=== PATIENT | male | born 1990 | race Two or more races ===

== ENCOUNTER 2018-11-15 20:46 | Emergency (ER) | payer MEDICAID ==
[~2018-11-15] VITALS: Ht 172.7 cm; Wt 70.3 kg
[2018-11-16] MEDS ORDERED: HYDROcodone-ACET 5/325MG TAB PO ONE (02:00)
[2018-11-16] MEDS ORDERED: IBUPROFEN 600 MG TAB PO ONE (02:00)
[2018-11-16 02:31] VITALS: BP 120/88
== END 2018-11-16 02:46 | disposition home or self-care (01) ==
LOC: ER 20:46
DX: S62.346A Nondisplaced fracture of base of fifth metacarpal bone, right hand, initial encounter for closed fracture (principal); J45.909 Unspecified asthma, uncomplicated; W01.198A Fall on same level from slipping, tripping and stumbling with subsequent striking against other object, initial encounter; Y93.02 Activity, running; Y99.8 Other external cause status; Y92.89 Other specified places as the place of occurrence of the external cause
CPT/HCPCS: 29125; 73130

== ENCOUNTER 2019-01-11 17:16 | Inpatient (IN) | payer MEDICAID ==
[~2019-01-11] VITALS: Ht 172.7 cm; Wt 75.1 kg
[2019-01-11 19:10] LABS: Basophils # (auto) 0.1 uL; Basophils % (auto) 0.9 % (0.0-2.0); Eosinophils # (auto) 0.3 uL; Eosinophils % (auto) 2.4 % (0.0-7.0); Hematocrit 33.7 % (41.0-53.0); Hemoglobin 11.3 g/dL (13.5-17.5); Lymphocytes # (auto) 1.5 uL; Lymphocytes % (auto) 12.8 % (10.0-50.0); Mean Corpuscular Hemoglobin 29.3 pg (28.0-32.0); Mean Corpuscular Hgb Conc. 33.4 g/dL (32.0-36.0); Mean Corpuscular Volume 87.7 fL (80.0-100.0); Monocytes # (auto) 0.7 uL; Monocytes % (auto) 6.3 % (0.0-12.0); Neutrophils % (auto) 77.6 % (37.0-80.0); Platelet Count (auto) 327 10^3/uL (140-450); Red Blood Cells 3.85 10^6/uL (4.5-5.90); Red Cell Distribution Width 13.9 % (11.8-14.3); White Blood Cell 11.6 10^3/uL (4.4-10.8)
[2019-01-11 19:21] LABS: Albumin 3.4 g/dL (3.4-5.0); Calcium 7.2 mg/dL (8.5-10.1); Magnesium 1.6 mg/dL (1.6-2.6); Potassium 3.7 mmol/L (3.5-5.1)
[2019-01-11 19:28] LABS: Bilirubin, Total 0.3 mg/dL (0.2-1.0); Total Protein 7.3 g/dL (6.4-8.2)
[2019-01-11] MEDS ORDERED: ACETAMINOPHEN 325 MG TAB PO PRN (22:00)
[2019-01-11] MEDS ORDERED: SOD CHL 0.45% 1,000 ML IV ONE (22:00)
[2019-01-11 23:32] VITALS: BP 136/86
--- NOTE | 2019-01-11 23:35 | NUR ---
MS admit from ER SWATHI THORPE admitted to [facility]. Patient oriented to Jud Lee, primary RN, unit, room, bed, and unit policies regarding patient care and visiting hours. Patient weighed by bedscale and encouraged to call if they need something. All questions and concerns addressed, patient verbalized understanding. Note:
[2019-01-12] MEDS ORDERED: LEVE500T22 PO (00:36)
[2019-01-12 01:17] LABS: Alcohol, Urine < 3.0 mg/dL (0-5); Amphetamine Screen, Urine NEGATIVE (NEGATIVE); Benzodiazephine Screen, Urine NEGATIVE (NEGATIVE); Cannabinoid Screen, Urine POSITIVE (NEGATIVE); Cocaine Screen, Urine NEGATIVE (NEGATIVE); Opiate Scree,Urine NEGATIVE (NEGATIVE); Phencyclidine Screen, Urine NEGATIVE (NEGATIVE)
[2019-01-12 01:23] LABS: Barbiturate Scree,Urine NEGATIVE (NEGATIVE)
[2019-01-12 05:08] VITALS: BP 132/86
[2019-01-12 06:44] LABS: Potassium 3.9 mmol/L (3.5-5.1)
[2019-01-12 06:50] LABS: BUN/Creatinine Ratio 7.9
--- NOTE | 2019-01-12 07:40 | NUR ---
Opening Shift Note Assumed care of patient, awake and alert. No S/S of distress/SOB or pain. Instructed on POC and to call for assist PRN, will continue to monitor for changes Q1hr and PRN.
[2019-01-12 08:30] VITALS: BP 141/89
[2019-01-12] MEDS: LEVETIRACETAM 500 MG TAB PO SCH ×2 (09:23→22:24)
--- NOTE | 2019-01-12 10:49 | NUR ---
md Mtz rounded on patient plan for CK level to be under 1000 in order to discharge
[2019-01-12 12:30] VITALS: BP 133/86
--- NOTE | 2019-01-12 13:42 | NUR ---
pt family at bedside, pt mother updated on plan of care, shared concerns over pt being discharged to early due to rehospitalization, made mother aware no discharge order is in
[2019-01-12] MEDS ORDERED: SODIUM CHLORIDE 0.9% 1,000 ML IV SCH (13:45)
[2019-01-12 17:09] VITALS: BP 145/85
--- NOTE | 2019-01-12 18:03 | NUR ---
PT SIGNED AMA FORM TO GO VISIT HIS VISITOR (BROTHER) OUTSIDE
[2019-01-12] MEDS ORDERED: SODIUM CHLORIDE 0.9% 2,100 ML IV ONE (18:15)
--- NOTE | 2019-01-12 18:29 | NUR ---
FIRST 1000ML BAG OF NS BOLUS TOTAL 2100ML STARTED ON PT
--- NOTE | 2019-01-12 18:59 | NUR ---
PT LEFT AMA TO SEE BROTHER IN HOSPITAL LOBBY/OUTSIDE, 2ND BOLUS TO COMPLETE 2100ML STARTED, MAINTANCE FLUID OF 250ML/HR AT BEDSIDE WILL ENDORSE TO [facility]. U/A SENT TO LAB
[2019-01-12 19:02] LABS: Urine WBC None Seen /hpf (0 - 3)
[2019-01-12 19:13] LABS: Urine Bacteria NONE SEEN /hpf (None Seen); Urine Blood Negative /uL (Negative); Urine Specific Gravity 1.003 (1.001-1.035); Urine Sperm PRESENT /hpf (None Seen)
[2019-01-12] MEDS: SODIUM CHLORIDE 0.9% 1,000 ML IV SCH ×2 (21:12→22:24)
[2019-01-12 22:01] VITALS: BP 139/84
[2019-01-13] MEDS: SODIUM CHLORIDE 0.9% 1,000 ML IV SCH ×6 (02:50→23:02)
[2019-01-13 04:49] VITALS: BP 127/79
[2019-01-13 06:27] LABS: Basophils # (auto) 0.1 uL; Basophils % (auto) 1.2 % (0.0-2.0); Eosinophils # (auto) 0.2 uL; Eosinophils % (auto) 2.2 % (0.0-7.0); Hematocrit 33.1 % (41.0-53.0); Hemoglobin 11.2 g/dL (13.5-17.5); Lymphocytes # (auto) 1.5 uL; Lymphocytes % (auto) 15.3 % (10.0-50.0); Mean Corpuscular Hemoglobin 29.8 pg (28.0-32.0); Mean Corpuscular Volume 87.7 fL (80.0-100.0); Monocytes # (auto) 0.5 uL; Monocytes % (auto) 5.2 % (0.0-12.0); Neutrophils # (auto) 7.3 uL; Neutrophils % (auto) 76.1 % (37.0-80.0); Platelet Count (auto) 318 10^3/uL (140-450); Red Blood Cells 3.77 10^6/uL (4.5-5.90); Red Cell Distribution Width 14.3 % (11.8-14.3); White Blood Cell 9.6 10^3/uL (4.4-10.8)
[2019-01-13 07:27] LABS: Albumin 3.2 g/dL (3.4-5.0); Calcium 7.2 mg/dL (8.5-10.1); Magnesium 1.5 mg/dL (1.6-2.6)
[2019-01-13 07:31] LABS: BUN/Creatinine Ratio 8.8; Bilirubin, Total 0.3 mg/dL (0.2-1.0); Phosphorus 2.9 mg/dL (2.5-4.90); Total Protein 6.5 g/dL (6.4-8.2)
[2019-01-13 08:30] VITALS: BP_SYST 133; BP_SYST 134; BP_DIAS 87; BP_DIAS 99
[2019-01-13] MEDS: LEVETIRACETAM 500 MG TAB PO SCH ×2 (09:35→23:02)
--- NOTE | 2019-01-13 12:46 | NUR ---
rounded on patient per pt he has very mild generalized pain in LLQ not radiating per pt "feels like gas just thought i would let you know" asked pt if he needed anything for the pain pt denies need for prn medication, will inform md during rounds
--- NOTE | 2019-01-13 13:17 | NUR ---
pt mother came to station wanting update on pt paged md brar for update on when he will round on this patient, per pt mother she would like cardiac enzymes re ran because they were elevated on admission awaiting call back from md brar
[2019-01-13] MEDS ORDERED: CALCIUM GLUC 4.65meq/50ml D5AE 50 ML IV ONE (13:30)
[2019-01-13] MEDS ORDERED: SODIUM CHLORIDE 0.9% 2,200 ML IV ONE (13:30)
[2019-01-13] MEDS ORDERED: MAGNESIUM SULFATE 1GM/100ML 100 ML IV ONE (14:00)
[2019-01-13 16:34] VITALS: BP 137/90
--- NOTE | 2019-01-13 19:20 | NUR ---
Opening Shift Note Assumed care of patient, awake and alert. No S/S of distress/SOB. The patient reports LLQ pain which is exacerbated with deep breathing. He states that the pain is a 2/10 severity but he reports being comfortable with it. Mother is present at bedside. Instructed on POC and to call for assist PRN, will continue to monitor for changes Q1hr and PRN.
[2019-01-13 22:00] VITALS: BP_SYST 123; BP_SYST 148; BP_DIAS 90; BP_DIAS 98
[2019-01-14 05:00] VITALS: BP 129/75
[2019-01-14 05:49] LABS: Basophils # (auto) 0.1 uL; Basophils % (auto) 1.4 % (0.0-2.0); Eosinophils # (auto) 0.2 uL; Eosinophils % (auto) 2.4 % (0.0-7.0); Hematocrit 32.1 % (41.0-53.0); Hemoglobin 10.7 g/dL (13.5-17.5); Lymphocytes # (auto) 1.4 uL; Lymphocytes % (auto) 17.3 % (10.0-50.0); Mean Corpuscular Hemoglobin 29.3 pg (28.0-32.0); Mean Corpuscular Hgb Conc. 33.1 g/dL (32.0-36.0); Mean Corpuscular Volume 88.5 fL (80.0-100.0); Monocytes # (auto) 0.5 uL; Monocytes % (auto) 5.8 % (0.0-12.0); Neutrophils % (auto) 73.1 % (37.0-80.0); Platelet Count (auto) 289 10^3/uL (140-450); Red Blood Cells 3.63 10^6/uL (4.5-5.90); Red Cell Distribution Width 13.9 % (11.8-14.3); White Blood Cell 8.2 10^3/uL (4.4-10.8)
[2019-01-14] MEDS: SODIUM CHLORIDE 0.9% 1,000 ML IV SCH ×3 (05:52→09:22)
[2019-01-14 06:13] LABS: Albumin 2.9 g/dL (3.4-5.0); Calcium 6.9 mg/dL (8.5-10.1); Potassium 4.1 mmol/L (3.5-5.1)
[2019-01-14 06:21] LABS: BUN/Creatinine Ratio 7.9; Bilirubin, Total 0.3 mg/dL (0.2-1.0); Magnesium 1.5 mg/dL (1.6-2.6); Phosphorus 2.8 mg/dL (2.5-4.90)
[2019-01-14 09:00] VITALS: BP 140/89
[2019-01-14] MEDS: LEVETIRACETAM 500 MG TAB PO SCH (09:22)
[2019-01-14 12:44] VITALS: BP 136/61
[2019-01-14 13:00] VITALS: BP 133/87
--- NOTE | 2019-01-14 13:26 | NUR ---
Follow up with the following: Provider's Name:Paulette Barakat Address:[address] Appointment Date:OFFICE AT [facility] please call for appointment IF YOUR HEALTH CONDITION DOES NOT CONTINUE TO IMPROVE OR WORSENS, CONTACT YOUR PRIMARY CARE PROVIDER/DOCTOR, OR GO IMMEDIATELY TO THE NEAREST EMERGENCY DEPARTMENT FOR EVALUATION pt escorted our pt ambulatory accompaniedby his mother peripheral lac iv removed no bleeding noted
== END 2019-01-14 13:25 | disposition home or self-care (01) | DRG 351 ==
LOC: ER 17:16 → OVERFLOW 17:17 → WEST WING 23:37
PROVIDERS: ADMIT Hospitalist; ATTEND Internal Medicine
DX: M62.82 Rhabdomyolysis (principal); N17.9 Acute kidney failure, unspecified; E83.51 Hypocalcemia; E87.70 Fluid overload, unspecified; G40.909 Epilepsy, unspecified, not intractable, without status epilepticus; D64.9 Anemia, unspecified; F12.10 Cannabis abuse, uncomplicated; Z82.49 Family history of ischemic heart disease and other diseases of the circulatory system
CPT/HCPCS: 36415; 71045; 76775; 80048; 80053; 80307; 81001; 82085; 82550; 83735; 83880; 84100; 84484; 85025; 87081; 94761; 96360; G0378; J0610

== ENCOUNTER 2019-05-04 09:18 | Emergency (ER) | payer MEDICAID ==
[~2019-05-04] VITALS: Ht 172.7 cm; Wt 68.0 kg
[~2019-05-04 09:18] MED LIST: LEVE500T22 PO
[2019-05-04 09:56] LABS: Basophils # (auto) 0 uL; Basophils % (auto) 0.7 % (0.0-2.0); Eosinophils # (auto) 0 uL; Eosinophils % (auto) 0.6 % (0.0-7.0); Hematocrit 45.2 % (41.0-53.0); Hemoglobin 15.1 g/dL (13.5-17.5); Lymphocytes # (auto) 1.1 uL; Lymphocytes % (auto) 17.7 % (10.0-50.0); Mean Corpuscular Hemoglobin 29.3 pg (28.0-32.0); Mean Corpuscular Hgb Conc. 33.3 g/dL (32.0-36.0); Monocytes # (auto) 0.2 uL; Monocytes % (auto) 3.4 % (0.0-12.0); Neutrophils # (auto) 4.8 uL; Neutrophils % (auto) 77.6 % (37.0-80.0); Nucleated Red Blood Cells % 0.1 %; Platelet Count (auto) 206 10^3/uL (140-450); Red Blood Cells 5.14 10^6/uL (4.5-5.90); Red Cell Distribution Width 13.2 % (11.8-14.3); White Blood Cell 6.2 10^3/uL (4.4-10.8)
[2019-05-04 10:12] LABS: Anion Gap 4 (5-15); Blood Urea Nitrogen 20 mg/dL (7-18); Calcium 8.7 mg/dL (8.5-10.1); Carbon Dioxide 29 mmol/L (21-32); Chloride 107 mmol/L (98-107); Glucose 121 mg/dL (74-106); Potassium 5.1 mmol/L (3.5-5.1); Sodium 140 mmol/L (136-145)
[2019-05-04 10:16] LABS: Alanine Aminotransferase 26 U/L (16-61); Alkaline Phosphatase 73 U/L (45-117); Aspartate Aminotransferase 23 U/L (15-37); BUN/Creatinine Ratio 17.9; Bilirubin, Total < 0.1 mg/dL (0.2-1.0); GFR African American 102 mL/min; GFR Non-African American 84 mL/min; Total Protein 7.5 g/dL (6.4-8.2)
[2019-05-04] MEDS ORDERED: LORazepam 2MG/ML-1ML VIAL IV ONE ×2 (10:45→11:00)
[2019-05-04] MEDS ORDERED: SODIUM CHLORIDE 0.9% 1,000 ML IV ONE (10:59)
[2019-05-04] MEDS ORDERED: SODIUM CHLORIDE 0.9% 500 ML IVB ONE (10:59)
[2019-05-04 11:01] LABS: Urine Bacteria NONE SEEN /hpf (None Seen); Urine Blood Negative /uL (Negative); Urine Specific Gravity 1.018 (1.001-1.035); Urine WBC <1 /hpf (0 - 3)
[2019-05-04 11:06] LABS: Amphetamine Screen, Urine NEGATIVE (NEGATIVE); Barbiturate Scree,Urine NEGATIVE (NEGATIVE); Benzodiazephine Screen, Urine NEGATIVE (NEGATIVE); Cannabinoid Screen, Urine POSITIVE (NEGATIVE); Cocaine Screen, Urine NEGATIVE (NEGATIVE); Opiate Scree,Urine NEGATIVE (NEGATIVE); Phencyclidine Screen, Urine NEGATIVE (NEGATIVE)
[2019-05-04 13:25] VITALS: BP 113/70
== END 2019-05-04 13:22 | disposition home or self-care (01) ==
LOC: ER 09:18
DX: G40.909 Epilepsy, unspecified, not intractable, without status epilepticus (principal); F12.10 Cannabis abuse, uncomplicated; Z79.899 Other long term (current) drug therapy
CPT/HCPCS: 36415; 70450; 71046; 80053; 80307; 81001; 83735; 85025; 93005; 96365; 99285; J1953; J2060; J7060

== ENCOUNTER → 2019-06-16 | Emergency (ER) | payer MEDICAID ==
[~2019-06-16] VITALS: Ht 172.7 cm; Wt 68.0 kg
[2019-06-16 20:06] VITALS: BP 118/72
== END | disposition home or self-care (01) ==
LOC: ER 16:29
DX: S62.306A Unspecified fracture of fifth metacarpal bone, right hand, initial encounter for closed fracture (principal); R51 Headache; Z79.899 Other long term (current) drug therapy; V00.131A Fall from skateboard, initial encounter; Y93.51 Activity, roller skating (inline) and skateboarding; Y92.89 Other specified places as the place of occurrence of the external cause; Y99.8 Other external cause status
CPT/HCPCS: 29125; 70450; 73110

== ENCOUNTER 2019-10-01 21:05 | Emergency (ER) | payer MEDICAID ==
[~2019-10-01] VITALS: Ht 172.7 cm; Wt 68.0 kg
[~2019-10-01 21:05] MED LIST changes: -LEVE500T22 PO; +LEVE500T32 PO
[2019-10-01 23:34] LABS: Hematocrit 46.6 % (41.0-53.0); Hemoglobin 15.2 g/dL (13.5-17.5); Mean Corpuscular Hemoglobin 28.6 pg (28.0-32.0); Mean Corpuscular Hgb Conc. 32.6 g/dL (32.0-36.0); Mean Corpuscular Volume 87.9 fL (80.0-100.0); Platelet Count (auto) 263 10^3/uL (140-450); Red Blood Cells 5.31 10^6/uL (4.5-5.90); Red Cell Distribution Width 13.2 % (11.8-14.3); White Blood Cell 21.8 10^3/uL (4.4-10.8)
[2019-10-01 23:37] LABS: Basophils % (manual) 0 (0.0-2.0); Blast Cells 0; Eosinophils % (manual) 0 (0-7); Metamyelocytes % 0; Myelocytes % 0; Promyelocytes % 0; Reactive Lymphocytes 0
[2019-10-01 23:44] LABS: Potassium 3.7 mmol/L (3.5-5.1)
[2019-10-01 23:48] LABS: Albumin 4.8 g/dL (3.4-5.0); BUN/Creatinine Ratio 16.9; Calcium 9.4 mg/dL (8.5-10.1)
[2019-10-01 23:51] LABS: Bilirubin, Total 0.5 mg/dL (0.2-1.0); Total Protein 8.6 g/dL (6.4-8.2)
[2019-10-02 00:09] LABS: Band Neutrophils % (manual) 3; Lymphocytes % (manual) 7 (10.0-50.0); Monocytes % (manual) 3 (0-12)
[2019-10-02 00:19] LABS: Amphetamine Screen, Urine NEGATIVE (NEGATIVE); Barbiturate Scree,Urine NEGATIVE (NEGATIVE); Benzodiazephine Screen, Urine NEGATIVE (NEGATIVE); Cannabinoid Screen, Urine POSITIVE (NEGATIVE); Cocaine Screen, Urine NEGATIVE (NEGATIVE)
[2019-10-02 00:26] LABS: Opiate Scree,Urine NEGATIVE (NEGATIVE); Phencyclidine Screen, Urine NEGATIVE (NEGATIVE)
[2019-10-02] MEDS ORDERED: levETIRAcetam 500 MG TAB PO ONE (01:45)
[2019-10-02 02:47] VITALS: BP 104/63
== END 2019-10-02 03:05 | disposition home or self-care (01) ==
LOC: ER 21:05 → EDBD 21:05 → ER 10-02 03:05
DX: G40.909 Epilepsy, unspecified, not intractable, without status epilepticus (principal); F19.10 Other psychoactive substance abuse, uncomplicated; E86.0 Dehydration; F12.10 Cannabis abuse, uncomplicated; R51 Headache; M25.512 Pain in left shoulder
CPT/HCPCS: 36415; 70450; 71045; 72125; 73030; 80053; 80307; 80320; 85007; 85027; 93005

== ENCOUNTER 2019-11-22 08:01 | Emergency (ER) | payer MEDICAID ==
[~2019-11-22] VITALS: Ht 172.7 cm; Wt 72.6 kg
[2019-11-22] MEDS ORDERED: SODIUM CHLORIDE 0.9% 1,000 ML IV ONE (08:15)
[2019-11-22 08:29] LABS: Basophils # (auto) 0 10 ^3/uL (0-0.2); Basophils % (auto) 0.4 % (0.0-2.0); Eosinophils # (auto) 0.1 10 ^3/uL (0-0.8); Eosinophils % (auto) 1.5 % (0.0-7.0); Hematocrit 40.7 % (41.0-53.0); Hemoglobin 13.5 g/dL (13.5-17.5); Lymphocytes # (auto) 1.6 10 ^3/uL (0.4-5.4); Lymphocytes % (auto) 23.2 % (10.0-50.0); Mean Corpuscular Hemoglobin 29.8 pg (28.0-32.0); Mean Corpuscular Hgb Conc. 33.1 g/dL (32.0-36.0); Mean Corpuscular Volume 89.8 fL (80.0-100.0); Monocytes # (auto) 0.4 10 ^3/uL (0-1.3); Neutrophils % (auto) 69.9 % (37.0-80.0); Nucleated Red Blood Cells % 0.1 %; Platelet Count (auto) 189 10^3/uL (140-450); Red Blood Cells 4.54 10^6/uL (4.5-5.90); Red Cell Distribution Width 13.9 % (11.8-14.3); White Blood Cell 7.1 10^3/uL (4.4-10.8)
[2019-11-22] MEDS ORDERED: LORazepam 2MG/ML-1ML VIAL IV ONE (08:30)
[2019-11-22 08:44] LABS: Albumin 3.9 g/dL (3.4-5.0); Calcium 8.3 mg/dL (8.5-10.1); Potassium 3.6 mmol/L (3.5-5.1)
[2019-11-22 08:49] LABS: BUN/Creatinine Ratio 16.9; Bilirubin, Total 0.2 mg/dL (0.2-1.0); Total Protein 6.9 g/dL (6.4-8.2)
[2019-11-22 09:13] LABS: Urine Bacteria NONE SEEN /hpf (None Seen); Urine Blood Negative /uL (Negative); Urine Specific Gravity 1.012 (1.001-1.035); Urine WBC 1 /hpf (0 - 3)
[2019-11-22 09:22] LABS: Alcohol, Urine < 3.0 mg/dL (0-10); Amphetamine Screen, Urine NEGATIVE (NEGATIVE); Barbiturate Scree,Urine NEGATIVE (NEGATIVE); Benzodiazephine Screen, Urine NEGATIVE (NEGATIVE); Cannabinoid Screen, Urine POSITIVE (NEGATIVE); Cocaine Screen, Urine NEGATIVE (NEGATIVE); Opiate Scree,Urine NEGATIVE (NEGATIVE); Phencyclidine Screen, Urine NEGATIVE (NEGATIVE)
[2019-11-22 10:50] VITALS: BP 125/75
== END 2019-11-22 10:52 | disposition home or self-care (01) ==
LOC: EDBD 08:01 → ER 08:01
DX: G40.909 Epilepsy, unspecified, not intractable, without status epilepticus (principal); E86.0 Dehydration; Z79.899 Other long term (current) drug therapy
CPT/HCPCS: 36415; 70450; 80053; 80307; 81001; 85025; 96361; 96374; 99284; J2060; J7030

== ENCOUNTER 2020-03-10 21:33 | Emergency (ER) | payer MEDICAID, OTHER ==
[~2020-03-10] VITALS: Ht 172.7 cm; Wt 74.8 kg
[2020-03-11 00:17] VITALS: BP 129/87
== END 2020-03-11 00:20 | disposition home or self-care (01) ==
LOC: ER 21:38
DX: S63.91XA Sprain of unspecified part of right wrist and hand, initial encounter (principal); X58.XXXA Exposure to other specified factors, initial encounter; Y93.89 Activity, other specified; Y92.89 Other specified places as the place of occurrence of the external cause; Y99.8 Other external cause status
CPT/HCPCS: 73130

== ENCOUNTER 2020-06-08 11:09 | Emergency (ER) | payer MEDICAID, OTHER ==
[~2020-06-08] VITALS: Ht 172.7 cm; Wt 74.8 kg
[2020-06-08] MEDS ORDERED: SODIUM CHLORIDE 0.9% 500 ML IV ONE (11:45)
[2020-06-08 12:00] VITALS: BP 125/83
[2020-06-08 12:30] LABS: Basophils # (auto) 0 10 ^3/uL (0-0.2); Basophils % (auto) 0.6 % (0.0-2.0); Eosinophils # (auto) 0 10 ^3/uL (0-0.8); Eosinophils % (auto) 0.3 % (0.0-7.0); Hemoglobin 14.3 g/dL (13.5-17.5); Lymphocytes # (auto) 1.3 10 ^3/uL (0.4-5.4); Lymphocytes % (auto) 21.4 % (10.0-50.0); Mean Corpuscular Hemoglobin 29.9 pg (28.0-32.0); Mean Corpuscular Hgb Conc. 34.2 g/dL (32.0-36.0); Mean Corpuscular Volume 87.6 fL (80.0-100.0); Monocytes # (auto) 0.3 10 ^3/uL (0-1.3); Monocytes % (auto) 5.2 % (0.0-12.0); Neutrophils # (auto) 4.5 10 ^3/uL (1.6-8.6); Neutrophils % (auto) 72.5 % (37.0-80.0); Nucleated Red Blood Cells % 0.1 %; Platelet Count (auto) 210 10^3/uL (140-450); Red Blood Cells 4.79 10^6/uL (4.5-5.90); Red Cell Distribution Width 13.1 % (11.8-14.3); White Blood Cell 6.2 10^3/uL (4.4-10.8)
[2020-06-08 13:38] LABS: Albumin 4.3 g/dL (3.4-5.0); Calcium 9.3 mg/dL (8.5-10.1); Potassium 3.6 mmol/L (3.5-5.1)
[2020-06-08 13:42] LABS: BUN/Creatinine Ratio 19.8; Bilirubin, Total 0.7 mg/dL (0.2-1.0); CRP High Sensitivity 0.14 mg/dL (< 0.3); Total Protein 7.7 g/dL (6.4-8.2)
[2020-06-08 14:03] LABS: Urine Bacteria NONE SEEN /hpf (None Seen); Urine Blood Negative /uL (Negative); Urine Specific Gravity 1.013 (1.001-1.035); Urine WBC 3 /hpf (0 - 3)
== END 2020-06-08 14:54 | disposition home or self-care (01) ==
LOC: ER 11:09
DX: E86.0 Dehydration (principal); R19.7 Diarrhea, unspecified; Z20.822 Contact with and (suspected) exposure to COVID-19
CPT/HCPCS: 36415; 71045; 80053; 81001; 82728; 85025; 86141; 87426; 93005; 96360; 99285; J7030

== ENCOUNTER 2021-04-13 11:32 | Emergency (ER) | payer MEDICAID ==
[~2021-04-13] VITALS: Ht 172.7 cm; Wt 79.4 kg
[2021-04-13 14:34] VITALS: BP 129/66
[2021-04-13] MEDS ORDERED: CYCL-837 PO (15:05)
[2021-04-13] MEDS ORDERED: ACET-1158 PO (15:05)
== END 2021-04-13 15:55 | disposition home or self-care (01) ==
LOC: ER 11:32
DX: S20.212A Contusion of left front wall of thorax, initial encounter (principal); Z79.899 Other long term (current) drug therapy; W18.39XA Other fall on same level, initial encounter; Y93.23 Activity, snow (alpine) (downhill) skiing, snowboarding, sledding, tobogganing and snow tubing; Y92.89 Other specified places as the place of occurrence of the external cause; Y99.8 Other external cause status
CPT/HCPCS: 71101

== ENCOUNTER 2021-06-03 14:36 | Emergency (ER) | payer MEDICAID, OTHER ==
[~2021-06-03] VITALS: Ht 172.7 cm; Wt 79.8 kg
[~2021-06-03 14:36] MED LIST changes: +ACET-1158 PO; +CYCL-837 PO
[2021-06-03 14:37] VITALS: BP 141/91
[2021-06-03] MEDS ORDERED: METH750T22 PO (16:07)
[2021-06-03] MEDS ORDERED: ACET-1080 PO (16:07)
[2021-06-03] MEDS ORDERED: ACETAMINOPHEN 500 MG TAB PO ONE (16:15)
== END 2021-06-03 16:16 | disposition home or self-care (01) ==
LOC: ER 14:36
DX: S39.012A Strain of muscle, fascia and tendon of lower back, initial encounter (principal); S00.83XA Contusion of other part of head, initial encounter; N18.9 Chronic kidney disease, unspecified; Z79.899 Other long term (current) drug therapy; V43.52XA Car driver injured in collision with other type car in traffic accident, initial encounter; Y93.89 Activity, other specified; Y92.410 Unspecified street and highway as the place of occurrence of the external cause; Y99.8 Other external cause status
CPT/HCPCS: 72070

== ENCOUNTER 2021-09-21 01:57 | Emergency (ER) | payer MEDICAID ==
[~2021-09-21 01:57] MED LIST changes: +ACET-1080 PO; +METH750T22 PO
[2021-09-21] MEDS ORDERED: cefTRIAXone SOD 1,000 MG VL IM ONE (07:15)
[2021-09-21] MEDS ORDERED: CEPH-509 PO (07:21)
[2021-09-21] MEDS ORDERED: ACET-1158 PO (07:21)
[2021-09-21 07:55] VITALS: BP 130/66
== END 2021-09-21 08:08 | disposition home or self-care (01) ==
LOC: ER 01:57
DX: S01.81XA Laceration without foreign body of other part of head, initial encounter (principal); N18.9 Chronic kidney disease, unspecified; Z79.899 Other long term (current) drug therapy; V29.9XXA Motorcycle rider (driver) (passenger) injured in unspecified traffic accident, initial encounter; Y93.89 Activity, other specified; Y92.89 Other specified places as the place of occurrence of the external cause; Y99.8 Other external cause status
CPT/HCPCS: 70450; 96372; 99284; J0696

== ENCOUNTER 2021-09-25 13:55 | Emergency (ER) | payer MEDICAID ==
[~2021-09-25] VITALS: Ht 172.7 cm; Wt 79.5 kg
[~2021-09-25 13:55] MED LIST changes: +CEPH-509 PO
[2021-09-25 15:09] VITALS: BP 130/77
[2021-09-25] MEDS ORDERED: CEPH-509 PO (16:14)
== END 2021-09-25 16:20 | disposition home or self-care (01) ==
LOC: ER 13:55
DX: S01.81XD Laceration without foreign body of other part of head, subsequent encounter (principal); F17.210 Nicotine dependence, cigarettes, uncomplicated; F12.10 Cannabis abuse, uncomplicated; W18.09XD Striking against other object with subsequent fall, subsequent encounter

== ENCOUNTER 2021-12-12 07:03 | Emergency (ER) | payer MEDICAID ==
[~2021-12-12] VITALS: Ht 172.7 cm; Wt 170.0 kg
[2021-12-12] MEDS ORDERED: SODIUM CHLORIDE 0.9% 1,000 ML IV ONE ×2 (07:45)
[2021-12-12] MEDS ORDERED: LORazepam 2MG/ML-1ML VIAL IV ONE (07:45)
[2021-12-12 07:49] LABS: Basophils # (auto) 0.1 10 ^3/uL (0-0.2); Basophils % (auto) 0.8 % (0.0-2.0); Eosinophils # (auto) 0.1 10 ^3/uL (0-0.8); Eosinophils % (auto) 0.7 % (0.0-7.0); Hematocrit 44.6 % (41.0-53.0); Hemoglobin 14.9 g/dL (13.5-17.5); Lymphocytes # (auto) 1.6 10 ^3/uL (0.4-5.4); Lymphocytes % (auto) 16.4 % (10.0-50.0); Mean Corpuscular Hemoglobin 29.8 pg (28.0-32.0); Mean Corpuscular Hgb Conc. 33.3 g/dL (32.0-36.0); Mean Corpuscular Volume 89.4 fL (80.0-100.0); Monocytes # (auto) 0.3 10 ^3/uL (0-1.3); Monocytes % (auto) 2.7 % (0.0-12.0); Neutrophils # (auto) 7.8 10 ^3/uL (1.6-8.6); Neutrophils % (auto) 79.4 % (37.0-80.0); Red Blood Cells 4.99 10^6/uL (4.5-5.90); Red Cell Distribution Width 14.1 % (11.8-14.3); White Blood Cell 9.8 10^3/uL (4.4-10.8)
[2021-12-12 07:59] LABS: BUN/Creatinine Ratio 12.8; Calcium 8.6 mg/dL (8.5-10.1); Potassium 4.1 mmol/L (3.5-5.1)
[2021-12-12 08:02] LABS: Bilirubin, Total 0.3 mg/dL (0.2-1.0); Total Protein 7.3 g/dL (6.4-8.2)
[2021-12-12 09:26] LABS: Urine Amorphous Crystal FEW /hpf (None Seen); Urine Bacteria NONE SEEN /hpf (None Seen); Urine Blood TRACE /uL (Negative); Urine Mucus FEW (None Seen); Urine Specific Gravity 1.019 (1.001-1.035); Urine WBC <1 /hpf (0 - 3)
[2021-12-12 09:31] LABS: Amphetamine Screen, Urine NEGATIVE (NEGATIVE); Barbiturate Scree,Urine NEGATIVE (NEGATIVE); Benzodiazephine Screen, Urine NEGATIVE (NEGATIVE); Cannabinoid Screen, Urine POSITIVE (NEGATIVE); Cocaine Screen, Urine NEGATIVE (NEGATIVE); Opiate Scree,Urine NEGATIVE (NEGATIVE); Phencyclidine Screen, Urine NEGATIVE (NEGATIVE)
[2021-12-12 09:46] VITALS: BP 116/69
[2021-12-12] MEDS ORDERED: CLON0.5T PO (10:58)
== END 2021-12-12 11:14 | disposition home or self-care (01) ==
LOC: EDBD 07:03 → ER 07:03
DX: G40.909 Epilepsy, unspecified, not intractable, without status epilepticus (principal); F17.210 Nicotine dependence, cigarettes, uncomplicated; F12.10 Cannabis abuse, uncomplicated
CPT/HCPCS: 36415; 70450; 71046; 80053; 80307; 81001; 83735; 85025; 93005; 96361; 96374; 99285; J2060; J7030

== ENCOUNTER 2022-02-03 16:37 | Emergency (ER) | payer MEDICAID ==
[~2022-02-03] VITALS: Ht 177.8 cm; Wt 77.0 kg
[~2022-02-03 16:37] MED LIST changes: +CLON0.5T PO
[2022-02-03] MEDS ORDERED: SODIUM CHLORIDE 0.9% 1,000 ML IVB ONE (17:15)
[2022-02-03 17:33] LABS: Basophils # (auto) 0 10 ^3/uL (0-0.2); Basophils % (auto) 0.2 % (0.0-2.0); Eosinophils # (auto) 0 10 ^3/uL (0-0.8); Hematocrit 47.4 % (41.0-53.0); Hemoglobin 15.8 g/dL (13.5-17.5); Lymphocytes # (auto) 0.4 10 ^3/uL (0.4-5.4); Lymphocytes % (auto) 3.9 % (10.0-50.0); Mean Corpuscular Hemoglobin 29.9 pg (28.0-32.0); Mean Corpuscular Hgb Conc. 33.4 g/dL (32.0-36.0); Mean Corpuscular Volume 89.5 fL (80.0-100.0); Monocytes # (auto) 0.3 10 ^3/uL (0-1.3); Neutrophils # (auto) 8.8 10 ^3/uL (1.6-8.6); Neutrophils % (auto) 92.9 % (37.0-80.0); Red Cell Distribution Width 13.6 % (11.8-14.3); White Blood Cell 9.5 10^3/uL (4.4-10.8)
[2022-02-03 17:49] LABS: Albumin 4.2 g/dL (3.4-5.0); Anion Gap 13 (5-15); Blood Alcohol < 3.0 mg/dL (0-5); Blood Urea Nitrogen 15 mg/dL (7-18); Carbon Dioxide 19 mmol/L (21-32); Chloride 105 mmol/L (98-107); Glucose 193 mg/dL (74-106); Potassium 4.6 mmol/L (3.5-5.1); Sodium 137 mmol/L (136-145)
[2022-02-03 17:51] LABS: Alanine Aminotransferase 26 U/L (16-61); Aspartate Aminotransferase 19 U/L (15-37); BUN/Creatinine Ratio 9.9; GFR African American 70 mL/min; GFR Non-African American 58 mL/min
[2022-02-03 17:53] LABS: Alkaline Phosphatase 86 U/L (45-117); Bilirubin, Total 0.5 mg/dL (0.2-1.0); Total Protein 7.6 g/dL (6.4-8.2)
[2022-02-03 19:57] LABS: Amphetamine Screen, Urine NEGATIVE (NEGATIVE); Barbiturate Scree,Urine NEGATIVE (NEGATIVE); Benzodiazephine Screen, Urine NEGATIVE (NEGATIVE); Cannabinoid Screen, Urine POSITIVE (NEGATIVE); Cocaine Screen, Urine NEGATIVE (NEGATIVE); Opiate Scree,Urine NEGATIVE (NEGATIVE); Phencyclidine Screen, Urine NEGATIVE (NEGATIVE)
[2022-02-03] MEDS ORDERED: LEVE500T32 PO (19:59)
[2022-02-03] MEDS ORDERED: LORazepam 2MG/ML-1ML VIAL IV ONE (20:15)
[2022-02-03 21:00] VITALS: BP 116/65
== END 2022-02-03 21:11 | disposition home or self-care (01) ==
LOC: EDBD 16:37 → ER 16:37
DX: G40.909 Epilepsy, unspecified, not intractable, without status epilepticus (principal); N18.9 Chronic kidney disease, unspecified; F17.210 Nicotine dependence, cigarettes, uncomplicated; Z79.899 Other long term (current) drug therapy
CPT/HCPCS: 36415; 70450; 80053; 80307; 80320; 85025; 93005; 96365; 99285; J1953; J7060

== ENCOUNTER 2022-10-26 20:28 | Inpatient (IN) | payer MEDICAID ==
[~2022-10-26] VITALS: Ht 154.9 cm; Wt 86.0 kg
[~2022-10-26 20:28] MED LIST changes: -ACET-1158 PO; +ACET500T58 PO; +CLON-1003 PO; -CLON0.5T PO; -LEVE500T32 PO; +LEVE500T40 PO; +METH-1182 PO; -METH750T22 PO
[2022-10-26] MEDS ORDERED: ACCU-CHEK COMFORT CURVE STRIP VI ONE (20:45)
[2022-10-26 21:08] LABS: Basophils # (auto) 0.1 10 ^3/uL (0-0.2); Basophils % (auto) 0.5 % (0.0-2.0); Eosinophils # (auto) 0 10 ^3/uL (0-0.8); Eosinophils % (auto) 0.1 % (0.0-7.0); Hematocrit 41.8 % (41.0-53.0); Hemoglobin 13.7 g/dL (13.5-17.5); Lymphocytes # (auto) 1.5 10 ^3/uL (0.4-5.4); Lymphocytes % (auto) 7.2 % (10.0-50.0); Mean Corpuscular Hemoglobin 29.3 pg (28.0-32.0); Mean Corpuscular Hgb Conc. 32.8 g/dL (32.0-36.0); Mean Corpuscular Volume 89.2 fL (80.0-100.0); Monocytes # (auto) 0.8 10 ^3/uL (0-1.3); Neutrophils # (auto) 18.9 10 ^3/uL (1.6-8.6); Neutrophils % (auto) 88.2 % (37.0-80.0); Nucleated Red Blood Cells % 0.1 %; Red Blood Cells 4.69 10^6/uL (4.5-5.90); Red Cell Distribution Width 14.6 % (11.8-14.3); White Blood Cell 21.4 10^3/uL (4.4-10.8)
[2022-10-26 21:30] LABS: Alanine Aminotransferase 59 U/L (7-40); Albumin 4.8 g/dL (3.2-4.8); Alkaline Phosphatase 85 U/L (46-116); Anion Gap 12.6 (5-15); Aspartate Aminotransferase 47 U/L (13-40); BUN/Creatinine Ratio 10.2 (10.0-20.0); Bilirubin, Total 0.2 mg/dL (0.2-1.0); Blood Urea Nitrogen 13 mg/dL (9-23); Carbon Dioxide 20.4 mmol/L (20-30); Chloride 107 mmol/L (98-107); Glucose 156 mg/dL (74-106); Potassium 4.3 mmol/L (3.5-5.1); Sodium 140 mmol/L (136-145); Total Protein 7.6 g/dL (5.7-8.2)
[2022-10-26 21:48] VITALS: PULSE 89; RESP 14; O2SAT 94
[2022-10-26] MEDS ORDERED: levETIRAcetam 500 MG/5ML INJ IV ONE (23:39)
[2022-10-27] MEDS ORDERED: LORazepam 2MG/ML-1ML VIAL IV ONE ×2
[2022-10-27] MEDS ORDERED: LORazepam 2MG/ML-1ML VIAL IV PRN (01:45)
[2022-10-27] MEDS ORDERED: ONDANSETRON HCL 4 MG/2 ML VIAL IV PRN (01:45)
[2022-10-27] MEDS ORDERED: SODIUM CHLORIDE 0.9% 500 ML IV ONE (04:15)
[2022-10-27 05:59] LABS: Basophils # (auto) 0 10 ^3/uL (0-0.2); Basophils % (auto) 0.3 % (0.0-2.0); Eosinophils # (auto) 0 10 ^3/uL (0-0.8); Hematocrit 37.5 % (41.0-53.0); Hemoglobin 12.5 g/dL (13.5-17.5); Lymphocytes # (auto) 0.8 10 ^3/uL (0.4-5.4); Lymphocytes % (auto) 4.8 % (10.0-50.0); Mean Corpuscular Hemoglobin 29.4 pg (28.0-32.0); Mean Corpuscular Hgb Conc. 33.3 g/dL (32.0-36.0); Mean Corpuscular Volume 88.3 fL (80.0-100.0); Monocytes # (auto) 0.8 10 ^3/uL (0-1.3); Monocytes % (auto) 4.6 % (0.0-12.0); Neutrophils # (auto) 14.9 10 ^3/uL (1.6-8.6); Neutrophils % (auto) 90.3 % (37.0-80.0); Red Blood Cells 4.25 10^6/uL (4.5-5.90); Red Cell Distribution Width 14.6 % (11.8-14.3); White Blood Cell 16.5 10^3/uL (4.4-10.8)
[2022-10-27 06:01] LABS: Alanine Aminotransferase 48 U/L (7-40); Albumin 4.4 g/dL (3.2-4.8); Alkaline Phosphatase 75 U/L (46-116); Anion Gap 11.7 (5-15); Aspartate Aminotransferase 36 U/L (13-40); Blood Urea Nitrogen 17 mg/dL (9-23); Calcium 8.6 mg/dL (8.7-10.4); Carbon Dioxide 19.3 mmol/L (20-30); Chloride 107 mmol/L (98-107); Glucose 127 mg/dL (74-106); Potassium 3.9 mmol/L (3.5-5.1); Sodium 138 mmol/L (136-145)
[2022-10-27 06:02] LABS: Bilirubin, Total 0.4 mg/dL (0.2-1.0); Total Protein 6.9 g/dL (5.7-8.2)
[2022-10-27 06:12] LABS: Amphetamine Screen, Urine Neg (NEGATIVE); Barbiturate Scree,Urine Neg (NEGATIVE); Benzodiazephine Screen, Urine Neg (NEGATIVE); Cocaine Screen, Urine Neg (NEGATIVE)
[2022-10-27 06:13] LABS: Cannabinoid Screen, Urine Pos (NEGATIVE); Opiate Scree,Urine Neg (NEGATIVE); Phencyclidine Screen, Urine Neg (NEGATIVE)
[2022-10-27 07:35] VITALS: PULSE 98; RESP 24; O2SAT 96
[2022-10-27] MEDS: levETIRAcetam 500 MG TAB PO SCH ×2 (09:57→21:52)
[2022-10-27] MEDS: cefTRIAXone 1GM/50ML D5W 50 ML IV SCH (09:57)
[2022-10-27] MEDS: PANTOPRAZOLE 40 MG TAB PO SCH (09:57)
[2022-10-27] MEDS: ACETAMINOPHEN 325 MG TAB PO PRN ×2 (12:54→21:51)
[2022-10-27] MEDS: SODIUM CHLORIDE 0.9% 1,000 ML IV SCH ×2 (12:54→22:30)
[2022-10-27] MEDS ORDERED: CALCIUM ACETATE 667 MG CAP PO ONE (14:45)
[2022-10-27 15:25] LABS: Magnesium 2.5 mg/dL (1.6-2.6)
[2022-10-27 16:45] LABS: INR 0.98 (0.9-1.15); Partial Thromboplastin Time 29.2 SEC (24.5-34.5); Prothrombin Time 10.3 sec (9.3-11.8)
[2022-10-27 16:45] LABS: Urine Bacteria NONE SEEN /hpf (None Seen); Urine Blood Negative /uL (Negative); Urine Clarity CLOUDY (Clear); Urine Color Colorless (Yellow); Urine Protein, UAD TRACE (Negative); Urine Specific Gravity 1.012 (1.001-1.035); Urine Urobilinogen Normal (Negative); Urine WBC 3 /hpf (0 - 3); Urine pH 5.5 (5.0-8.0)
[2022-10-27] MEDS ORDERED: LORazepam 2MG/ML-1ML VIAL ONE (19:43)
[2022-10-27 20:00] VITALS: PULSE 52
[2022-10-27 20:15] VITALS: BP 133/81; PULSE 69; PULSE 70; RESP 20; TEMP 97.5; O2SAT 98
[2022-10-28] VITALS (8 sets, daily range): BP systolic 102–133; BP diastolic 53–90; PULSE 59–84; RESP 14–20; TEMP 97.6–98.7; O2SAT 97–100
[2022-10-28 05:08] LABS: Basophils # (auto) 0 10 ^3/uL (0-0.2); Basophils % (auto) 0.3 % (0.0-2.0); Eosinophils # (auto) 0 10 ^3/uL (0-0.8); Eosinophils % (auto) 0.3 % (0.0-7.0); Hematocrit 38.1 % (41.0-53.0); Hemoglobin 12.8 g/dL (13.5-17.5); Lymphocytes # (auto) 1.7 10 ^3/uL (0.4-5.4); Lymphocytes % (auto) 18.4 % (10.0-50.0); Mean Corpuscular Hemoglobin 29.9 pg (28.0-32.0); Mean Corpuscular Hgb Conc. 33.5 g/dL (32.0-36.0); Mean Corpuscular Volume 89.2 fL (80.0-100.0); Monocytes # (auto) 0.6 10 ^3/uL (0-1.3); Monocytes % (auto) 6.7 % (0.0-12.0); Neutrophils # (auto) 6.8 10 ^3/uL (1.6-8.6); Neutrophils % (auto) 74.3 % (37.0-80.0); Red Blood Cells 4.27 10^6/uL (4.5-5.90); Red Cell Distribution Width 14.6 % (11.8-14.3); White Blood Cell 9.2 10^3/uL (4.4-10.8)
[2022-10-28 05:26] LABS: Alanine Aminotransferase 37 U/L (7-40); Albumin 4.2 g/dL (3.2-4.8); Alkaline Phosphatase 70 U/L (46-116); Anion Gap 8.2 (5-15); Aspartate Aminotransferase 26 U/L (13-40); BUN/Creatinine Ratio 6.2 (10.0-20.0); Blood Urea Nitrogen 18 mg/dL (9-23); Carbon Dioxide 20.8 mmol/L (20-30); Chloride 111 mmol/L (98-107); Cholesterol 144 mg/dL (< 200); Glucose 97 mg/dL (74-106); HDL Cholesterol 58 mg/dL (40-59); LDL Cholesterol 64 mg/dL (< 100); Potassium 4.1 mmol/L (3.5-5.1); Sodium 140 mmol/L (136-145); Triglycerides 153 mg/dL (< 150)
[2022-10-28 05:27] LABS: Bilirubin, Total 0.6 mg/dL (0.2-1.0); Total Protein 6.6 g/dL (5.7-8.2)
[2022-10-28] MEDS: SODIUM CHLORIDE 0.9% 1,000 ML IV SCH ×3 (08:30→20:12)
[2022-10-28] MEDS: cefTRIAXone 1GM/50ML D5W 50 ML IV SCH (10:40)
[2022-10-28] MEDS: levETIRAcetam 500 MG TAB PO SCH (10:41)
[2022-10-28] MEDS: ACETAMINOPHEN 325 MG TAB PO PRN ×2 (10:41→20:07)
[2022-10-28] MEDS: PANTOPRAZOLE 40 MG TAB PO SCH (10:41)
[2022-10-28] MEDS ORDERED: MAGIC MOUTHWASH 55 ML SUSP MT ONE (15:30)
[2022-10-28] MEDS: OXcarbazepine 300 MG TAB PO SCH (20:57)
[2022-10-28 22:25] LABS: Urine Bacteria NONE SEEN /hpf (None Seen); Urine Blood Negative /uL (Negative); Urine Clarity Clear (Clear); Urine Color Colorless (Yellow); Urine Protein, UAD Negative (Negative); Urine Specific Gravity 1.002 (1.001-1.035); Urine Urobilinogen Normal (Negative); Urine WBC 1 /hpf (0 - 3); Urine pH 5.5 (5.0-8.0)
[2022-10-28 22:41] LABS: Sodium Urine 27 mmol/L (40-220)
[2022-10-28 22:47] LABS: Protein, Urine < 6.0 mg/dL (0.0-11.9)
[2022-10-28 22:49] LABS: Creatinine, Urine 22.28 mg/dL (30.0-125.0)
[2022-10-28] MEDS ORDERED: LORazepam 2MG/ML-1ML VIAL IV PRN (23:15)
[2022-10-29] VITALS (7 sets, daily range): BP systolic 114–144; BP diastolic 66–101; PULSE 61–75; RESP 16–99; TEMP 97.6–98.5; O2SAT 95–99
[2022-10-29 07:00] LABS: Chloride 112 mmol/L (98-107); Sodium 142 mmol/L (136-145)
[2022-10-29 07:01] LABS: Anion Gap 7.6 (5-15); Calcium 8.9 mg/dL (8.5-10.1); Carbon Dioxide 22.4 mmol/L (20-30)
[2022-10-29 07:05] LABS: Uric Acid 7.2 mg/dL (3.7-9.2)
[2022-10-29 07:06] LABS: BUN/Creatinine Ratio 6.8 (10.0-20.0); Blood Urea Nitrogen 12 mg/dL (9-23); Glucose 88 mg/dL (74-106)
[2022-10-29 07:08] LABS: Creatine Kinase IFCC 164 U/L (46-171); Phosphorus 3.8 mg/dL (2.4-5.1)
[2022-10-29 08:05] LABS: Basophils # (auto) 0 10 ^3/uL (0-0.2); Basophils % (auto) 0.5 % (0.0-2.0); Eosinophils # (auto) 0.1 10 ^3/uL (0-0.8); Eosinophils % (auto) 1.1 % (0.0-7.0); Hemoglobin 12.6 g/dL (13.5-17.5); Lymphocytes # (auto) 1.7 10 ^3/uL (0.4-5.4); Lymphocytes % (auto) 24.1 % (10.0-50.0); Mean Corpuscular Hemoglobin 29.6 pg (28.0-32.0); Mean Corpuscular Hgb Conc. 33.1 g/dL (32.0-36.0); Mean Corpuscular Volume 89.3 fL (80.0-100.0); Monocytes # (auto) 0.6 10 ^3/uL (0-1.3); Monocytes % (auto) 8.2 % (0.0-12.0); Neutrophils # (auto) 4.7 10 ^3/uL (1.6-8.6); Neutrophils % (auto) 66.1 % (37.0-80.0); Red Blood Cells 4.25 10^6/uL (4.5-5.90); Red Cell Distribution Width 14.1 % (11.8-14.3); White Blood Cell 7.2 10^3/uL (4.4-10.8)
[2022-10-29] MEDS: cefTRIAXone 1GM/50ML D5W 50 ML IV SCH (09:10)
[2022-10-29] MEDS: OXcarbazepine 300 MG TAB PO SCH ×2 (09:10→21:28)
[2022-10-29] MEDS: PANTOPRAZOLE 40 MG TAB PO SCH (09:11)
[2022-10-29] MEDS: SODIUM CHLORIDE 0.9% 1,000 ML IV SCH (14:22)
[2022-10-29] MEDS: ACETAMINOPHEN 325 MG TAB PO PRN (21:28)
[2022-10-30] VITALS (9 sets, daily range): BP systolic 123–146; BP diastolic 84–101; PULSE 54–88; RESP 16–18; TEMP 97.6–98.5; O2SAT 97–100
[2022-10-30] MEDS: SODIUM CHLORIDE 0.9% 1,000 ML IV SCH ×3 (02:06→20:30)
[2022-10-30 06:11] LABS: Basophils # (auto) 0 10 ^3/uL (0-0.2); Basophils % (auto) 0.6 % (0.0-2.0); Eosinophils # (auto) 0.1 10 ^3/uL (0-0.8); Eosinophils % (auto) 0.9 % (0.0-7.0); Hematocrit 38.8 % (41.0-53.0); Hemoglobin 13.1 g/dL (13.5-17.5); Lymphocytes % (auto) 30.9 % (10.0-50.0); Mean Corpuscular Hemoglobin 29.8 pg (28.0-32.0); Mean Corpuscular Hgb Conc. 33.8 g/dL (32.0-36.0); Mean Corpuscular Volume 88.1 fL (80.0-100.0); Monocytes # (auto) 0.4 10 ^3/uL (0-1.3); Neutrophils # (auto) 3.9 10 ^3/uL (1.6-8.6); Neutrophils % (auto) 61.6 % (37.0-80.0); Nucleated Red Blood Cells % 0.1 %; Red Blood Cells 4.41 10^6/uL (4.5-5.90); Red Cell Distribution Width 14.1 % (11.8-14.3); White Blood Cell 6.4 10^3/uL (4.4-10.8)
[2022-10-30 06:33] LABS: Alanine Aminotransferase 21 U/L (7-40); Albumin 4.4 g/dL (3.2-4.8); Alkaline Phosphatase 63 U/L (46-116); Anion Gap 6.3 (5-15); Aspartate Aminotransferase < 8 U/L (13-40); BUN/Creatinine Ratio 7.5 (10.0-20.0); Blood Urea Nitrogen 10 mg/dL (9-23); Calcium 9.1 mg/dL (8.7-10.4); Carbon Dioxide 22.7 mmol/L (20-30); Chloride 111 mmol/L (98-107); Glucose 92 mg/dL (74-106); Potassium 3.9 mmol/L (3.5-5.1); Sodium 140 mmol/L (136-145)
[2022-10-30 06:34] LABS: Bilirubin, Total 0.7 mg/dL (0.2-1.0); Total Protein 6.9 g/dL (5.7-8.2)
[2022-10-30] MEDS: OXcarbazepine 300 MG TAB PO SCH ×2 (08:59→21:08)
[2022-10-30] MEDS: PANTOPRAZOLE 40 MG TAB PO SCH (08:59)
[2022-10-30] MEDS: cefTRIAXone 1GM/50ML D5W 50 ML IV SCH (09:03)
[2022-10-31] MEDS: SODIUM CHLORIDE 0.9% 1,000 ML IV SCH (04:18)
[2022-10-31 05:00] VITALS: BP 121/79; PULSE 65; RESP 16; TEMP 98.1; O2SAT 98
[2022-10-31 06:59] LABS: Basophils # (auto) 0.1 10 ^3/uL (0-0.2); Basophils % (auto) 0.9 % (0.0-2.0); Eosinophils # (auto) 0.1 10 ^3/uL (0-0.8); Eosinophils % (auto) 2.1 % (0.0-7.0); Lymphocytes % (auto) 30.4 % (10.0-50.0); Mean Corpuscular Hgb Conc. 34.2 g/dL (32.0-36.0); Mean Corpuscular Volume 87.8 fL (80.0-100.0); Monocytes # (auto) 0.4 10 ^3/uL (0-1.3); Monocytes % (auto) 6.1 % (0.0-12.0); Neutrophils # (auto) 3.9 10 ^3/uL (1.6-8.6); Neutrophils % (auto) 60.5 % (37.0-80.0); Red Blood Cells 4.33 10^6/uL (4.5-5.90); White Blood Cell 6.5 10^3/uL (4.4-10.8)
[2022-10-31 07:29] LABS: Alanine Aminotransferase 17 U/L (7-40); Albumin 4.4 g/dL (3.2-4.8); Alkaline Phosphatase 62 U/L (46-116); Anion Gap 7.7 (5-15); Aspartate Aminotransferase < 8 U/L (13-40); BUN/Creatinine Ratio 8.3 (10.0-20.0); Blood Urea Nitrogen 10 mg/dL (9-23); Calcium 8.9 mg/dL (8.7-10.4); Carbon Dioxide 23.3 mmol/L (20-30); Chloride 111 mmol/L (98-107); Glucose 88 mg/dL (74-106); Magnesium 1.6 mg/dL (1.6-2.6); Potassium 3.7 mmol/L (3.5-5.1); Sodium 142 mmol/L (136-145)
[2022-10-31 07:31] LABS: Bilirubin, Total 0.7 mg/dL (0.2-1.0); Total Protein 6.9 g/dL (5.7-8.2)
[2022-10-31 08:00] VITALS: BP 126/90; PULSE 68; PULSE 76; RESP 16; TEMP 97.7; O2SAT 100
[2022-10-31 08:39] VITALS: BP 126/90; PULSE 68; RESP 16; TEMP 97.7; O2SAT 100
[2022-10-31] MEDS: OXcarbazepine 300 MG TAB PO SCH (09:53)
[2022-10-31] MEDS: PANTOPRAZOLE 40 MG TAB PO SCH (09:53)
[2022-10-31] MEDS ORDERED: OXCA300T4 PO (11:50)
[2022-10-31 13:00] VITALS: BP 139/90; PULSE 67; RESP 20; TEMP 98.2; O2SAT 98
== END 2022-10-31 17:22 | disposition home or self-care (01) | DRG 53 ==
LOC: EDUNIT# 20:28 → EDBD 20:28 → ER 20:35 → OVERFLOW 10-27 01:46 → WEST WING 10-27 18:08 → TELE-WESTW 10-27 18:10
PROVIDERS: ADMIT Internal Medicine Geriatric Medicine; ATTEND Student in an Organized Health Care Education/Training Program
DX: G40.901 Epilepsy, unspecified, not intractable, with status epilepticus (principal); N17.0 Acute kidney failure with tubular necrosis; E83.51 Hypocalcemia; S06.0X0A Concussion without loss of consciousness, initial encounter; D64.9 Anemia, unspecified; D72.829 Elevated white blood cell count, unspecified; E66.9 Obesity, unspecified; F12.10 Cannabis abuse, uncomplicated; F17.210 Nicotine dependence, cigarettes, uncomplicated; F10.10 Alcohol abuse, uncomplicated; S00.81XA Abrasion of other part of head, initial encounter; F41.9 Anxiety disorder, unspecified; R47.9 Unspecified speech disturbances; W18.39XA Other fall on same level, initial encounter; Z80.1 Family history of malignant neoplasm of trachea, bronchus and lung; Z82.49 Family history of ischemic heart disease and other diseases of the circulatory system; Z91.199 Patient's noncompliance with other medical treatment and regimen due to unspecified reason; Y93.89 Activity, other specified; Y92.89 Other specified places as the place of occurrence of the external cause; Y99.8 Other external cause status; Z68.35 Body mass index [BMI] 35.0-35.9, adult; Z71.41 Alcohol abuse counseling and surveillance of alcoholic
CPT/HCPCS: 36415; 70450; 70551; 71045; 76775; 80048; 80053; 80061; 80307; 81001; 82550; 82570; 83036; 83735; 84100; 84156; 84300; 84443; 84550; 85025; 85610; 85730; 87040; 95819; 96365; 96367; 96375; 99291; G0378; J0696; J7060

== ENCOUNTER 2022-12-20 09:37 | Emergency (ER) | payer MEDICAID ==
[~2022-12-20] VITALS: Ht 172.7 cm; Wt 80.4 kg
[~2022-12-20 09:37] MED LIST changes: -ACET-1080 PO; -ACET500T58 PO; -CEPH-509 PO; -CLON-1003 PO; -CYCL-837 PO; -LEVE500T40 PO; -METH-1182 PO; +OXCA300T4 PO
[2022-12-20 10:43] VITALS: BP 134/98; PULSE 78; RESP 15; TEMP 98.3; O2SAT 99
== END 2022-12-20 10:45 | disposition home or self-care (01) ==
LOC: ER 09:37
DX: S00.83XA Contusion of other part of head, initial encounter (principal); F41.9 Anxiety disorder, unspecified; F17.210 Nicotine dependence, cigarettes, uncomplicated; F12.90 Cannabis use, unspecified, uncomplicated; Z98.890 Other specified postprocedural states; W22.8XXA Striking against or struck by other objects, initial encounter; Y93.89 Activity, other specified; Y92.89 Other specified places as the place of occurrence of the external cause; Y99.8 Other external cause status
CPT/HCPCS: 70110

== ENCOUNTER 2023-01-29 00:11 | Emergency (ER) | payer MEDICAID ==
[~2023-01-29] VITALS: Ht 172.7 cm; Wt 81.0 kg
[2023-01-29] MEDS ORDERED: levETIRAcetam 500 MG TAB PO ONE (00:45)
[2023-01-29 01:21] LABS: Basophils # (auto) 0.1 10 ^3/uL (0-0.2); Basophils % (auto) 0.2 % (0.0-2.0); Eosinophils # (auto) 0 10 ^3/uL (0-0.8); Hematocrit 45.6 % (41.0-53.0); Hemoglobin 15.1 g/dL (13.5-17.5); Lymphocytes # (auto) 1.3 10 ^3/uL (0.4-5.4); Lymphocytes % (auto) 5.2 % (10.0-50.0); Mean Corpuscular Hemoglobin 29.4 pg (28.0-32.0); Mean Corpuscular Hgb Conc. 33.2 g/dL (32.0-36.0); Mean Corpuscular Volume 88.5 fL (80.0-100.0); Monocytes # (auto) 0.6 10 ^3/uL (0-1.3); Monocytes % (auto) 2.3 % (0.0-12.0); Neutrophils # (auto) 22.2 10 ^3/uL (1.6-8.6); Neutrophils % (auto) 92.3 % (37.0-80.0); Nucleated Red Blood Cells % 0.1 %; Red Blood Cells 5.15 10^6/uL (4.5-5.90); Red Cell Distribution Width 13.1 % (11.8-14.3); White Blood Cell 24.1 10^3/uL (4.4-10.8)
[2023-01-29 01:31] LABS: Alanine Aminotransferase 27 U/L (7-40); Albumin 5.1 g/dL (3.2-4.8); Alkaline Phosphatase 109 U/L (46-116); Anion Gap 15 (5-15); Aspartate Aminotransferase 33 U/L (13-40); BUN/Creatinine Ratio 9.9 (10.0-20.0); Blood Alcohol < 3.0 mg/dL (<10); Blood Urea Nitrogen 14 mg/dL (9-23); Carbon Dioxide 16 mmol/L (20-30); Chloride 103 mmol/L (98-107); Glucose 197 mg/dL (74-106); Potassium 3.6 mmol/L (3.5-5.1); Sodium 134 mmol/L (136-145)
[2023-01-29 01:32] LABS: Bilirubin, Total 0.4 mg/dL (0.2-1.0)
[2023-01-29 01:50] VITALS: PULSE 82; RESP 20; O2SAT 96
[2023-01-29] MEDS ORDERED: KEP500T PO (02:57)
[2023-01-29] MEDS ORDERED: IBUPROFEN 600 MG TAB PO ONE (03:00)
[2023-01-29] MEDS ORDERED: LORazepam 0.5 MG TAB PO ONE (03:00)
[2023-01-29 03:24] VITALS: BP 119/71; PULSE 85; RESP 14; TEMP 98.5; O2SAT 98
== END 2023-01-29 03:50 | disposition home or self-care (01) ==
LOC: EDUNIT# 00:11 → EDBD 00:11 → ER 00:11
DX: R56.9 Unspecified convulsions (principal); F41.9 Anxiety disorder, unspecified; N18.9 Chronic kidney disease, unspecified; F17.210 Nicotine dependence, cigarettes, uncomplicated; F15.90 Other stimulant use, unspecified, uncomplicated; Z98.890 Other specified postprocedural states
CPT/HCPCS: 36415; 70450; 80053; 80320; 85025; 93005

== ENCOUNTER 2023-03-07 19:09 | Emergency (ER) | payer MEDICAID ==
[~2023-03-07] VITALS: Ht 175.3 cm; Wt 72.7 kg
[~2023-03-07 19:09] MED LIST changes: +KEP500T PO
[2023-03-07] MEDS ORDERED: levETIRAcetam 1000 mg/100ml 100 ML IV ONE (20:30)
[2023-03-07] MEDS ORDERED: LORazepam 2MG/ML-1ML VIAL IV ONE (20:30)
[2023-03-07 21:48] LABS: Basophils # (auto) 0 10 ^3/uL (0-0.2); Basophils % (auto) 0.2 % (0.0-2.0); Eosinophils # (auto) 0 10 ^3/uL (0-0.8); Hematocrit 45.4 % (41.0-53.0); Hemoglobin 14.8 g/dL (13.5-17.5); Lymphocytes # (auto) 1.1 10 ^3/uL (0.4-5.4); Lymphocytes % (auto) 5.6 % (10.0-50.0); Mean Corpuscular Hemoglobin 29.1 pg (28.0-32.0); Mean Corpuscular Hgb Conc. 32.6 g/dL (32.0-36.0); Mean Corpuscular Volume 89.5 fL (80.0-100.0); Monocytes # (auto) 0.6 10 ^3/uL (0-1.3); Neutrophils # (auto) 17.5 10 ^3/uL (1.6-8.6); Neutrophils % (auto) 91.2 % (37.0-80.0); Red Blood Cells 5.08 10^6/uL (4.5-5.90); Red Cell Distribution Width 13.4 % (11.8-14.3); White Blood Cell 19.2 10^3/uL (4.4-10.8)
[2023-03-07 22:05] LABS: Alanine Aminotransferase 25 U/L (7-40); Albumin 4.7 g/dL (3.2-4.8); Alkaline Phosphatase 103 U/L (46-116); Anion Gap 9 (5-15); Aspartate Aminotransferase 25 U/L (13-40); BUN/Creatinine Ratio 8.8 (10.0-20.0); Blood Urea Nitrogen 10 mg/dL (9-23); Calcium 8.9 mg/dL (8.5-10.1); Carbon Dioxide 23 mmol/L (20-30); Chloride 106 mmol/L (98-107); Glucose 93 mg/dL (74-106); Potassium 4.3 mmol/L (3.5-5.1); Sodium 138 mmol/L (136-145)
[2023-03-07 22:06] LABS: Bilirubin, Total 0.5 mg/dL (0.2-1.0); Total Protein 7.4 g/dL (5.7-8.2)
[2023-03-07 23:38] VITALS: BP 119/80; PULSE 85; RESP 17; TEMP 98.2; O2SAT 98
== END 2023-03-07 23:41 | disposition home or self-care (01) ==
LOC: ER 19:09 → EDBD 19:09 → ER 23:39
DX: R56.9 Unspecified convulsions (principal); F17.210 Nicotine dependence, cigarettes, uncomplicated; Z79.899 Other long term (current) drug therapy
CPT/HCPCS: 36415; 80053; 85025; 93005; 96365; 99284; J1953

== ENCOUNTER 2023-08-10 07:58 | Inpatient (IN) | payer MEDICAID ==
[2023-08-10] VITALS (8 sets, daily range): BP systolic 103–126; BP diastolic 61–74; PULSE 71–98; RESP 18–25; TEMP 101.1; O2SAT 98–100
[~2023-08-10] VITALS: Ht 172.7 cm; Wt 96.1 kg
[2023-08-10] MEDS: LORazepam 2MG/ML-1ML VIAL ONE (08:21)
[2023-08-10] MEDS: SODIUM CHLORIDE 0.9% 1,000 ML IV ONE ×2 (08:23→10:24)
[2023-08-10] MEDS: LORazepam 2MG/ML-1ML VIAL IV ONE (08:24)
[2023-08-10] MEDS: ETOMIDATE (2MG/ML) 20ML VIAL IV ONE ×2 (08:35→08:44)
[2023-08-10] MEDS: ROCURONIUM 10MG/ML 10ML VIAL IV ONE ×2 (08:35→08:44)
[2023-08-10 08:44] LABS: Urine Bacteria FEW /hpf (None Seen); Urine Blood 2+ /uL (Negative); Urine Clarity Turbid (Clear); Urine Color Colorless (Yellow); Urine Protein, UAD 2+ (Negative); Urine Urobilinogen Normal (Negative); Urine WBC 2 /hpf (0 - 3); Urine pH 5.5 (5.0-9.0)
[2023-08-10] MEDS: MIDAZOLAM DRIP 50 mg/50mL 50 ML IV ONE (08:44)
[2023-08-10] MEDS: MIDAZOLAM DRIP 50 mg/50mL 50 ML IV SCH (08:45)
[2023-08-10] MEDS: levETIRAcetam 1000 mg/100ml 100 ML IV ONE (09:01)
[2023-08-10 09:20] LABS: Hematocrit 49.6 % (41.0-53.0); Hemoglobin 14.8 g/dL (13.5-17.5); Mean Corpuscular Hemoglobin 29.5 pg (28.0-32.0); Mean Corpuscular Hgb Conc. 29.9 g/dL (32.0-36.0); Mean Corpuscular Volume 98.8 fL (80.0-100.0); Red Blood Cells 5.02 10^6/uL (4.5-5.90); Red Cell Distribution Width 14.7 % (11.8-14.3)
[2023-08-10 09:23] LABS: Chloride 105 mmol/L (98-107); Potassium 4.4 mmol/L (3.5-5.1); Sodium 138 mmol/L (136-145)
[2023-08-10 09:24] LABS: Anion Gap 23.00001 (5-15); Calcium 9.1 mg/dL (8.5-10.1)
[2023-08-10 09:29] LABS: BUN/Creatinine Ratio 7.5 (10.0-20.0); Blood Urea Nitrogen 15 mg/dL (9-23)
[2023-08-10 09:31] LABS: White Blood Cell 45.7 10^3/uL (4.4-10.8)
[2023-08-10 09:32] LABS: Basophils % (manual) 0 (0.0-2.0); Blast Cells 0; Myelocytes % 0; Promyelocytes % 0; Reactive Lymphocytes 0
[2023-08-10 09:38] LABS: Carbon Dioxide < 10 mmol/L (20-30); Glucose 430 mg/dL (74-106)
[2023-08-10] MEDS: InsuLIN REG 1unit/0.01ml Soln (100units/ml) IV ONE ×2 (09:59→11:00)
[2023-08-10 10:09] LABS: Base Excess -18.3 mmol/L (-2.0-2.0)
[2023-08-10] MEDS: SODIUM BICARB 8.4% 50Meq/50ml SYR Vial IV ONE (10:15)
[2023-08-10] MEDS: cefTRIAXone 1GM/50ML D5W 50 ML IV ONE (10:28)
[2023-08-10 10:47] LABS: Lactic Acid w/Reflex 18.7 mmol/L (0.4-2.0)
[2023-08-10 11:17] LABS: Base Excess -10.1 mmol/L (-2.0-2.0)
[2023-08-10] MEDS ORDERED: ONDANSETRON HCL 4 MG/2 ML VIAL IV PRN (12:00)
[2023-08-10] MEDS ORDERED: VANCOMYCIN PER PHARMACY 0 MG IV SCH (12:00)
[2023-08-10] MEDS: PROPOFOL 100 ML IV SCH (12:08)
[2023-08-10] MEDS ORDERED: DEXTROSE (50%) 50ML SYRG IV PRN ×2 (12:15→13:45)
[2023-08-10 12:23] LABS: INR 1.13 (0.9-1.15); Prothrombin Time 11.9 sec (9.3-11.8)
[2023-08-10 12:44] LABS: Band Neutrophils % (manual) 17; Eosinophils % (manual) 1 (0-7); Lymphocytes % (manual) 21 (10.0-50.0); Metamyelocytes % 3; Monocytes % (manual) 4 (0-12); Platelet Estimate Adequate
[2023-08-10] MEDS: AZITHROMYCIN 500MG/ 250ML 250 ML IV ONE (12:44)
[2023-08-10 14:22] LABS: Anion Gap 6 (5-15); Carbon Dioxide 21 mmol/L (20-30); Potassium 3.5 mmol/L (3.5-5.1); Sodium 142 mmol/L (136-145)
[2023-08-10 14:23] LABS: Calcium 7.8 mg/dL (8.5-10.1)
[2023-08-10] MEDS: PIPERACILLIN-TAZOB 3.375GM 100 ML IV ONE (14:26)
[2023-08-10] MEDS: VANCOMYCIN 1GM/200ML 200 ML IV ONE (14:26)
[2023-08-10] MEDS: SODIUM CHLORIDE 0.9% 1,000 ML IV SCH (14:27)
[2023-08-10 14:28] LABS: BUN/Creatinine Ratio 8.5 (10.0-20.0); Blood Urea Nitrogen 15 mg/dL (9-23)
[2023-08-10 14:52] LABS: Chloride 115 mmol/L (98-107); Glucose 127 mg/dL (74-106)
[2023-08-10] MEDS ORDERED: ACCU-CHEK COMFORT CURVE STRIP VI SCH ×2 (15:00→18:00)
[2023-08-10 15:15] LABS: Lactic Acid w/Reflex 2.1 mmol/L (0.4-2.0)
[2023-08-10] MEDS: ACETAMINOPHEN 650 MG RECT SUPP PR ONE (16:18)
[2023-08-10] MEDS ORDERED: InsuLIN REG 1unit/0.01ml Soln (100units/ml) SC SCH (18:00)
[2023-08-10 18:03] LABS: Base Excess -7.2 mmol/L (-2.0-2.0)
[2023-08-10 19:40] LABS: Chloride 115 mmol/L (98-107); Potassium 3.8 mmol/L (3.5-5.1); Sodium 141 mmol/L (136-145)
[2023-08-10 19:41] LABS: Anion Gap 9 (5-15); Calcium 7.9 mg/dL (8.5-10.1); Carbon Dioxide 17 mmol/L (20-30)
[2023-08-10 19:46] LABS: BUN/Creatinine Ratio 7.7 (10.0-20.0); Blood Urea Nitrogen 20 mg/dL (9-23); Glucose 95 mg/dL (74-106)
[2023-08-10] MEDS: levETIRAcetam 1000 mg/100ml 100 ML IV SCH (21:07)
[2023-08-10] MEDS: PIPERACILLIN-TAZOB 3.375GM 100 ML IV SCH (21:07)
[2023-08-11] VITALS (14 sets, daily range): BP systolic 97–128; BP diastolic 52–86; PULSE 54–73; RESP 20–23; O2SAT 98–100
[2023-08-11 01:59] LABS: Chloride 119 mmol/L (98-107); Sodium 143 mmol/L (136-145)
[2023-08-11 02:00] LABS: Anion Gap 10 (5-15); Carbon Dioxide 14 mmol/L (20-30)
[2023-08-11 02:05] LABS: BUN/Creatinine Ratio 6.3 (10.0-20.0); Blood Urea Nitrogen 22 mg/dL (9-23); Glucose 106 mg/dL (74-106)
[2023-08-11 03:45] LABS: Basophils # (auto) 0 10 ^3/uL (0-0.2); Basophils % (auto) 0.2 % (0.0-2.0); Eosinophils # (auto) 0 10 ^3/uL (0-0.8); Eosinophils % (auto) 0.1 % (0.0-7.0); Hematocrit 37.4 % (41.0-53.0); Hemoglobin 12.5 g/dL (13.5-17.5); Lymphocytes # (auto) 1.3 10 ^3/uL (0.4-5.4); Lymphocytes % (auto) 10.2 % (10.0-50.0); Mean Corpuscular Hgb Conc. 33.6 g/dL (32.0-36.0); Mean Corpuscular Volume 89.4 fL (80.0-100.0); Monocytes # (auto) 0.6 10 ^3/uL (0-1.3); Monocytes % (auto) 4.9 % (0.0-12.0); Neutrophils # (auto) 10.7 10 ^3/uL (1.6-8.6); Neutrophils % (auto) 84.6 % (37.0-80.0); Red Blood Cells 4.18 10^6/uL (4.5-5.90); Red Cell Distribution Width 13.6 % (11.8-14.3); White Blood Cell 12.6 10^3/uL (4.4-10.8)
[2023-08-11 03:56] LABS: Alanine Aminotransferase 18 U/L (7-40); Albumin 3.6 g/dL (3.2-4.8); Alkaline Phosphatase 70 U/L (46-116); Anion Gap 8 (5-15); BUN/Creatinine Ratio 6.4 (10.0-20.0); Blood Urea Nitrogen 23 mg/dL (9-23); Carbon Dioxide 17 mmol/L (20-30); Chloride 116 mmol/L (98-107); Glucose 101 mg/dL (74-106); Potassium 3.9 mmol/L (3.5-5.1); Sodium 141 mmol/L (136-145)
[2023-08-11 03:57] LABS: Aspartate Aminotransferase 23 U/L (13-40); Bilirubin, Total 0.3 mg/dL (0.2-1.0); Total Protein 5.6 g/dL (5.7-8.2)
[2023-08-11] MEDS: fentaNYL Drip 2500mCg/250mlNS 250 ML IV SCH (04:02)
[2023-08-11 06:19] LABS: Base Excess -10.4 mmol/L (-2.0-2.0)
[2023-08-11] MEDS: VANCOMYCIN 1GM/200ML 200 ML IV SCH (08:30)
[2023-08-11 14:12] LABS: Base Excess -11.9 mmol/L (-2.0-2.0)
[2023-08-11] MEDS: FUROSEMIDE 40 MG/4 ML VIAL IV ONE (14:21)
[2023-08-11 18:09] LABS: Amphetamine Screen, Urine Neg (NEGATIVE); Barbiturate Scree,Urine Neg (NEGATIVE); Benzodiazephine Screen, Urine Pos (NEGATIVE); Cocaine Screen, Urine Neg (NEGATIVE); Opiate Scree,Urine Neg (NEGATIVE)
[2023-08-11 18:10] LABS: Cannabinoid Screen, Urine Pos (NEGATIVE); Phencyclidine Screen, Urine Neg (NEGATIVE)
[2023-08-11 18:11] LABS: Creatinine, Urine 42.55 mg/dL (30.0-125.0)
[2023-08-12] VITALS (13 sets, daily range): BP systolic 96–130; BP diastolic 52–84; PULSE 65–115; RESP 20–38; O2SAT 99–100
[2023-08-12 04:42] LABS: Basophils # (auto) 0.1 10 ^3/uL (0-0.2); Basophils % (auto) 0.5 % (0.0-2.0); Eosinophils # (auto) 0.1 10 ^3/uL (0-0.8); Hemoglobin 11.7 g/dL (13.5-17.5); Lymphocytes # (auto) 1.1 10 ^3/uL (0.4-5.4); Lymphocytes % (auto) 11.7 % (10.0-50.0); Mean Corpuscular Hemoglobin 30.1 pg (28.0-32.0); Mean Corpuscular Hgb Conc. 33.4 g/dL (32.0-36.0); Mean Corpuscular Volume 90.2 fL (80.0-100.0); Monocytes # (auto) 0.4 10 ^3/uL (0-1.3); Monocytes % (auto) 4.5 % (0.0-12.0); Neutrophils # (auto) 7.8 10 ^3/uL (1.6-8.6); Neutrophils % (auto) 82.3 % (37.0-80.0); Red Blood Cells 3.88 10^6/uL (4.5-5.90); Red Cell Distribution Width 14.1 % (11.8-14.3); White Blood Cell 9.5 10^3/uL (4.4-10.8)
[2023-08-12 04:52] LABS: Chloride 118 mmol/L (98-107); Potassium 4.3 mmol/L (3.5-5.1); Sodium 143 mmol/L (136-145)
[2023-08-12 04:53] LABS: Anion Gap 13 (5-15); Calcium 8.2 mg/dL (8.7-10.4); Carbon Dioxide 12 mmol/L (20-30)
[2023-08-12 04:58] LABS: BUN/Creatinine Ratio 4.2 (10.0-20.0); Blood Urea Nitrogen 27 mg/dL (9-23); Glucose 79 mg/dL (74-106)
[2023-08-12] MEDS: MEROPENEM 1GM IVPB 50 ML IV ONE (07:15)
[2023-08-12 08:20] LABS: Base Excess -15.1 mmol/L (-2.0-2.0)
[2023-08-12 08:30] LABS: Albumin 3.4 g/dL (3.2-4.8); Bilirubin, Direct 0.1 mg/dL (<0.3); Bilirubin, Total 0.2 mg/dL (0.2-1.0); Magnesium 2.8 mg/dL (1.6-2.6); Total Protein 5.3 g/dL (5.7-8.2)
[2023-08-12 08:38] LABS: CRP High Sensitivity 5.47 mg/dL (<1.0)
[2023-08-12] MEDS: SODIUM BICARB 8.4% 50Meq/50ml SYR Vial IV ONE (08:59)
[2023-08-12] MEDS: SODIUM BICARB 50mEq/50ml Vial 150 ML in D5W 5% 1,000 ML IV SCH (09:35)
[2023-08-12] MEDS: PANTOPRAZOLE 40 MG/10 ML VIAL INJ IV SCH (10:02)
[2023-08-12] MEDS: ENOXAPARIN SOD 30 MG/0.3 ML SYRINGE SC ONE (10:23)
[2023-08-12 13:30] LABS: INR 0.97 (0.9-1.15); Partial Thromboplastin Time 31.6 SEC (24.5-34.5); Prothrombin Time 10.3 sec (9.3-11.8)
[2023-08-12] MEDS: BUMETANIDE INJECTION 25 MG in GIVE UN-DILUTED 0 ML IV SCH (14:00)
[2023-08-12] MEDS: Nepro With Carb Steady 1 Liter Bottle GT SCH (14:45)
[2023-08-12 17:48] LABS: Hematocrit 37.4 % (41.0-53.0); Hemoglobin 12.6 g/dL (13.5-17.5)
[2023-08-12] MEDS: ACETAMINOPHEN 650 mg PER 20.3 mL UD GT ONE (20:11)
[2023-08-12] MEDS: MEROPENEM 500MG IVPB 50 ML IV SCH (22:38)
[2023-08-13] VITALS (13 sets, daily range): BP systolic 106–165; BP diastolic 74–107; PULSE 70–112; RESP 24; O2SAT 100
[2023-08-13 06:00] LABS: Basophils # (auto) 0 10 ^3/uL (0-0.2); Basophils % (auto) 0.6 % (0.0-2.0); Eosinophils # (auto) 0.2 10 ^3/uL (0-0.8); Eosinophils % (auto) 2.3 % (0.0-7.0); Hematocrit 37.3 % (41.0-53.0); Hemoglobin 12.5 g/dL (13.5-17.5); Lymphocytes # (auto) 1.1 10 ^3/uL (0.4-5.4); Lymphocytes % (auto) 14.7 % (10.0-50.0); Mean Corpuscular Hemoglobin 29.7 pg (28.0-32.0); Mean Corpuscular Hgb Conc. 33.5 g/dL (32.0-36.0); Mean Corpuscular Volume 88.9 fL (80.0-100.0); Monocytes # (auto) 0.5 10 ^3/uL (0-1.3); Neutrophils # (auto) 5.8 10 ^3/uL (1.6-8.6); Neutrophils % (auto) 76.4 % (37.0-80.0); Red Cell Distribution Width 13.9 % (11.8-14.3); White Blood Cell 7.6 10^3/uL (4.4-10.8)
[2023-08-13 06:18] LABS: % Iron Saturation 25.1 % (20-55)
[2023-08-13 06:23] LABS: Alanine Aminotransferase 18 U/L (7-40); Albumin 3.3 g/dL (3.2-4.8); Alkaline Phosphatase 59 U/L (46-116); Anion Gap 13 (5-15); Aspartate Aminotransferase 30 U/L (13-40); BUN/Creatinine Ratio 3.4 (10.0-20.0); Bilirubin, Total 0.3 mg/dL (0.2-1.0); Blood Urea Nitrogen 30 mg/dL (9-23); Calcium 8.1 mg/dL (8.7-10.4); Carbon Dioxide 21 mmol/L (20-30); Chloride 112 mmol/L (98-107); Glucose 103 mg/dL (74-106); Magnesium 2.3 mg/dL (1.6-2.6); Potassium 3.2 mmol/L (3.5-5.1); Sodium 146 mmol/L (136-145); Total Protein 5.5 g/dL (5.7-8.2)
[2023-08-13 06:34] LABS: Creatine Kinase IFCC 1632 U/L (46-171)
[2023-08-13 07:03] LABS: Base Excess -5.4 mmol/L (-2.0-2.0)
[2023-08-13] MEDS: POTASSIUM CHL 20MEQ/100ML 100 ML IV SCH (09:50)
[2023-08-13] MEDS: ENOXAPARIN SOD 30 MG/0.3 ML SYRINGE SC SCH (09:51)
[2023-08-13] MEDS: OXcarbazepine 300 MG TAB PO SCH (09:52)
[2023-08-13] MEDS ORDERED: LEVETIRACETAM 500 MG/100 ML IV SCH (10:00)
[2023-08-13] MEDS: levETIRAcetam 500 mg/100ml 100 ML IV SCH (13:45)
[2023-08-13] MEDS: hydrALAZINE HCL 20 MG/ML VL IV PRN (14:37)
[2023-08-13] MEDS: ACETAMINOPHEN 650 mg PER 20.3 mL UD GT PRN (19:59)
[2023-08-14] VITALS (14 sets, daily range): BP systolic 111–149; BP diastolic 64–106; PULSE 68–111; RESP 24–25; O2SAT 97–100
[2023-08-14 05:59] LABS: Basophils # (auto) 0 10 ^3/uL (0-0.2); Basophils % (auto) 0.4 % (0.0-2.0); Eosinophils # (auto) 0.2 10 ^3/uL (0-0.8); Eosinophils % (auto) 2.8 % (0.0-7.0); Hematocrit 41.8 % (41.0-53.0); Hemoglobin 13.7 g/dL (13.5-17.5); Lymphocytes # (auto) 1.2 10 ^3/uL (0.4-5.4); Lymphocytes % (auto) 16.8 % (10.0-50.0); Mean Corpuscular Hemoglobin 30.1 pg (28.0-32.0); Mean Corpuscular Hgb Conc. 32.9 g/dL (32.0-36.0); Mean Corpuscular Volume 91.4 fL (80.0-100.0); Monocytes # (auto) 0.6 10 ^3/uL (0-1.3); Monocytes % (auto) 8.5 % (0.0-12.0); Neutrophils # (auto) 4.9 10 ^3/uL (1.6-8.6); Neutrophils % (auto) 71.5 % (37.0-80.0); Red Blood Cells 4.57 10^6/uL (4.5-5.90); Red Cell Distribution Width 14.6 % (11.8-14.3); White Blood Cell 6.9 10^3/uL (4.4-10.8)
[2023-08-14 06:24] LABS: Alanine Aminotransferase 26 U/L (7-40); Albumin 3.6 g/dL (3.2-4.8); Alkaline Phosphatase 69 U/L (46-116); Anion Gap 16 (5-15); Aspartate Aminotransferase 65 U/L (13-40); Blood Urea Nitrogen 37 mg/dL (9-23); Calcium 8.8 mg/dL (8.7-10.4); Carbon Dioxide 22 mmol/L (20-30); Chloride 111 mmol/L (98-107); Glucose 86 mg/dL (74-106); Phosphorus 8.4 mg/dL (2.4-5.1); Sodium 149 mmol/L (136-145)
[2023-08-14 06:25] LABS: Bilirubin, Total 0.2 mg/dL (0.2-1.0); Total Protein 5.7 g/dL (5.7-8.2)
[2023-08-14 06:35] LABS: Creatine Kinase IFCC 5243 U/L (46-171)
[2023-08-14 07:11] LABS: BUN/Creatinine Ratio 3.5 (10.0-20.0)
[2023-08-14] MEDS: MEROPENEM 500MG IVPB 50 ML IV SCH (10:32)
[2023-08-14 11:06] LABS: Free T3 1.03 pg/mL (2.3-4.2)
[2023-08-14 11:08] LABS: Free T4 (Free Thyroxine) 0.51 ng/dL (0.89-1.76)
[2023-08-14 11:54] LABS: Base Excess -5.7 mmol/L (-2.0-2.0)
[2023-08-14] MEDS: levETIRAcetam 500 mg/100ml 100 ML IV SCH (12:00)
[2023-08-14] MEDS: SOD CHL 0.45% 1,000 ML IV SCH (12:53)
[2023-08-14] MEDS: OXcarbazepine 300 MG TAB PO SCH (21:50)
[2023-08-15] VITALS (8 sets, daily range): BP systolic 154–158; BP diastolic 104–110; PULSE 70–102; RESP 17–26; O2SAT 96–100
[2023-08-15 06:28] LABS: Basophils # (auto) 0 10 ^3/uL (0-0.2); Basophils % (auto) 0.6 % (0.0-2.0); Eosinophils # (auto) 0.3 10 ^3/uL (0-0.8); Eosinophils % (auto) 4.7 % (0.0-7.0); Hematocrit 36.7 % (41.0-53.0); Hemoglobin 12.4 g/dL (13.5-17.5); Lymphocytes # (auto) 1.1 10 ^3/uL (0.4-5.4); Lymphocytes % (auto) 16.5 % (10.0-50.0); Mean Corpuscular Hgb Conc. 33.9 g/dL (32.0-36.0); Mean Corpuscular Volume 88.6 fL (80.0-100.0); Monocytes # (auto) 0.6 10 ^3/uL (0-1.3); Monocytes % (auto) 8.4 % (0.0-12.0); Neutrophils # (auto) 4.6 10 ^3/uL (1.6-8.6); Neutrophils % (auto) 69.8 % (37.0-80.0); Red Blood Cells 4.14 10^6/uL (4.5-5.90); Red Cell Distribution Width 13.6 % (11.8-14.3); White Blood Cell 6.6 10^3/uL (4.4-10.8)
[2023-08-15 06:36] LABS: Alanine Aminotransferase 31 U/L (7-40); Albumin 3.9 g/dL (3.2-4.8); Alkaline Phosphatase 71 U/L (46-116); Anion Gap 15 (5-15); Aspartate Aminotransferase 89 U/L (13-40); Blood Urea Nitrogen 33 mg/dL (9-23); Calcium 9.3 mg/dL (8.7-10.4); Carbon Dioxide 19 mmol/L (20-30); Chloride 111 mmol/L (98-107); Glucose 79 mg/dL (74-106); Potassium 3.4 mmol/L (3.5-5.1); Sodium 145 mmol/L (136-145)
[2023-08-15 06:37] LABS: Bilirubin, Total 0.3 mg/dL (0.2-1.0); Total Protein 6.4 g/dL (5.7-8.2)
[2023-08-15 08:12] LABS: Base Excess -6.1 mmol/L (-2.0-2.0)
[2023-08-15] MEDS: POTASSIUM CHL 20MEQ/100ML 100 ML IV ONE (10:00)
[2023-08-15] MEDS: LORazepam 2MG/ML-1ML VIAL IV ONE (10:31)
[2023-08-15] MEDS: LORazepam 2MG/ML-1ML VIAL ONE (10:31)
[2023-08-15] MEDS ORDERED: LORazepam 2MG/ML-1ML VIAL IV PRN (11:45)
[2023-08-15 15:03] LABS: Base Excess -7.4 mmol/L (-2.0-2.0)
[2023-08-15] MEDS: LORazepam 2MG/ML-1ML VIAL IM ONE (15:14)
[2023-08-15] MEDS: SODIUM BICARB 50mEq/50ml Vial 50 ML in SOD CHL 0.45% 1,000 ML IV SCH (16:22)
[2023-08-15] MEDS: D5W/SOD CHL 0.45% 1,000 ML IV SCH (16:45)
[2023-08-15] MEDS: SOD CHL 0.45% 1,000 ML IV SCH (17:00)
[2023-08-15] MEDS: ONDANSETRON HCL 4 MG/2 ML VIAL ONE (19:59)
[2023-08-15] MEDS: ONDANSETRON HCL 4 MG/2 ML VIAL IV PRN (20:21)
[2023-08-16 06:25] LABS: Basophils # (auto) 0 10 ^3/uL (0-0.2); Basophils % (auto) 0.4 % (0.0-2.0); Eosinophils # (auto) 0.2 10 ^3/uL (0-0.8); Eosinophils % (auto) 2.5 % (0.0-7.0); Hematocrit 34.6 % (41.0-53.0); Hemoglobin 11.8 g/dL (13.5-17.5); Lymphocytes % (auto) 12.8 % (10.0-50.0); Mean Corpuscular Hemoglobin 30.1 pg (28.0-32.0); Mean Corpuscular Hgb Conc. 34.2 g/dL (32.0-36.0); Mean Corpuscular Volume 87.9 fL (80.0-100.0); Monocytes # (auto) 0.6 10 ^3/uL (0-1.3); Monocytes % (auto) 8.4 % (0.0-12.0); Neutrophils # (auto) 5.8 10 ^3/uL (1.6-8.6); Neutrophils % (auto) 75.9 % (37.0-80.0); Red Blood Cells 3.93 10^6/uL (4.5-5.90); Red Cell Distribution Width 13.7 % (11.8-14.3); White Blood Cell 7.7 10^3/uL (4.4-10.8)
[2023-08-16 06:40] LABS: Chloride 110 mmol/L (98-107); Potassium 3.2 mmol/L (3.5-5.1); Sodium 145 mmol/L (136-145)
[2023-08-16 06:41] LABS: Anion Gap 14 (5-15); Carbon Dioxide 21 mmol/L (20-30)
[2023-08-16 06:45] LABS: Alkaline Phosphatase 70 U/L (46-116)
[2023-08-16 06:46] LABS: Glucose 75 mg/dL (74-106)
[2023-08-16 06:47] LABS: BUN/Creatinine Ratio 4.5 (10.0-20.0); Blood Urea Nitrogen 42 mg/dL (9-23); Magnesium 1.5 mg/dL (1.6-2.6)
[2023-08-16 06:48] LABS: Aspartate Aminotransferase 97 U/L (13-40)
[2023-08-16 06:49] LABS: Bilirubin, Total 0.4 mg/dL (0.2-1.0); Total Protein 6.4 g/dL (5.7-8.2)
[2023-08-16 06:56] LABS: Alanine Aminotransferase 40 U/L (7-40)
[2023-08-16 06:59] LABS: Creatine Kinase IFCC 5975 U/L (46-171)
[2023-08-16] MEDS ORDERED: POTASSIUM CHL 20MEQ/100ML 100 ML IV SCH (07:00)
[2023-08-16 08:00] VITALS: PULSE 75; RESP 75; O2SAT 97
[2023-08-16] MEDS: THIAMINE HCL 100 MG TAB PO SCH (10:31)
[2023-08-16] MEDS: POTASSIUM CHL 20 Meq TABLET PO ONE ×2 (11:54→12:02)
[2023-08-16 19:24] VITALS: PULSE 58; RESP 28; O2SAT 97
[2023-08-17] VITALS (9 sets, daily range): BP systolic 134–155; BP diastolic 86–104; PULSE 56–97; RESP 16–20; TEMP 98.2–98.6; O2SAT 98–100
[2023-08-17 07:02] LABS: Alanine Aminotransferase 41 U/L (7-40); Alkaline Phosphatase 67 U/L (46-116); Anion Gap 15 (5-15); Aspartate Aminotransferase 100 U/L (13-40); BUN/Creatinine Ratio 4.4 (10.0-20.0); Calcium 8.9 mg/dL (8.5-10.1); Carbon Dioxide 18 mmol/L (20-30); Chloride 109 mmol/L (98-107); Glucose 75 mg/dL (74-106); Magnesium 1.3 mg/dL (1.6-2.6); Potassium 3.3 mmol/L (3.5-5.1); Sodium 142 mmol/L (136-145)
[2023-08-17 07:03] LABS: Bilirubin, Total 0.4 mg/dL (0.2-1.0); Total Protein 6.5 g/dL (5.7-8.2)
[2023-08-17 07:05] LABS: Blood Urea Nitrogen 29 mg/dL (9-23)
[2023-08-17 07:13] LABS: Creatine Kinase IFCC 5353 U/L (46-171)
[2023-08-17 07:24] LABS: Basophils # (auto) 0 10 ^3/uL (0-0.2); Basophils % (auto) 0.4 % (0.0-2.0); Eosinophils # (auto) 0.2 10 ^3/uL (0-0.8); Eosinophils % (auto) 2.7 % (0.0-7.0); Hematocrit 36.9 % (41.0-53.0); Hemoglobin 12.6 g/dL (13.5-17.5); Lymphocytes # (auto) 1.1 10 ^3/uL (0.4-5.4); Mean Corpuscular Hemoglobin 29.7 pg (28.0-32.0); Mean Corpuscular Volume 87.3 fL (80.0-100.0); Monocytes # (auto) 0.5 10 ^3/uL (0-1.3); Monocytes % (auto) 6.9 % (0.0-12.0); Neutrophils # (auto) 6.1 10 ^3/uL (1.6-8.6); Red Blood Cells 4.23 10^6/uL (4.5-5.90); Red Cell Distribution Width 13.3 % (11.8-14.3)
[2023-08-17 08:33] LABS: Hepatitis B Surface Antigen Negative (Negative)
[2023-08-17 08:54] LABS: Hepatitis C Antibody Negative (Negative)
[2023-08-17] MEDS: SODIUM BICARB 50mEq/50ml Vial 50 ML in SOD CHL 0.45% 1,000 ML IV SCH (10:15)
[2023-08-17] MEDS: POTASSIUM CHL 20 Meq TABLET PO ONE (11:41)
[2023-08-17] MEDS: MAGNESIUM OXIDE 400 MG TAB PO ONE (12:00)
[2023-08-18] VITALS (8 sets, daily range): BP systolic 121–154; BP diastolic 88–102; PULSE 62–96; RESP 14–20; TEMP 97.8–98.9; O2SAT 96–99
[2023-08-18 07:03] LABS: Hemoglobin 13.3 g/dL (13.5-17.5); Mean Corpuscular Volume 89.2 fL (80.0-100.0); Red Blood Cells 4.42 10^6/uL (4.5-5.90); Red Cell Distribution Width 13.5 % (11.8-14.3)
[2023-08-18 07:06] LABS: Hematocrit 39.4 % (41.0-53.0); Mean Corpuscular Hemoglobin 30.1 pg (28.0-32.0); Mean Corpuscular Hgb Conc. 33.8 g/dL (32.0-36.0)
[2023-08-18 07:11] LABS: Alanine Aminotransferase 48 U/L (7-40); Alkaline Phosphatase 65 U/L (46-116); Anion Gap 15 (5-15); Aspartate Aminotransferase 108 U/L (13-40); BUN/Creatinine Ratio 8.6 (10.0-20.0); Bilirubin, Total 0.5 mg/dL (0.2-1.0); Blood Urea Nitrogen 36 mg/dL (9-23); Calcium 8.7 mg/dL (8.5-10.1); Carbon Dioxide 19 mmol/L (20-30); Chloride 108 mmol/L (98-107); Glucose 76 mg/dL (74-106); Magnesium 1.3 mg/dL (1.6-2.6); Potassium 3.8 mmol/L (3.5-5.1); Sodium 142 mmol/L (136-145); Total Protein 6.1 g/dL (5.7-8.2)
[2023-08-18 07:23] LABS: Creatine Kinase IFCC 4913 U/L (46-171)
[2023-08-18 07:25] LABS: Basophils % (manual) 0 (0.0-2.0); Blast Cells 0; Metamyelocytes % 0; Myelocytes % 0; Promyelocytes % 0; Reactive Lymphocytes 0
[2023-08-18 08:21] LABS: Band Neutrophils % (manual) 7; Eosinophils % (manual) 1 (0-7); Lymphocytes % (manual) 17 (10.0-50.0); Monocytes % (manual) 5 (0-12); Platelet Estimate Adequate
[2023-08-18] MEDS: diphenhdrAMINE HCL 50 MG/1 ML VL IV ONE ×2 (10:01→17:50)
[2023-08-18] MEDS: MAGNESIUM OXIDE 400 MG TAB PO ONE (10:02)
[2023-08-18] MEDS: POTASSIUM EFFERVESENT TAB 25 MEQ PO ONE (13:03)
[2023-08-18] MEDS: SODIUM BICARB 50mEq/50ml Vial 50 ML in SOD CHL 0.45% 1,000 ML IV SCH (17:00)
[2023-08-18] MEDS: SOD CHL 0.45% 1,000 ML IV SCH (17:50)
[2023-08-19] VITALS (9 sets, daily range): BP systolic 113–139; BP diastolic 68–92; PULSE 75–103; RESP 14–20; TEMP 97.8–98.9; O2SAT 94–99
[2023-08-19] MEDS: diphenhdrAMINE HCL 50 MG/1 ML VL IV PRN (01:28)
[2023-08-19 06:18] LABS: Basophils # (auto) 0 10 ^3/uL (0-0.2); Basophils % (auto) 0.2 % (0.0-2.0); Eosinophils # (auto) 0.1 10 ^3/uL (0-0.8); Eosinophils % (auto) 1.3 % (0.0-7.0); Hematocrit 36.2 % (41.0-53.0); Hemoglobin 12.5 g/dL (13.5-17.5); Lymphocytes # (auto) 1.6 10 ^3/uL (0.4-5.4); Lymphocytes % (auto) 17.4 % (10.0-50.0); Mean Corpuscular Hgb Conc. 34.6 g/dL (32.0-36.0); Mean Corpuscular Volume 86.9 fL (80.0-100.0); Monocytes # (auto) 0.3 10 ^3/uL (0-1.3); Monocytes % (auto) 3.4 % (0.0-12.0); Neutrophils # (auto) 7.3 10 ^3/uL (1.6-8.6); Neutrophils % (auto) 77.7 % (37.0-80.0); Red Blood Cells 4.16 10^6/uL (4.5-5.90); Red Cell Distribution Width 13.4 % (11.8-14.3); White Blood Cell 9.4 10^3/uL (4.4-10.8)
[2023-08-19 06:35] LABS: Alanine Aminotransferase 41 U/L (7-40); Albumin 3.9 g/dL (3.2-4.8); Alkaline Phosphatase 58 U/L (46-116); Anion Gap 10 (5-15); Aspartate Aminotransferase 75 U/L (13-40); BUN/Creatinine Ratio 8.9 (10.0-20.0); Bilirubin, Total 0.5 mg/dL (0.2-1.0); Blood Urea Nitrogen 26 mg/dL (9-23); Calcium 8.7 mg/dL (8.7-10.4); Carbon Dioxide 25 mmol/L (20-30); Chloride 105 mmol/L (98-107); Glucose 95 mg/dL (74-106); Magnesium 1.3 mg/dL (1.6-2.6); Phosphorus 3.4 mg/dL (2.4-5.1); Potassium 3.3 mmol/L (3.5-5.1); Sodium 140 mmol/L (136-145); Total Protein 6.5 g/dL (5.7-8.2)
[2023-08-19] MEDS: POTASSIUM EFFERVESENT TAB 25 MEQ PO ONE (14:41)
[2023-08-19] MEDS: MAGNESIUM SULFATE 1GM/100ML 100 ML IV SCH (14:45)
[2023-08-19] MEDS: HYDROCORTONE 1% TOPICAL CREAM 30 GM TUBE TOP SCH (22:00)
[2023-08-20] VITALS (8 sets, daily range): BP systolic 102–133; BP diastolic 77–96; PULSE 73–93; RESP 14–20; TEMP 97.8–98.7; O2SAT 94–98
[2023-08-20 06:58] LABS: Basophils # (auto) 0 10 ^3/uL (0-0.2); Basophils % (auto) 0.3 % (0.0-2.0); Eosinophils # (auto) 0.2 10 ^3/uL (0-0.8); Eosinophils % (auto) 1.7 % (0.0-7.0); Hematocrit 34.5 % (41.0-53.0); Hemoglobin 11.6 g/dL (13.5-17.5); Lymphocytes # (auto) 1.7 10 ^3/uL (0.4-5.4); Lymphocytes % (auto) 18.6 % (10.0-50.0); Mean Corpuscular Hemoglobin 29.5 pg (28.0-32.0); Mean Corpuscular Hgb Conc. 33.7 g/dL (32.0-36.0); Mean Corpuscular Volume 87.6 fL (80.0-100.0); Monocytes # (auto) 0.4 10 ^3/uL (0-1.3); Monocytes % (auto) 4.1 % (0.0-12.0); Neutrophils # (auto) 6.7 10 ^3/uL (1.6-8.6); Neutrophils % (auto) 75.3 % (37.0-80.0); Red Blood Cells 3.94 10^6/uL (4.5-5.90); Red Cell Distribution Width 13.7 % (11.8-14.3); White Blood Cell 8.9 10^3/uL (4.4-10.8)
[2023-08-20 07:16] LABS: Chloride 107 mmol/L (98-107); Potassium 3.7 mmol/L (3.5-5.1); Sodium 142 mmol/L (136-145)
[2023-08-20 07:17] LABS: Anion Gap 9 (5-15); Calcium 8.9 mg/dL (8.7-10.4); Carbon Dioxide 26 mmol/L (20-30)
[2023-08-20 07:22] LABS: BUN/Creatinine Ratio 9.9 (10.0-20.0); Blood Urea Nitrogen 25 mg/dL (9-23); Glucose 94 mg/dL (74-106)
[2023-08-20] MEDS: ENOXAPARIN SOD 40 MG/0.4 ML SYRINGE SC SCH (09:44)
[2023-08-20] MEDS: SODIUM CHLORIDE 0.9% 1,000 ML IV SCH (12:32)
[2023-08-20] MEDS: POTASSIUM EFFERVESENT TAB 25 MEQ PO ONE (12:33)
[2023-08-21] VITALS (8 sets, daily range): BP systolic 131–154; BP diastolic 90–99; PULSE 71–89; RESP 16–20; TEMP 97.4–98.3; O2SAT 95–98
[2023-08-21 06:34] LABS: Basophils # (auto) 0 10 ^3/uL (0-0.2); Basophils % (auto) 0.2 % (0.0-2.0); Eosinophils # (auto) 0.2 10 ^3/uL (0-0.8); Eosinophils % (auto) 3.1 % (0.0-7.0); Hematocrit 34.4 % (41.0-53.0); Hemoglobin 11.4 g/dL (13.5-17.5); Lymphocytes # (auto) 1.9 10 ^3/uL (0.4-5.4); Lymphocytes % (auto) 24.5 % (10.0-50.0); Mean Corpuscular Hemoglobin 29.5 pg (28.0-32.0); Mean Corpuscular Hgb Conc. 33.3 g/dL (32.0-36.0); Mean Corpuscular Volume 88.5 fL (80.0-100.0); Monocytes # (auto) 0.4 10 ^3/uL (0-1.3); Monocytes % (auto) 5.7 % (0.0-12.0); Neutrophils # (auto) 5.1 10 ^3/uL (1.6-8.6); Neutrophils % (auto) 66.5 % (37.0-80.0); Nucleated Red Blood Cells % 0.1 %; Red Blood Cells 3.88 10^6/uL (4.5-5.90); Red Cell Distribution Width 13.7 % (11.8-14.3); White Blood Cell 7.6 10^3/uL (4.4-10.8)
[2023-08-21 07:04] LABS: Alanine Aminotransferase 35 U/L (7-40); Albumin 3.8 g/dL (3.2-4.8); Alkaline Phosphatase 60 U/L (46-116); Anion Gap 6 (5-15); Aspartate Aminotransferase 39 U/L (13-40); BUN/Creatinine Ratio 8.2 (10.0-20.0); Blood Urea Nitrogen 17 mg/dL (9-23); Calcium 8.8 mg/dL (8.5-10.1); Carbon Dioxide 25 mmol/L (20-30); Chloride 112 mmol/L (98-107); Creatine Kinase IFCC 1051 U/L (46-171); Glucose 94 mg/dL (74-106); Magnesium 1.6 mg/dL (1.6-2.6); Potassium 4.3 mmol/L (3.5-5.1); Sodium 143 mmol/L (136-145)
[2023-08-21 07:05] LABS: Bilirubin, Total 0.4 mg/dL (0.2-1.0); Total Protein 6.3 g/dL (5.7-8.2)
[2023-08-22 01:00] VITALS: BP 131/75; PULSE 78; RESP 18; TEMP 98.3; O2SAT 96
[2023-08-22 05:00] VITALS: BP 126/88; PULSE 73; RESP 18; TEMP 98.2; O2SAT 96
[2023-08-22 06:24] LABS: Chloride 113 mmol/L (98-107); Sodium 144 mmol/L (136-145)
[2023-08-22 06:25] LABS: Anion Gap 6 (5-15); Calcium 9.1 mg/dL (8.7-10.4); Carbon Dioxide 25 mmol/L (20-30)
[2023-08-22 06:30] LABS: Glucose 92 mg/dL (74-106)
[2023-08-22 06:31] LABS: Blood Urea Nitrogen 16 mg/dL (9-23)
[2023-08-22 06:42] LABS: Basophils # (auto) 0 10 ^3/uL (0-0.2); Basophils % (auto) 0.4 % (0.0-2.0); Eosinophils # (auto) 0.3 10 ^3/uL (0-0.8); Eosinophils % (auto) 4.1 % (0.0-7.0); Hematocrit 33.6 % (41.0-53.0); Hemoglobin 11.4 g/dL (13.5-17.5); Lymphocytes % (auto) 26.2 % (10.0-50.0); Mean Corpuscular Hemoglobin 30.3 pg (28.0-32.0); Mean Corpuscular Hgb Conc. 34.1 g/dL (32.0-36.0); Mean Corpuscular Volume 88.7 fL (80.0-100.0); Monocytes # (auto) 0.4 10 ^3/uL (0-1.3); Monocytes % (auto) 5.7 % (0.0-12.0); Neutrophils # (auto) 4.8 10 ^3/uL (1.6-8.6); Neutrophils % (auto) 63.6 % (37.0-80.0); Nucleated Red Blood Cells % 0.1 %; Red Blood Cells 3.78 10^6/uL (4.5-5.90); Red Cell Distribution Width 13.7 % (11.8-14.3); White Blood Cell 7.6 10^3/uL (4.4-10.8)
[2023-08-22 08:05] VITALS: PULSE 82
[2023-08-22 08:19] VITALS: BP 137/84; PULSE 70; RESP 16; TEMP 97.8; O2SAT 98
[2023-08-22] MEDS ORDERED: OXCA600T3 PO ×2 (11:41→13:13)
[2023-08-22 11:54] VITALS: BP 126/85; PULSE 72; RESP 18; TEMP 97.8; O2SAT 90
[2023-08-22 12:55] VITALS: BP 126/85; PULSE 72; RESP 18; TEMP 97.8; O2SAT 90
== END 2023-08-22 15:00 | disposition home or self-care (01) | DRG 720 ==
LOC: EDBD 07:58 → EDUNIT# 07:58 → ER 07:58 → TELE 15:56 → TELE-EAST 08-17 03:04
PROVIDERS: ADMIT Internal Medicine Pulmonary Disease; ATTEND Internal Medicine Pulmonary Disease
PROC: 5A1955Z Respiratory Ventilation, Greater than 96 Consecutive Hours (ICD-10-PCS; principal; 2023-08-10)
PROC: 0BH17EZ Insertion of Endotracheal Airway into Trachea, Via Natural or Artificial Opening (ICD-10-PCS; 2023-08-10)
PROC: 02HV33Z Insertion of Infusion Device into Superior Vena Cava, Percutaneous Approach (ICD-10-PCS; 2023-08-10)
PROC: B548ZZA Ultrasonography of Superior Vena Cava, Guidance (ICD-10-PCS; 2023-08-10)
DX: A41.9 Sepsis, unspecified organism (principal); N17.0 Acute kidney failure with tubular necrosis; J96.01 Acute respiratory failure with hypoxia; J69.0 Pneumonitis due to inhalation of food and vomit; G93.41 Metabolic encephalopathy; R57.9 Shock, unspecified; J15.9 Unspecified bacterial pneumonia; J15.69 Pneumonia due to other Gram-negative bacteria; G40.901 Epilepsy, unspecified, not intractable, with status epilepticus; K57.31 Diverticulosis of large intestine without perforation or abscess with bleeding; M62.82 Rhabdomyolysis; J90 Pleural effusion, not elsewhere classified; E87.0 Hyperosmolality and hypernatremia; E86.0 Dehydration; N30.00 Acute cystitis without hematuria; F41.9 Anxiety disorder, unspecified; F17.210 Nicotine dependence, cigarettes, uncomplicated; E83.42 Hypomagnesemia; E87.6 Hypokalemia; Z82.49 Family history of ischemic heart disease and other diseases of the circulatory system; Z80.1 Family history of malignant neoplasm of trachea, bronchus and lung; Z99.11 Dependence on respirator [ventilator] status; Z79.899 Other long term (current) drug therapy
CPT/HCPCS: 36415; 36556; 36600; 70450; 71045; 71250; 74176; 76937; 80048; 80053; 80061; 80076; 80202; 80307; 80320; 81001; 82010; 82140; 82270; 82550; 82565; 82570; 82728; 82805; 82962; 83036; 83540; 83550; 83605; 83615; 83735; 83880; 83930; 84100; 84300; 84439; 84443; 84481; 85007; 85014; 85018; 85025; 85027; 85045; 85610; 85730; 86141; 86803; 87040; 87070; 87081; 87086; 87205; 87340; 92610; 93306; 94003; 95819; 97163; C9113; G0378; J1815; J2185; J2405; J2543; J2704; J3480; J7060

== ENCOUNTER 2023-11-17 08:50 | Inpatient (IN) | payer MEDICAID ==
[~2023-11-17] VITALS: Ht 175.3 cm; Wt 87.1 kg
[~2023-11-17 08:50] MED LIST changes: +CYAN100042 PO; +FOLI-119 PO; +MAGN241.4 PO; -OXCA300T4 PO; +OXCA600T40 PO; +THIA100T10 PO
[2023-11-17] MEDS: LORazepam 2MG/ML-1ML VIAL ONE (09:09)
[2023-11-17] MEDS: LORazepam 2MG/ML-1ML VIAL IV ONE ×2 (09:09→13:28)
[2023-11-17 10:20] LABS: Alanine Aminotransferase 30 U/L (7-40); Alkaline Phosphatase 88 U/L (46-116); Anion Gap 8 (5-15); Aspartate Aminotransferase 16 U/L (13-40); BUN/Creatinine Ratio 14.4 (10.0-20.0); Bilirubin, Total 0.3 mg/dL (0.2-1.0); Blood Alcohol < 3.0 mg/dL (<10); Blood Urea Nitrogen 19 mg/dL (9-23); Calcium 9.9 mg/dL (8.7-10.4); Carbon Dioxide 22 mmol/L (20-30); Chloride 109 mmol/L (98-107); Glucose 208 mg/dL (74-106); Potassium 4.5 mmol/L (3.5-5.1); Sodium 139 mmol/L (136-145); Total Protein 7.7 g/dL (5.7-8.2)
[2023-11-17 10:28] LABS: Basophils # (auto) 0 10 ^3/uL (0-0.2); Basophils % (auto) 0.3 % (0.0-2.0); Eosinophils # (auto) 0.1 10 ^3/uL (0-0.8); Eosinophils % (auto) 0.5 % (0.0-7.0); Hematocrit 43.7 % (41.0-53.0); Hemoglobin 14.7 g/dL (13.5-17.5); Mean Corpuscular Hemoglobin 30.1 pg (28.0-32.0); Mean Corpuscular Hgb Conc. 33.6 g/dL (32.0-36.0); Mean Corpuscular Volume 89.6 fL (80.0-100.0); Monocytes # (auto) 0.3 10 ^3/uL (0-1.3); Monocytes % (auto) 2.1 % (0.0-12.0); Neutrophils # (auto) 11.3 10 ^3/uL (1.6-8.6); Neutrophils % (auto) 89.1 % (37.0-80.0); Platelet Count (auto) 221 10^3/uL (140-450); Red Blood Cells 4.88 10^6/uL (4.5-5.90); Red Cell Distribution Width 14.1 % (11.8-14.3); White Blood Cell 12.7 10^3/uL (4.4-10.8)
[2023-11-17 10:49] VITALS: PULSE 90; RESP 13; O2SAT 100
[2023-11-17] MEDS: levETIRAcetam 1000 mg/100ml 100 ML IV ONE (11:07)
[2023-11-17] MEDS ORDERED: LORazepam 2MG/ML-1ML VIAL IV PRN (14:30)
[2023-11-17] MEDS ORDERED: TEMAZEPAM 15 MG CAP PO PRN (14:30)
[2023-11-17] MEDS ORDERED: NITROGLYCERIN 0.4 MG SL TAB SL PRN (14:30)
[2023-11-17] MEDS ORDERED: MORPHINE SULFATE INJ 2 MG/ml SYRG IV PRN (14:30)
[2023-11-17] MEDS: SODIUM CHLORIDE 0.9% 2,000 ML IV ONE (15:11)
[2023-11-17] MEDS: SODIUM CHLORIDE 0.9% 1,000 ML IV SCH (15:12)
[2023-11-17] MEDS: LORazepam 2MG/ML-1ML VIAL IV PRN (15:33)
[2023-11-17] MEDS: ACETAMINOPHEN 325 MG TAB PO PRN (16:21)
[2023-11-17 16:35] LABS: Amphetamine Screen, Urine Neg (NEGATIVE); Barbiturate Scree,Urine Neg (NEGATIVE); Benzodiazephine Screen, Urine Neg (NEGATIVE)
[2023-11-17 16:36] LABS: Cannabinoid Screen, Urine Pos (NEGATIVE); Cocaine Screen, Urine Neg (NEGATIVE); Opiate Scree,Urine Neg (NEGATIVE); Phencyclidine Screen, Urine Neg (NEGATIVE)
[2023-11-17] MEDS: ONDANSETRON HCL 4 MG/2 ML VIAL IV PRN (16:59)
[2023-11-17 17:06] LABS: Urine Bacteria None Seen /hpf (None Seen)
[2023-11-17] MEDS: cefTRIAXone 1GM/50ML D5W 50 ML IV ONE (17:37)
[2023-11-17 17:52] LABS: Urine Blood Negative /uL (Negative); Urine Clarity Turbid (Clear); Urine Color Colorless (Yellow); Urine Protein, UAD TRACE (Negative); Urine Urobilinogen Normal (Negative); Urine WBC 4 /hpf (0 - 3); Urine pH 5.5 (5.0-9.0)
[2023-11-17] MEDS: IBUPROFEN 600 MG TAB PO ONE (19:13)
[2023-11-17 20:30] VITALS: PULSE 94; RESP 13; O2SAT 100
[2023-11-17] MEDS ORDERED: levETIRAcetam 1000 mg/100ml 100 ML IV SCH (22:00)
[2023-11-17] MEDS ORDERED: levETIRAcetam 500 mg/100ml 100 ML IV SCH (22:00)
[2023-11-17] MEDS: levETIRAcetam 500 mg/100ml 100 ML IV SCH (22:38)
[2023-11-18 05:00] VITALS: BP 124/87; PULSE 79; RESP 16; TEMP 97.9; O2SAT 99
[2023-11-18 07:30] VITALS: PULSE 65; RESP 16; O2SAT 99
[2023-11-18] MEDS ORDERED: cefTRIAXone 1GM/50ML D5W 50 ML IV SCH (09:00)
[2023-11-18 09:03] VITALS: BP 125/91; PULSE 66; RESP 20; TEMP 98.8; O2SAT 99
[2023-11-18 10:11] LABS: Basophils # (auto) 0.1 10 ^3/uL (0-0.2); Eosinophils # (auto) 0 10 ^3/uL (0-0.8); Eosinophils % (auto) 0.3 % (0.0-7.0); Hematocrit 38.8 % (41.0-53.0); Hemoglobin 13.1 g/dL (13.5-17.5); Lymphocytes # (auto) 1.1 10 ^3/uL (0.4-5.4); Mean Corpuscular Hemoglobin 30.1 pg (28.0-32.0); Mean Corpuscular Hgb Conc. 33.8 g/dL (32.0-36.0); Mean Corpuscular Volume 89.2 fL (80.0-100.0); Monocytes # (auto) 0.5 10 ^3/uL (0-1.3); Monocytes % (auto) 5.1 % (0.0-12.0); Neutrophils # (auto) 8.4 10 ^3/uL (1.6-8.6); Neutrophils % (auto) 82.6 % (37.0-80.0); Platelet Count (auto) 178 10^3/uL (140-450); Red Blood Cells 4.34 10^6/uL (4.5-5.90); Red Cell Distribution Width 14.4 % (11.8-14.3); White Blood Cell 10.2 10^3/uL (4.4-10.8)
[2023-11-18 10:25] LABS: Alanine Aminotransferase 16 U/L (7-40); Alkaline Phosphatase 73 U/L (46-116); Anion Gap 12 (5-15); BUN/Creatinine Ratio 7.6 (10.0-20.0); Blood Urea Nitrogen 17 mg/dL (9-23); Calcium 9.1 mg/dL (8.7-10.4); Carbon Dioxide 18 mmol/L (20-30); Chloride 117 mmol/L (98-107); Glucose 99 mg/dL (74-106)
[2023-11-18 10:26] LABS: Albumin 4.3 g/dL (3.2-4.8); Aspartate Aminotransferase 15 U/L (13-40); Bilirubin, Total 0.3 mg/dL (0.2-1.0); Total Protein 6.6 g/dL (5.7-8.2)
[2023-11-18 10:32] LABS: Sodium 147 mmol/L (136-145)
[2023-11-18] MEDS: FOLIC ACID 1 MG TAB PO SCH (11:16)
[2023-11-18] MEDS: CYANOCOBALAMIN 500 MCG TAB PO SCH (11:16)
[2023-11-18] MEDS: MAGNESIUM OXIDE 400 MG TAB PO SCH (11:17)
[2023-11-18] MEDS: THIAMINE HCL 100 MG TAB PO SCH (11:17)
[2023-11-18 13:05] VITALS: BP 121/87; PULSE 88; RESP 16; TEMP 97.7; O2SAT 98
[2023-11-19] MEDS ORDERED: LEVE500T3 PO (15:13)
[2023-11-19] MEDS ORDERED: OXCA600T40 PO (15:16)
== END 2023-11-18 12:15 | disposition left against medical advice (07) | DRG 53 ==
LOC: ER 08:50 → EDSEX 08:50 → EDBD 08:50 → TELE 14:56 → TELE-CENTR 11-18 04:35
PROVIDERS: ADMIT Nurse Practitioner Family; ATTEND Nurse Practitioner Family
DX: G40.901 Epilepsy, unspecified, not intractable, with status epilepticus (principal); N17.9 Acute kidney failure, unspecified; D72.829 Elevated white blood cell count, unspecified; Z53.29 Procedure and treatment not carried out because of patient's decision for other reasons; F17.210 Nicotine dependence, cigarettes, uncomplicated; F12.10 Cannabis abuse, uncomplicated; E87.6 Hypokalemia; E86.0 Dehydration; Z82.49 Family history of ischemic heart disease and other diseases of the circulatory system; Z80.1 Family history of malignant neoplasm of trachea, bronchus and lung; Z79.899 Other long term (current) drug therapy
CPT/HCPCS: 36415; 70450; 71045; 80053; 80307; 80320; 81001; 82550; 85025; 87040; 93005; 95819; 96365; 96366; 96367; 96375; 96376; G0378; J2405

== ENCOUNTER 2023-11-18 12:20 | Inpatient (IN) | payer MEDICAID ==
[~2023-11-18] VITALS: Ht 172.7 cm; Wt 84.5 kg
[2023-11-18] MEDS ORDERED: NITROGLYCERIN 0.4 MG SL TAB SL PRN (13:45)
[2023-11-18 19:09] VITALS: PULSE 80; RESP 12; O2SAT 98
[2023-11-18 19:20] VITALS: RESP 16; O2SAT 98
[2023-11-18] MEDS: FOLIC ACID 1 MG TAB PO ONE (19:41)
[2023-11-18] MEDS: THIAMINE HCL 100 MG TAB PO ONE (19:41)
[2023-11-18] MEDS: MAGNESIUM OXIDE 400 MG TAB PO ONE (19:42)
[2023-11-18] MEDS: CYANOCOBALAMIN 500 MCG TAB PO ONE (19:42)
[2023-11-18] MEDS ORDERED: OXCARBAZEPINE 600 MG PO SCH (20:00)
[2023-11-18] MEDS: levETIRAcetam 500 MG TAB PO SCH (21:58)
[2023-11-18] MEDS ORDERED: levETIRAcetam 500 MG TAB PO SCH (22:00)
[2023-11-18] MEDS ORDERED: levETIRAcetam 1000 mg/100ml 100 ML IV SCH (22:00)
[2023-11-18] MEDS: LORazepam 2MG/ML-1ML VIAL IV PRN (22:48)
[2023-11-19] VITALS: RESP 16; O2SAT 98
[2023-11-19 05:23] LABS: Anion Gap 12 (5-15); Carbon Dioxide 20 mmol/L (20-30); Chloride 112 mmol/L (98-107); Potassium 3.5 mmol/L (3.5-5.1); Sodium 144 mmol/L (136-145)
[2023-11-19 05:25] LABS: Calcium 9.6 mg/dL (8.7-10.4)
[2023-11-19 05:30] LABS: Blood Urea Nitrogen 12 mg/dL (9-23); Glucose 98 mg/dL (74-106)
[2023-11-19] MEDS: CYANOCOBALAMIN 500 MCG TAB PO SCH (10:23)
[2023-11-19] MEDS: THIAMINE HCL 100 MG TAB PO SCH (10:24)
[2023-11-19] MEDS: MAGNESIUM OXIDE 400 MG TAB PO SCH (10:24)
[2023-11-19] MEDS: FOLIC ACID 1 MG TAB PO SCH (10:24)
[2023-11-19] MEDS: OXCARBAZEPINE 600 MG PO SCH (12:11)
[2023-11-19] MEDS: [UNRECOGNIZED DRUG - OTHER] PO SCH (12:11)
[2023-11-19 15:00] VITALS: BP 139/97; PULSE 79; RESP 20; TEMP 98.2; O2SAT 95
[2023-11-19 15:12] VITALS: O2SAT 98
[2023-11-19] MEDS ORDERED: LEVE500T3 PO (15:13)
[2023-11-19] MEDS ORDERED: OXCA600T40 PO (15:16)
[2023-11-19] MEDS ORDERED: ACETAMINOPHEN 325 MG TAB PO PRN (16:30)
[2023-11-19 20:00] VITALS: BP 137/98; PULSE 72; PULSE 86; RESP 18; TEMP 98.5; O2SAT 99
[2023-11-19] MEDS: LORazepam 2MG/ML-1ML VIAL IV PRN (21:41)
[2023-11-19] MEDS: OXTELLAR 600 MG PO SCH (21:43)
[2023-11-20 02:00] VITALS: BP 128/92; PULSE 80; RESP 18; TEMP 98.3; O2SAT 100
[2023-11-20 06:00] VITALS: BP 137/95; PULSE 62; RESP 18; TEMP 98.3; O2SAT 99
[2023-11-20 08:00] VITALS: RESP 18
[2023-11-20 08:32] VITALS: BP 136/93; PULSE 80; RESP 15; TEMP 98.3; O2SAT 100
[2023-11-20] MEDS: levETIRAcetam 500 MG TAB PO SCH (11:08)
[2023-11-20 11:14] LABS: Alanine Aminotransferase 15 U/L (7-40); Alkaline Phosphatase 75 U/L (46-116); Carbon Dioxide 27 mmol/L (20-30); Chloride 110 mmol/L (98-107); Glucose 96 mg/dL (74-106); Potassium 3.5 mmol/L (3.5-5.1)
[2023-11-20 11:15] LABS: Albumin 4.8 g/dL (3.2-4.8); Anion Gap 9 (5-15); Aspartate Aminotransferase 12 U/L (13-40); BUN/Creatinine Ratio 8.5 (10.0-20.0); Bilirubin, Total 0.4 mg/dL (0.2-1.0); Blood Urea Nitrogen 12 mg/dL (9-23); Sodium 146 mmol/L (136-145); Total Protein 7.4 g/dL (5.7-8.2)
[2023-11-20 12:53] VITALS: BP 138/88; PULSE 98; RESP 18; TEMP 99.2; O2SAT 98
[2023-11-20 17:00] VITALS: BP 148/109; PULSE 79; RESP 20; TEMP 98; O2SAT 98
== END 2023-11-20 18:39 | disposition home or self-care (01) | DRG 53 ==
LOC: ER 12:20 → OVERFLOW 13:42 → WEST WING 11-19 15:02
PROVIDERS: ADMIT Nurse Practitioner Family; ATTEND Nurse Practitioner Acute Care
DX: G40.901 Epilepsy, unspecified, not intractable, with status epilepticus (principal); N17.0 Acute kidney failure with tubular necrosis; E87.0 Hyperosmolality and hypernatremia; D72.829 Elevated white blood cell count, unspecified; E86.0 Dehydration; R00.0 Tachycardia, unspecified; R73.9 Hyperglycemia, unspecified; F12.10 Cannabis abuse, uncomplicated; N18.2 Chronic kidney disease, stage 2 (mild); I12.9 Hypertensive chronic kidney disease with stage 1 through stage 4 chronic kidney disease, or unspecified chronic kidney disease; E87.6 Hypokalemia; Z53.29 Procedure and treatment not carried out because of patient's decision for other reasons; Z82.49 Family history of ischemic heart disease and other diseases of the circulatory system; Z80.1 Family history of malignant neoplasm of trachea, bronchus and lung
CPT/HCPCS: 36415; 80048; 80053; 82542; 87081; G0378

== ENCOUNTER 2023-12-09 17:18 | Inpatient (IN) | payer MEDICAID ==
[~2023-12-09] VITALS: Ht 170.2 cm; Wt 89.5 kg
[~2023-12-09 17:18] MED LIST changes: -KEP500T PO; +LEVE500T3 PO; -MAGN241.4 PO; -OXCA600T40 PO
[2023-12-09 18:05] VITALS: O2SAT 97
[2023-12-09 18:08] LABS: Basophils # (auto) 0.1 10 ^3/uL (0-0.2); Basophils % (auto) 0.7 % (0.0-2.0); Eosinophils # (auto) 0.1 10 ^3/uL (0-0.8); Eosinophils % (auto) 0.4 % (0.0-7.0); Hematocrit 43.3 % (41.0-53.0); Hemoglobin 14.4 g/dL (13.5-17.5); Lymphocytes # (auto) 3.9 10 ^3/uL (0.4-5.4); Lymphocytes % (auto) 28.7 % (10.0-50.0); Mean Corpuscular Hemoglobin 29.3 pg (28.0-32.0); Mean Corpuscular Hgb Conc. 33.2 g/dL (32.0-36.0); Mean Corpuscular Volume 88.4 fL (80.0-100.0); Monocytes # (auto) 0.7 10 ^3/uL (0-1.3); Monocytes % (auto) 4.8 % (0.0-12.0); Neutrophils # (auto) 8.8 10 ^3/uL (1.6-8.6); Neutrophils % (auto) 65.4 % (37.0-80.0); Nucleated Red Blood Cells % 0.1 %; Platelet Count (auto) 377 10^3/uL (140-450); Red Cell Distribution Width 14.1 % (11.8-14.3); White Blood Cell 13.5 10^3/uL (4.4-10.8)
[2023-12-09 18:23] LABS: Alanine Aminotransferase 21 U/L (7-40); Albumin 5.2 g/dL (3.2-4.8); Alkaline Phosphatase 98 U/L (46-116); Anion Gap 17 (5-15); Aspartate Aminotransferase 19 U/L (13-40); BUN/Creatinine Ratio 11.9 (10.0-20.0); Bilirubin, Total 0.2 mg/dL (0.2-1.0); Blood Urea Nitrogen 16 mg/dL (9-23); Calcium 9.9 mg/dL (8.7-10.4); Carbon Dioxide 16 mmol/L (20-31); Chloride 106 mmol/L (98-107); Glucose 187 mg/dL (74-106); Potassium 3.6 mmol/L (3.5-5.1); Sodium 139 mmol/L (136-145); Total Protein 8.1 g/dL (5.7-8.2)
[2023-12-09 20:52] LABS: Urine Bacteria FEW /hpf (None Seen); Urine Blood 1+ /uL (Negative); Urine Clarity Clear (Clear); Urine Color Light-Yellow (Yellow); Urine Hyaline Cast FEW /lpf (0 - 2); Urine Protein, UAD TRACE (Negative); Urine Specific Gravity 1.015 (1.001-1.035); Urine Sperm PRESENT /hpf (None Seen); Urine Urobilinogen Normal (Negative); Urine WBC 1 /hpf (0 - 3)
[2023-12-09] MEDS: LORazepam 2MG/ML-1ML VIAL ONE (21:15)
[2023-12-09] MEDS: LORazepam 2MG/ML-1ML VIAL IV ONE (21:15)
[2023-12-09] MEDS ORDERED: ACETAMINOPHEN 325 MG TAB PO PRN (21:45)
[2023-12-09] MEDS ORDERED: ONDANSETRON HCL 4 MG/2 ML VIAL IV PRN (21:45)
[2023-12-09] MEDS ORDERED: DOCUSATE SOD 100 MG CAP PO PRN (21:45)
[2023-12-09] MEDS ORDERED: LORazepam 2MG/ML-1ML VIAL IV PRN (21:45)
[2023-12-09] MEDS: levETIRAcetam 500 mg/100ml 100 ML IV SCH (22:19)
[2023-12-09] MEDS: SODIUM CHLOR 0.9% PF (SALINE LOCK) 10ML VIAL/SYR IV SCH (22:19)
[2023-12-09] MEDS ORDERED: NITROGLYCERIN 0.4 MG SL TAB SL PRN (22:30)
[2023-12-09] MEDS ORDERED: MORPHINE SULFATE INJ 2 MG/ml SYRG IV PRN (22:30)
[2023-12-10] VITALS (7 sets, daily range): BP systolic 126–141; BP diastolic 70–95; PULSE 20–115; RESP 18–20; TEMP 98.6–98.8; O2SAT 92–100
[2023-12-10] MEDS ORDERED: OXCA150T61 OR (04:13)
[2023-12-10] MEDS ORDERED: MAGN400T40 OR (04:14)
[2023-12-10 05:38] LABS: Basophils # (auto) 0.1 10 ^3/uL (0-0.2); Basophils % (auto) 0.9 % (0.0-2.0); Eosinophils # (auto) 0 10 ^3/uL (0-0.8); Hematocrit 40.2 % (41.0-53.0); Hemoglobin 13.4 g/dL (13.5-17.5); Lymphocytes # (auto) 1.7 10 ^3/uL (0.4-5.4); Lymphocytes % (auto) 11.5 % (10.0-50.0); Mean Corpuscular Hemoglobin 29.7 pg (28.0-32.0); Mean Corpuscular Hgb Conc. 33.4 g/dL (32.0-36.0); Mean Corpuscular Volume 88.9 fL (80.0-100.0); Monocytes % (auto) 6.7 % (0.0-12.0); Neutrophils % (auto) 80.9 % (37.0-80.0); Nucleated Red Blood Cells % 0.1 %; Platelet Count (auto) 250 10^3/uL (140-450); Red Blood Cells 4.52 10^6/uL (4.5-5.90); Red Cell Distribution Width 13.8 % (11.8-14.3); White Blood Cell 14.8 10^3/uL (4.4-10.8)
[2023-12-10 06:06] LABS: Alanine Aminotransferase 16 U/L (7-40); Albumin 4.7 g/dL (3.2-4.8); Alkaline Phosphatase 94 U/L (46-116); Anion Gap 12 (5-15); Aspartate Aminotransferase 24 U/L (13-40); BUN/Creatinine Ratio 9.7 (10.0-20.0); Bilirubin, Total 0.5 mg/dL (0.2-1.0); Blood Urea Nitrogen 23 mg/dL (9-23); Calcium 9.4 mg/dL (8.7-10.4); Carbon Dioxide 21 mmol/L (20-31); Chloride 106 mmol/L (98-107); Glucose 105 mg/dL (74-106); Sodium 139 mmol/L (136-145); Total Protein 7.3 g/dL (5.7-8.2)
[2023-12-10] MEDS: SODIUM CHLORIDE 0.9% 1,000 ML IV SCH (13:23)
[2023-12-10 16:16] LABS: Phosphorus 4.6 mg/dL (2.4-5.1)
[2023-12-10] MEDS: HYDROcodone-ACET 5/325MG TAB PO PRN (22:27)
[2023-12-10] MEDS: OXcarbazepine 300 MG TAB PO SCH (22:28)
[2023-12-11] VITALS (9 sets, daily range): BP systolic 119–142; BP diastolic 70–92; PULSE 61–90; RESP 17–18; TEMP 97.5–98.5; O2SAT 96–99
[2023-12-11] MEDS: THIAMINE 100mg/ml INJ (200mg/2ml VIAL) IM ONE (06:09)
[2023-12-11 09:42] LABS: Chloride 109 mmol/L (98-107); Potassium 3.9 mmol/L (3.5-5.1); Sodium 140 mmol/L (136-145)
[2023-12-11 09:43] LABS: Anion Gap 7 (5-15); Calcium 9.2 mg/dL (8.7-10.4); Carbon Dioxide 24 mmol/L (20-31)
[2023-12-11 09:48] LABS: BUN/Creatinine Ratio 6.6 (10.0-20.0); Blood Urea Nitrogen 25 mg/dL (9-23); Glucose 107 mg/dL (74-106)
[2023-12-11] MEDS: THIAMINE HCL 100 MG TAB PO SCH (10:09)
[2023-12-12] VITALS (8 sets, daily range): BP systolic 128–156; BP diastolic 70–109; PULSE 63–121; RESP 17–18; TEMP 98–98.2; O2SAT 97–100
[2023-12-12 07:14] LABS: Alanine Aminotransferase 14 U/L (7-40); Albumin 4.1 g/dL (3.2-4.8); Alkaline Phosphatase 78 U/L (46-116); Anion Gap 9 (5-15); Aspartate Aminotransferase 19 U/L (13-40); BUN/Creatinine Ratio 7.4 (10.0-20.0); Bilirubin, Total 0.2 mg/dL (0.2-1.0); Blood Urea Nitrogen 18 mg/dL (9-23); Calcium 8.9 mg/dL (8.7-10.4); Carbon Dioxide 24 mmol/L (20-31); Chloride 109 mmol/L (98-107); Creatine Kinase IFCC 345 U/L (46-171); Glucose 95 mg/dL (74-106); Potassium 3.5 mmol/L (3.5-5.1); Sodium 142 mmol/L (136-145)
[2023-12-12 07:15] LABS: Total Protein 6.3 g/dL (5.7-8.2)
[2023-12-12] MEDS: CHOLECALCIFEROL (VITD3) 1,000UNIT=25mCg TAB PO ONE (18:20)
[2023-12-13 01:00] VITALS: BP 130/72; PULSE 78; RESP 19; TEMP 97.9; O2SAT 98
[2023-12-13 05:00] VITALS: BP 125/70; PULSE 72; RESP 19; TEMP 98.1; O2SAT 97
[2023-12-13 08:00] VITALS: PULSE 61
[2023-12-13 09:12] VITALS: BP 143/107; PULSE 68; RESP 17; TEMP 97.9; O2SAT 99
[2023-12-13] MEDS: CHOLECALCIFEROL (VITD3) 1,000UNIT=25mCg TAB PO SCH (09:16)
[2023-12-13] MEDS ORDERED: OXCA600T3 PO (09:40)
[2023-12-13 10:59] VITALS: TEMP 36.6
[2023-12-13 11:09] LABS: Basophils # (auto) 0 10 ^3/uL (0-0.2); Basophils % (auto) 0.5 % (0.0-2.0); Eosinophils # (auto) 0.1 10 ^3/uL (0-0.8); Eosinophils % (auto) 1.2 % (0.0-7.0); Hematocrit 37.5 % (41.0-53.0); Hemoglobin 12.9 g/dL (13.5-17.5); Lymphocytes # (auto) 1.6 10 ^3/uL (0.4-5.4); Lymphocytes % (auto) 28.5 % (10.0-50.0); Mean Corpuscular Hgb Conc. 34.3 g/dL (32.0-36.0); Mean Corpuscular Volume 87.5 fL (80.0-100.0); Monocytes # (auto) 0.3 10 ^3/uL (0-1.3); Monocytes % (auto) 4.9 % (0.0-12.0); Neutrophils # (auto) 3.6 10 ^3/uL (1.6-8.6); Neutrophils % (auto) 64.9 % (37.0-80.0); Nucleated Red Blood Cells % 0.1 %; Platelet Count (auto) 203 10^3/uL (140-450); Red Blood Cells 4.28 10^6/uL (4.5-5.90); Red Cell Distribution Width 13.3 % (11.8-14.3); White Blood Cell 5.5 10^3/uL (4.4-10.8)
[2023-12-13 11:16] LABS: Alanine Aminotransferase 15 U/L (7-40); Albumin 4.5 g/dL (3.2-4.8); Alkaline Phosphatase 79 U/L (46-116); Anion Gap 7 (5-15); Aspartate Aminotransferase 15 U/L (13-40); BUN/Creatinine Ratio 6.4 (10.0-20.0); Blood Urea Nitrogen 9 mg/dL (9-23); Calcium 9.5 mg/dL (8.7-10.4); Carbon Dioxide 28 mmol/L (20-31); Chloride 108 mmol/L (98-107); Glucose 91 mg/dL (74-106); Potassium 3.7 mmol/L (3.5-5.1); Sodium 143 mmol/L (136-145)
[2023-12-13 11:17] LABS: Bilirubin, Total 0.4 mg/dL (0.2-1.0); Creatine Kinase IFCC 241 U/L (46-171)
[2023-12-13 13:03] VITALS: BP 150/102; PULSE 65; RESP 17; TEMP 97.9; O2SAT 97
== END 2023-12-13 12:30 | disposition home or self-care (01) | DRG 422 ==
LOC: EDBD 17:18 → ER 17:18 → TELE-CENTR 22:21 → TELE 22:21 → TELE-CENTR 23:45
PROVIDERS: ADMIT Nurse Practitioner Family; ATTEND Family Medicine
DX: E86.0 Dehydration (principal); N17.0 Acute kidney failure with tubular necrosis; G40.401 Other generalized epilepsy and epileptic syndromes, not intractable, with status epilepticus; E87.20 Acidosis, unspecified; M62.82 Rhabdomyolysis; D72.829 Elevated white blood cell count, unspecified; R73.9 Hyperglycemia, unspecified; F41.9 Anxiety disorder, unspecified; N18.30 Chronic kidney disease, stage 3 unspecified; Z82.49 Family history of ischemic heart disease and other diseases of the circulatory system; Z80.1 Family history of malignant neoplasm of trachea, bronchus and lung; Z79.899 Other long term (current) drug therapy; Z91.199 Patient's noncompliance with other medical treatment and regimen due to unspecified reason
CPT/HCPCS: 36415; 76775; 80048; 80053; 81001; 82306; 82550; 83036; 83735; 83970; 84100; 85025; 87081; 99291; G0378

== ENCOUNTER 2024-01-07 01:23 | Emergency (ER) | payer MEDICAID ==
[~2024-01-07] VITALS: Ht 172.7 cm; Wt 84.0 kg
[~2024-01-07 01:23] MED LIST changes: -LEVE500T3 PO; +MAGN400T40 OR; +OXCA150T61 OR; +OXCA600T3 PO
[2024-01-07 01:39] VITALS: BP 134/88; PULSE 90; RESP 16; O2SAT 98
== END 2024-01-07 01:44 | disposition home or self-care (01) ==
LOC: EDBD 01:23 → ER 01:23
DX: G40.909 Epilepsy, unspecified, not intractable, without status epilepticus (principal); F41.9 Anxiety disorder, unspecified; Z86.69 Personal history of other diseases of the nervous system and sense organs

== ENCOUNTER 2024-01-09 16:48 | Emergency (ER) | payer MEDICAID ==
[~2024-01-09] VITALS: Ht 172.7 cm; Wt 82.7 kg
[2024-01-09 17:40] LABS: Basophils # (auto) 0.1 10 ^3/uL (0-0.2); Basophils % (auto) 0.8 % (0.0-2.0); Eosinophils # (auto) 0 10 ^3/uL (0-0.8); Eosinophils % (auto) 0.2 % (0.0-7.0); Hematocrit 41.5 % (41.0-53.0); Hemoglobin 14.1 g/dL (13.5-17.5); Lymphocytes # (auto) 2.1 10 ^3/uL (0.4-5.4); Lymphocytes % (auto) 20.5 % (10.0-50.0); Mean Corpuscular Hemoglobin 29.4 pg (28.0-32.0); Mean Corpuscular Volume 86.4 fL (80.0-100.0); Monocytes # (auto) 0.7 10 ^3/uL (0-1.3); Monocytes % (auto) 6.5 % (0.0-12.0); Neutrophils # (auto) 7.5 10 ^3/uL (1.6-8.6); Platelet Count (auto) 267 10^3/uL (140-450); Red Cell Distribution Width 13.6 % (11.8-14.3); White Blood Cell 10.4 10^3/uL (4.4-10.8)
[2024-01-09 17:51] LABS: Anion Gap 14 (5-15); Calcium 10.1 mg/dL (8.7-10.4); Carbon Dioxide 20 mmol/L (20-31); Chloride 108 mmol/L (98-107); Potassium 3.4 mmol/L (3.5-5.1); Sodium 142 mmol/L (136-145)
[2024-01-09 17:56] LABS: Glucose 109 mg/dL (74-106)
[2024-01-09 17:57] LABS: BUN/Creatinine Ratio 12.9 (10.0-20.0); Blood Urea Nitrogen 20 mg/dL (9-23); Magnesium 2.2 mg/dL (1.6-2.6)
--- NOTE | 2024-01-09 18:06 | DVH ---
CHEST RADIOGRAPH Indication:sob Technique: Single frontal view of the chest was obtained Comparison: XY CHEST XRAY 1 VIEW on DOS: 11/17/23, XY CHEST XRAY 1 VIEW on DOS: 10/14/23, XY CHEST PORT ABLE on DOS: 10/10/23 FINDINGS: Lines and Tubes: None Lungs: No focal consolidation. Pleura: No effusion. No pneumothorax. Cardiomediastinal contours: Unremarkable Bones: No acute osseous abnormality. IMPRESSION: No acute cardiopulmonary disease.
[2024-01-09 18:58] LABS: Urine Bacteria None Seen /hpf (None Seen)
[2024-01-09 19:15] LABS: Urine Blood Negative /uL (Negative); Urine Clarity Clear (Clear); Urine Color Colorless (Yellow); Urine Protein, UAD Negative (Negative); Urine Specific Gravity 1.005 (1.001-1.035); Urine Urobilinogen Normal (Negative); Urine WBC <1 /hpf (0 - 3)
[2024-01-09 19:31] LABS: Amphetamine Screen, Urine Neg (NEGATIVE); Benzodiazephine Screen, Urine Neg (NEGATIVE)
[2024-01-09 19:32] LABS: Barbiturate Scree,Urine Neg (NEGATIVE); Cannabinoid Screen, Urine Pos (NEGATIVE); Cocaine Screen, Urine Neg (NEGATIVE); Opiate Scree,Urine Neg (NEGATIVE); Phencyclidine Screen, Urine Neg (NEGATIVE)
--- NOTE | 2024-01-09 19:58 | ED.PDOC ---
SOB-HPI HPI Comments HPI: Poor Historian. 33 y/o male complains of one day h/o SOB when he was biking today. he states having some occasional productive phlegm. denies any other acute symptoms. Vitals: Temp:98.2 F Heart rate: 107 RR: 16 BP: 161/92 02 sat: 96 % on room air PMH: SEIZURES PSH: R FEMUR SURGERY social history: DENIES tobacco use, DENIES ETOH use, DENIES drug use medications: DENIES allergies: NKDA REVIEW OF SYSTEMS: CONSTITUTIONAL: Denies acute: fever, diaphoresis, chills, generalized weakness. HEAD: Denies acute: headache, photophobia Eyes: Denies acute: Double vision, vision loss, eye pain, eye discharge. EARS: Denies acute: tinnitus, hearing loss, ear discharge, ear pain, THROAT: Denies acute: sore throat, swelling, difficulty swallowing , pain with swallowing, change in voice. NECK: Denies acute: neck pain, neck swelling, stiff neck. HEART: Denies acute : chest pain, palpitations, LUNGS: Denies acute: wheezing, hemoptysis ABDOMEN: Denies acute: abdominal pain, Nausea, Vomiting, diarrhea, melena , hematemesis, hematochezia SKIN: Denies acute: rash, redness, lesions, itchiness. EXTREMITIES: Denies acute: calf pain, numbness, tingling, weakness, denies pain in extremity. Denies acute: Low back pain. Neuro: Denies acute: focal neurological deficit, motor or sensory focal neurological deficit, tremors, seizure like activity, confusion, dizziness, change in mental status, loss of bowel or bladder function, cauda equina like symptoms. : Denies acute: dysuria, hematuria, flank pain, increase in urinary frequency. PSYCH: Denies acute: hallucination, suicidal ideation, homicidal ideation. PHYSICAL EXAM: General: no acute distress, awake and alert. Head: normocephalic, atraumatic. Neck: supple, trachea is midline, no swelling. Throat: Normal phonation. Eyes:, no erythema, no purulent discharge, no proptosis, no icterus. Heart: regular rate, regular rhythm, no significant murmur appreciated. Lungs: no apparent respiratory distress, Able to speak in full sentences. No wheezing, no rhonchi, no crackles. No stridors Clear to auscultation bilaterally. Abdomen: non tender to palpation, non distended, soft, no guarding, no rebound, + bowel sounds. Neuro: Awake, Alert, oriented to name, self, situation, follows commands GCS=15. Speech is normal. Skin: no petechia, no purpura, no cyanosis, non-pale, not jaundice. Lower extremities: --no - Pitting edema no deformity, no focal swelling, no calf TTP. Makes eye contact. moves all four extremities. Face: no apparent facial droop. Ambulating in the ED independently. Chief Complaint: Cough Time Seen by MD: 20:05 Primary Care Provider: UNKNOWN Reviewed notes: Nurses Notes, Medications, Allergies Information Source: Patient Mode of Arrival: Ambulatory Past Medical History PAST MEDICAL HISTORY: Anxiety, Seizures Surgical History: Unknown Family History Family History: Reviewed,noncontributory to illness, Family hx of heart lorenzo, Family hx of HTN, Family hx of lung lorenzo Social History Smoker: Non-Smoker Alcohol: Denies ETOH Use Drugs: Denies Drug Use Lives In: Home Was a procedure done? Was a procedure done?: No Differential Dx Differential Diagnosis: Other (DDx include ACS, unstable angina, anxiety, PE, pneumothroax, neoplasm, cardiac ischemia, COPD, asthma, CHF, pleural effusion, tobacco abuse, pneumonia, hypoxia, hypercapnia, anemia., infection/sepsis., pulmonary edema. Asthma, Cardiac tamponade, infection.) X-Ray, Labs, Meds, VS Vital Signs Date Time Temp Pulse Resp B/P (MAP) Pulse Ox O2 Delivery O2 Flow Rate FiO2 01/09/24 17:23 98.2 107 16 161/92 (115) 96 Lab Test 01/09/24 20:34 01/09/24 19:24 01/09/24 18:57 01/09/24 18:26 Range/Units Blood Gas Specimen Type Arterial Blood Gas Sample Site Right radial Blood Gas Patient Temperature 37.0 Arterial Blood Date Drawn Arterial Blood pH 7.390 7.350-7.450 Arterial Blood Partial Pressure CO2 31.8 L 35.0-48.0 mmHg Arterial Blood Partial Pressure O2 80.3 L 83.0-108.0 mmHg Arterial Blood HCO3 18.8 L 21.0-28.0 mmol/L Arterial Blood Oxygen Saturation 95.7 94.0-98.0 % Arterial Blood Base Excess -5.0 L -2.0-3.0 mmol/L Arterial Blood Oxyhemoglobin 94.6 94.0-98.0 % Arterial Blood Carboxyhemoglobin 0.4 L 0.5-1.5 % Arterial Blood Methemoglobin 0.7 0.0-1.5 % Satnam Test Yes Blood Gas Total Hemoglobin 14.90 13.5-17.5 g/dL Blood Gas Liter Flow 0.00 Blood Gas Modality Room air Blood Gas Spontaneous Rate 18 FiO2 % 21.0 Specimen Drawn By Ivan roberto rt Influenza Type A Antigen Negative Negative Influenza Type B Antigen Negative Negative SARS-CoV-2 Antigen (Rapid) Negative NEGATIVE Urine Color Colorless Yellow Urine Clarity Clear Clear Urine pH 5.0 5.0-9.0 Urine Specific [place] 1.005 1.001-1.035 Urine Protein Negative Negative Urine Ketones Negative Negative Urine Blood Negative Negative /uL Urine Nitrite Negative Negative Urine Bilirubin Negative Negative Urine Urobilinogen Normal Negative mg/dL Urine Leukocyte Esterase Negative Negative /uL Urine RBC 1 0 - 3 /hpf Urine WBC <1 0 - 3 /hpf Urine Squamous Epithelial Cells None seen <5 /hpf Urine Bacteria None seen None Seen /hpf Urine Glucose Normal Normal mg/dL Urine Opiates Screen Neg NEGATIVE Urine Fentanyl Screen Neg NEGATIVE Urine Barbiturates Screen Neg NEGATIVE Urine Phencyclidine Screen Neg NEGATIVE Urine Amphetamines Screen Neg NEGATIVE Urine Benzodiazepines Screen Neg NEGATIVE Urine Cocaine Screen Neg NEGATIVE Urine Cannabinoids Screen Pos NEGATIVE Magnesium Level 2.0 1.6-2.6 mg/dL Troponin I High Sensitivity 4 </=54 ng/L Test 01/09/24 17:31 Range/Units White Blood Count 10.4 4.4-10.8 10^3/uL Red Blood Count 4.80 4.5-5.90 10^6/uL Hemoglobin 14.1 13.5-17.5 g/dL Hematocrit 41.5 41.0-53.0 % Mean Corpuscular Volume 86.4 80.0-100.0 fL Mean Corpuscular Hemoglobin 29.4 28.0-32.0 pg Mean Corpuscular Hemoglobin Concent 34.0 32.0-36.0 g/dL Red Cell Distribution Width 13.6 11.8-14.3 % Platelet Count 267 140-450 10^3/uL Mean Platelet Volume 10.0 6.9-10.8 fL Neutrophils (%) (Auto) 72.0 37.0-80.0 % Lymphocytes (%) (Auto) 20.5 10.0-50.0 % Monocytes (%) (Auto) 6.5 0.0-12.0 % Eosinophils (%) (Auto) 0.2 0.0-7.0 % Basophils (%) (Auto) 0.8 0.0-2.0 % Neutrophils # (Auto) 7.5 1.6-8.6 10 ^3/uL Lymphocytes # (Auto) 2.1 0.4-5.4 10 ^3/uL Monocytes # (Auto) 0.7 0-1.3 10 ^3/uL Eosinophils # (Auto) 0 0-0.8 10 ^3/uL Basophils # (Auto) 0.1 0-0.2 10 ^3/uL Nucleated Red Blood Cells 0.0 % D-Dimer, Quantitative < 0.19 0.0-0.49 mg/L FEU Sodium Level 142 136-145 mmol/L Potassium Level 3.4 L 3.5-5.1 mmol/L Chloride Level 108 H 98-107 mmol/L Carbon Dioxide Level 20 20-31 mmol/L Anion Gap 14 5-15 Blood Urea Nitrogen 20 9-23 mg/dL Creatinine 1.55 H 0.700-1.30 mg/dL Glomerular Filtration Rate Calc 61 >90 mL/min BUN/Creatinine Ratio 12.9 10.0-20.0 Serum Glucose 109 H 74-106 mg/dL Calcium Level 10.1 8.7-10.4 mg/dL Magnesium Level 2.2 1.6-2.6 mg/dL Troponin I High Sensitivity 4 </=54 ng/L B-Type Natriuretic Peptide 4.50 0-100 pg/mL [facility] [id number] [place] [id number] Ph: [phone] DIAGNOSTIC IMAGING Diagnostic Imaging Report : [id number] Signed PATIENT: SWATHI THORPE JACCT: [id number] UNIT: [id number] : 1990 LOC: ER ROOM / BED: / AGE / SEX: 33 / M ADM STATUS: REG ER SERVICE 1822 ORDERING PHYSICIAN: EL ARMENDARIZ DO PROCEDURE(s): CXRP - CHEST PORTABLE REASON: sob ORDER NUMBER(s): [id number], ACCESSION NUMBER(s): [id number] CHEST RADIOGRAPH Indication:sob Technique: Single frontal view of the chest was obtained Comparison: XY CHEST XRAY 1 VIEW on DOS: 11/17/23, XY CHEST XRAY 1 VIEW on DOS: 10/14/23, XY CHEST PORTABLE on DOS: 10/10/23 FINDINGS: Lines and Tubes: None Lungs: No focal consolidation. Pleura: No effusion. No pneumothorax. Cardiomediastinal contours: Unremarkable Bones: No acute osseous abnormality. IMPRESSION: No acute cardiopulmonary disease. ATED BY: WESTON REN DO DICTATED DATE/TIME: 01/09/241803 SIGNED BY: WESTON REN DO SIGNED DATE/TIME: 01/09/241803 CC: Time of 1ST Reevaluation: 22:11 Reevaluation 1ST: Improved Patient Education/Counseling: Diagnosis, Treatment Family Education/Counseling: No Family Present Comments Patient presented with the above HPI.---dyspnea/cough---workup was initiated. patient was found with the above mentioned diagnosis. Patient ED course and VS have been stabilized. Patient has been reassessed in the ED and remained in a stable condition. Pertinent incidental findings were discussed with the patient and/or family. Patient/family voices understanding and is agreeable with plan. Patient has been observed in the ED adequate length of time to insure improvement/stability. patient was discharged home in a stable condition. Patient in no acute distress. All the reports of any imaging studies that were ordered by myself were reviewed by myself. Departure 1 Departure Time of Disposition: 21:45 Impression: Primary Impression: Dyspnea Additional Impression: Cough Disposition: 01 HOME / SELF CARE / HOMELESS Condition: Stable Additional Instructions: Additional discharge instructions: You MUST follow-up with your primary care/family doctor in 1 to 2 days. If you are unable to see your primary care/family doctor, please return to our emergency room for re-assessment and re-evaluation in 1 to 2 days. Return to the emergency room here in our facility or to the nearest ER [facility] if your symptoms change or worsen. CONSULTATIONS: you MUST Follow-up for consultation as soon as possible with: Monitor your kidney function well. Follow up with Nephrology. Please call for appointment. Discharged With: Self Critical Care Note Critical Care Time?: No I personally scribed for EL [facility]IZ [facility] on 01/09/24 at 19:58. Electronically submitted by Rosibel Cerna ([facility] I personally scribed for EL [facility]IZ [facility] on 01/09/24 at 20:02. Electronically submitted by Rosibel Cerna ([facility]). I personally scribed for EL ARMENDARIZ DO ([email or web address]) on 01/09/24 at 20:05. Electronically submitted by Rosibel Cerna ([facility]). I personally scribed for EL ARMENDARIZ DO ([email or web address]) on 01/09/24 at 20:31. Electronically submitted by Rosibel Cerna ([facility]). EL ARMENDARIZ DO Jan 09, 2024 19:58
[2024-01-09 21:27] LABS: COVID19 ANTIGEN SOFIA FIA NEGATIVE (NEGATIVE); Rapid Influenza A Negative (Negative); Rapid Influenza B Negative (Negative)
[2024-01-09 22:00] VITALS: BP 141/97; PULSE 95; RESP 18; TEMP 98.7; O2SAT 99
== END 2024-01-09 22:29 | disposition home or self-care (01) ==
LOC: ER 16:48
DX: R05.9 Cough, unspecified (principal); R06.00 Dyspnea, unspecified; Z88.8 Allergy status to other drugs, medicaments and biological substances; Z20.822 Contact with and (suspected) exposure to COVID-19
CPT/HCPCS: 36415; 36600; 71045; 80048; 80307; 81001; 82805; 83735; 83880; 84484; 85025; 85379; 87426; 87804

== ENCOUNTER 2024-02-06 08:50 | Inpatient (IN) | payer MEDICAID ==
[~2024-02-06] VITALS: Ht 175.3 cm; Wt 83.2 kg
--- NOTE | 2024-02-06 09:01 | ED.PDOC ---
History of Present Illness HPI Comments 33-year-old male who comes in with chief complaint of seizure today. The patient had an unwitnessed seizure at home while in the shower. The patient landed on the back of the head and is complaining of a headache which she rates as a 7/10. When the paramedics arrived, the patient was somewhat postictal. Ac cording to the family, the patient typically has a seizure and then multiple seizures after that. He is currently on Keppra but we are unaware if the patient is compliant with his medications. Upon arrival, the patient was also complaining of some nausea and vomiting. This is Chief Complaint: Seizure Time Seen by MD: 08:52 Primary Care Provider: UNKNOWN Reviewed Notes: Nurses Notes, Certification Technician Notes, Medications, Allergies (No allergies to medications) Allergies: Coded Allergies: NO KNOWN ALLERGIES (Unverified , 01/19/14) Home Meds Active Scripts Oxcarbazepine (Trileptal) 600 Mg Tab, 1.5 TAB PO BID, #180 TAB 1 Refill Prov:ANIYAH SOTO MD 12/13/23 Reported Medications Magnesium Oxide (MAGNESIUM OXIDE) 400 Mg Tab, 400 MG OR DAILY, TAB 12/10/23 Oxcarbazepine (OXTELLAR XR) 150 Mg Tab, 900 MG OR BID for seizure, TAB 12/10/23 Thiamine Hcl (VITAMIN B-1) 100 Mg Tb, 1 TAB PO DAILY 10/10/23 Cyanocobalamin (Vitamin B-12) 1,000 Mcg Tab, 1 TAB PO DAILY 10/10/23 Folic Acid (Folic Acid) 1 Mg Tab, 1 TAB PO DAILY 10/10/23 Information Source: Patient, Emergency Med Personnel Mode of Arrival: EMS Severity: Moderate Timing: Minutes Duration: Since onset Prehospital treatment: None Location: Posterior headache Associated signs and symptoms The patient was complaining of some nausea Past Medical History PAST MEDICAL HISTORY: Anxiety, Seizures Surgical History (Other): Right surgery Family History Family History: Reviewed,noncontributory to illness, Family hx of heart lorenzo, Family hx of HTN, Family hx of lung lorenzo Social History Smoker: Non-Smoker Alcohol: Denies ETOH Use Drugs: Marijuana Lives In: Home Constitutional: denies: chills, diaphoresis, fatigue, fever, malaise, sweats, weakness, others EENTM: denies: blurred vision, double vision, ear bleeding, ear discharge, ear drainage, ear pain, ear ringing, eye pain, eye redness, hearing loss, mouth pain, mouth swelling, nasal discharge, nose bleeding, nose congestion, nose pain, photophobia, tearing, throat pain, throat swelling, voice changes, others Respiratory: denies: cough, hemoptysis, orthopnea, SOB at rest, shortness of breath, SOB with excertion, stridor, wheezing, others Cardiovascular: denies: chest pain, dizzy spells, diaphoresis, Dyspnea on exertion, edema, irregular heart beat, left arm pain, lightheadedness, palpitations, PND, syncope, others Gastrointestinal: reports: nausea, vomiting; denies: abdomen distended, abdominal pain, blood streaked bowels, constipated, diarrhea, dysphagia, difficulty swallowing, hematemesis, melena, poor appetite, poor fluid intake, rectal bleeding, rectal pain, others Genitourinary: denies: burning, dysuria, flank pain, frequency, hematuria, incontinence, penile discharge, penile sore, pain, testicle pain, testicle swelling, urgency, others Neurological: reports: headache, seizure; denies: dizziness, fainting, left sided numbness, left sided weakness, numbness, paresthesia, pre-existing deficit, right sided numbness, right sided weakness, speech problems, tingling, tremors, weakness, others Musculoskeletal: denies: back pain, gout, joint pain, joint swelling, muscle pain, muscle stiffness, neck pain, others Integumetry: denies: bruises, change in color, change in hair/nails, dryness, laceration, lesions, lumps, rash, wounds, others Allergic/Immunocompromised: denies: Difficulty Healing, Frequent Infections, Hives, Itching, others Hematologic/Lymphatic: denies: anemia, blood clots, easy bleeding, easy bruising, swollen glands, others Endocrine: denies: excessive hunger, excessive sweating, excessive thirst, excessive urination, flushing, intolerance to cold, intolerance to heat, unexplained weight gain, unexplained weight loss, others Psychiatric: denies: anxiety, bipolar disorder, depression, hopeless, panic disorder, schizophrenia, sleepless, suicidal, others Physical Exam General Appearance: Moderate Distress HEENT: Normal ENT Inspection, Pharynx Normal, TMs Normal Neck: Full Range of Motion, Non-Tender, Normal, Normal Inspection Respiratory: Chest Non-Tender, Lungs Clear, No Accessory Muscle Use, No Respiratory Distress, Normal Breath Sounds Cardiovascular: No Edema, No JVD, No Murmur, No Gallop, Normal Peripheral Pulses, Regular Rate/Rhythm Breast Exam: Deferred Gastrointestinal: No Organomegaly, Non Tender, No Pulsatile Mass, Normal Bowel Sounds, Soft Genitalia: Deferred Pelvic: Deferred Rectal: Deferred Extremities: No calf tenderness, Normal capillary refill, Normal inspection, Normal range of motion, Non-tender, No pedal edema Musculoskeletal : Apperance: Normal Neurologic: volunteer services specialist II-XII nml as Tested, Motor Weakness, No Sensory Deficits, Other (The patient was still somewhat postictal) Cerebellar Function: Normal Reflexes: Normal Skin: Dry, Normal Color, Warm, Other (Abrasions to the occipital region) Lymphatic: No Adenopathy Was a procedure done? Was a procedure done?: No Differential Dx Considerations may include: Seizure, vomiting X-Ray, Labs, Meds, VS Vital Signs Date Time Temp Pulse Resp B/P (MAP) Pulse Ox O2 Delivery O2 Flow Rate FiO2 02/06/24 11:24 90 14 100 Room Air* 0 21 02/06/24 11:15 98.9 02/06/24 10:00 82 18 121/71 (88) 100 02/06/24 09:30 90 14 121/71 (88) 100 02/06/24 09:02 98.9 94 18 130/73 (92) 100 Lab Test 02/06/24 11:00 Range/Units White Blood Count 17.4 H 4.4-10.8 10^3/uL Red Blood Count 4.84 4.5-5.90 10^6/uL Hemoglobin 14.0 13.5-17.5 g/dL Hematocrit 42.6 41.0-53.0 % Mean Corpuscular Volume 87.9 80.0-100.0 fL Mean Corpuscular Hemoglobin 28.9 28.0-32.0 pg Mean Corpuscular Hemoglobin Concent 32.9 32.0-36.0 g/dL Red Cell Distribution Width 14.3 11.8-14.3 % Platelet Count 237 140-450 10^3/uL Mean Platelet Volume 10.1 6.9-10.8 fL Neutrophils (%) (Auto) 92.1 H 37.0-80.0 % Lymphocytes (%) (Auto) 4.1 L 10.0-50.0 % Monocytes (%) (Auto) 3.5 0.0-12.0 % Eosinophils (%) (Auto) 0.1 0.0-7.0 % Basophils (%) (Auto) 0.2 0.0-2.0 % Neutrophils # (Auto) 16.0 H 1.6-8.6 10 ^3/uL Lymphocytes # (Auto) 0.7 0.4-5.4 10 ^3/uL Monocytes # (Auto) 0.6 0-1.3 10 ^3/uL Eosinophils # (Auto) 0 0-0.8 10 ^3/uL Basophils # (Auto) 0 0-0.2 10 ^3/uL Nucleated Red Blood Cells 0.0 % Sodium Level 141 136-145 mmol/L Potassium Level 3.7 3.5-5.1 mmol/L Chloride Level 108 H 98-107 mmol/L Carbon Dioxide Level 23 20-31 mmol/L Anion Gap 10 5-15 Blood Urea Nitrogen 15 9-23 mg/dL Creatinine 1.10 0.700-1.30 mg/dL Glomerular Filtration Rate Calc 92 >90 mL/min BUN/Creatinine Ratio 13.6 10.0-20.0 Serum Glucose 104 74-106 mg/dL Calcium Level 9.6 8.7-10.4 mg/dL Current Medications Medications (Trade) Dose Ordered Sig/Kinjal Route Start Time Stop Time Status Last Admin Lorazepam (Ativan Inj) 1 mg ONCE ONCE IV 02/06/24 09:00 02/06/24 09:01 DC 02/06/24 09:24 Ondansetron HCl (Zofran) 4 mg ONCE ONCE IV 02/06/24 09:00 02/06/24 09:01 DC 02/06/24 09:24 Levetiracetam 100 ml @ 400 mls/hr ONCE ONCE IV 02/06/24 09:00 02/06/24 09:14 DC 02/06/24 09:24 Acetaminophen (Tylenol Tablet) 650 mg ONCE ONCE PO 02/06/24 11:00 02/06/24 11:01 DC 02/06/24 11:15 Sodium Chloride 500 ml @ 500 mls/hr Q1H ONCE IV 02/06/24 11:00 02/06/24 11:59 02/06/24 11:16 The wound is being cleaned at this time The patient was given Ativan 1 mg IV push upon arrival to the emergency department's The patient was given Zofran 4 mg IV push because of the nausea The patient was given a 500 cc bolus of normal saline The patient was given Keppra 1000 mg IV piggyback We did page the neurologist on-call We also spoke with the patient's mother who is at bedside We feel that the patient needs to be admitted for further observe in secondary to lack of returning to the baseline at this time The CBC shows an elevated white blood cell count of 17.4 which is most likely secondary to the seizure The chemistry panel is within normal limits The patient was being admitted at this time. Images Reviewed?: Images reviewed and evaluated by me Time of 1ST Reevaluation: 09:01 Reevaluation 1ST: Improved Patient Education/Counseling: Diagnosis, Treatment, Prognosis Family Education/Counseling: No Family Present Departure 1 Departure Time of Disposition: 11:51 Impression: Primary Impression: Status epilepticus Disposition: ADMITTED INPATIENT Admit to: [facility] Condition: Fair Critical Care Note Critical Care Time?: Yes (45 min-critical care time only) Stability Stability form required: Yes Unstable for transfer: Telemetry monitoring (Telemetry monitoring required), ED Physician Assesment Heart Score Heart Score: Heart Score Response (Comments) Value History N/A 0 EKG N/A 0 Age N/A 0 Risk Factors N/A 0 Troponin N/A 0 Total 0 SHEMAR LEUNG MD Feb 06, 2024 09:01
[2024-02-06] MEDS: ONDANSETRON HCL 4 MG/2 ML VIAL IV ONE (09:24)
[2024-02-06] MEDS: levETIRAcetam 1000 mg/100ml 100 ML IV ONE (09:24)
[2024-02-06] MEDS: LORazepam 2MG/ML-1ML VIAL IV ONE (09:24)
--- NOTE | 2024-02-06 09:57 | DVH ---
EXAM: CT HEAD WITHOUT CONTRAST INDICATION: seizure TECHNIQUE: CT of the head without intravenous contrast. Coronal and sagittal reformatted images are submitted. Radiation Dose : 1. Head: CT Dose: CTDI volume is mGy. Dose-length product is mGy*cm The dose indicators for CT are the volume Computed Tomography (CT) Dose Index (CTDIvol) and the Dose Length Product (DLP), and are measured in units of mGy and mGy-cm, respectively. These indicators are not patient dose, but values generated from the CT scanner acquisition factors. The report includes radiation exposure data for exposures received during this examination. All CT scans at this medical facility are performed using dose modulation techniques as appropriate to a performed exam including the following: Automated exposure control was utilized; adjustment of the MA and/or KV according to patient size; and use of iterative reconstruction technique. COMPARISON: CT HEAD WITHOUT CONTRAST on DOS: 11/17/23 FINDINGS: There is no evidence of acute intracranial hemorrhage, extra-axial collection, mass effect, midline s hift, herniation or hydrocephalus. The ventricles, sulci and cisterns are age appropriate. The garrido-white differentiation is intact. The visualized paranasal sinuses and mastoid air cells are clear. No depressed calvarial fracture. Right parietal scalp laceration and soft tissue swelling. IMPRESSION: 1. No evidence of acute intracranial abnormality. 2. Right parietal scalp laceration and soft tissue swelling.
[2024-02-06] MEDS: ACETAMINOPHEN 325 MG TAB PO ONE (11:15)
[2024-02-06] MEDS: SODIUM CHLORIDE 0.9% 500 ML IV ONE (11:16)
[2024-02-06 11:24] VITALS: PULSE 90; RESP 14; O2SAT 100
[2024-02-06 11:36] LABS: Chloride 108 mmol/L (98-107); Potassium 3.7 mmol/L (3.5-5.1); Sodium 141 mmol/L (136-145)
[2024-02-06 11:37] LABS: Anion Gap 10 (5-15); Carbon Dioxide 23 mmol/L (20-31)
[2024-02-06 11:38] LABS: Calcium 9.6 mg/dL (8.7-10.4)
[2024-02-06 11:42] LABS: BUN/Creatinine Ratio 13.6 (10.0-20.0); Basophils # (auto) 0 10 ^3/uL (0-0.2); Basophils % (auto) 0.2 % (0.0-2.0); Blood Urea Nitrogen 15 mg/dL (9-23); Eosinophils # (auto) 0 10 ^3/uL (0-0.8); Eosinophils % (auto) 0.1 % (0.0-7.0); Glucose 104 mg/dL (74-106); Hematocrit 42.6 % (41.0-53.0); Lymphocytes # (auto) 0.7 10 ^3/uL (0.4-5.4); Lymphocytes % (auto) 4.1 % (10.0-50.0); Mean Corpuscular Hemoglobin 28.9 pg (28.0-32.0); Mean Corpuscular Hgb Conc. 32.9 g/dL (32.0-36.0); Mean Corpuscular Volume 87.9 fL (80.0-100.0); Monocytes # (auto) 0.6 10 ^3/uL (0-1.3); Monocytes % (auto) 3.5 % (0.0-12.0); Neutrophils % (auto) 92.1 % (37.0-80.0); Platelet Count (auto) 237 10^3/uL (140-450); Red Blood Cells 4.84 10^6/uL (4.5-5.90); Red Cell Distribution Width 14.3 % (11.8-14.3); White Blood Cell 17.4 10^3/uL (4.4-10.8)
--- NOTE | 2024-02-06 12:48 | DVHHP2 ---
History of Present Illness Reason for Visit: Aeizure History of Present Illness Salvador Breaux is a 33-year-old male with past medical history of anxiety and seizures who presents to the ED today for seizures. Patient reported that he was at home in the shower and was seizing, reports that he landed on the back of his head and complains of a headache 09/12. Patient has a head laceration. Per mom she reports patient has monthly seizures and Dr. Shah is the patient's neurologist. Patient is taking Trileptal 900mg BID. Patient denies chest pain, shortness of breath, abdominal pain, and dizziness. 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: Anxiety Past Surgical History: None Family History: None Smoke: No ALCOHOL: occassional Drugs: Marijuana Lives: with Family Domestic Violence: Neg Review of Systems Constitutional: No: Fever, Chills, Sweats, Weakness, Malaise, Other Eyes: No: Pain, Vision change, Conjunctivae inflammation, Eyelid inflammation, Other, Redness ENT: No: Ear pain, Ear discharge, Nose pain, Nose discharge, Nose congestion, Mouth pain, Mouth swelling, Throat pain, Throat swelling, Other Respiratory: No: Cough, Dry, Shortness of breath, SOB with excertion, Wheezing, Hemoptysis, Pleuritic Pain, Sputum, Wheezing, Other Cardiovascular: No: Chest Pain, Palpitations, Orthopnea, Paroxysmal Noc. Dyspnea, Edema, Lt Headedness, Other Gastrointestinal: No: Nausea, Vomiting, Abdominal Pain, Diarrhea, Constipation, Melena, Hematochezia, Other Genitourinary: No Dysuria, No Frequency, No Incontinence, No Hematuria, No Retention, No Other Musculoskeletal: No: other, neck pain, shoulder pain, arm pain, back pain, hand pain, leg pain, foot pain Skin: No: Rash, Lesions, Jaundice, Bruising, Other Neurological: Seizures; No: Weakness, Numbness, Incoordination, Change in speech, Confusion, Other Allergies: Coded Allergies: NO KNOWN ALLERGIES (Unverified , 01/19/14) Exam Vital Signs Vital Signs Date Time Temp Pulse Resp B/P (MAP) Pulse Ox O2 Delivery O2 Flow Rate FiO2 02/06/24 12:16 92 20 138/72 (94) 99 02/06/24 11:24 Room Air* 0 21 02/06/24 11:15 98.9 General Appearance: Alert, Oriented X3, Cooperative HEENT: PERRLA, EOMI, Mucous membr. moist/pink Respiratory: Clear to auscultation, Normal air movement Cardiovascular: Regular rate, Normal S1, Normal S2, No murmurs Abdominal: Normal bowel sounds, Soft, No tenderness, No hepatospenomegaly Extremities: No clubbing, No cyanosis, No edema, Normal pulses, No tenderness/swelling Neuro: Normal speech, Normal tone, Sensation intact Psych/Mental Status: Mental status NL, Mood NL Labs/Xrays Labs Test 02/06/24 11:00 Range/Units White Blood Count 17.4 H 4.4-10.8 10^3/uL Red Blood Count 4.84 4.5-5.90 10^6/uL Hemoglobin 14.0 13.5-17.5 g/dL Hematocrit 42.6 41.0-53.0 % Mean Corpuscular Volume 87.9 80.0-100.0 fL Mean Corpuscular Hemoglobin 28.9 28.0-32.0 pg Mean Corpuscular Hemoglobin Concent 32.9 32.0-36.0 g/dL Red Cell Distribution Width 14.3 11.8-14.3 % Platelet Count 237 140-450 10^3/uL Mean Platelet Volume 10.1 6.9-10.8 fL Neutrophils (%) (Auto) 92.1 H 37.0-80.0 % Lymphocytes (%) (Auto) 4.1 L 10.0-50.0 % Monocytes (%) (Auto) 3.5 0.0-12.0 % Eosinophils (%) (Auto) 0.1 0.0-7.0 % Basophils (%) (Auto) 0.2 0.0-2.0 % Neutrophils # (Auto) 16.0 H 1.6-8.6 10 ^3/uL Lymphocytes # (Auto) 0.7 0.4-5.4 10 ^3/uL Monocytes # (Auto) 0.6 0-1.3 10 ^3/uL Eosinophils # (Auto) 0 0-0.8 10 ^3/uL Basophils # (Auto) 0 0-0.2 10 ^3/uL Nucleated Red Blood Cells 0.0 % Sodium Level 141 136-145 mmol/L Potassium Level 3.7 3.5-5.1 mmol/L Chloride Level 108 H 98-107 mmol/L Carbon Dioxide Level 23 20-31 mmol/L Anion Gap 10 5-15 Blood Urea Nitrogen 15 9-23 mg/dL Creatinine 1.10 0.700-1.30 mg/dL Glomerular Filtration Rate Calc 92 >90 mL/min BUN/Creatinine Ratio 13.6 10.0-20.0 Serum Glucose 104 74-106 mg/dL Calcium Level 9.6 8.7-10.4 mg/dL EXAM: CT HEAD WITHOUT CONTRAST INDICATION: seizure TECHNIQUE: CT of the head without intravenous contrast. Coronal and sagittal reformatted images are submitted. COMPARISON: CT HEAD WITHOUT CONTRAST on DOS: 11/17/23 FINDINGS: There is no evidence of acute intracranial hemorrhage, extra-axial collection, mass effect, midline shift, herniation or hydrocephalus. The ventricles, sulci and cisterns are age appropriate. The garrido-white differentiation is intact. The visualized paranasal sinuses and mastoid air cells are clear. No depressed calvarial fracture. Right parietal scalp laceration and soft tissue swelling. IMPRESSION: 1. No evidence of acute intracranial abnormality. 2. Right parietal scalp laceration and soft tissue swelling. Assessment/Plan Assessment/Plan Assessment: Head laceration status post seizures History of anxiety Plan: Admit to tele IV fluids Neuro cx - Dr. Shah Pain management Antiemetics CT Head noted Monitor labs UDS Home medications reconciled Plan discussed with: Patient Date of Service: Feb 06, 2024 Billing Provider: MARKEL WILSON Common Visit Codes: [id number] INP/OBS CARE (MOD) MARKEL WILSON Feb 06, 2024 12:48
[2024-02-06] MEDS ORDERED: MORPHINE SULFATE INJ 2 MG/ml SYRG IV PRN (14:15)
[2024-02-06] MEDS ORDERED: DOCUSATE SOD 100 MG CAP PO PRN (14:15)
[2024-02-06] MEDS ORDERED: ONDANSETRON HCL 4 MG/2 ML VIAL IV PRN (14:15)
[2024-02-06] MEDS ORDERED: LORazepam 0.5 MG TAB PO PRN (14:15)
[2024-02-06] MEDS ORDERED: ACETAMINOPHEN 325 MG TAB PO PRN (14:15)
[2024-02-06] MEDS: SODIUM CHLORIDE 0.9% 1,000 ML IV SCH (15:16)
[2024-02-06] MEDS: HYDROcodone-ACET 5/325MG TAB PO PRN (16:14)
[2024-02-06 19:30] VITALS: PULSE 74; RESP 15; O2SAT 98
[2024-02-06 21:32] VITALS: BP 119/77; PULSE 69; RESP 20; TEMP 97.9; O2SAT 98
[2024-02-06] MEDS: OXcarbazepine 300 MG TAB PO SCH (21:49)
[2024-02-06] MEDS ORDERED: OXCARBAZEPINE 900 MG PO SCH (22:00)
[2024-02-07] VITALS (8 sets, daily range): BP systolic 114–135; BP diastolic 67–80; PULSE 60–121; RESP 17–50; TEMP 97.8–98.8; O2SAT 95–100
--- NOTE | 2024-02-07 08:40 | DVHINCON2 ---
Date of service: Feb 07, [address] Fuentes Reason for Consultation Seizure History of Present Illness Mr. Breaux is a 33 years old right-handed gentleman with no major medical history, the patient was brought to the [facility] 02/06/24 with a chief complaint of seizure activity. At that time, he is alert and fully oriented, he provided the following history I have discussed the case with his nurse and primary care team I saw him on 12/29/2018, 10/28/22, 08/11/2023, 10/10/2023, 11/17/23, 11/19/2023, 12/10/2023 for seizure On 02/06/2024, he came to hospital with a chief company of unwitnessed seizure at home while in a shower, he has head injury in the occipital region. This is the 1st presumed grand mal seizure, and he also reported a mild seizure since he was discharged from [facility] on 12/12/2022. He reports a good compliance with treatment, he denies exposure to alcohol or illicit drug recently, no acute recent illness Since 2014, he was seizure disorder in that he has periodic event with shaking all over body, with complete nonresponsive/amnesia He is currently on Trileptal 900mg Bid, VitD with calcium daily, Nayzilam 5mg Nasal spray Q 10 Minutes RPN seizure Max: 2 sprays Keppra caused mood swing WBC/HB/PLT/MCV, 12/10/2023: 14.8/13.4/250/88.9, 02/06/2024: 17.4/14/237 BUN/CR, 12/10/23: 23/2.38, 02/06/2024: 15/101 Liver function tests, 12/10/2023: Unremarkable CPK, 12/10/2023: 643 TG/CHOL/LDL/HDL, 08/12/2023: 267/29/56/22 CT head, 10/27/22: No evidence of acute intracranial hemorrhage, mass effect or hydrocephalus CT head, 08/10/23: Limited evaluation due to motion artifact. Otherwise, no evidence of acute intracranial abnormality CT head, 10/10/2023: Motion degraded study which limits the evaluation. Within this limitation, no acute intracranial abnormality CT head, 12/04/2023: 1. No CT evidence of acute intracranial abnormality. 2. Nonacute findings as described above CT head, 02/06/2024: 1. No evidence of acute intracranial abnormality. 2. Right parietal scalp laceration and soft tissue swelling Past Medical History Kidney disease, anxiety Past Surgical History Femur fracture repair Family History: Cardiovascular disease G8 MOTHER Hypertension G8 FATHER Family History Hypertension, heart disease, lung cancer, no seizure disorder Social History He uses marijuana occasionally, he was a heavy alcohol drinker, but no history of drug abuse Allergies: Coded Allergies: NO KNOWN ALLERGIES (Unverified , 01/19/14) Home Meds Active Scripts Oxcarbazepine (Trileptal) 600 Mg Tab, 1.5 TAB PO BID, #180 TAB 1 Refill Prov:ANIYAH SOTO MD 12/13/23 Reported Medications Magnesium Oxide (MAGNESIUM OXIDE) 400 Mg Tab, 400 MG OR DAILY, TAB 12/10/23 Oxcarbazepine (OXTELLAR XR) 150 Mg Tab, 900 MG OR BID for seizure, TAB 12/10/23 Thiamine Hcl (VITAMIN B-1) 100 Mg Tb, 1 TAB PO DAILY 10/10/23 Cyanocobalamin (Vitamin B-12) 1,000 Mcg Tab, 1 TAB PO DAILY 10/10/23 Folic Acid (Folic Acid) 1 Mg Tab, 1 TAB PO DAILY 10/10/23 Current Medications Current Medications Medications (Trade) Dose Ordered Sig/Kinjal Route PRN Reason Start Time Stop Time Status Last Admin Sodium Chloride 1,000 ml @ 100 mls/hr Q10H IV 02/06/24 14:15 02/07/24 02:40 Lorazepam (Ativan Tablet) 0.5 mg Q6HP PRN PO ANXIETY 02/06/24 14:15 Docusate Sodium (Colace Capsule) 100 mg BIDPRN PRN PO FOR CONSTIPATION 02/06/24 14:15 Acetaminophen (Tylenol Tablet) 650 mg Q6HP PRN PO PAIN SCALE 1-3 OR TEMP>100.4 02/06/24 14:15 Acetaminophen/ Hydrocodone Bitart ([place] 5/325MG Tab) 1 tab Q4HP PRN PO MODERATE PAIN (4-6 PAIN SCALE) 02/06/24 14:15 02/06/24 21:50 Ondansetron HCl (Zofran) 4 mg Q4HP PRN IV NAUSEA / VOMITING 02/06/24 14:15 Morphine Sulfate 2 mg Q4HPRN PRN IV SEVERE PAIN (7-10 PAIN SCALE) 02/06/24 14:15 Oxcarbazepine (Trileptal Tablet) 900 mg Q12HR PO 02/06/24 22:00 02/06/24 21:49 Thiamine HCl 100 mg DAILY PO 02/07/24 10:00 Cyanocobalamin (Vitamin B-12) 1,000 mcg DAILY PO 02/07/24 10:00 Folic Acid 1 mg DAILY PO 02/07/24 10:00 Magnesium Oxide (Mag-Ox Tablet) 400 mg DAILY PO 02/07/24 10:00 Patient Own Medication 900 mg BID PO 02/06/24 22:00 Hold Review of Systems As above, the other systems are negative Vital Signs Vital Signs Date Time Temp Pulse Resp B/P (MAP) Pulse Ox O2 Delivery O2 Flow Rate FiO2 02/07/24 05:00 97.8 68 50 123/70 (87) 97 97.8 02/06/24 21:32 Room Air* 0 21 Physical Exam GENERAL EXAM: General: the patient is well developed and nourished. No acute distress. HEENT: Normocephalic, neck is supple, no carotid bruits. No mass. RESPIRATORY: Normal respiratory effort with symmetrical lung expansion. Lungs clear to auscultation. CARDIOVASCULAR: Regular rate and rhythm with no murmurs. S1, S2. ABDOMEN: Soft, nontender, normal bowel sound NEUROLOGICAL: MENTAL STATUS: Awake and alert. Oriented to person, place, time and general circumstances. Able to give personal history. SPEECH, LANGUAGE, HIGHER CORTICAL FUNCTION: no aphasia or dysathria. CRANIAL NERVES: #2: Intact visual cook to confrontation. The optic discs were sharp. #3,4,6: Pupils are equal, round and reactive. EOMs full and conjugate. No nystagmus. #5: Facial sensation intact in all three divisions bilaterally. Mandibular strength intact. #7: Facial muscles symmetrical and strength intact. #8: Hearing grossly normal to voice. #9,10: Uvula and soft palate rise in the midline. Swallow and voice are normal. #11: Trapezius and sternomastoid strength intact bilaterally. #12: Tongue midline. No fasciculations or atrophy. SENSATION: Sensation to touch and pinprick is normal. MOTOR: Normal tone in the upper and lower extremity. Normal muscle bulk. No fasciculations. No abnormal movements or posturing. Muscle strength of the major groups in the upper extremities is 5/5. Muscle strength of the major groups in the lower extremities is 5/5. REFLEXES: Deep tendon reflexes normal and symmetrical. No pathological reflexes. CEREBELLAR/COORDINATION: Finger to nose is normal bilaterally. GAIT/STATION: deferred Labs/Diagnostic Data Labs Test 02/06/24 11:00 Range/Units White Blood Count 17.4 H 4.4-10.8 10^3/uL Red Blood Count 4.84 4.5-5.90 10^6/uL Hemoglobin 14.0 13.5-17.5 g/dL Hematocrit 42.6 41.0-53.0 % Mean Corpuscular Volume 87.9 80.0-100.0 fL Mean Corpuscular Hemoglobin 28.9 28.0-32.0 pg Mean Corpuscular Hemoglobin Concent 32.9 32.0-36.0 g/dL Red Cell Distribution Width 14.3 11.8-14.3 % Platelet Count 237 140-450 10^3/uL Mean Platelet Volume 10.1 6.9-10.8 fL Neutrophils (%) (Auto) 92.1 H 37.0-80.0 % Lymphocytes (%) (Auto) 4.1 L 10.0-50.0 % Monocytes (%) (Auto) 3.5 0.0-12.0 % Eosinophils (%) (Auto) 0.1 0.0-7.0 % Basophils (%) (Auto) 0.2 0.0-2.0 % Neutrophils # (Auto) 16.0 H 1.6-8.6 10 ^3/uL Lymphocytes # (Auto) 0.7 0.4-5.4 10 ^3/uL Monocytes # (Auto) 0.6 0-1.3 10 ^3/uL Eosinophils # (Auto) 0 0-0.8 10 ^3/uL Basophils # (Auto) 0 0-0.2 10 ^3/uL Nucleated Red Blood Cells 0.0 % Sodium Level 141 136-145 mmol/L Potassium Level 3.7 3.5-5.1 mmol/L Chloride Level 108 H 98-107 mmol/L Carbon Dioxide Level 23 20-31 mmol/L Anion Gap 10 5-15 Blood Urea Nitrogen 15 9-23 mg/dL Creatinine 1.10 0.700-1.30 mg/dL Glomerular Filtration Rate Calc 92 >90 mL/min BUN/Creatinine Ratio 13.6 10.0-20.0 Serum Glucose 104 74-106 mg/dL Calcium Level 9.6 8.7-10.4 mg/dL Assessment Status epilepticus Recurrent seizure activity Plan/Recommendation Monitoring Support treatment Trileptal level (out patient) Vitamin-B1 supplementation Folic acid supplementation Increase the Trileptal to 1200mg Bid Ativan for seizure breakthrough He does not drive More recommendation per clinical course Prognosis: Poor This medical document was created using an electronic medical record system with [employer] computerized dictation system. Although this document has been carefully reviewed, there may still be some phonetic and typographical errors. These areas are purely typographical due to imperfections of the software programs, and do not reflect any compromise in the patient's medical care Plan discussed with: Patient, Other MARIMAR CLEMONS MD Feb 07, 2024 08:40
[2024-02-07 09:31] LABS: Basophils # (auto) 0.1 10 ^3/uL (0-0.2); Eosinophils # (auto) 0 10 ^3/uL (0-0.8); Eosinophils % (auto) 0.3 % (0.0-7.0); Hematocrit 38.1 % (41.0-53.0); Hemoglobin 12.9 g/dL (13.5-17.5); Lymphocytes # (auto) 1.6 10 ^3/uL (0.4-5.4); Lymphocytes % (auto) 19.1 % (10.0-50.0); Mean Corpuscular Hemoglobin 29.6 pg (28.0-32.0); Mean Corpuscular Hgb Conc. 33.8 g/dL (32.0-36.0); Mean Corpuscular Volume 87.5 fL (80.0-100.0); Monocytes # (auto) 0.3 10 ^3/uL (0-1.3); Monocytes % (auto) 3.8 % (0.0-12.0); Neutrophils # (auto) 6.3 10 ^3/uL (1.6-8.6); Neutrophils % (auto) 75.8 % (37.0-80.0); Platelet Count (auto) 203 10^3/uL (140-450); Red Blood Cells 4.35 10^6/uL (4.5-5.90); Red Cell Distribution Width 14.3 % (11.8-14.3); White Blood Cell 8.3 10^3/uL (4.4-10.8)
[2024-02-07 10:03] LABS: Alanine Aminotransferase 13 U/L (7-40); Albumin 4.1 g/dL (3.2-4.8); Alkaline Phosphatase 84 U/L (46-116); Anion Gap 6 (5-15); BUN/Creatinine Ratio 12.5 (10.0-20.0); Blood Urea Nitrogen 14 mg/dL (9-23); Calcium 9.3 mg/dL (8.7-10.4); Carbon Dioxide 25 mmol/L (20-31); Cholesterol 168 mg/dL (< 200); Glucose 97 mg/dL (74-106); LDL Cholesterol 99 mg/dL (< 100); Magnesium 2.1 mg/dL (1.6-2.6); Sodium 143 mmol/L (136-145)
[2024-02-07 10:04] LABS: Bilirubin, Total 0.5 mg/dL (0.2-1.0); Total Protein 6.5 g/dL (5.7-8.2)
[2024-02-07 10:05] LABS: Aspartate Aminotransferase 12 U/L (13-40); Chloride 112 mmol/L (98-107); Creatine Kinase IFCC 204 U/L (46-171); HDL Cholesterol 38 mg/dL (40-59); Phosphorus 2.1 mg/dL (2.4-5.1); Triglycerides 150 mg/dL (< 150)
[2024-02-07 10:11] LABS: INR 1.04 (0.9-1.15); Partial Thromboplastin Time 29.9 SEC (24.5-34.5)
--- NOTE | 2024-02-07 11:47 | DVH ---
Temporal Bone CT Clinical History: Rt ear alis loss Technique: Multiple contagious axial images of the temporal bones with coronal and sagittal reconstructions with out contrast. Radiation Dose Information: CT Dose: CTDI volume is 73.22 mGy. Dose-length product is 864.25 mGy*cm Findings: The bilateral mastoid air cells are clear. The air cell osseous septa are intact. Periauricular soft tissues appear within normal limits. The external auditory canals are patent. The tympanic membranes grossly appear intact. The middle ear cavities are clear. The middle ear ossicles appear intact with appropriate alignment. The tegmen tympani and scutum are intact bilaterally. The inner ear structures appear within normal limits. The vestibular cochlear apparatuses appear unremarkable. The internal a uditory canals appear symmetric and demonstrate normal caliber. There are likely degenerative changes of the right temporal mandibular joint with medially and anteriorly displaced mandibular condyle. Impression: 1. Unremarkable CT temporal bones. 2. 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 HS:Y
[2024-02-07] MEDS: FOLIC ACID 1 MG TAB PO SCH (12:30)
[2024-02-07] MEDS: THIAMINE HCL 100 MG TAB PO SCH (12:30)
[2024-02-07] MEDS: OXcarbazepine 300 MG TAB PO SCH (12:30)
[2024-02-07] MEDS: MAGNESIUM OXIDE 400 MG TAB PO SCH (12:31)
[2024-02-07] MEDS: CYANOCOBALAMIN 500 MCG TAB PO SCH (12:31)
--- NOTE | 2024-02-07 16:05 | DVHPNRES ---
Progress Note Date Seen: Feb 07, 2024 Resident Creating Document: WALTER ANDREWS RESIDENT Has the PT tested + for MRSA If YES, has PT been informed?: No Medical Necessity Reason Pt with a Central, PICC or Fol: No Subjective Review of Systems A 33-year-old male with past medical history of anxiety and seizures who presents to the ED today for seizures. Patient reported that he was at home in the shower and was seizing, reports that he landed on the back of his head and complains of a headache 09/12. Patient has a head laceration. Per mom she reports patient has monthly seizures and Dr. Shah is the patient's neurologist. Patient is taking Trileptal 900mg BID. Patient denies chest pain, shortness of breath, abdominal pain, and dizziness. Objective vital signs Vital Sign Date Time Temp Pulse Resp B/P (MAP) Pulse Ox O2 Delivery O2 Flow Rate FiO2 02/07/24 13:00 97.9 68 17 126/72 (90) 99 97.9 02/06/24 21:32 Room Air* 0 21 Total Intake and Output 02/06/24 02/06/24 02/07/24 15:00 23:00 07:00 Intake Total 200 ml 0 ml Balance 200 ml 0 ml medications Current Medications Medications Dose Ordered Sig/Kinjal Route Start Time Stop Time Status Last Admin Dose Admin Lorazepam 0.5 mg Q6HP PRN PO 02/06/24 14:15 Docusate Sodium 100 mg BIDPRN PRN PO 02/06/24 14:15 Acetaminophen 650 mg Q6HP PRN PO 02/06/24 14:15 Acetaminophen/ Hydrocodone Bitart 1 tab Q4HP PRN PO 02/06/24 14:15 02/07/24 12:31 1 TAB Ondansetron HCl 4 mg Q4HP PRN IV 02/06/24 14:15 Morphine Sulfate 2 mg Q4HPRN PRN IV 02/06/24 14:15 Thiamine HCl 100 mg DAILY PO 02/07/24 10:00 02/07/24 12:30 100 MG Cyanocobalamin 1,000 mcg DAILY PO 02/07/24 10:00 02/07/24 12:31 1,000 MCG Folic Acid 1 mg DAILY PO 02/07/24 10:00 02/07/24 12:30 1 MG Magnesium Oxide 400 mg DAILY PO 02/07/24 10:00 02/07/24 12:31 400 MG Oxcarbazepine 1,200 mg Q12HR PO 02/07/24 10:00 02/07/24 12:30 1,200 MG Examination The patient appears well-developed and well-nourished, in no acute distress. Heart sounds are regular, with no murmurs, S1 and S2 present. The neck is supple, and no carotid bruits are noted. Normal respiratory effort with symmetric chest expansion. Lung cook are clear to auscultation bilaterally. Soft, non-tender, with normal bowel sounds. Neurological Examination: Mental Status: The patient is awake and alert, oriented to person, place, time, and general circumstances. No abnormalities in speech or language; no dysarthria. Cranial Nerves: CN II: Visual cook are intact to confrontation, and optic discs are sharp. CN III, IV, : Pupils are equal, round, and reactive to light. Extraocular movements are intact, with no nystagmus. CN V: Facial sensation is symmetric and intact bilaterally. Mandibular strength is normal. CN VII: Facial movements are symmetric. CN VIII: Patient responds appropriately to auditory stimuli. CN IX, X: Palate elevation is symmetrical, with a normal voice and swallow. CN XI: Strength in trapezius and sternocleidomastoid muscles is intact bilaterally. CN XII: Tongue movement is normal, with no fasciculations. Muscle strength is 5/5 in both upper and lower extremities, with normal muscle bulk. No fasciculations or abnormal movements observed. Tendon reflexes in both upper and lower extremities are 2+ and symmetrical. No pathological reflexes noted. laboratory and microbiology Laboratory Tests 02/07/24 09:17 Test 02/07/24 09:17 Range/Units Serum Glucose 97 74-106 mg/dL Problem List/Assessment/Plan Problem List/Assessment/Plan #Status epilepticus? #Recurrent seizure activity #Anxiety #Cannabinoid use disorder #Transient hearing loss Oxcarbazepine 1200 mg q12h Thiamine 100 mg PO Vitamin b12 Ketorolac IV Head CT scan: 1. No evidence of acute intracranial abnormality. 2. Right parietal scalp laceration and soft tissue swelling. Internal auditory canal CT scan: 1. Unremarkable CT temporal bones. 2. 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
--- NOTE | 2024-02-07 20:18 | DVH ---
CLINICAL INDICATION: FALL TECHNIQUE: Single view x-ray of the right shoulder. XY R SHOULDER 1V XRAY Comparison: XY R SHOULDER 2+ VIEW XRAY on DOS: 10/10/23 FINDINGS/IMPRESSION: There is no evidence of acute fracture or dislocation. Soft tissues are unremarkable.
[2024-02-07] MEDS: KETOROLAC TROMETH 30 MG/ML 1ML VIAL IV PRN (23:39)
[2024-02-08 01:00] VITALS: BP 100/52; PULSE 60; RESP 20; TEMP 97.9; O2SAT 97
[2024-02-08 05:00] VITALS: BP 123/72; PULSE 69; RESP 20; TEMP 98.2; O2SAT 97
[2024-02-08 07:12] LABS: Basophils # (auto) 0 10 ^3/uL (0-0.2); Basophils % (auto) 0.4 % (0.0-2.0); Eosinophils # (auto) 0.1 10 ^3/uL (0-0.8); Eosinophils % (auto) 1.4 % (0.0-7.0); Hematocrit 38.1 % (41.0-53.0); Hemoglobin 12.9 g/dL (13.5-17.5); Lymphocytes # (auto) 1.5 10 ^3/uL (0.4-5.4); Lymphocytes % (auto) 24.3 % (10.0-50.0); Mean Corpuscular Hemoglobin 29.8 pg (28.0-32.0); Mean Corpuscular Hgb Conc. 33.9 g/dL (32.0-36.0); Mean Corpuscular Volume 87.8 fL (80.0-100.0); Monocytes # (auto) 0.3 10 ^3/uL (0-1.3); Monocytes % (auto) 4.8 % (0.0-12.0); Neutrophils # (auto) 4.2 10 ^3/uL (1.6-8.6); Neutrophils % (auto) 69.1 % (37.0-80.0); Platelet Count (auto) 199 10^3/uL (140-450); Red Blood Cells 4.33 10^6/uL (4.5-5.90); Red Cell Distribution Width 14.1 % (11.8-14.3); White Blood Cell 6.1 10^3/uL (4.4-10.8)
[2024-02-08 07:55] LABS: Alanine Aminotransferase 12 U/L (7-40); Albumin 4.5 g/dL (3.2-4.8); Alkaline Phosphatase 80 U/L (46-116); Anion Gap 10 (5-15); BUN/Creatinine Ratio 11.3 (10.0-20.0); Blood Urea Nitrogen 12 mg/dL (9-23); Carbon Dioxide 25 mmol/L (20-31); Glucose 90 mg/dL (74-106)
[2024-02-08 07:56] LABS: Bilirubin, Total 0.4 mg/dL (0.2-1.0); Total Protein 6.6 g/dL (5.7-8.2)
[2024-02-08 08:00] VITALS: PULSE 72
[2024-02-08 08:06] LABS: Aspartate Aminotransferase 13 U/L (13-40); Calcium 8.3 mg/dL (8.7-10.4); Chloride 108 mmol/L (98-107); Potassium 3.7 mmol/L (3.5-5.1); Sodium 143 mmol/L (136-145)
--- NOTE | 2024-02-08 08:38 | DVHPN2 ---
Progress Note - Dictate Date Seen: Feb 08, 2024 Has the PT tested + for MRSA If YES, has PT been informed?: No Medical Necessity Reason Pt with a Central, PICC or Fol: No Subjective Mr. Breaux is a 33 years old right-handed gentleman with no major medical history, the patient was brought to the [facility] 02/06/24 with a chief complaint of seizure activity. I saw him on 12/29/2018, 10/28/22, 08/11/2023, 10/10/2023, 11/17/23, 11/19/2023, 12/10/2023 for seizure Have seen and examined the patient, I have discussed with his nurse, and his primary care team. He was doing fine, no seizure, he still have "water feeling" and hearing difficulty in the right ear WBC/HB/PLT/MCV, 12/10/2023: 14.8/13.4/250/88.9, 02/06/2024: 17.4/14/237 BUN/CR, 12/10/23: 23/2.38, 02/06/2024: 15/101 Liver function tests, 12/10/2023: Unremarkable CPK, 12/10/2023: 643 TG/CHOL/LDL/HDL, 08/12/2023: 267/29/56/22 CT head, 10/27/22: No evidence of acute intracranial hemorrhage, mass effect or hydrocephalus CT head, 08/10/23: Limited evaluation due to motion artifact. Otherwise, no evidence of acute intracranial abnormality CT head, 10/10/2023: Motion degraded study which limits the evaluation. Within this limitation, no acute intracranial abnormality CT head, 12/04/2023: 1. No CT evidence of acute intracranial abnormality. 2. Nonacute findings as described above CT head, 02/06/2024: 1. No evidence of acute intracranial abnormality. 2. Right parietal scalp laceration and soft tissue swelling CT, internal auditory canal, 02/07/2024: 1. Unremarkable CT temporal bones. 2. Degenerative changes of the right TMJ with medially and anteriorly displaced mandibular condyle vital signs Vital Sign Date Time Temp Pulse Resp B/P (MAP) Pulse Ox O2 Delivery O2 Flow Rate FiO2 02/08/24 05:00 98.2 69 20 123/72 (89) 97 98.2 02/07/24 20:00 Room Air* 0 21 Total Intake and Output 02/07/24 02/07/24 02/08/24 15:00 23:00 07:00 Intake Total 1000 ml Output Total 675 ml 1800 ml Balance 325 ml -1800 ml medications Current Medications Medications Dose Ordered Sig/Kinjal Route Start Time Stop Time Status Last Admin Dose Admin Lorazepam 0.5 mg Q6HP PRN PO 02/06/24 14:15 Docusate Sodium 100 mg BIDPRN PRN PO 02/06/24 14:15 Acetaminophen 650 mg Q6HP PRN PO 02/06/24 14:15 Acetaminophen/ Hydrocodone Bitart 1 tab Q4HP PRN PO 02/06/24 14:15 02/07/24 12:31 1 TAB Ondansetron HCl 4 mg Q4HP PRN IV 02/06/24 14:15 Thiamine HCl 100 mg DAILY PO 02/07/24 10:00 02/07/24 12:30 100 MG Cyanocobalamin 1,000 mcg DAILY PO 02/07/24 10:00 02/07/24 12:31 1,000 MCG Folic Acid 1 mg DAILY PO 02/07/24 10:00 02/07/24 12:30 1 MG Magnesium Oxide 400 mg DAILY PO 02/07/24 10:00 02/07/24 12:31 400 MG Oxcarbazepine 1,200 mg Q12HR PO 02/07/24 10:00 02/07/24 21:51 1,200 MG Ketorolac Tromethamine 15 mg Q6HPRN PRN IV 02/07/24 18:45 02/12/24 18:44 02/07/24 23:39 15 MG objective General: the patient is well developed and nourished. No acute distress. MENTAL STATUS: Awake and alert. Oriented to person, place, time and general circumstances. Able to give personal history. SPEECH, LANGUAGE, HIGHER CORTICAL FUNCTION: no aphasia or dysathria. CRANIAL NERVES: Pupils are equal, round and reactive. EOMs full and conjugate. No nystagmus. Facial sensation intact in all three divisions bilaterally. Mandibular strength intact. Facial muscles symmetrical and strength intact. SENSATION: Sensation to touch and pinprick is normal. MOTOR: Normal tone in the upper and lower extremity. Normal muscle bulk. No fasciculations. No abnormal movements or posturing. Muscle strength of the major groups in the extremities is 5/5. REFLEXES: Deep tendon reflexes normal and symmetrical. No pathological reflexes. CEREBELLAR/COORDINATION: Finger to nose is normal bilaterally. GAIT/STATION: deferred laboratory and microbiology Laboratory Tests 02/08/24 05:51 Test 02/08/24 05:51 Range/Units Serum Glucose 90 74-106 mg/dL Problem List Status epilepticus Recurrent seizure activity Right ear hearing difficulty Assessment/Plan Monitoring Support treatment Vitamin-B1 supplementation Folic acid supplementation Trileptal to 1200mg Bid Ativan for seizure breakthrough Consider ENT evaluation if his hearing problems persist He does not drive More recommendation per clinical course Okay to discharge from a neurologic point of view This medical document was created using an electronic medical record system with [employer] dictation system. Although this document has been carefully reviewed, there may still be some phonetic and typographical errors. These areas are purely typographical due to imperfections of the software programs, and do not reflect any compromise in the patient's medical care Prognosis poor Plan discussed with: Patient, Other MARIMAR CLEMONS MD Feb 08, 2024 08:37
[2024-02-08 09:00] VITALS: BP 123/76; PULSE 66; RESP 16; TEMP 98; O2SAT 97
[2024-02-08 10:27] LABS: Urine Bacteria None Seen /hpf (None Seen)
--- NOTE | 2024-02-08 10:51 | DVHDSRES ---
Discharge Summary Date of Admission Resident Creating Document: WALTER ANDREWS RESIDENT Feb 06, 2024 at 14:12 Date of Discharge: Feb 08, 2024 Admitting Diagnosis status epilepticus Labs/Diagnostic Data: Laboratory Results Test 02/08/24 05:51 02/07/24 10:10 02/07/24 09:17 White Blood Count 6.1 10^3/uL (4.4-10.8) Red Blood Count 4.33 10^6/uL (4.5-5.90) Hemoglobin 12.9 g/dL (13.5-17.5) Hematocrit 38.1 % (41.0-53.0) Mean Corpuscular Volume 87.8 fL (80.0-100.0) Mean Corpuscular Hemoglobin 29.8 pg (28.0-32.0) Mean Corpuscular Hemoglobin Concent 33.9 g/dL (32.0-36.0) Red Cell Distribution Width 14.1 % (11.8-14.3) Platelet Count 199 10^3/uL (140-450) Mean Platelet Volume 10.2 fL (6.9-10.8) Neutrophils (%) (Auto) 69.1 % (37.0-80.0) Lymphocytes (%) (Auto) 24.3 % (10.0-50.0) Monocytes (%) (Auto) 4.8 % (0.0-12.0) Eosinophils (%) (Auto) 1.4 % (0.0-7.0) Basophils (%) (Auto) 0.4 % (0.0-2.0) Neutrophils # (Auto) 4.2 10 ^3/uL (1.6-8.6) Lymphocytes # (Auto) 1.5 10 ^3/uL (0.4-5.4) Monocytes # (Auto) 0.3 10 ^3/uL (0-1.3) Eosinophils # (Auto) 0.1 10 ^3/uL (0-0.8) Basophils # (Auto) 0 10 ^3/uL (0-0.2) Nucleated Red Blood Cells 0.0 % Sodium Level 143 mmol/L (136-145) Potassium Level 3.7 mmol/L (3.5-5.1) Chloride Level 108 mmol/L (98-107) Carbon Dioxide Level 25 mmol/L (20-31) Anion Gap 10 (5-15) Blood Urea Nitrogen 12 mg/dL (9-23) Creatinine 1.06 mg/dL (0.700-1.30) Glomerular Filtration Rate Calc 96 mL/min (>90) BUN/Creatinine Ratio 11.3 (10.0-20.0) Serum Glucose 90 mg/dL (74-106) Calcium Level 8.3 mg/dL (8.7-10.4) Total Bilirubin 0.4 mg/dL (0.2-1.0) Aspartate Amino Transferase (AST) 13 U/L (13-40) Alanine Aminotransferase (ALT) 12 U/L (7-40) Alkaline Phosphatase 80 U/L (46-116) Total Protein 6.6 g/dL (5.7-8.2) Albumin 4.5 g/dL (3.2-4.8) Prothrombin Time 11.0 sec (9.3-11.8) Prothrombin Time INR 1.04 (0.9-1.15) Activated Partial Thromboplast Time 29.9 SEC (24.5-34.5) Hemoglobin A1c 5.0 % A1C (<5.7) Lactic Acid Level 1.1 mmol/L (0.4-2.0) Phosphorus Level 2.1 mg/dL (2.4-5.1) Magnesium Level 2.1 mg/dL (1.6-2.6) Creatine Kinase 204 U/L (46-171) Triglycerides Level 150 mg/dL (< 150) Cholesterol Level 168 mg/dL (< 200) LDL Cholesterol 99 mg/dL (< 100) HDL Cholesterol 38 mg/dL (40-59) Vitamin B12 Level 354 pg/mL (211-911) Vitamin D 25-Hydroxy 10.6 ng/mL (30.0-100) Thyroid Stimulating Hormone (TSH) 0.55 uIU/mL (0.55-4.78) Other Laboratory Tests 02/08/24 05:51 Brief Hx & Hospital Course: A 33-year-old male with a history of recurrent seizures and anxiety presented to the ED after experiencing a seizure at home, during which he fell and sustained a right parietal scalp laceration. The patient reported a transient hearing loss and dizziness but denied other complaints. Head CT showed no acute intracranial abnormalities, and internal auditory canal CT was unremarkable except for degenerative changes in the right TMJ. Labs revealed glucose within normal limits and mild electrolyte abnormalities. During his hospital stay, he was treated with levetiracetam IV , later the dose of oxcarbazepine was increased to 1200 mg q12h, thiamine 100 mg PO, vitamin B12, and ketorolac IV for symptomatic relief. The patient was stable for discharge and advised to follow up with Dr. Shah for continued management of his seizure disorder and consideration of further workup for his transient hearing loss, with a potential ENT referral. 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 Patient education focused on seizure safety, medication adherence, and the importance of timely follow-ups to prevent further episodes. The patient appears well-developed and well-nourished, in no acute distress. Heart sounds are regular, with no murmurs, S1 and S2 present. The neck is supple, and no carotid bruits are noted. Normal respiratory effort with symmetric chest expansion. Lung cook are clear to auscultation bilaterally. Soft, non-tender, with normal bowel sounds. Neurological Examination: Mental Status: The patient is awake and alert, oriented to person, place, time, and general circumstances. No abnormalities in speech or language; no dysarthria. Cranial Nerves: CN II: Visual cook are intact to confrontation, and optic discs are sharp. CN III, IV, : Pupils are equal, round, and reactive to light. Extraocular movements are intact, with no nystagmus. CN V: Facial sensation is symmetric and intact bilaterally. Mandibular strength is normal. CN VII: Facial movements are symmetric. CN VIII: Patient responds appropriately to auditory stimuli. CN IX, X: Palate elevation is symmetrical, with a normal voice and swallow. CN XI: Strength in trapezius and sternocleidomastoid muscles is intact bilaterally. CN XII: Tongue movement is normal, with no fasciculations. Muscle strength is 5/5 in both upper and lower extremities, with normal muscle bulk. No fasciculations or abnormal movements observed. Tendon reflexes in both upper and lower extremities are 2+ and symmetrical. No pathological reflexes noted. Case discussed with Dr Quintero Consults/Reason for consult neurology due to status epilepticus Operations or Procedures PATIENT: THORPE,SWATHI JACCT: [id number] UNIT: [id number] : 1990 LOC: ER ROOM / BED: / AGE / SEX: 33 / M ADM STATUS: REG ER SERVICE [id number] ORDERING PHYSICIAN: SHEMAR LEUNG MD PROCEDURE(s): HWOCT - HEAD WITHOUT CONTRAST REASON: seizure ORDER NUMBER(s): [id number], ACCESSION NUMBER(s): [id number] EXAM: CT HEAD WITHOUT CONTRAST INDICATION: seizure TECHNIQUE: CT of the head without intravenous contrast. Coronal and sagittal reformatted images are submitted. Radiation Dose : 1. Head: CT Dose: CTDI volume is mGy. Dose-length product is mGy*cm The dose indicators for CT are the volume Computed Tomography (CT) Dose Index (CTDIvol) and the Dose Length Product (DLP), and are measured in units of mGy and mGy-cm, respectively. These indicators are not patient dose, but values generated from the CT scanner acquisition factors. The report includes radiation exposure data for exposures received during this examination. All CT scans at this medical facility are performed using dose modulation techniques as appropriate to a performed exam including the following: Automated exposure control was utilized; adjustment of the MA and/or KV according to patient size; and use of iterative reconstruction technique. COMPARISON: CT HEAD WITHOUT CONTRAST on DOS: 11/17/23 FINDINGS: There is no evidence of acute intracranial hemorrhage, extra-axial collection, mass effect, midline shift, herniation or hydrocephalus. The ventricles, sulci and cisterns are age appropriate. The garrido-white differentiation is intact. The visualized paranasal sinuses and mastoid air cells are clear. No depressed calvarial fracture. Right parietal scalp laceration and soft tissue swelling. IMPRESSION: 1. No evidence of acute intracranial abnormality. 2. Right parietal scalp laceration and soft tissue swelling. Temporal Bone CT Clinical History: Rt ear alis loss Technique: Multiple contagious axial images of the temporal bones with coronal and sagittal reconstructions without contrast. Radiation Dose Information: CT Dose: CTDI volume is 73.22 mGy. Dose-length product is 864.25 mGy*cm Findings: The bilateral mastoid air cells are clear. The air cell osseous septa are intact. Periauricular soft tissues appear within normal limits. The external auditory canals are patent. The tympanic membranes grossly appear intact. The middle ear cavities are clear. The middle ear ossicles appear intact with appropriate alignment. The tegmen tympani and scutum are intact bilaterally. The inner ear structures appear within normal limits. The vestibular cochlear apparatuses appear unremarkable. The internal auditory canals appear symmetric and demonstrate normal caliber. There are likely degenerative changes of the right temporal mandibular joint with medially and anteriorly displaced mandibular condyle. Impression: 1. Unremarkable CT temporal bones. 2. 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 HS:Y Condition at Discharge: Stable Final Diagnosis/Problems List #Status epilepticus #Recurrent seizure activity #Anxiety #Cannabinoid use disorder #Transient hearing loss Discharge Disposition: Home Discharge Instruct/Medications Diet: Regular Activity: Light activity [facility] Medications: see prescription Discharge Statement: "Patient was advised to return to the ER or call 911 if any headaches, dizziness, shortness of breath, chest pain, abdominal pain, bleeding, fevers, or worsening of medical condition. Patient was counseled about treatment plan, medications, possible side effects, patientverbalized understanding. All questions were answered to the best of my ability. This discharge took greater then 30 minutes in planning, reviewing documentation, counseling the patient, and discussing with other team members." ASSESSMENT ASSESSMENT Assessment status epilepticus Date of Service: Feb 08, 2024 Billing Provider: MANPREET QUINTERO MD Common Visit Codes: 30907-YLZ/OBS DISCH DAY >30min WALTER ANDREWS RESIDENT Feb 08, 2024 10:51 MANPREET QUINTERO MD Feb 10, 2024 20:21
[2024-02-08] MEDS ORDERED: ACET-1882 PO (10:53)
[2024-02-08] MEDS ORDERED: OXCA600T3 PO (10:53)
[2024-02-08 11:00] LABS: Cannabinoid Screen, Urine Pos (NEGATIVE); Opiate Scree,Urine Neg (NEGATIVE)
[2024-02-08 11:03] LABS: Amphetamine Screen, Urine Neg (NEGATIVE); Barbiturate Scree,Urine Neg (NEGATIVE); Benzodiazephine Screen, Urine Neg (NEGATIVE); Cocaine Screen, Urine Neg (NEGATIVE); Phencyclidine Screen, Urine Neg (NEGATIVE)
[2024-02-08 11:05] LABS: Urine Blood Negative /uL (Negative); Urine Clarity Clear (Clear); Urine Color Yellow (Yellow); Urine Mucus FEW (None Seen); Urine Protein, UAD TRACE (Negative); Urine Specific Gravity 1.023 (1.001-1.035); Urine Urobilinogen 2 mg/dL (Negative); Urine WBC 2 /hpf (0 - 3); Urine pH 6.5 (5.0-9.0)
[2024-02-08 13:00] VITALS: BP 132/84; PULSE 71; RESP 17; TEMP 98; O2SAT 97
== END 2024-02-08 14:45 | disposition home or self-care (01) | DRG 53 ==
LOC: EDBD 08:50 → ER 08:50 → TELE 14:12 → TELE-CENTR 21:32
PROVIDERS: ADMIT Internal Medicine Geriatric Medicine; ATTEND Internal Medicine Geriatric Medicine
PROC: 0HQ0XZZ Repair Scalp Skin, External Approach (ICD-10-PCS; principal; 2024-02-06)
DX: G40.901 Epilepsy, unspecified, not intractable, with status epilepticus (principal); G93.41 Metabolic encephalopathy; E87.8 Other disorders of electrolyte and fluid balance, not elsewhere classified; F41.9 Anxiety disorder, unspecified; S01.01XA Laceration without foreign body of scalp, initial encounter; H91.8X1 Other specified hearing loss, right ear; Z82.49 Family history of ischemic heart disease and other diseases of the circulatory system; Z80.1 Family history of malignant neoplasm of trachea, bronchus and lung; W18.39XA Other fall on same level, initial encounter; Y93.89 Activity, other specified; Y92.89 Other specified places as the place of occurrence of the external cause; Y99.8 Other external cause status; E55.9 Vitamin D deficiency, unspecified
CPT/HCPCS: 36415; 70450; 70480; 73020; 80048; 80053; 80061; 80307; 81001; 82306; 82550; 82607; 83036; 83605; 83735; 84100; 84443; 85025; 85610; 85730; 96365; 96375; 99291; G0378; J1885; J2405

== ENCOUNTER 2024-03-19 18:03 | Emergency (ER) | payer MEDICAID ==
[~2024-03-19] VITALS: Ht 172.7 cm; Wt 81.7 kg
[~2024-03-19 18:03] MED LIST changes: +ACET-1882 PO; -OXCA150T61 OR
--- NOTE | 2024-03-19 18:40 | ED.PDOC ---
History of Present Illness HPI Comments 33-year-old male brought in by mother for evaluation of elevated blood pressure. Patient states he was seated watching TV this evening when he began to feel clammy, had tingling of his fingers, and vision changes described as my vision started getting weird. He states became concerned that this may be an aura prior to a seizure, so he advised his mom of his symptoms, she checked his blood pressure, and it was 154/118. On arrival to the ED, patient states he no longer has vision changes, denies headache, chest pain or shortness a breath. He does state he still feels clammy and his fingers still feel as though they are tingling. He denies any focal weakness. Chief Complaint: High Blood Pressure Time Seen by MD: 18:25 Primary Care Provider: magda Allergies: Coded Allergies: NO KNOWN ALLERGIES (Unverified , 01/19/14) Home Meds Active Scripts Oxcarbazepine (Trileptal) 600 Mg Tab, 1200 MG PO BID for 30 Days, #120 TAB Prov:ONUR COLON RESIDENT 02/08/24 Acetaminophen (Acetaminophen) 325 Mg Tab, 650 MG PO Q6HP PRN for 10 Days, #80 T AB Prov:ONUR COLON RESIDENT 02/08/24 Reported Medications Magnesium Oxide (MAGNESIUM OXIDE) 400 Mg Tab, 400 MG OR DAILY, TAB 12/10/23 Thiamine Hcl (VITAMIN B-1) 100 Mg Tb, 1 TAB PO DAILY 10/10/23 Cyanocobalamin (Vitamin B-12) 1,000 Mcg Tab, 1 TAB PO DAILY 10/10/23 Folic Acid (Folic Acid) 1 Mg Tab, 1 TAB PO DAILY 10/10/23 Mode of Arrival: Ambulatory Past Medical History PAST MEDICAL HISTORY: Anxiety, Seizures Past Medical History (Other): Kidney disease, history of rhabdomyolysis secondary to seizure Surgical History (Other): Right femur Family History Family History: Family hx of heart lorenzo, Family hx of HTN, Family hx of lung lorenzo Social History Smoker: Non-Smoker Alcohol: Denies ETOH Use Drugs: Marijuana Lives In: Home All Other Systems: Reviewed and Negative (Comprehensive systems review obtained and negative except for what is stated in the HPI.) Physical Exam General Appearance: No Apparent Distress HEENT: PERRL/EOMI, Other (Moist mucous membranes. No facial asymmetry.) Neck: Full Range of Motion, Normal Inspection Respiratory: Lungs Clear, No Accessory Muscle Use, No Respiratory Distress, Normal Breath Sounds Cardiovascular: No Edema, No JVD, Regular Rate/Rhythm Breast Exam: Deferred Gastrointestinal: Non Tender, Soft Genitalia: Deferred Pelvic: Deferred Rectal: Deferred Extremities: No calf tenderness, Normal inspection, Normal range of motion, Non-tender, No pedal edema Neurologic: Alert (Oriented x4), Normal Affect, Other (Appears anxious. Ambulatory without difficulty. No gross focal deficit.) Cerebellar Function: NOT DONE Reflexes: NOT DONE Skin: Dry, Normal Color, Warm Lymphatic: NOT DONE Was a procedure done? Was a procedure done?: No EKG EKG : Comments Sinus rhythm, rate 99, normal intervals, normal axis, normal QRS, no ST/T changes. Differential Dx Considerations may include: Hypertensive urgency/emergency, anxiety, preseizure aura, electrolyte imbalance, arrhythmia, ACS, among others X-Ray, Labs, Meds, VS Vital Signs Date Time Temp Pulse Resp B/P (MAP) Pulse Ox O2 Delivery O2 Flow Rate FiO2 03/19/24 20:43 99 03/19/24 20:36 95 18 97 Room Air 03/19/24 20:28 146/100 03/19/24 20:20 98.4 95 18 146/100 (115) 97 98.4 03/19/24 18:19 99.2 76 20 151/108 (122) 97 Lab Test 03/19/24 19:59 03/19/24 18:46 Range/Units Troponin I High Sensitivity < 3 L < 3 L </=54 ng/L White Blood Count 8.4 4.4-10.8 10^3/uL Red Blood Count 5.11 4.5-5.90 10^6/uL Hemoglobin 15.0 13.5-17.5 g/dL Hematocrit 44.5 41.0-53.0 % Mean Corpuscular Volume 87.0 80.0-100.0 fL Mean Corpuscular Hemoglobin 29.4 28.0-32.0 pg Mean Corpuscular Hemoglobin Concent 33.7 32.0-36.0 g/dL Red Cell Distribution Width 14.8 H 11.8-14.3 % Platelet Count 144 140-450 10^3/uL Mean Platelet Volume 9.6 6.9-10.8 fL Neutrophils (%) (Auto) 77.4 37.0-80.0 % Lymphocytes (%) (Auto) 14.8 10.0-50.0 % Monocytes (%) (Auto) 6.8 0.0-12.0 % Eosinophils (%) (Auto) 0.4 0.0-7.0 % Basophils (%) (Auto) 0.6 0.0-2.0 % Neutrophils # (Auto) 6.5 1.6-8.6 10 ^3/uL Lymphocytes # (Auto) 1.2 0.4-5.4 10 ^3/uL Monocytes # (Auto) 0.6 0-1.3 10 ^3/uL Eosinophils # (Auto) 0 0-0.8 10 ^3/uL Basophils # (Auto) 0 0-0.2 10 ^3/uL Nucleated Red Blood Cells 0.1 % Sodium Level 138 136-145 mmol/L Potassium Level 4.0 3.5-5.1 mmol/L Chloride Level 104 98-107 mmol/L Carbon Dioxide Level 27 20-31 mmol/L Anion Gap 7 5-15 Blood Urea Nitrogen 17 9-23 mg/dL Creatinine 1.17 0.700-1.30 mg/dL Glomerular Filtration Rate Calc 85 >90 mL/min BUN/Creatinine Ratio 14.5 10.0-20.0 Serum Glucose 108 H 74-106 mg/dL Calcium Level 10.4 8.7-10.4 mg/dL B-Type Natriuretic Peptide 2.12 0-100 pg/mL Current Medications Medications (Trade) Dose Ordered Sig/Kinjal Route Start Time Stop Time Status Last Admin Hydralazine HCl (Apresoline Tablet) 10 mg ONCE ONCE PO 03/19/24 18:45 03/19/24 18:46 DC 03/19/24 20:28 Lorazepam (Ativan Inj) 1 mg ONCE ONCE IM 03/19/24 18:45 03/19/24 18:46 DC 03/19/24 20:27 PROCEDURE(s): CXRP - CHEST PORTABLE REASON: hi bp ORDER NUMBER(s): [id number], ACCESSION NUMBER(s): [id number] CHEST RADIOGRAPH Indication: co bp Technique: Single frontal view of the chest was obtained COMPARISON: XY CHEST PORTABLE on DOS: 01/09/24, XY CHEST XRAY 1 VIEW on DOS: 11/17/23, XY CHEST XRAY 1 VIEW on DOS: 10/14/23, XY CHEST PORTABLE on DOS: 10/10/23, XY CHEST XRAY 1 VIEW on DOS: 08/15/23 FINDINGS: Lines and Tubes: None Lungs: Clear Pleura: No effusion. No pneumothorax. Cardiomediastinal contours: Unremarkable Bones: Unremarkable IMPRESSION: No acute disease. X-Ray, Labs, Meds, VS Comment 33-year-old male with a history of seizure disorder on Trileptal presenting with finger paresthesias, transient visual disturbance, and elevated blood pressure, associated with anxiety Vitals remarkable for BP 151/108 Exam remarkable for anxiety Rhythm strip independently interpreted by me: Sinus rhythm, rate 76, no ectopy. Chest x-ray unremarkable CBC, basic metabolic panel, BNP, troponin, UA Patient treated with the following in the ED: Ativan 1 mg IM, hydralazine 10 mg p.o. On re-evaluation, patient states he does not feel anxious. States his prior symptoms have resolved. Blood pressure is 146/100, so p.o. labetalol was ordered. Hospitalization was considered, however patient had rapid improvement of symptoms with treatment in the ED, and I no longer feel hospitalization is necessary. Patient now appears stable for outpatient treatment with close follo w-up with his primary physician. Time of 1ST Reevaluation: 18:40 Reevaluation 1ST: Unchanged Time of 2ND Reevaluation: 20:30 Reevaluation 2ND: Improved Patient Education/Counseling: Diagnosis, Treatment, Need For Follow Up Family Education/Counseling: Diagnosis, Treatment, Need For Follow Up Departure 1 Departure Time of Disposition: 20:30 Impression: Primary Impression: Episode of hypertension Disposition: HOME / SELF CARE / HOMELESS Condition: Stable Additional Instructions: Your blood tests including screening test for heart attack and heart failure were normal. Your chest x-ray was normal. Your EKG was normal. Follow-up with your primary doctor in 1-2 days for repeat blood pressure check. Discharged With: Relative (Mother) Critical Care Note Critical Care Time?: No Stability Stability form required: No Heart Score Heart Score: Heart Score Response (Comments) Value History N/A 0 EKG N/A 0 Age N/A 0 Risk Factors N/A 0 Troponin N/A 0 Total 0 AU SANDRA AGUIAR MD Mar 19, 2024 18:40
--- NOTE | 2024-03-19 18:53 | DVH ---
CHEST RADIOGRAPH Indication: hi bp Technique: Single frontal view of the chest was obtained COMPARISON: XY CHEST PORTABLE on DOS: 01/09/24, XY CHEST XRAY 1 VIEW on DOS: 11/17/23, XY CHEST XRAY 1 VIEW on DOS: 10/14/23, XY CHEST PORTABLE on DOS: 10/10/23, XY CHEST XRAY 1 VIEW on DOS: 08/15/23 FINDINGS: Lines and Tubes: None Lungs: Clear Pleura: No effusion. No pneumothorax. Cardiomediastinal contours: Unremarkable Bones: Unremarkable IMPRESSION: No acute disease.
[2024-03-19 19:19] LABS: Basophils # (auto) 0 10 ^3/uL (0-0.2); Basophils % (auto) 0.6 % (0.0-2.0); Eosinophils # (auto) 0 10 ^3/uL (0-0.8); Eosinophils % (auto) 0.4 % (0.0-7.0); Hematocrit 44.5 % (41.0-53.0); Lymphocytes # (auto) 1.2 10 ^3/uL (0.4-5.4); Lymphocytes % (auto) 14.8 % (10.0-50.0); Mean Corpuscular Hemoglobin 29.4 pg (28.0-32.0); Mean Corpuscular Hgb Conc. 33.7 g/dL (32.0-36.0); Monocytes # (auto) 0.6 10 ^3/uL (0-1.3); Monocytes % (auto) 6.8 % (0.0-12.0); Neutrophils # (auto) 6.5 10 ^3/uL (1.6-8.6); Neutrophils % (auto) 77.4 % (37.0-80.0); Nucleated Red Blood Cells % 0.1 %; Platelet Count (auto) 144 10^3/uL (140-450); Red Blood Cells 5.11 10^6/uL (4.5-5.90); Red Cell Distribution Width 14.8 % (11.8-14.3); White Blood Cell 8.4 10^3/uL (4.4-10.8)
[2024-03-19 19:32] LABS: Chloride 104 mmol/L (98-107); Sodium 138 mmol/L (136-145)
[2024-03-19 19:33] LABS: Anion Gap 7 (5-15); Calcium 10.4 mg/dL (8.7-10.4); Carbon Dioxide 27 mmol/L (20-31)
[2024-03-19 19:38] LABS: BUN/Creatinine Ratio 14.5 (10.0-20.0); Blood Urea Nitrogen 17 mg/dL (9-23)
[2024-03-19 19:55] LABS: Glucose 108 mg/dL (74-106)
[2024-03-19 20:20] VITALS: TEMP 98.4
[2024-03-19] MEDS: LORazepam 2MG/ML-1ML VIAL IM ONE (20:27)
[2024-03-19] MEDS: hydrALAZINE HCL 10 MG TAB PO ONE (20:28)
[2024-03-19 20:36] VITALS: O2SAT 97
[2024-03-19] MEDS: LABETALOL HCL 200 MG TAB PO ONE (21:41)
[2024-03-19 22:49] VITALS: BP 103/67; PULSE 94; RESP 16
--- NOTE | 2024-03-20 04:09 | ECG ---
[facility] Test Date: 2024-03-19 Test Time: 20:43:13 Pat Name: SWATHI THORPE Department: ED Room: Gender: M Surgical Clinical Reviewer: CHARLES : 1990 Requested By: SANDRA AGUIAR Order Number: [id number] Reading MD: Measurements Intervals Wade Rate: 99 P: 68 TX: 162 QRS: 69 QRSD: 101 T: 11 QT: 321 QTc: 412 Interpretive Statements Sinus rhythm ST elev, probable normal early repol pattern Please click the below link to view image of tracing.
== END 2024-03-19 22:50 | disposition home or self-care (01) ==
LOC: ER 18:03
DX: I10 Essential (primary) hypertension (principal); F12.90 Cannabis use, unspecified, uncomplicated; Z79.899 Other long term (current) drug therapy; Z98.890 Other specified postprocedural states
CPT/HCPCS: 36415; 71045; 80048; 83880; 84484; 85025; 93005; 96372; 99285; J2060

== ENCOUNTER 2024-05-05 18:51 | Emergency (ER) | payer MEDICAID ==
[~2024-05-05] VITALS: Ht 172.7 cm; Wt 79.6 kg
[2024-05-05] MEDS: SODIUM CHLORIDE 0.9% 1,000 ML IV ONE (21:49)
[2024-05-05] MEDS: KETOROLAC TROMETH 30 MG/ML 1ML VIAL IV ONE (21:49)
[2024-05-05] MEDS: FAMOTIDINE (10MG/ML) 2ML VL IV ONE (21:49)
[2024-05-05] MEDS: ONDANSETRON HCL 4 MG/2 ML VIAL IV ONE (21:49)
[2024-05-05 21:50] LABS: Basophils # (auto) 0 10 ^3/uL (0-0.2); Basophils % (auto) 0.3 % (0.0-2.0); Eosinophils # (auto) 0 10 ^3/uL (0-0.8); Eosinophils % (auto) 0.2 % (0.0-7.0); Hematocrit 46.9 % (41.0-53.0); Hemoglobin 15.5 g/dL (13.5-17.5); Lymphocytes # (auto) 0.6 10 ^3/uL (0.4-5.4); Mean Corpuscular Hemoglobin 28.6 pg (28.0-32.0); Mean Corpuscular Hgb Conc. 33.1 g/dL (32.0-36.0); Mean Corpuscular Volume 86.5 fL (80.0-100.0); Monocytes # (auto) 0.3 10 ^3/uL (0-1.3); Monocytes % (auto) 3.1 % (0.0-12.0); Neutrophils # (auto) 9.6 10 ^3/uL (1.6-8.6); Neutrophils % (auto) 90.4 % (37.0-80.0); Platelet Count (auto) 310 10^3/uL (140-450); Red Blood Cells 5.42 10^6/uL (4.5-5.90); White Blood Cell 10.6 10^3/uL (4.4-10.8)
[2024-05-05] MEDS: ACETAMINOPHEN 325 MG TAB PO ONE (21:50)
--- NOTE | 2024-05-05 21:56 | ED.PDOC ---
History of Present Illness HPI Comments 33 y/o M, with a history of anxiety, seizures, and marijuana use and a family history of HTN, presents with c/o HTN, nausea, vomiting, lightheadedness, and diaphoresis, today. Patient endorses on unprovoked onset of symptoms at around 1770, today. He comments on then checking and noticing his blood pressure being elevated at home at 172/113, with no improvement with self-calming techniques and 1x baby ASA use. He reports no recent known sick contact, travel, substance use, or other relevant or pertinent information. Patient denies any abdominal pain, hematemesis, diarrhea, constipation, urinary symptoms, fever, chills, dizziness, or other associated symptoms or modifiers at this time. Chief Complaint: Nausea/Vomiting Time Seen by MD: 21:00 Primary Care Provider: magda Knight Notes: Nurses Notes, Medications, Allergies Allergies: Coded Allergies: NO KNOWN ALLERGIES (Unverified , 01/19/14) Home Meds Active Scripts Oxcarbazepine (Trileptal) 600 Mg Tab, 1200 MG PO BID for 30 Days, #120 TAB Prov:ONUR COLON RESIDENT 02/08/24 Acetaminophen (Acetaminophen) 325 Mg Tab, 650 MG PO Q6HP PRN for 10 Days, #80 TAB Prov:ONUR COLON RESIDENT 02/08/24 Reported Medications Magnesium Oxide (MAGNESIUM OXIDE) 400 Mg Tab, 400 MG OR DAILY, TAB 12/10/23 Thiamine Hcl (VITAMIN B-1) 100 Mg Tb, 1 TAB PO DAILY 10/10/23 Cyanocobalamin (Vitamin B-12) 1,000 Mcg Tab, 1 TAB PO DAILY 10/10/23 Folic Acid (Folic Acid) 1 Mg Tab, 1 TAB PO DAILY 10/10/23 Information Source: Patient Mode of Arrival: Ambulatory Severity: Moderate Timing: Hours Duration: Since onset Prehospital treatment: None Past Medical History PAST MEDICAL HISTORY: Anxiety, Seizures Surgical History (Other): right-femur fracture repair Family History Family History: Family hx of heart lorenzo, Family hx of HTN, Family hx of lung lorenzo Social History Smoker: Non-Smoker Alcohol: Denies ETOH Use Drugs: Marijuana Lives In: Home Constitutional: reports: diaphoresis Cardiovascular: reports: lightheadedness Gastrointestinal: reports: nausea, vomiting Hematologic/Lymphatic: reports: others (HTN) All Other Systems: Reviewed and Negative (negative unless otherwise stated above or in HPI) Physical Exam General Appearance: No Apparent Distress, Normal HEENT: Normal ENT Inspection, Pharynx Normal, TMs Normal, Other (dry mucus membranes, otherwise normal ENT inspection ) Neck: Full Range of Motion, Non-Tender, Normal, Normal Inspection Respiratory: Chest Non-Tender, Lungs Clear, No Accessory Muscle Use, No Respiratory Distress, Normal Breath Sounds Cardiovascular: No Edema, No JVD, No Murmur, No Gallop, Normal Peripheral Pulses, Regular Rate/Rhythm Breast Exam: Deferred Gastrointestinal: No Organomegaly, Non Tender, No Pulsatile Mass, Normal Bowel Sounds, Soft Genitalia: Deferred Pelvic: Deferred Rectal: Deferred Extremities: No calf tenderness, Normal capillary refill, Normal inspection, Normal range of motion, Non-tender, No pedal edema Musculoskeletal : Apperance: Normal Neurologic: Alert, eligibility counselor II-XII nml as Tested, No Motor Deficits, Normal Affect, Normal Mood, No Sensory Deficits Cerebellar Function: Normal Reflexes: Normal Skin: Dry, Normal Color, Warm Lymphatic: No Adenopathy Was a procedure done? Was a procedure done?: No Differential Dx Considerations may include: gastritis, gastroenteritis, viral syndrome, cannabinoids hyperemesis syndrome, spoiled food X-Ray, Labs, Meds, VS Vital Signs Date Time Temp Pulse Resp B/P (MAP) Pulse Ox O2 Delivery O2 Flow Rate FiO2 05/05/24 21:57 72 16 144/96 (112) 98 05/05/24 19:51 97.9 82 16 148/85 (106) 100 97.9 05/05/24 19:02 98.0 82 18 146/104 (118) 96 143/95 (111) Lab Test 05/05/24 21:38 Range/Units White Blood Count 10.6 4.4-10.8 10^3/uL Red Blood Count 5.42 4.5-5.90 10^6/uL Hemoglobin 15.5 13.5-17.5 g/dL Hematocrit 46.9 41.0-53.0 % Mean Corpuscular Volume 86.5 80.0-100.0 fL Mean Corpuscular Hemoglobin 28.6 28.0-32.0 pg Mean Corpuscular Hemoglobin Concent 33.1 32.0-36.0 g/dL Red Cell Distribution Width 15.0 H 11.8-14.3 % Platelet Count 310 140-450 10^3/uL Mean Platelet Volume 8.6 6.9-10.8 fL Neutrophils (%) (Auto) 90.4 H 37.0-80.0 % Lymphocytes (%) (Auto) 6.0 L 10.0-50.0 % Monocytes (%) (Auto) 3.1 0.0-12.0 % Eosinophils (%) (Auto) 0.2 0.0-7.0 % Basophils (%) (Auto) 0.3 0.0-2.0 % Neutrophils # (Auto) 9.6 H 1.6-8.6 10 ^3/uL Lymphocytes # (Auto) 0.6 0.4-5.4 10 ^3/uL Monocytes # (Auto) 0.3 0-1.3 10 ^3/uL Eosinophils # (Auto) 0 0-0.8 10 ^3/uL Basophils # (Auto) 0 0-0.2 10 ^3/uL Nucleated Red Blood Cells 0.0 % Sodium Level 133 L 136-145 mmol/L Potassium Level 5.1 3.5-5.1 mmol/L Chloride Level 95 L 98-107 mmol/L Carbon Dioxide Level 18 L 20-31 mmol/L Anion Gap 20 H 5-15 Blood Urea Nitrogen 14 9-23 mg/dL Creatinine 1.01 0.700-1.30 mg/dL Glomerular Filtration Rate Calc 102 >90 mL/min BUN/Creatinine Ratio 13.9 10.0-20.0 Serum Glucose 127 H 74-106 mg/dL Calcium Level 10.3 8.7-10.4 mg/dL Current Medications Medications (Trade) Dose Ordered Sig/Kinjal Route Start Time Stop Time Status Last Admin Ketorolac Tromethamine (Toradol Injection) 15 mg ONCE ONCE IV 05/05/24 21:30 05/05/24 21:31 DC 05/05/24 21:49 Sodium Chloride 1,000 ml @ 1,000 mls/hr Q1H ONCE IV 05/05/24 21:30 05/05/24 22:29 DC 05/05/24 21:49 Ondansetron HCl (Zofran) 4 mg ONCE ONCE IV 05/05/24 21:30 05/05/24 21:31 DC 05/05/24 21:49 Famotidine (Pepcid Injection) 20 mg ONCE ONCE IV 05/05/24 21:30 05/05/24 21:31 DC 05/05/24 21:49 Time of 1ST Reevaluation: 21:30 Reevaluation 1ST: Unchanged Patient Education/Counseling: Diagnosis, Treatment Family Education/Counseling: No Family Present Additional Information Previous visit documents reviewed: ED physician notes on 02/06/24 and 03/19/24 and hospital admission discharge summary report on 02/08/24 The following tests were ordered, and results were reviewed by me: CBC, BMP I discussed treatment and results with medical personnel and: patient Departure 1 Departure Time of Disposition: 00:56 (Patient likely with gastroenteritis. We will discharge patient with outpatient) Impression: Primary Impression: Gastroenteritis Disposition: 01 HOME / SELF CARE / HOMELESS Condition: Stable Additional Instructions: You likely have gastroenteritis. It is important to stay well hydrated and well rested. This usually resolves within 1 week. If your symptoms worsen or you have any other concerns please return to the ER. Discharged With: Self Critical Care Note Critical Care Time?: No Stability Stability form required: No Heart Score Heart Score: Heart Score Response (Comments) Value History N/A 0 EKG N/A 0 Age N/A 0 Risk Factors N/A 0 Troponin N/A 0 Total 0 I personally scribed for NICOLÁS VELA MD ([email or web address]) on 05/05/24 at 21:56. Electronically submitted by Ramy Isaac ([email or web address]). NICOLÁS VELA MD May 05, 2024 21:56
[2024-05-05 22:07] LABS: Potassium 5.1 mmol/L (3.5-5.1)
[2024-05-05 22:08] LABS: Anion Gap 20 (5-15); Calcium 10.3 mg/dL (8.7-10.4)
[2024-05-05 22:13] LABS: Carbon Dioxide 18 mmol/L (20-31); Chloride 95 mmol/L (98-107); Glucose 127 mg/dL (74-106); Sodium 133 mmol/L (136-145)
[2024-05-05 23:14] LABS: BUN/Creatinine Ratio 13.9 (10.0-20.0); Blood Urea Nitrogen 14 mg/dL (9-23)
[2024-05-06 01:26] VITALS: BP 154/98; PULSE 70; RESP 17; TEMP 98.1; O2SAT 99
== END 2024-05-06 01:27 | disposition home or self-care (01) ==
LOC: ER 18:51
DX: K52.9 Noninfective gastroenteritis and colitis, unspecified (principal); F41.9 Anxiety disorder, unspecified; F15.90 Other stimulant use, unspecified, uncomplicated; Z98.890 Other specified postprocedural states; Z79.899 Other long term (current) drug therapy
CPT/HCPCS: 36415; 80048; 85025; 96361; 96374; 96375; 99284; J1885; J2405; J3490; J7030

== ENCOUNTER 2024-05-30 15:32 | Inpatient (IN) | payer MEDICAID ==
[~2024-05-30] VITALS: Ht 175.3 cm; Wt 80.0 kg
[2024-05-30 16:18] VITALS: PULSE 88; RESP 12; O2SAT 98
--- NOTE | 2024-05-30 16:30 | ED.PDOC ---
HPI (NEURO) HPI Comments 33 y/o M, BIBA with PMHX of seizures, presents to the ED for CC of s/p seizure. EMS reports, patient is coming from home where he had a witnessed seizure by mother. Per EMS, mother states x2 seizures today. Mother comments, calling PCP and being relayed to ED for further evaluation of symptoms; patient given versed by mother prior to EMS arrival. EMS endorse all VSS and BS of 196 in route to ED. Mother comments on Keppra having adverse effect on patient resulting in combativeness. Patient denies fever, chills, sweats, nausea, or vomiting. No other symptoms or modifiers at this time. Chief Complaint: Seizure Time Seen by MD: 16:20 Primary Care Provider: UNKNOWN Reviewed Notes: Nurses Notes, Stick Inserter Notes, Medications, Allergies Information Source: Patient Mode of Arrival: EMS Severity: Moderate Headache Severity: None Timing: Minutes Duration: Since onset Prehospital treatment: None Seizure Quality: Mulitple Episodes Onset: At rest Circumstances: Spontaneous During: Awake History of: Seizure Disorder Modifying factors: Nothing Associated Signs and Symptoms: None Past Medical History PAST MEDICAL HISTORY: Anxiety, Seizures Family History Family History: Family hx of heart lorenzo, Family hx of HTN, Family hx of lung lorenzo Social History Smoker: Non-Smoker Alcohol: Denies ETOH Use Drugs: Marijuana Lives In: Home Constitutional: denies: chills, diaphoresis, fatigue, fever, malaise, sweats, weakness, others EENTM: denies: blurred vision, double vision, ear bleeding, ear discharge, ear drainage, ear pain, ear ringing, eye pain, eye redness, hearing loss, mouth pain, mouth swelling, nasal discharge, nose bleeding, nose congestion, nose vasile n, photophobia, tearing, throat pain, throat swelling, voice changes, others Respiratory: denies: cough, hemoptysis, orthopnea, SOB at rest, shortness of breath, SOB with excertion, stridor, wheezing, others Cardiovascular: denies: chest pain, dizzy spells, diaphoresis, Dyspnea on exertion, edema, irregular heart beat, left arm pain, lightheadedness, palpitations, PND, syncope, others Gastrointestinal: denies: abdomen distended, abdominal pain, blood streaked bowels, constipated, diarrhea, dysphagia, difficulty swallowing, hematemesis, melena, nausea, poor appetite, poor fluid intake, rectal bleeding, rectal pain, vomiting, others Genitourinary: denies: burning, dysuria, flank pain, frequency, hematuria, incontinence, penile discharge, penile sore, pain, testicle pain, testicle swelling, urgency, others Neurological: reports: seizure; denies: dizziness, fainting, headache, left si ded numbness, left sided weakness, numbness, paresthesia, pre-existing deficit, right sided numbness, right sided weakness, speech problems, tingling, tremors, weakness, others Musculoskeletal: denies: back pain, gout, joint pain, joint swelling, muscle pain, muscle stiffness, neck pain, others Integumetry: denies: bruises, change in color, change in hair/nails, dryness, laceration, lesions, lumps, rash, wounds, others Allergic/Immunocompromised: denies: Difficulty Healing, Frequent Infections, Hives, Itching, others Hematologic/Lymphatic: denies: anemia, blood clots, easy bleeding, easy bruising, swollen glands, others Endocrine: denies: excessive hunger, excessive sweating, excessive thirst, excessive urination, flushing, intolerance to cold, intolerance to heat, unexplained weight gain, unexplained weight loss, others Psychiatric: denies: anxiety, bipolar disorder, depression, hopeless, panic disorder, schizophrenia, sleepless, suicidal, others All Other Systems: Reviewed and Negative Physical Exam General Appearance: No Apparent Distress, Normal HEENT: Normal ENT Inspection, Pharynx Normal Neck: Full Range of Motion, Non-Tender, Normal, Normal Inspection Respiratory: Chest Non-Tender, Lungs Clear, No Accessory Muscle Use, No Respiratory Distress, Normal Breath Sounds Cardiovascular: No Edema, No Murmur, No Gallop, Normal Peripheral Pulses, Regular Rate/Rhythm Breast Exam: Deferred Gastrointestinal: No Organomegaly, Non Tender, No Pulsatile Mass, Normal Bowel Sounds, Soft Genitalia: Deferred Pelvic: Deferred Rectal: Deferred Extremities: Non-tender, No pedal edema Musculoskeletal : Apperance: Normal Neurologic: Alert, No Motor Deficits, Normal Affect, Normal Mood, No Sensory Deficits, Seizure Cerebellar Function: Normal Reflexes: Normal Skin: Dry, Normal Color, Warm Lymphatic: No Adenopathy EKG EKG : Pulse Rate (adult): 102 [place]: Normal Block: None Hypertrophy: None ST: Normal Was a procedure done? Was a procedure done?: No Differential Diagnosis (SZ) Seizure: Epilepsy-Break Through, Epilepsy-Status X-Ray, Labs, Meds, VS Vital Signs Date Time Temp Pulse Resp B/P (MAP) Pulse Ox O2 Delivery O2 Flow Rate FiO2 05/30/24 16:30 102 05/30/24 16:20 99.0 96 12 137/97 (110) 97 99.0 05/30/24 16:18 88 12 98 Room Air* 0 21 05/30/24 15:38 99.6 127 26 133/71 (91) 94 99.6 05/30/24 15:32 102 Lab Test 05/30/24 16:45 05/30/24 16:09 Range/Units Blood Oxycodone Screen Pending Blood Methadone Screen Pending Valproic Acid Level Pending Blood Amphetamines Screen Pending Drugs of Abuse Source Pending White Blood Count 17.3 H 4.4-10.8 10^3/uL Red Blood Count 5.41 4.5-5.90 10^6/uL Hemoglobin 15.5 13.5-17.5 g/dL Hematocrit 47.2 41.0-53.0 % Mean Corpuscular Volume 87.3 80.0-100.0 fL Mean Corpuscular Hemoglobin 28.7 28.0-32.0 pg Mean Corpuscular Hemoglobin Concent 32.9 32.0-36.0 g/dL Red Cell Distribution Width 15.9 H 11.8-14.3 % Platelet Count 329 140-450 10^3/uL Mean Platelet Volume 9.0 6.9-10.8 fL Neutrophils (%) (Auto) 93.3 H 37.0-80.0 % Lymphocytes (%) (Auto) 2.5 L 10.0-50.0 % Monocytes (%) (Auto) 3.2 0.0-12.0 % Eosinophils (%) (Auto) 0.0 0.0-7.0 % Basophils (%) (Auto) 1.0 0.0-2.0 % Neutrophils # (Auto) 16.1 H 1.6-8.6 10 ^3/uL Lymphocytes # (Auto) 0.4 0.4-5.4 10 ^3/uL Monocytes # (Auto) 0.6 0-1.3 10 ^3/uL Eosinophils # (Auto) 0 0-0.8 10 ^3/uL Basophils # (Auto) 0.2 0-0.2 10 ^3/uL Nucleated Red Blood Cells 0.0 % Prothrombin Time 10.3 9.3-11.8 sec Prothrombin Time INR 0.97 0.9-1.15 Activated Partial Thromboplast Time 28.9 24.5-34.5 SEC D-Dimer, Quantitative 1.29 H 0.0-0.49 mg/L FEU Sodium Level 138 136-145 mmol/L Potassium Level 3.9 3.5-5.1 mmol/L Chloride Level 103 98-107 mmol/L Carbon Dioxide Level 17 L 20-31 mmol/L Anion Gap 18 H 5-15 Blood Urea Nitrogen 16 9-23 mg/dL Creatinine 1.47 H 0.700-1.30 mg/dL Glomerular Filtration Rate Calc 65 >90 mL/min BUN/Creatinine Ratio 10.9 10.0-20.0 Serum Glucose 124 H 74-106 mg/dL Calcium Level 9.8 8.7-10.4 mg/dL Magnesium Level 3.4 H 1.6-2.6 mg/dL Total Bilirubin 0.6 0.2-1.0 mg/dL Aspartate Amino Transferase (AST) 40 13-40 U/L Alanine Aminotransferase (ALT) 103 H 7-40 U/L Alkaline Phosphatase 122 H 46-116 U/L Total Protein 8.1 5.7-8.2 g/dL Albumin 5.4 H 3.2-4.8 g/dL X-Ray, Labs, Meds, VS Comment This 33-year-old male presents to emergency room secondary to breakthrough seizure. Per family, he was quite sikh declared by taking his seizure medi cation. However, he continues to have frequent breakthrough seizures. I will admit the patient for further workup management of his breakthrough seizures and altered mental status Time of 1ST Reevaluation: 16:50 Reevaluation 1ST: Unchanged Patient Education/Counseling: Diagnosis, Treatment Family Education/Counseling: No Family Present Departure 1 Departure Time of Disposition: 17:31 Impression: Primary Impression: Breakthrough seizure Additional Impression: Altered mental status Disposition: 09 ADMITTED INPATIENT Admit to: Tele Condition: Serious Critical Care Note Critical Care Time?: No Stability Stability form required: No Heart Score Heart Score: Heart Score Response (Comments) Value History N/A 0 EKG N/A 0 Age N/A 0 Risk Factors N/A 0 Troponin N/A 0 Total 0 I personally scribed for RADHA ROSARIO MD ([email or web address]) on 05/30/24 at 16:30. Electronically submitted by Yesenia Logan ([email or web address]). RADHA ROSARIO MD May 30, 2024 16:30
[2024-05-30 16:32] LABS: Basophils # (auto) 0.2 10 ^3/uL (0-0.2); Eosinophils # (auto) 0 10 ^3/uL (0-0.8); Hematocrit 47.2 % (41.0-53.0); Hemoglobin 15.5 g/dL (13.5-17.5); Lymphocytes # (auto) 0.4 10 ^3/uL (0.4-5.4); Lymphocytes % (auto) 2.5 % (10.0-50.0); Mean Corpuscular Hemoglobin 28.7 pg (28.0-32.0); Mean Corpuscular Hgb Conc. 32.9 g/dL (32.0-36.0); Mean Corpuscular Volume 87.3 fL (80.0-100.0); Monocytes # (auto) 0.6 10 ^3/uL (0-1.3); Monocytes % (auto) 3.2 % (0.0-12.0); Neutrophils # (auto) 16.1 10 ^3/uL (1.6-8.6); Neutrophils % (auto) 93.3 % (37.0-80.0); Platelet Count (auto) 329 10^3/uL (140-450); Red Blood Cells 5.41 10^6/uL (4.5-5.90); Red Cell Distribution Width 15.9 % (11.8-14.3); White Blood Cell 17.3 10^3/uL (4.4-10.8)
[2024-05-30] MEDS: LORazepam 2MG/ML-1ML VIAL ONE (16:42)
[2024-05-30 16:49] LABS: Calcium 9.8 mg/dL (8.7-10.4); Chloride 103 mmol/L (98-107)
[2024-05-30 16:50] LABS: Anion Gap 18 (5-15); BUN/Creatinine Ratio 10.9 (10.0-20.0); Bilirubin, Total 0.6 mg/dL (0.2-1.0); Blood Urea Nitrogen 16 mg/dL (9-23); INR 0.97 (0.9-1.15); Partial Thromboplastin Time 28.9 SEC (24.5-34.5); Potassium 3.9 mmol/L (3.5-5.1); Prothrombin Time 10.3 sec (9.3-11.8); Sodium 138 mmol/L (136-145); Total Protein 8.1 g/dL (5.7-8.2)
[2024-05-30 16:52] LABS: Alanine Aminotransferase 103 U/L (7-40); Albumin 5.4 g/dL (3.2-4.8); Alkaline Phosphatase 122 U/L (46-116); Aspartate Aminotransferase 40 U/L (13-40); Carbon Dioxide 17 mmol/L (20-31); Glucose 124 mg/dL (74-106); Magnesium 3.4 mg/dL (1.6-2.6)
[2024-05-30] MEDS: LORazepam 2MG/ML-1ML VIAL IV ONE ×2 (17:52)
[2024-05-30] MEDS: MIDAZOLAM HCL 5 MG/ML-1ML VIAL IV ONE ×2 (18:16→18:40)
[2024-05-30] MEDS: VALPROATE INJ 1,000 MG in SODIUM CHL 0.9% 100 ML IV ONE (18:47)
[2024-05-30] MEDS: PHENYTOIN IV DILANTIN 1,000 MG in SODIUM CHL 0.9% 250 ML IV ONE (18:55)
[2024-05-30 19:59] VITALS: PULSE 105; RESP 18; O2SAT 99
[2024-05-30] MEDS ORDERED: ONDANSETRON HCL 4 MG/2 ML VIAL IV PRN (21:00)
[2024-05-30] MEDS ORDERED: LORazepam 2MG/ML-1ML VIAL IV PRN (21:00)
[2024-05-30] MEDS ORDERED: ACETAMINOPHEN 325 MG TAB PO PRN (21:00)
[2024-05-30] MEDS ORDERED: DOCUSATE SOD 100 MG CAP PO PRN (21:00)
[2024-05-30] MEDS: SODIUM CHLOR 0.9% PF (SALINE LOCK) 10ML VIAL/SYR IV SCH (22:00)
--- NOTE | 2024-05-30 23:06 | DVHHP2 ---
History of Present Illness Reason for Visit: Seizure disorder History of Present Illness The patient is a 33-year-old male with past medical history of anxiety and seizures presented to [facility] ED for evaluation of seizures activity. As reported by EMS, patient had a witnessed seizure by mother. Patient was seen and evaluated in the ED, laboratory data shows WBC 17.3, platelets 329, sodium 138, potassium 3.9, BUN 16, creatinine 1.47, GFR 65, glucose 124, magnesium 3.4, AST 40, ALT 103, albumin 5.4, D-dimer 1.29, blood pressure 121/70, heart rate 104, temperature 99.0 F, O2 saturation 99% oxygen. Patient was started on IV Keppra, given IV antibiotic regimen Zosyn, please see medication orders section in the computer. On my assessment, mother at bedside, patient remains lethargic, weakness, no diaphoresis, no shortness of breath, no nausea, no vomiting, no fever, no chills. Patient was admitted for further evaluation medical management. Past Medical History Anxiety, Seizures Past Surgical History Denies all surgeries Family History Reviewed, noncontributory to the management of this case. Past Social History The patient lives at home, denies smoking, no alcohol, uses marijuana. Review of Systems Constitutional: Yes: Weakness; No: Fever, Chills, Sweats, Malaise, Other Eyes: No: Pain, Vision change, Conjunctivae inflammation, Eyelid inflammation, Other, Redness ENT: No: Ear pain, Ear discharge, Nose pain, Nose discharge, Nose congestion, Mouth pain, Mouth swelling, Throat pain, Throat swelling, Other Respiratory: No: Cough, Dry, Shortness of breath, SOB with excertion, Wheezing, Hemoptysis, Pleuritic Pain, Sputum, Wheezing, Other Cardiovascular: No: Chest Pain, Palpitations, Orthopnea, Paroxysmal Noc. Dyspnea, Edema, Lt Headedness, Other Gastrointestinal: No: Nausea, Vomiting, Abdominal Pain, Diarrhea, Constipation, Melena, Hematochezia, Other Genitourinary: No Dysuria, No Frequency, No Incontinence, No Hematuria, No Retention, No Other Musculoskeletal: No: other, neck pain, shoulder pain, arm pain, back pain, hand pain, leg pain, foot pain Skin: No: Rash, Lesions, Jaundice, Bruising, Other Neurological: Seizures; No: Weakness, Numbness, Incoordination, Change in speech, Confusion, Other Allergies: Coded Allergies: Levetiracetam (Verified Allergy, Unknown, 05/30/24) Medications Current Medications Medications Dose Ordered Sig/Kinjal Route Start Time Stop Time Status Last Admin Dose Admin Phenytoin Sodium 200 mg Q12HR IV 05/30/24 22:00 Lorazepam 1 mg Q2HP PRN IV 05/30/24 21:00 Sodium Chloride 10 ml Q8HR IV 05/30/24 22:00 05/30/24 22:00 10 ML Acetaminophen/ Hydrocodone Bitart 1 tab Q4HP PRN PO 05/30/24 21:00 Ondansetron HCl 4 mg Q4HP PRN IV 05/30/24 21:00 Docusate Sodium 100 mg BIDPRN PRN PO 05/30/24 21:00 Exam Vital Signs Vital Signs Date Time Temp Pulse Resp B/P (MAP) Pulse Ox O2 Delivery O2 Flow Rate FiO2 05/30/24 19:59 105 18 99 Room Air* 0 21 05/30/24 19:36 121/70 (87) 05/30/24 16:20 99.0 99.0 General Appearance: Alert, Cooperative, No acute distress, Other (Oriented x2) HEENT: Atraumatic, PERRLA, EOMI, Mucous membr. moist/pink Respiratory: Clear to auscultation, Normal air movement Cardiovascular: Regular rate, Normal S1, Normal S2, No murmurs Abdominal: Normal bowel sounds, Soft, No tenderness, No hepatospenomegaly, No masses Extremities: No clubbing, No cyanosis, No edema, Normal pulses, No tenderness/swelling Skin: No rashes, No breakdown, No significant lesion Neuro: Normal speech, Normal tone, Sensation intact, Cranial nerves 3-12 NL, Reflexes 2+ Psych/Mental Status: Mental status NL, Mood NL Labs/Xrays Labs Test 05/30/24 16:45 05/30/24 16:09 Range/Units Valproic Acid Level < 3.0 L 50-100 ug/mL White Blood Count 17.3 H 4.4-10.8 10^3/uL Red Blood Count 5.41 4.5-5.90 10^6/uL Hemoglobin 15.5 13.5-17.5 g/dL Hematocrit 47.2 41.0-53.0 % Mean Corpuscular Volume 87.3 80.0-100.0 fL Mean Corpuscular Hemoglobin 28.7 28.0-32.0 pg Mean Corpuscular Hemoglobin Concent 32.9 32.0-36.0 g/dL Red Cell Distribution Width 15.9 H 11.8-14.3 % Platelet Count 329 140-450 10^3/uL Mean Platelet Volume 9.0 6.9-10.8 fL Neutrophils (%) (Auto) 93.3 H 37.0-80.0 % Lymphocytes (%) (Auto) 2.5 L 10.0-50.0 % Monocytes (%) (Auto) 3.2 0.0-12.0 % Eosinophils (%) (Auto) 0.0 0.0-7.0 % Basophils (%) (Auto) 1.0 0.0-2.0 % Neutrophils # (Auto) 16.1 H 1.6-8.6 10 ^3/uL Lymphocytes # (Auto) 0.4 0.4-5.4 10 ^3/uL Monocytes # (Auto) 0.6 0-1.3 10 ^3/uL Eosinophils # (Auto) 0 0-0.8 10 ^3/uL Basophils # (Auto) 0.2 0-0.2 10 ^3/uL Nucleated Red Blood Cells 0.0 % Prothrombin Time 10.3 9.3-11.8 sec Prothrombin Time INR 0.97 0.9-1.15 Activated Partial Thromboplast Time 28.9 24.5-34.5 SEC D-Dimer, Quantitative 1.29 H 0.0-0.49 mg/L FEU Sodium Level 138 136-145 mmol/L Potassium Level 3.9 3.5-5.1 mmol/L Chloride Level 103 98-107 mmol/L Carbon Dioxide Level 17 L 20-31 mmol/L Anion Gap 18 H 5-15 Blood Urea Nitrogen 16 9-23 mg/dL Creatinine 1.47 H 0.700-1.30 mg/dL Glomerular Filtration Rate Calc 65 >90 mL/min BUN/Creatinine Ratio 10.9 10.0-20.0 Serum Glucose 124 H 74-106 mg/dL Calcium Level 9.8 8.7-10.4 mg/dL Magnesium Level 3.4 H 1.6-2.6 mg/dL Total Bilirubin 0.6 0.2-1.0 mg/dL Aspartate Amino Transferase (AST) 40 13-40 U/L Alanine Aminotransferase (ALT) 103 H 7-40 U/L Alkaline Phosphatase 122 H 46-116 U/L Total Protein 8.1 5.7-8.2 g/dL Albumin 5.4 H 3.2-4.8 g/dL Assessment/Plan Assessment/Plan Breakthrough seizure Altered mental status Acute renal injury Generalized weakness Leukocytosis, unspecified Plan 1. Admit to telemetry unit 2. Breathing treatment 3. Pain control management 4. IV antibiotic management 5. Management of fluids and electrolytes 6. Consultation for Neurology 7. Diagnostic test head CT 8. DVT prophylaxis-on SCDs 9. Repeat labs CBC, CMP in a.m. 10. Home medication reviewed and reconciled 11. Continue with current medical management 12. Treatment plan discussed with patient and RN. Patient verbalized understanding. Plan discussed with: Patient, Other (RN) My Orders Orders - LEONARDO BALES DNP Procedure Category Date Status Time Phenytoin Iv Dilantin PHA 05/30/24 In Process 22:00 Phenytoin (Dilantin) LAB 05/31/24 Verified 04:00 * Neurology Consult CONS 05/30/24 Transmitted 20:56 Lorazepam 2mg/Ml Inj PHA 05/30/24 In Process (Ativan Inj) 21:00 Allergies RIRI 05/30/24 In Process 20:56 Code Status CODE 05/30/24 Transmitted 20:56 Sodium Chloride Lock PHA 05/30/24 In Process (Saline Lock Ns) 22:00 Oxygen Per Hour RT 05/30/24 Transmitted 20:56 Hydrocodone-Acet PHA 05/30/24 In Process 5/325mg Tab ([place] 21:00 Ondansetron Hcl PHA 05/30/24 In Process (Zofran) 21:00 Docusate Sodium PHA 05/30/24 In Process Capsule (Colace 21:00 Fall Risk Precautions RIRI 05/30/[address] 20:56 Complete Blood Count LAB 05/31/24 Verified 04:00 Comprehensive LAB 05/31/24 Verified Metabolic Panel 04:00 Condition: Serious RIRI 05/30/24 In Process 20:56 Bedrest With Bathroom RIRI 05/30/24 In Process Privileg 20:56 Sequential RIRI 05/30/24 In Process Compression Device Problem List: (1) Breakthrough seizure (2) Altered mental status (3) Acute renal injury (4) Generalized weakness (5) Leukocytosis, unspecified Date of Service: May 30, 2024 Billing Provider: LEONARDO BALES DNP Common Visit Codes: 61415-[id number] INP/OBS CARE (HIGH) LEONARDO BALES DNP May 30, 2024 23:06
[2024-05-30] MEDS: PHENYTOIN SODIUM 50 MG/ML 2ML VIAL IV SCH (23:14)
[2024-05-30] MEDS ORDERED: MORPHINE SULFATE INJ 2 MG/ml SYRG IV PRN (23:15)
[2024-05-30] MEDS ORDERED: NITROGLYCERIN 0.4 MG SL TAB SL PRN (23:15)
[2024-05-30] MEDS ORDERED: ACETAMINOPHEN IV 1000 MG/100ML (10MG/ML) IV PRN (23:15)
[2024-05-30] MEDS: ACETAMINOPHEN IV 1000 MG/100ML (10MG/ML) IV ONE (23:49)
[2024-05-31] MEDS: SODIUM CHLORIDE 0.9% 1,000 ML IV ONE (00:45)
[2024-05-31] MEDS: IOHEXOL 350 MG/ML 100ML IJ ONE (01:07)
--- NOTE | 2024-05-31 01:49 | DVH ---
CTA Chest with intravenous contrast INDICATION: Elevated D-dimer, rule out PE COMPARISON: None TECHNIQUE: Multidetector spiral CTA of the chest was performed of the chest with intravenous contrast . PULMONARY ANGIOGRAPHY PROTOCOL was utilized using a bolus-tracking technique centered on the main p ulmonary artery. Axial, coronal and sagittal multiplanar and MIP reformats were performed. Radiation Dose : 1. Chest: CTDI volume is 45.34 mGy. Dose-length product is 1169.76 mGy*cm The dose indicators for CT are the volume Computed Tomography (CT) Dose Index (CTDIvol) and the Dose Length Product (DLP), and are measured in units of mGy and mGy-cm, respectively. These indicators are not patient dose, but values generated from the CT scanner acquisition factors. The report includes radiation exposure data for exposures received during this examination. Findings: Pulmonary artery: No large central or large segmental pulmonary embolism. Lower neck: Normal thyroid. Lungs: No focal consolidation, pleural effusion or pneumothorax. Heart/Vascular Structures: Normal heart size. No pericardial effusion. Lymph Nodes: No adenopathy Pleura: No pleural effusion or significant pneumothorax. Musculoskeletal: No acute osseous abnormality. Soft tissues: Normal. Upper abdomen: Diffuse hepatic steatosis. Limited portions of the upper abdomen are otherwise unremar kable. IMPRESSION: 1. No pulmonary embolism. 2. No acute thoracic finding. 3. Diffuse hepatic steatosis.
[2024-05-31] MEDS: PIPERACILLIN-TAZOB 3.375GM 100 ML IV ONE (03:23)
[2024-05-31 03:49] LABS: Urine Bacteria None Seen /hpf (None Seen)
[2024-05-31 04:01] LABS: Urine Blood 2+ /uL (Negative); Urine Clarity Clear (Clear); Urine Color Colorless (Yellow); Urine Protein, UAD 1+ (Negative); Urine Squamous Epithelial Cell None Seen /hpf (<5); Urine Urobilinogen Normal (Negative); Urine WBC 2 /HPF (0-3)
[2024-05-31] MEDS: HYDROcodone-ACET 5/325MG TAB PO PRN (04:07)
[2024-05-31 05:20] LABS: Basophils # (auto) 0.1 10 ^3/uL (0-0.2); Basophils % (auto) 0.8 % (0.0-2.0); Eosinophils # (auto) 0 10 ^3/uL (0-0.8); Hematocrit 40.2 % (41.0-53.0); Hemoglobin 13.4 g/dL (13.5-17.5); Lymphocytes # (auto) 1.3 10 ^3/uL (0.4-5.4); Lymphocytes % (auto) 10.9 % (10.0-50.0); Mean Corpuscular Hemoglobin 28.9 pg (28.0-32.0); Mean Corpuscular Hgb Conc. 33.4 g/dL (32.0-36.0); Mean Corpuscular Volume 86.7 fL (80.0-100.0); Monocytes # (auto) 0.7 10 ^3/uL (0-1.3); Monocytes % (auto) 5.9 % (0.0-12.0); Neutrophils # (auto) 9.7 10 ^3/uL (1.6-8.6); Neutrophils % (auto) 82.4 % (37.0-80.0); Platelet Count (auto) 231 10^3/uL (140-450); Red Blood Cells 4.64 10^6/uL (4.5-5.90); Red Cell Distribution Width 15.6 % (11.8-14.3); White Blood Cell 11.7 10^3/uL (4.4-10.8)
[2024-05-31 05:50] LABS: Albumin 4.4 g/dL (3.2-4.8); Alkaline Phosphatase 95 U/L (46-116); Anion Gap 13 (5-15); Bilirubin, Total 0.7 mg/dL (0.2-1.0); Blood Urea Nitrogen 17 mg/dL (9-23); Potassium 3.6 mmol/L (3.5-5.1); Sodium 140 mmol/L (136-145); Total Protein 6.8 g/dL (5.7-8.2)
[2024-05-31] MEDS ORDERED: PIPERACILLIN-TAZOB 3.375GM 100 ML IV SCH (06:00)
[2024-05-31 06:08] VITALS: BP 116/80; PULSE 98; RESP 19; TEMP 99.2; O2SAT 100
[2024-05-31 06:13] LABS: Chloride 110 mmol/L (98-107)
[2024-05-31 06:14] LABS: Alanine Aminotransferase 70 U/L (7-40); Aspartate Aminotransferase 46 U/L (13-40); Carbon Dioxide 17 mmol/L (20-31); Glucose 117 mg/dL (74-106)
[2024-05-31] MEDS ORDERED: OXCA600T3 PO (06:27)
[2024-05-31] MEDS ORDERED: FOLIC ACID 1 MG in D5W 5% 50 ML INJ SCH (10:00)
[2024-05-31] MEDS ORDERED: FOLIC ACID 1 MG TAB PO SCH (10:00)
[2024-05-31] MEDS ORDERED: THIAMINE HCL 100 MG TAB PO SCH (10:00)
[2024-05-31] MEDS ORDERED: THIAMINE 100mg/ml INJ (200mg/2ml VIAL) IV SCH (10:00)
--- NOTE | 2024-05-31 10:55 | DVHDSRES ---
Discharge Summary Date of Admission Resident Creating Document: GUILHERME LOZANO RESIDENT May 30, 2024 at 23:03 Date of Discharge: May 31, 2024 Admitting Diagnosis Seizures Labs/Diagnostic Data: Laboratory Results Test 05/31/24 04:29 05/31/24 03:40 05/31/24 01:14 05/30/24 16:45 White Blood Count 11.7 10^3/uL (4.4-10.8) Red Blood Count 4.64 10^6/uL (4.5-5.90) Hemoglobin 13.4 g/dL (13.5-17.5) Hematocrit 40.2 % (41.0-53.0) Mean Corpuscular Volume 86.7 fL (80.0-100.0) Mean Corpuscular Hemoglobin 28.9 pg (28.0-32.0) Mean Corpuscular Hemoglobin Concent 33.4 g/dL (32.0-36.0) Red Cell Distribution Width 15.6 % (11.8-14.3) Platelet Count 231 10^3/uL (140-450) Mean Platelet Volume 9.6 fL (6.9-10.8) Neutrophils (%) (Auto) 82.4 % (37.0-80.0) Lymphocytes (%) (Auto) 10.9 % (10.0-50.0) Monocytes (%) (Auto) 5.9 % (0.0-12.0) Eosinophils (%) (Auto) 0.0 % (0.0-7.0) Basophils (%) (Auto) 0.8 % (0.0-2.0) Neutrophils # (Auto) 9.7 10 ^3/uL (1.6-8.6) Lymphocytes # (Auto) 1.3 10 ^3/uL (0.4-5.4) Monocytes # (Auto) 0.7 10 ^3/uL (0-1.3) Eosinophils # (Auto) 0 10 ^3/uL (0-0.8) Basophils # (Auto) 0.1 10 ^3/uL (0-0.2) Nucleated Red Blood Cells 0.0 % Sodium Level 140 mmol/L (136-145) Potassium Level 3.6 mmol/L (3.5-5.1) Chloride Level 110 mmol/L (98-107) Carbon Dioxide Level 17 mmol/L (20-31) Anion Gap 13 (5-15) Blood Urea Nitrogen 17 mg/dL (9-23) Creatinine 2.84 mg/dL (0.700-1.30) Glomerular Filtration Rate Calc 29 mL/min (>90) BUN/Creatinine Ratio 6.0 (10.0-20.0) Serum Glucose 117 mg/dL (74-106) Calcium Level 9.0 mg/dL (8.7-10.4) Total Bilirubin 0.7 mg/dL (0.2-1.0) Aspartate Amino Transferase (AST) 46 U/L (13-40) Alanine Aminotransferase (ALT) 70 U/L (7-40) Alkaline Phosphatase 95 U/L (46-116) Total Protein 6.8 g/dL (5.7-8.2) Albumin 4.4 g/dL (3.2-4.8) Phenytoin (Dilantin) Level 13.0 ug/mL (10-20) Urine Color Colorless (Yellow) Urine Clarity Clear (Clear) Urine pH 6.0 (5.0-9.0) Urine Specific [place] 1.010 (1.001-1.035) Urine Protein 1+ (Negative) Urine Ketones Trace (Negative) Urine Blood 2+ /uL (Negative) Urine Nitrite Negative (Negative) Urine Bilirubin Negative (Negative) Urine Urobilinogen Normal mg/dL (Negative) Urine Leukocyte Esterase Negative /uL (Negative) Urine RBC 1 /hpf (0 - 3) Urine Microscopic WBC 2 /HPF (0-3) Urine Squamous Epithelial Cells None seen /hpf (<5) Urine Uric Acid Crystals Few /hpf (None Seen) Urine Bacteria None seen /hpf (None Seen) Urine Glucose Normal mg/dL (Normal) Lactic Acid Level 1.4 mmol/L (0.4-2.0) Creatine Kinase 1136 U/L (46-171) Valproic Acid Level < 3.0 ug/mL (50-100) Test 05/30/24 16:09 Prothrombin Time 10.3 sec (9.3-11.8) Prothrombin Time INR 0.97 (0.9-1.15) Activated Partial Thromboplast Time 28.9 SEC (24.5-34.5) D-Dimer, Quantitative 1.29 mg/L FEU (0.0-0.49) Magnesium Level 3.4 mg/dL (1.6-2.6) Other Laboratory Tests 05/31/24 04:29 Brief Hx & Hospital Course: SWATHI THORPE is a 33-year-old male with past medical history of anxiety and seizures presented to [facility] ED for evaluation of seizures activity. As reported by EMS, patient had a witnessed seizure by mother. Patient was seen and evaluated in the ED, Patient was started on IV Keppra, given IV antibiotic regimen Zosyn. Patient was admitted for further evaluation medical management. patient is here for left AMA with her continuing his further treatment despite explaining risks leaving against medical advice, patient admitted verbalized despite patient left AMA before I evaluated him. Unable to do physical examination since the patient is AMA. Operations or Procedures CT chest angiogram IMPRESSION: 1. No pulmonary embolism. 2. No acute thoracic finding. 3. Diffuse hepatic steatosis. Condition at Discharge: Undetermined Final Diagnosis/Problems List Breakthrough seizures ? Status epilepticus Generalized tonic-clonic seizures Acute toxic and metabolic encephalopathy likely due to upper ? Sepsis Unspecified origin ALF likely VMN Alcohol abuse disorder Ruled out PE Discharge Disposition: AMA (Did not signed AMA note) Discharge Statement: "Patient was advised to return to the ER or call 911 if any headaches, dizziness, shortness of breath, chest pain, abdominal pain, bleeding, fevers, or worsening of medical condition. Patient was counseled about treatment plan, medications, possible side effects, patientverbalized understanding. All questions were answered to the best of my ability. This discharge took greater then 30 minutes in planning, reviewing documentation, counseling the patient, and discussing with other team members." ASSESSMENT ASSESSMENT Assessment GUILHERME LOZANO RESIDENT May 31, 2024 10:55
--- NOTE | 2024-05-31 19:34 | ECG ---
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
== END 2024-05-31 06:40 | disposition left against medical advice (07) | DRG 720 ==
LOC: ER 15:32 → EDBD 15:32 → OVERFLOW 23:03 → TELE-WESTW 05-31 06:34
PROVIDERS: ADMIT Student in an Organized Health Care Education/Training Program; ATTEND General Practice
DX: A41.9 Sepsis, unspecified organism (principal); N17.0 Acute kidney failure with tubular necrosis; G40.901 Epilepsy, unspecified, not intractable, with status epilepticus; F10.10 Alcohol abuse, uncomplicated; F41.9 Anxiety disorder, unspecified; Z53.29 Procedure and treatment not carried out because of patient's decision for other reasons; Z82.49 Family history of ischemic heart disease and other diseases of the circulatory system
CPT/HCPCS: 36415; 71275; 80053; 80164; 80185; 80307; 81001; 82550; 83605; 83735; 85025; 85379; 85610; 85730; 93005; 96365; 96375; G0378; J0131; J2250; J2543; J7060

== ENCOUNTER → 2024-06-21 | Outpatient (CLI) | payer MEDICAID ==
[2024-06-21 10:11] LABS: Basophils # (auto) 0 10 ^3/uL (0-0.2); Basophils % (auto) 0.6 % (0.0-2.0); Eosinophils # (auto) 0.1 10 ^3/uL (0-0.8); Eosinophils % (auto) 1.6 % (0.0-7.0); Hematocrit 41.4 % (41.0-53.0); Lymphocytes # (auto) 1.4 10 ^3/uL (0.4-5.4); Lymphocytes % (auto) 25.2 % (10.0-50.0); Mean Corpuscular Hemoglobin 29.2 pg (28.0-32.0); Mean Corpuscular Hgb Conc. 33.8 g/dL (32.0-36.0); Mean Corpuscular Volume 86.4 fL (80.0-100.0); Monocytes # (auto) 0.3 10 ^3/uL (0-1.3); Monocytes % (auto) 5.2 % (0.0-12.0); Neutrophils # (auto) 3.8 10 ^3/uL (1.6-8.6); Neutrophils % (auto) 67.4 % (37.0-80.0); Nucleated Red Blood Cells % 0.1 %; Platelet Count (auto) 187 10^3/uL (140-450); Red Blood Cells 4.79 10^6/uL (4.5-5.90); Red Cell Distribution Width 14.9 % (11.8-14.3); White Blood Cell 5.6 10^3/uL (4.4-10.8)
[2024-06-21 10:35] LABS: Alanine Aminotransferase 32 U/L (7-40); Albumin 4.5 g/dL (3.2-4.8); Alkaline Phosphatase 81 U/L (46-116); Anion Gap 8 (5-15); Aspartate Aminotransferase 22 U/L (13-40); BUN/Creatinine Ratio 15.2 (10.0-20.0); Blood Urea Nitrogen 15 mg/dL (9-23); Calcium 9.4 mg/dL (8.7-10.4); Carbon Dioxide 27 mmol/L (20-31); Cholesterol 165 mg/dL (< 200); Glucose 97 mg/dL (74-106); HDL Cholesterol 57 mg/dL (40-59); LDL Cholesterol 90 mg/dL (< 100); Potassium 3.5 mmol/L (3.5-5.1); Sodium 143 mmol/L (136-145); Total Protein 6.8 g/dL (5.7-8.2); Triglycerides 113 mg/dL (< 150)
[2024-06-21 10:36] LABS: Bilirubin, Total 0.6 mg/dL (0.2-1.0); Chloride 108 mmol/L (98-107)
[2024-06-21 10:40] LABS: Free T3 3.32 pg/mL (2.3-4.2)
[2024-06-21 10:41] LABS: Free T4 (Free Thyroxine) 1.02 ng/dL (0.89-1.76)
== END | disposition home or self-care (01) ==
LOC: LAB 09:27
PROVIDERS: ATTEND Internal Medicine
DX: I10 Essential (primary) hypertension (principal); G40.89 Other seizures; F12.10 Cannabis abuse, uncomplicated
CPT/HCPCS: 36415; 80053; 80061; 82570; 83835; 84439; 84443; 84481; 84585; 85025

== ENCOUNTER 2024-08-09 15:54 | Emergency (ER) | payer MEDICAID ==
[~2024-08-09] VITALS: Ht 172.7 cm; Wt 84.0 kg
[2024-08-09 17:41] LABS: Basophils # (auto) 0.1 10 ^3/uL (0-0.2); Basophils % (auto) 0.4 % (0.0-2.0); Eosinophils # (auto) 0 10 ^3/uL (0-0.8); Hematocrit 47.7 % (41.0-53.0); Hemoglobin 15.9 g/dL (13.5-17.5); Lymphocytes % (auto) 5.9 % (10.0-50.0); Mean Corpuscular Hemoglobin 29.2 pg (28.0-32.0); Mean Corpuscular Hgb Conc. 33.4 g/dL (32.0-36.0); Mean Corpuscular Volume 87.3 fL (80.0-100.0); Monocytes # (auto) 0.5 10 ^3/uL (0-1.3); Neutrophils # (auto) 16.1 10 ^3/uL (1.6-8.6); Neutrophils % (auto) 90.7 % (37.0-80.0); Platelet Count (auto) 376 10^3/uL (140-450); Red Blood Cells 5.46 10^6/uL (4.5-5.90); Red Cell Distribution Width 14.7 % (11.8-14.3); White Blood Cell 17.8 10^3/uL (4.4-10.8)
[2024-08-09 17:46] LABS: Chloride 101 mmol/L (98-107); Potassium 5.1 mmol/L (3.5-5.1)
[2024-08-09 17:47] LABS: Anion Gap 20 (5-15); Calcium 9.9 mg/dL (8.7-10.4)
[2024-08-09 17:52] LABS: Blood Urea Nitrogen 15 mg/dL (9-23)
[2024-08-09 17:53] LABS: Blood Alcohol 31.4 mg/dL (<10)
[2024-08-09 18:09] LABS: Carbon Dioxide 12 mmol/L (20-31); Glucose 179 mg/dL (74-106); Sodium 133 mmol/L (136-145)
--- NOTE | 2024-08-09 19:29 | ED.PDOC ---
History of Present Illness HPI Comments This is a 33-year-old male who comes in with chief complaint of seizure at approximately 11:20 a.m. this morning. The seizure was somewhat focal but then at 3:15 a.m. this afternoon the patient had another seizure lasting 2-3 minutes. The seizure was tonic-clonic in nature. There has been no nausea, vomiting or diarrhea. There has been no fever or chills. The patient is noncompliant with his medications and the patient is also allergic to Keppra. EN route, the patient had an Accu-Chek of 147. Upon arrival, the patient is alert and oriented x4. Chief Complaint: Seizure Time Seen by MD: 15:56 Primary Care Provider: UNKNOWN Reviewed Notes: Nurses Notes, [employer] Notes, Medications, Allergies Allergies: Coded Allergies: Levetiracetam (Verified Allergy, Unknown, 05/30/24) Home Meds Active Scripts Oxcarbazepine (Trileptal) 600 Mg Tab, 1200 MG PO BID for 30 Days, #120 TAB Prov:ONUR COLON RESIDENT 02/08/24 Acetaminophen (Acetaminophen) 325 Mg Tab, 650 MG PO Q6HP PRN for 10 Days, #80 TAB Prov:ONUR COLON RESIDENT 02/08/24 Reported Medications Oxcarbazepine (Trileptal) 600 Mg Tab, 900 MG PO BID, TAB 05/31/24 Magnesium Oxide (MAGNESIUM OXIDE) 400 Mg Tab, 400 MG OR DAILY, TAB 12/10/23 Thiamine Hcl (VITAMIN B-1) 100 Mg Tb, 1 TAB PO DAILY 10/10/23 Cyanocobalamin (Vitamin B-12) 1,000 Mcg Tab, 1 TAB PO DAILY 10/10/23 Folic Acid (Folic Acid) 1 Mg Tab, 1 TAB PO DAILY 10/10/23 Information Source: Patient, Emergency Med Personnel Mode of Arrival: EMS Severity: Moderate Timing: Minutes Duration: Intermittent Prehospital treatment: Accucheck (Accu-Chek of 147), Developer Automatic, IVF Associated signs and symptoms Associated seizure Past Medical History PAST MEDICAL HISTORY: Anxiety, Seizures Family History Family History: Family hx of heart lorenzo, Family hx of HTN, Family hx of lung lorenzo Social History Smoker: Non-Smoker Alcohol: Denies ETOH Use Drugs: Marijuana Lives In: Home Constitutional: denies: chills, diaphoresis, fatigue, fever, malaise, sweats, weakness, others EENTM: denies: blurred vision, double vision, ear bleeding, ear discharge, ear drainage, ear pain, ear ringing, eye pain, eye redness, hearing loss, mouth pain, mouth swelling, nasal discharge, nose bleeding, nose congestion, nose pain, photophobia, tearing, throat pain, throat swelling, voice changes, others Respiratory: denies: cough, hemoptysis, orthopnea, SOB at rest, shortness of breath, SOB with excertion, stridor, wheezing, others Cardiovascular: denies: chest pain, dizzy spells, diaphoresis, Dyspnea on exertion, edema, irregular heart beat, left arm pain, lightheadedness, palpitations, PND, syncope, others Gastrointestinal: denies: abdomen distended, abdominal pain, blood streaked bowels, constipated, diarrhea, dysphagia, difficulty swallowing, hematemesis, melena, nausea, poor appetite, poor fluid intake, rectal bleeding, rectal pain, vomiting, others Genitourinary: denies: burning, dysuria, flank pain, frequency, hematuria, incontinence, penile discharge, penile sore, pain, testicle pain, testicle swelling, urgency, others Neurological: reports: seizure; denies: dizziness, fainting, headache, left sided numbness, left sided weakness, numbness, paresthesia, pre-existing deficit, right sided numbness, right sided weakness, speech problems, tingling, tremors, weakness, others Musculoskeletal: denies: back pain, gout, joint pain, joint swelling, muscle pain, muscle stiffness, neck pain, others Integumetry: denies: bruises, change in color, change in hair/nails, dryness, laceration, lesions, lumps, rash, wounds, others Allergic/Immunocompromised: denies: Difficulty Healing, Frequent Infections, Hives, Itching, others Hematologic/Lymphatic: denies: anemia, blood clots, easy bleeding, easy bruising, swollen glands, others Endocrine: denies: excessive hunger, excessive sweating, excessive thirst, excessive urination, flushing, intolerance to cold, intolerance to heat, unexplained weight gain, unexplained weight loss, others Psychiatric: denies: anxiety, bipolar disorder, depression, hopeless, panic disorder, schizophrenia, sleepless, suicidal, others Physical Exam General Appearance: Mild Distress HEENT: Normal ENT Inspection, Pharynx Normal, TMs Normal Neck: Full Range of Motion, Non-Tender, Normal, Normal Inspection Respiratory: Chest Non-Tender, Lungs Clear, No Accessory Muscle Use, No Respiratory Distress, Normal Breath Sounds Cardiovascular: No Edema, No JVD, No Murmur, No Gallop, Normal Peripheral Pulses, Regular Rate/Rhythm Breast Exam: Deferred Gastrointestinal: No Organomegaly, Non Tender, No Pulsatile Mass, Normal Bowel Sounds, Soft Genitalia: Deferred Pelvic: Deferred Rectal: Deferred Extremities: No calf tenderness, Normal capillary refill, Normal inspection, Normal range of motion, Non-tender, No pedal edema Musculoskeletal : Apperance: Normal Neurologic: Alert, 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 Was a procedure done?: No EKG EKG : Pulse Rate (adult): 130 [place]: Normal Cardiac Rhythm: ST ST: Nonsp Differential Dx Considerations may include: Seizure activity, syncope, generalized weakness X-Ray, Labs, Meds, VS Vital Signs Date Time Temp Pulse Resp B/P (MAP) Pulse Ox O2 Delivery O2 Flow Rate FiO2 08/09/24 18:57 90 17 151/90 (110) 99 08/09/24 18:57 90 17 99 Room Air 08/09/24 15:58 98.4 120 16 130/78 (95) 100 98.4 08/09/24 15:54 132 Lab Test 08/09/24 17:21 Range/Units White Blood Count 17.8 H 4.4-10.8 10^3/uL Red Blood Count 5.46 4.5-5.90 10^6/uL Hemoglobin 15.9 13.5-17.5 g/dL Hematocrit 47.7 41.0-53.0 % Mean Corpuscular Volume 87.3 80.0-100.0 fL Mean Corpuscular Hemoglobin 29.2 28.0-32.0 pg Mean Corpuscular Hemoglobin Concent 33.4 32.0-36.0 g/dL Red Cell Distribution Width 14.7 H 11.8-14.3 % Platelet Count 376 140-450 10^3/uL Mean Platelet Volume 8.8 6.9-10.8 fL Neutrophils (%) (Auto) 90.7 H 37.0-80.0 % Lymphocytes (%) (Auto) 5.9 L 10.0-50.0 % Monocytes (%) (Auto) 3.0 0.0-12.0 % Eosinophils (%) (Auto) 0.0 0.0-7.0 % Basophils (%) (Auto) 0.4 0.0-2.0 % Neutrophils # (Auto) 16.1 H 1.6-8.6 10 ^3/uL Lymphocytes # (Auto) 1.0 0.4-5.4 10 ^3/uL Monocytes # (Auto) 0.5 0-1.3 10 ^3/uL Eosinophils # (Auto) 0 0-0.8 10 ^3/uL Basophils # (Auto) 0.1 0-0.2 10 ^3/uL Nucleated Red Blood Cells 0.0 % Sodium Level 133 L 136-145 mmol/L Potassium Level 5.1 3.5-5.1 mmol/L Chloride Level 101 98-107 mmol/L Carbon Dioxide Level 12 L 20-31 mmol/L Anion Gap 20 H 5-15 Blood Urea Nitrogen 15 9-23 mg/dL Creatinine 1.15 0.700-1.30 mg/dL Glomerular Filtration Rate Calc 87 >90 mL/min BUN/Creatinine Ratio 13.0 10.0-20.0 Serum Glucose 179 H 74-106 mg/dL Calcium Level 9.9 8.7-10.4 mg/dL Plasma/Serum Blood Alcohol 31.4 H <10 mg/dL IV Hep-Lock was established The patient's CBC shows an elevated white blood cell count of 17.8 The rest of the CBC is within normal limits The chemistry panel is within normal limits The alcohol level is negative At this time, give observe the patient in the emergency department's the patient has been seizure-free The patient has seizure precautions placed The patient is being discharged at this time Images Reviewed?: Images reviewed and evaluated by me Time of 1ST Reevaluation: 19:28 Reevaluation 1ST: Unchanged Patient Education/Counseling: Diagnosis, Treatment, Prognosis, Need For Follow Up Family Education/Counseling: No Family Present Departure 1 Departure Time of Disposition: 19:28 Impression: Primary Impression: Breakthrough seizure Disposition: HOME / SELF CARE / HOMELESS Condition: Fair Discharged With: Self Critical Care Note Critical Care Time?: Yes (45 min-critical care time only) Stability Stability form required: No Heart Score Heart Score: Heart Score Response (Comments) Value History N/A 0 EKG N/A 0 Age N/A 0 Risk Factors N/A 0 Troponin N/A 0 Total 0 SHEMAR LEUNG MD Aug 09, 2024 19:29
[2024-08-09 19:45] VITALS: BP 123/96; PULSE 104; RESP 18; TEMP 97.9; O2SAT 98
--- NOTE | 2024-08-10 18:46 | ECG ---
[facility] Test Date: 2024-08-09 Test Time: 15:51:18 Pat Name: SWATHI THORPE Department: ED Room: Gender: M Drawer In Dobby Loom: FELIPE : 1990 Requested By: SHEMAR LEUNG Order Number: [id number] Reading MD: Measurements Intervals Tripp Rate: 132 P: 65 ID: [id number] QRS: 72 QRSD: 100 T: 35 QT: 308 QTc: 457 Interpretive Statements Sinus tachycardia Minimal ST depression, inferior leads Please click the below link to view image of tracing.
[2024-08-11] MEDS ORDERED: LACO50TA5 PO (15:23)
== END 2024-08-09 19:57 | disposition home or self-care (01) ==
LOC: ER 15:54 → EDBD 15:54 → EDUNIT# 15:54 → ER 19:56
DX: R56.9 Unspecified convulsions (principal); F12.90 Cannabis use, unspecified, uncomplicated; F41.9 Anxiety disorder, unspecified; Z79.899 Other long term (current) drug therapy; Z88.1 Allergy status to other antibiotic agents
CPT/HCPCS: 36415; 80048; 80320; 82947; 85025; 93005

== ENCOUNTER 2024-08-09 23:55 | Inpatient (IN) | payer MEDICAID ==
[~2024-08-09] VITALS: Ht 175.3 cm; Wt 73.0 kg
[2024-08-10] VITALS (8 sets, daily range): BP systolic 142–147; BP diastolic 80–110; PULSE 13–102; RESP 13–18; TEMP 97–97.9; O2SAT 95–98
--- NOTE | 2024-08-10 00:17 | ED.PDOC ---
HPI (NEURO) HPI Comments 33-year-old male who came to emergency room by EMS for seizure. Patient has history of seizure disorder. Was seen here earlier today for seizure disorder/breakthrough seizure. Patient has good compliance to his medications. Patient is allergic to Keppra. Has a total of 3 seizure episodes today, last one happened when he discharge earlier. Had another tonic-clonic seizure at home lasting approximately 2 minutes. Chief Complaint: Seizure Time Seen by MD: 00:16 Primary Care Provider: UNKNOWN Reviewed Notes: Clerical Receptionist Notes Information Source: Patient, Emergency Med Personnel Mode of Arrival: EMS Severity: Moderate Dizziness/Weakness Severity: Unable to do activities Headache Severity: Moderate Timing: Minutes Duration: Minutes Prehospital treatment: Oxygen Seizure Quality: Tonic-clonic Headache Quality: Throbbing, Aching Headache Location: Generalized Weakness Location: Generalized Numbness Location: Generalized Seizure Location: Generalized Onset: With light exertion Circumstances: Spontaneous Symptoms: Weakness Before: Normal During: LOC After: Confusion, Headache History of: Seizure Disorder Associated Signs and Symptoms: Weakness Past Medical History PAST MEDICAL HISTORY: Anxiety, Seizures Family History Family History: Family hx of heart lorenzo, Family hx of HTN, Family hx of lung lorenzo Social History Smoker: Non-Smoker Alcohol: Denies ETOH Use Drugs: Marijuana Lives In: Home Constitutional: denies: chills, diaphoresis, fatigue, fever, malaise, sweats, weakness, others EENTM: denies: blurred vision, double vision, ear bleeding, ear discharge, ear drainage, ear pain, ear ringing, eye pain, eye redness, hearing loss, mouth pain, mouth swelling, nasal discharge, nose bleeding, nose congestion, nose pain, photophobia, tearing, throat pain, throat swelling, voice changes, others Respiratory: denies: cough, hemoptysis, orthopnea, SOB at rest, shortness of breath, SOB with excertion, stridor, wheezing, others Cardiovascular: denies: chest pain, dizzy spells, diaphoresis, Dyspnea on exertion, edema, irregular heart beat, left arm pain, lightheadedness, palpitations, PND, syncope, others Gastrointestinal: denies: abdomen distended, abdominal pain, blood streaked bowels, constipated, diarrhea, dysphagia, difficulty swallowing, hematemesis, melena, nausea, poor appetite, poor fluid intake, rectal bleeding, rectal pain, vomiting, others Genitourinary: denies: burning, dysuria, flank pain, frequency, hematuria, incontinence, penile discharge, penile sore, pain, testicle pain, testicle swelling, urgency, others Neurological: reports: seizure; denies: dizziness, fainting, headache, left sided numbness, left sided weakness, numbness, paresthesia, pre-existing deficit, right sided numbness, right sided weakness, speech problems, tingling, tremors, weakness, others Musculoskeletal: denies: back pain, gout, joint pain, joint swelling, muscle pain, muscle stiffness, neck pain, others Integumetry: denies: bruises, change in color, change in hair/nails, dryness, laceration, lesions, lumps, rash, wounds, others Allergic/Immunocompromised: denies: Difficulty Healing, Frequent Infections, Hives, Itching, others Hematologic/Lymphatic: denies: anemia, blood clots, easy bleeding, easy bruising, swollen glands, others Endocrine: denies: excessive hunger, excessive sweating, excessive thirst, excessive urination, flushing, intolerance to cold, intolerance to heat, unexplained weight gain, unexplained weight loss, others Psychiatric: denies: anxiety, bipolar disorder, depression, hopeless, panic disorder, schizophrenia, sleepless, suicidal, others Physical Exam General Appearance: No Apparent Distress, Normal HEENT: Normal ENT Inspection, Pharynx Normal, TMs Normal Neck: Full Range of Motion, Non-Tender, Normal, Normal Inspection Respiratory: Chest Non-Tender, Lungs Clear, No Accessory Muscle Use, No Respiratory Distress, Normal Breath Sounds Cardiovascular: No Edema, No JVD, No Murmur, No Gallop, Normal Peripheral Pulses, Regular Rate/Rhythm Breast Exam: Deferred Gastrointestinal: No Organomegaly, Non Tender, No Pulsatile Mass, Normal Bowel Sounds, Soft Genitalia: Deferred Pelvic: Deferred Rectal: Deferred Extremities: No calf tenderness, Normal capillary refill, Normal inspection, Normal range of motion, Non-tender, No pedal edema Musculoskeletal : Apperance: Normal Neurologic: Alert, insulation mechanic II-XII nml as Tested, No Motor Deficits, Normal Affect, Normal Mood, No Sensory Deficits Cerebellar Function: Normal Reflexes: Normal Skin: Dry, Normal Color, Warm Lymphatic: No Adenopathy Was a procedure done? Was a procedure done?: No Differential Diagnosis (SZ) Seizure: Psychogenic Seizure, Hypoglycemia, Hyponatremia, Idiopathic, Encephalopathy, Epilepsy-Break Through, Epilepsy-Status X-Ray, Labs, Meds, VS Vital Signs Date Time Temp Pulse Resp B/P (MAP) Pulse Ox O2 Delivery O2 Flow Rate FiO2 08/09/24 23:55 99.5 102 16 155/97 (116) 96 99.5 Lab Test 08/10/24 00:23 Range/Units White Blood Count 12.4 #H 4.4-10.8 10^3/uL Red Blood Count 5.11 4.5-5.90 10^6/uL Hemoglobin 15.0 13.5-17.5 g/dL Hematocrit 44.1 41.0-53.0 % Mean Corpuscular Volume 86.4 80.0-100.0 fL Mean Corpuscular Hemoglobin 29.3 28.0-32.0 pg Mean Corpuscular Hemoglobin Concent 33.9 32.0-36.0 g/dL Red Cell Distribution Width 14.6 H 11.8-14.3 % Platelet Count 328 140-450 10^3/uL Mean Platelet Volume 8.9 6.9-10.8 fL Neutrophils (%) (Auto) 86.3 H 37.0-80.0 % Lymphocytes (%) (Auto) 8.8 L 10.0-50.0 % Monocytes (%) (Auto) 4.5 0.0-12.0 % Eosinophils (%) (Auto) 0.0 0.0-7.0 % Basophils (%) (Auto) 0.4 0.0-2.0 % Neutrophils # (Auto) 10.7 H 1.6-8.6 10 ^3/uL Lymphocytes # (Auto) 1.1 0.4-5.4 10 ^3/uL Monocytes # (Auto) 0.6 0-1.3 10 ^3/uL Eosinophils # (Auto) 0 0-0.8 10 ^3/uL Basophils # (Auto) 0 0-0.2 10 ^3/uL Nucleated Red Blood Cells 0.0 % Sodium Level 132 L 136-145 mmol/L Potassium Level 5.5 H 3.5-5.1 mmol/L Chloride Level 101 98-107 mmol/L Carbon Dioxide Level 12 L 20-31 mmol/L Anion Gap 19 H 5-15 Blood Urea Nitrogen 15 9-23 mg/dL Creatinine 1.28 0.700-1.30 mg/dL Glomerular Filtration Rate Calc 77 >90 mL/min BUN/Creatinine Ratio 11.7 10.0-20.0 Serum Glucose 147 H 74-106 mg/dL Calcium Level 9.4 8.7-10.4 mg/dL Magnesium Level 2.7 H 1.6-2.6 mg/dL Total Bilirubin 0.9 0.2-1.0 mg/dL Aspartate Amino Transferase (AST) 38 13-40 U/L Alanine Aminotransferase (ALT) 32 7-40 U/L Alkaline Phosphatase 105 46-116 U/L Total Protein 8.0 5.7-8.2 g/dL Albumin 5.2 H 3.2-4.8 g/dL Plasma/Serum Blood Alcohol < 3.0 <10 mg/dL Current Medications Medications (Trade) Dose Ordered Sig/Kinjal Route Start Time Stop Time Status Last Admin Lorazepam (Ativan Inj) 1 mg ONCE ONCE IV 08/10/24 00:15 08/10/24 00:16 DC 08/10/24 01:28 Sodium Chloride 1,000 ml @ 1,000 mls/hr Q1H ONCE IV 08/10/24 02:15 08/10/24 03:14 08/10/24 02:20 Time of 1ST Reevaluation: 00:12 Reevaluation 1ST: Unchanged Patient Education/Counseling: Diagnosis, Treatment Family Education/Counseling: No Family Present Departure 1 Departure Time of Disposition: 02:26 Impression: Primary Impression: Acute renal injury Additional Impressions: Hyperkalemia Intractable seizures Disposition: ADMITTED INPATIENT Admit to: [facility] Condition: Guarded Discharged With: Self (43-year-old male with a history of epilepsy) Comments Seizure Exacerbation with Electrolyte Abnormalities Chief Complaint: Multiple seizures with third episode today History of Present Illness: 33-year-old male with known history of epilepsy presents via ambulance after experiencing his third seizure of the day. Patient was previously evaluated earlier today for two prior seizure episodes. The most recent seizure lasted approximately 5 minutes and was followed by a 15-minute postictal phase. Patient is now alert with GCS 15, reporting generalized weakness. He denies any trauma from the seizure events and has no evidence of oral injuries including teeth, lip, or tongue. Review of Systems: Constitutional: Reports generalized weakness Neurological: Multiple seizures, post-ictal state Head/Face: No trauma reported Oral/Dental: No teeth, lip, or tongue injury All other systems reviewed and negative Medications: Current medications: - Antiepileptic medications (specific details not provided in field organizer) Medications given in ED: - Ativan 1mg IV - Lokelma PO - IV fluids Physical Exam: General: Alert, GCS 15 Neurological: Post-ictal, experiencing generalized weakness Head/Face: No evidence of trauma Oral cavity: No injuries to teeth, lips, or tongue noted Lab Results: WBC: 12.4 (Elevated) BUN: 15 (Normal) Creatinine: 1.28 (Elevated) Potassium: 5.5 (Elevated) Sodium: 132 (Low) Magnesium: 2.7 (Elevated) Glucose: 147 Imaging and Other Relevant Results: No imaging studies documented Medical Decision Making: Summary Statement: 33-year-old male with known epilepsy presenting with multiple seizures in 24 hours, complicated by electrolyte abnormalities and acute kidney injury. Problem List: 1. Intractable seizures 2. Acute kidney injury 3. Hyperkalemia 4. Hyponatremia 5. Hypermagnesemia Differential Diagnosis: 1. Medication non-compliance 2. Breakthrough seizures despite compliance 3. Metabolic derangement triggering seizures 4. Infection with leukocytosis ED Course: Patient received IV Ativan for seizure prevention, Lokelma for hy perkalemia management, and IV fluids. Patient stabilized but requires admission for further management. Assessment and Plan: 1. Intractable Seizures: - Admit to medicine service - Continue seizure prophylaxis with Ativan as needed - Neurology consultation - Review and optimize anti-epileptic medications 2. Acute Kidney Injury with Electrolyte Abnormalities: - Continue IV fluid hydration - Monitor renal function and electrolytes - Treat hyperkalemia with Lokelma - Serial potassium checks 3. Leukocytosis: - Monitor for signs of infection - Trend WBC count Billing Information: ICD-10: G40.911 - Epilepsy, unspecified, intractable ICD-10: N17.9 - Acute kidney failure, unspecified ICD-10: E87.5 - Hyperkalemia ICD-10: E87.1 - Hypo-osmolality and hyponatremia Critical Care Note Critical Care Time?: Yes (35 min-critical care time only) Critical care comment: Total critical care time: Approximately 36 minutes Due to a high probability of clinically significant, life threatening deterioration, the patient required my highest level of preparedness to intervene emergently and I personally spent this critical care time directly and personally managing the patient. This critical care time included obtaining a history; examining the patient; pulse oximetry; ordering and review of studies; arranging urgent treatment with development of a management plan; evaluation of patient's response to treatment; frequent reassessment; and, discussions with other providers. This critical care time was performed to assess and manage the high probability of imminent, life-threatening deterioration that could result in multi-organ failure. It was exclusive of separately billable procedures and treating other patients. Stability Stability form required: No Heart Score Heart Score: Heart Score Response (Comments) Value History N/A 0 EKG N/A 0 Age N/A 0 Risk Factors N/A 0 Troponin N/A 0 Total 0 I personally scribed for JAME MANE MD ([email or web address]) on 08/10/24 at 00:17. Electronically submitted by Beck Maloney ([facility] JAME MANE MD Aug 10, 2024 00:17
[2024-08-10 00:55] LABS: Basophils # (auto) 0 10 ^3/uL (0-0.2); Basophils % (auto) 0.4 % (0.0-2.0); Eosinophils # (auto) 0 10 ^3/uL (0-0.8); Hematocrit 44.1 % (41.0-53.0); Lymphocytes # (auto) 1.1 10 ^3/uL (0.4-5.4); Lymphocytes % (auto) 8.8 % (10.0-50.0); Mean Corpuscular Hemoglobin 29.3 pg (28.0-32.0); Mean Corpuscular Hgb Conc. 33.9 g/dL (32.0-36.0); Mean Corpuscular Volume 86.4 fL (80.0-100.0); Monocytes # (auto) 0.6 10 ^3/uL (0-1.3); Monocytes % (auto) 4.5 % (0.0-12.0); Neutrophils # (auto) 10.7 10 ^3/uL (1.6-8.6); Neutrophils % (auto) 86.3 % (37.0-80.0); Platelet Count (auto) 328 10^3/uL (140-450); Red Blood Cells 5.11 10^6/uL (4.5-5.90); Red Cell Distribution Width 14.6 % (11.8-14.3); White Blood Cell 12.4 10^3/uL (4.4-10.8)
[2024-08-10] MEDS: LORazepam 2MG/ML-1ML VIAL IV ONE (01:28)
[2024-08-10 01:40] LABS: Alanine Aminotransferase 32 U/L (7-40); Alkaline Phosphatase 105 U/L (46-116); Anion Gap 19 (5-15); Aspartate Aminotransferase 38 U/L (13-40); BUN/Creatinine Ratio 11.7 (10.0-20.0); Bilirubin, Total 0.9 mg/dL (0.2-1.0); Blood Urea Nitrogen 15 mg/dL (9-23); Calcium 9.4 mg/dL (8.7-10.4); Chloride 101 mmol/L (98-107)
[2024-08-10 01:44] LABS: Albumin 5.2 g/dL (3.2-4.8); Blood Alcohol < 3.0 mg/dL (<10); Carbon Dioxide 12 mmol/L (20-31); Glucose 147 mg/dL (74-106); Magnesium 2.7 mg/dL (1.6-2.6); Potassium 5.5 mmol/L (3.5-5.1); Sodium 132 mmol/L (136-145)
[2024-08-10] MEDS: SODIUM CHLORIDE 0.9% 1,000 ML IV ONE ×2 (02:20→05:08)
[2024-08-10] MEDS: SODIUM ZIRCONIUM CYCL 10 GM PAK PO ONE (03:21)
[2024-08-10] MEDS ORDERED: LORazepam 2MG/ML-1ML VIAL IV PRN (04:00)
--- NOTE | 2024-08-10 05:34 | DVHHPRES ---
History of Present Illness Resident Creating Document: MOLLY KAPLAN RESIDENT History of Present Illness Patient is a 33-year-old male with a past medical history of seizure disorder diagnosed many years ago 100 to the ED with a chief complaint of breakthrough seizure. Patient was seen earlier in the day with a focal seizure followed by grand mal following which the patient was sent home. According to the mother the patient had another seizure following which she had to be brought to the hospital for further evaluation. Usually the patient has 1-3 seizures in a month but he had 3 seizures yesterday. Mother reports patient had to be intubated in 2019 and earlier this year because of seizures. Patient denies any fever, cough, dysuria, abdominal pain, diarrhea in the last week. Past medical history: Seizure disorder, anxiety Past surgical history: None Social history: Patient denies alcohol use but smokes marijuana, denies any other drug use Home medications: Oxcarbazepine 1200 mg b.i.d. Review of Systems Review of Systems Seen and examined at the bedside Patient is alert and oriented x4, sleepy and tired, able to follow commands Denies any acute complaints of chest pain, shortness of breath, headache, blurred vision Allergies: Coded Allergies: Levetiracetam (Verified Allergy, Unknown, 05/30/24) Medications Current Medications Medications Dose Ordered Sig/Kinjal Route Start Time Stop Time Status Last Admin Dose Admin Oxcarbazepine 1,200 mg Q12HR PO 08/10/24 22:00 Lorazepam 1 mg Q5MINP PRN IV 08/10/24 04:00 Exam Vital Signs Vital Signs Date Time Temp Pulse Resp B/P (MAP) Pulse Ox O2 Delivery O2 Flow Rate FiO2 08/10/24 04:00 107 08/09/24 23:55 99.5 16 155/97 (116) 96 99.5 Exam Gen - no pallor, no icterus, no cyanosis, no clubbing, no LAD, no edema . Skin - Patients skin is warm and dry. HEENT - normocephalic, atraumatic, moist mucous membranes. Neck - full ROM, no LAD, no JVD Pulmonary - B/L equal breath sounds, no crackles, no wheezing, no stridor. cardiovascular - regular S1,S2 heard, no added sounds, no murmurs heard. peripheral pulses normal radial 2+, pedal 2+. capillary refill normal <2 secs. GI - soft, nontender abdomen. no hepatospleenomegaly. Bowel sounds normoactive Neurological - Patient is A/O X 3 . Bilateral upper extremity strength 5/5, bilateral lower extremity strength 5/5, no facial droop, normal speech, no tremor, no sensory deficiets. Labs/Xrays Labs Test 08/10/24 04:26 08/10/24 00:23 Range/Units White Blood Count 12.4 #H 4.4-10.8 10^3/uL Red Blood Count 5.11 4.5-5.90 10^6/uL Hemoglobin 15.0 13.5-17.5 g/dL Hematocrit 44.1 41.0-53.0 % Mean Corpuscular Volume 86.4 80.0-100.0 fL Mean Corpuscular Hemoglobin 29.3 28.0-32.0 pg Mean Corpuscular Hemoglobin Concent 33.9 32.0-36.0 g/dL Red Cell Distribution Width 14.6 H 11.8-14.3 % Platelet Count 328 140-450 10^3/uL Mean Platelet Volume 8.9 6.9-10.8 fL Neutrophils (%) (Auto) 86.3 H 37.0-80.0 % Lymphocytes (%) (Auto) 8.8 L 10.0-50.0 % Monocytes (%) (Auto) 4.5 0.0-12.0 % Eosinophils (%) (Auto) 0.0 0.0-7.0 % Basophils (%) (Auto) 0.4 0.0-2.0 % Neutrophils # (Auto) 10.7 H 1.6-8.6 10 ^3/uL Lymphocytes # (Auto) 1.1 0.4-5.4 10 ^3/uL Monocytes # (Auto) 0.6 0-1.3 10 ^3/uL Eosinophils # (Auto) 0 0-0.8 10 ^3/uL Basophils # (Auto) 0 0-0.2 10 ^3/uL Nucleated Red Blood Cells 0.0 % Magnesium Level 2.7 H 1.6-2.6 mg/dL Total Bilirubin 0.9 0.2-1.0 mg/dL Aspartate Amino Transferase (AST) 38 13-40 U/L Alanine Aminotransferase (ALT) 32 7-40 U/L Alkaline Phosphatase 105 46-116 U/L Total Protein 8.0 5.7-8.2 g/dL Albumin 5.2 H 3.2-4.8 g/dL Plasma/Serum Blood Alcohol < 3.0 <10 mg/dL Assessment/Plan Assessment/Plan Breakthrough seizure History of seizure disorder Metabolic acidosis SIRS likely due to above Hyperkalemia - oxcarbazepine 1200 mg b.i.d. - Ativan p.r.n. for seizures - brain MRI without contrast pending - neurology consult, patient is following Dr. Shah in the outpatient clinic - monitor for rhabdomyolysis, dehydration - IV fluids PUD prophylaxis: Protonix Goals of care discussed with the patient and his mother at bedside for over 23 minutes. Full code Time spent: 39 minutes Plan discussed with Dr. Samano Plan discussed with: Patient My Orders Orders - MOLLY KAPLAN RESIDENT Procedure Category Date Status Time Oxcarbazepine Tablet PHA 08/10/24 In Process (Trileptal Tablet) 22:00 Lorazepam 2mg/Ml Inj PHA 08/10/24 In Process (Ativan Inj) 04:00 Lactic Acid W/ Reflex LAB 08/10/24 In Process Order 03:52 Admit ADMIT 08/10/24 Transmitted 03:52 Oxygen By Nasal RT 08/10/24 Transmitted Cannula 03:52 Stat Ekg For Chest RIRI 08/10/24 In Process Pain 03:52 Notify Of Changes RIRI 08/10/24 In Process From Base 03:52 Senior Oracle Database Developer For RIRI 08/10/24 In Process 24 Hours 03:52 Emergency Dysrhythmia RIRI 08/10/24 In Process Protocol 03:52 Rhythm Strips Once RIRI 08/10/24 In Process Every Shift 03:52 Creatine Kinase LAB 08/10/24 In Process 03:52 Basic Metabolic Panel LAB 08/10/24 In Process 03:52 Urinalysis LAB 08/10/24 Logged 03:52 Drug Screen LAB 08/10/24 Logged 03:52 Hemoglobin A1c LAB 08/10/24 In Process 03:52 Rapid Influenza A&B LAB 08/10/24 Logged 03:52 Covid19 Antigen Ruchi LAB 08/10/24 Logged Sodium Chloride 0.9% PHA 08/10/24 In Process 04:45 Sodium Chloride 0.9% PHA 08/10/24 In Process 06:00 Date of Service: Aug 10, 2024 Billing Provider: JENNIFER SAMANO MD Common Visit Codes: [id number] INP/OBS CARE (HIGH) Secondary Visit Codes: [id number] CARE PLAN 30 MINUTES MOLLY KAPLAN RESIDENT Aug 10, 2024 05:34
[2024-08-10 05:35] LABS: Chloride 103 mmol/L (98-107); Potassium 4.7 mmol/L (3.5-5.1)
[2024-08-10 05:36] LABS: Anion Gap 16 (5-15); Calcium 8.9 mg/dL (8.7-10.4)
[2024-08-10 05:41] LABS: BUN/Creatinine Ratio 12.2 (10.0-20.0); Blood Urea Nitrogen 14 mg/dL (9-23); Carbon Dioxide 15 mmol/L (20-31); Glucose 77 mg/dL (74-106); Sodium 134 mmol/L (136-145)
[2024-08-10 05:42] LABS: Creatine Kinase IFCC 488 U/L (46-171)
[2024-08-10] MEDS: SODIUM CHLORIDE 0.9% 500 ML IV ONE (06:35)
[2024-08-10] MEDS: OXcarbazepine 300 MG TAB PO ONE (08:13)
--- NOTE | 2024-08-10 08:20 | DVH ---
CLINICAL INDICATION: breakthrough seizure COMPARISON: MRI BRAIN HEAD WO CONTRAST on DOS: 10/29/22. CT dated 02/06/2024. TECHNIQUE: Multisequence multiplanar MRI images of the brain were obtained without contrast. FINDINGS: No acute infarct or hemorrhage. No mass or midline shift. No evidence of cortical dysplasi a, garrido matter heterotopia, or mesial temporal sclerosis. Ventricles and sulci are within normal limi ts. Basal cisterns are patent. Cerebellum, brainstem, and midline structures are within normal limits . Paranasal sinuses are clear. Orbits are grossly unremarkable. IMPRESSION: 1. No evidence of acute intracranial abnormality. 2. No findings are seen to suggest the etiology of the patient's seizures.
[2024-08-10] MEDS: SODIUM CHLORIDE 0.9% 1,000 ML IV SCH (08:30)
[2024-08-10] MEDS: PANTOPRAZOLE 40 MG/10 ML VIAL INJ IV SCH (10:36)
--- NOTE | 2024-08-10 20:29 | DVHINCON2 ---
Date of service: Aug 10, [address] Caldera Reason for Consultation History of seizure disorder with breakthrough seizure History of Present Illness Mr. Breaux is a 33 years old right-handed gentleman with no major medical history, the patient was brought to the [facility] 08/09/24 with a chief complaint of seizure activity x 3 with biting to his tongue. At this time, he is alert and fully oriented, he and his mother provided the following history I saw him on 12/29/2018, 10/28/22, 08/11/2023, 10/10/2023, 11/17/23, 11/19/2023, 12/10/2023, 02/07/2024 for seizure Since 2014, he has seizure disorder in that he has periodic event with shaking all over body, with complete nonresponsive/amnesia, sometimes the patient has kidney failure after seizure activity. With current management, he has seizures 1-2 days monthly in the last six months of time. He reports a good compliance to his medication He is currently on Trileptal 1200mg Bid, VitD with calcium daily, Nayzilam 5mg Nasal spray Q 10 Minutes RPN seizure Max: 2 sprays He is not allergic to Keppra but it did cause mood swing WBC/HB/PLT/MCV, 08/10/2024: 12.4/15/328/86.4 Na 08/10/24: 132 BUN/CR, 12/10/23: 23/2.38, 08/10/2024: Liver function tests, 08/10/2024: Unremarkable TG/CHOL/LDL/HDL, 08/12/2023: 267/29/56/22 CT head, 10/27/22: No evidence of acute intracranial hemorrhage, mass effect or hydrocephalus CT head, 08/10/23: Limited evaluation due to motion artifact. Otherwise, no evidence of acute intracranial abnormality CT head, 10/10/2023: Motion degraded study which limits the evaluation. Within this limitation, no acute intracranial abnormality CT head, 12/04/2023: 1. No CT evidence of acute intracranial abnormality. 2. Nonacute findings as described above CT head, 02/06/2024: 1. No evidence of acute intracranial abnormality. 2. Right parietal scalp laceration and soft tissue swelling MRI head, 08/10/2024: 1. No evidence of acute intracranial abnormality. 2. No findings are seen to suggest the etiology of the patient's seizures Past Medical History Kidney disease, anxiety Past Surgical History Femur fracture repair Family History: Cardiovascular disease G8 MOTHER Hypertension G8 FATHER Family History Hypertension, heart disease, lung cancer, no seizure disorder Social History He uses marijuana occasionally, he was a heavy alcohol drinker, but no history of drug abuse Allergies: Coded Allergies: Levetiracetam (Verified Allergy, Unknown, 05/30/24) Home Meds Active Scripts Oxcarbazepine (Trileptal) 600 Mg Tab, 1200 MG PO BID for 30 Days, #120 TAB Prov:ONUR COLON RESIDENT 02/08/24 Acetaminophen (Acetaminophen) 325 Mg Tab, 650 MG PO Q6HP PRN for 10 Days, #80 TAB Prov:ONUR COLON RESIDENT 02/08/24 Reported Medications Oxcarbazepine (Trileptal) 600 Mg Tab, 900 MG PO BID, TAB 05/31/24 Magnesium Oxide (MAGNESIUM OXIDE) 400 Mg Tab, 400 MG OR DAILY, TAB 12/10/23 Thiamine Hcl (VITAMIN B-1) 100 Mg Tb, 1 TAB PO DAILY 10/10/23 Cyanocobalamin (Vitamin B-12) 1,000 Mcg Tab, 1 TAB PO DAILY 10/10/23 Folic Acid (Folic Acid) 1 Mg Tab, 1 TAB PO DAILY 10/10/23 Current Medications Current Medications Medications (Trade) Dose Ordered Sig/Kinjal Route PRN Reason Start Time Stop Time Status Last Admin Oxcarbazepine (Trileptal Tablet) 1,200 mg Q12HR PO 08/10/24 22:00 Lorazepam (Ativan Inj) 1 mg Q5MINP PRN IV SEIZURES 08/10/24 04:00 Pantoprazole Sodium (Protonix) 40 mg DAILY IV 08/10/24 10:00 08/10/24 10:36 Sodium Chloride 1,000 ml @ 100 mls/hr Q10H IV 08/10/24 07:15 08/10/24 17:23 Review of Systems As above, the other systems are negative Vital Signs Vital Signs Date Time Temp Pulse Resp B/P (MAP) Pulse Ox O2 Delivery O2 Flow Rate FiO2 08/10/24 17:00 97.0 78 17 147/85 (105) 96 97.0 08/10/24 16:25 Room Air* 0 21 Labs/Diagnostic Data Labs Test 08/10/24 20:00 08/10/24 04:26 08/10/24 00:23 Range/Units Sodium Level 134 L 136-145 mmol/L Potassium Level 4.7 3.5-5.1 mmol/L Chloride Level 103 98-107 mmol/L Carbon Dioxide Level 15 L 20-31 mmol/L Anion Gap 16 H 5-15 Blood Urea Nitrogen 14 9-23 mg/dL Creatinine 1.15 0.700-1.30 mg/dL Glomerular Filtration Rate Calc 87 >90 mL/min BUN/Creatinine Ratio 12.2 10.0-20.0 Serum Glucose 77 74-106 mg/dL Hemoglobin A1c 5.0 <5.7 % A1C Lactic Acid Level 0.9 0.4-2.0 mmol/L Calcium Level 8.9 8.7-10.4 mg/dL Creatine Kinase 488 H 46-171 U/L White Blood Count 12.4 #H 4.4-10.8 10^3/uL Red Blood Count 5.11 4.5-5.90 10^6/uL Hemoglobin 15.0 13.5-17.5 g/dL Hematocrit 44.1 41.0-53.0 % Mean Corpuscular Volume 86.4 80.0-100.0 fL Mean Corpuscular Hemoglobin 29.3 28.0-32.0 pg Mean Corpuscular Hemoglobin Concent 33.9 32.0-36.0 g/dL Red Cell Distribution Width 14.6 H 11.8-14.3 % Platelet Count 328 140-450 10^3/uL Mean Platelet Volume 8.9 6.9-10.8 fL Neutrophils (%) (Auto) 86.3 H 37.0-80.0 % Lymphocytes (%) (Auto) 8.8 L 10.0-50.0 % Monocytes (%) (Auto) 4.5 0.0-12.0 % Eosinophils (%) (Auto) 0.0 0.0-7.0 % Basophils (%) (Auto) 0.4 0.0-2.0 % Neutrophils # (Auto) 10.7 H 1.6-8.6 10 ^3/uL Lymphocytes # (Auto) 1.1 0.4-5.4 10 ^3/uL Monocytes # (Auto) 0.6 0-1.3 10 ^3/uL Eosinophils # (Auto) 0 0-0.8 10 ^3/uL Basophils # (Auto) 0 0-0.2 10 ^3/uL Nucleated Red Blood Cells 0.0 % Magnesium Level 2.7 H 1.6-2.6 mg/dL Total Bilirubin 0.9 0.2-1.0 mg/dL Aspartate Amino Transferase (AST) 38 13-40 U/L Alanine Aminotransferase (ALT) 32 7-40 U/L Alkaline Phosphatase 105 46-116 U/L Total Protein 8.0 5.7-8.2 g/dL Albumin 5.2 H 3.2-4.8 g/dL Plasma/Serum Blood Alcohol < 3.0 <10 mg/dL Assessment GENERAL EXAM: General: the patient is well developed and nourished. No acute distress. HEENT: Normocephalic, neck is supple, no carotid bruits. No mass. RESPIRATORY: Normal respiratory effort with symmetrical lung expansion. Lungs clear to auscultation. CARDIOVASCULAR: Regular rate and rhythm with no murmurs. S1, S2. ABDOMEN: Soft, nontender, normal bowel sound NEUROLOGICAL: MENTAL STATUS: Awake and alert. Oriented to person, place, time and general circumstances. Able to give personal history. SPEECH, LANGUAGE, HIGHER CORTICAL FUNCTION: no aphasia or dysathria. CRANIAL NERVES: #2: Intact visual cook to confrontation. The optic discs were sharp. #3,4,6: Pupils are equal, round and reactive. EOMs full and conjugate. No nystagmus. #5: Facial sensation intact in all three divisions bilaterally. Mandibular strength intact. #7: Facial muscles symmetrical and strength intact. #8: Hearing grossly normal to voice. #9,10: Uvula and soft palate rise in the midline. Swallow and voice are normal. #11: Trapezius and sternomastoid strength intact bilaterally. #12: Tongue midline. No fasciculations or atrophy. SENSATION: Sensation to touch and pinprick is normal. MOTOR: Normal tone in the upper and lower extremity. Normal muscle bulk. No fasciculations. No abnormal movements or posturing. Muscle strength of the major groups in the upper extremities is 5/5. Muscle strength of the major groups in the lower extremities is 5/5. REFLEXES: Deep tendon reflexes normal and symmetrical. No pathological reflexes. CEREBELLAR/COORDINATION: Finger to nose is normal bilaterally. GAIT/STATION: deferred Status epilepticus Recurrent seizure activity Laceration to the tongue Plan/Recommendation Monitoring Support treatment 2% lidocaine viscous, 10 ml q.i.d. p.r.n. Trileptal 1200mg Bid A trial of Vimpat 50 mg b.i.d. Ativan for seizure breakthrough He does not drive More recommendation per clinical course Prognosis: Poor This medical document was created using an electronic medical record system with [employer] dictation system. Although this document has been carefully reviewed, there may still be some phonetic and typographical errors. These areas are purely typographical due to imperfections of the software programs, and do not reflect any compromise in the patient's medical care Plan discussed with: Patient, Other MARIMAR CLEMONS MD Aug 10, 2024 20:29
[2024-08-10] MEDS: OXcarbazepine 300 MG TAB PO SCH (21:12)
[2024-08-10] MEDS: LIDOCAINE VISCOUS 2% 15ML UD MT PRN (21:15)
[2024-08-10 21:46] LABS: COVID19 ANTIGEN SOFIA FIA NEGATIVE (NEGATIVE); Rapid Influenza A Negative (Negative); Rapid Influenza B Negative (Negative)
[2024-08-11] VITALS (8 sets, daily range): BP systolic 130–146; BP diastolic 69–95; PULSE 64–84; RESP 18–20; TEMP 98–99.8; O2SAT 97–99
[2024-08-11] MEDS: LACOSAMIDE 50 MG TAB PO SCH (09:33)
[2024-08-11] MEDS ORDERED: LACO50TA5 PO ×2 (15:23→15:50)
--- NOTE | 2024-08-11 15:26 | DVHDS2 ---
Discharge Summary Date of Admission Aug 10, 2024 at 03:52 Date of Discharge: Aug 11, 2024 Labs/Diagnostic Data: Laboratory Results Test 08/10/24 20:00 08/10/24 04:26 08/10/24 00:23 Influenza Type A Antigen Negative (Negative) Influenza Type B Antigen Negative (Negative) SARS-CoV-2 Antigen (Rapid) Negative (NEGATIVE) Sodium Level 134 mmol/L (136-145) Potassium Level 4.7 mmol/L (3.5-5.1) Chloride Level 103 mmol/L (98-107) Carbon Dioxide Level 15 mmol/L (20-31) Anion Gap 16 (5-15) Blood Urea Nitrogen 14 mg/dL (9-23) Creatinine 1.15 mg/dL (0.700-1.30) Glomerular Filtration Rate Calc 87 mL/min (>90) BUN/Creatinine Ratio 12.2 (10.0-20.0) Serum Glucose 77 mg/dL (74-106) Hemoglobin A1c 5.0 % A1C (<5.7) Lactic Acid Level 0.9 mmol/L (0.4-2.0) Calcium Level 8.9 mg/dL (8.7-10.4) Creatine Kinase 488 U/L (46-171) White Blood Count 12.4 10^3/uL (4.4-10.8) Red Blood Count 5.11 10^6/uL (4.5-5.90) Hemoglobin 15.0 g/dL (13.5-17.5) Hematocrit 44.1 % (41.0-53.0) Mean Corpuscular Volume 86.4 fL (80.0-100.0) Mean Corpuscular Hemoglobin 29.3 pg (28.0-32.0) Mean Corpuscular Hemoglobin Concent 33.9 g/dL (32.0-36.0) Red Cell Distribution Width 14.6 % (11.8-14.3) Platelet Count 328 10^3/uL (140-450) Mean Platelet Volume 8.9 fL (6.9-10.8) Neutrophils (%) (Auto) 86.3 % (37.0-80.0) Lymphocytes (%) (Auto) 8.8 % (10.0-50.0) Monocytes (%) (Auto) 4.5 % (0.0-12.0) Eosinophils (%) (Auto) 0.0 % (0.0-7.0) Basophils (%) (Auto) 0.4 % (0.0-2.0) Neutrophils # (Auto) 10.7 10 ^3/uL (1.6-8.6) Lymphocytes # (Auto) 1.1 10 ^3/uL (0.4-5.4) Monocytes # (Auto) 0.6 10 ^3/uL (0-1.3) Eosinophils # (Auto) 0 10 ^3/uL (0-0.8) Basophils # (Auto) 0 10 ^3/uL (0-0.2) Nucleated Red Blood Cells 0.0 % Magnesium Level 2.7 mg/dL (1.6-2.6) Total Bilirubin 0.9 mg/dL (0.2-1.0) Aspartate Amino Transferase (AST) 38 U/L (13-40) Alanine Aminotransferase (ALT) 32 U/L (7-40) Alkaline Phosphatase 105 U/L (46-116) Total Protein 8.0 g/dL (5.7-8.2) Albumin 5.2 g/dL (3.2-4.8) Plasma/Serum Blood Alcohol < 3.0 mg/dL (<10) Other Laboratory Tests 08/10/24 04:26 08/10/24 00:23 Brief Hx & Hospital Course: 33-year-old male with a known history of seizure disorder, chronic alcoholism drinks vodka last drink was two weeks ago presented to the hospital with seizure episode. Patient was on Keppra at 1000 mg twice a day. Neurology will be consulted and patient will be discharged home once cleared by Neurology. Patient was recommended to follow up with the Neurology in 1-2 weeks. Alcohol abstinence was recommended. Patient is currently understand as well as patient's family member at bedside they agree to current plan of care. No driving while on seizure medications. Condition at Discharge: Stable Final Diagnosis/Problems List 1. Breakthrough seizures 2. Seizure disorder Discharge Disposition: Home SNF Discharge Will this Physician continue t: No Discharge Instruct/Medications Diet: Regular Activity: See Comment Activity comment: No driving while on seizure medications. Follow Up/Referral: Follow up with the PCP and neurology Dr. Shah in 1-2 weeks Medications: Vimpat 50 mg p.o. twice a day, resume Trileptal at home dose. Discharge Statement: "Patient was advised to return to the ER or call 911 if any headaches, dizziness, shortness of breath, chest pain, abdominal pain, bleeding, fevers, or worsening of medical condition. Patient was counseled about treatment plan, medications, possible side effects, patientverbalized understanding. All questions were answered to the best of my ability. This discharge took greater then 30 minutes in planning, reviewing documentation, counseling the patient, and discussing with other team members." ASSESSMENT ASSESSMENT Assessment 1. Breakthrough seizures 2. Seizure disorder Date of Service: Aug 11, 2024 Billing Provider: CLAIRE MORGAN MD Common Visit Codes: 95278-YPY/OBS DISCH DAY >30min CLAIRE MORGAN MD Aug 11, 2024 15:26
== END 2024-08-11 18:25 | disposition home or self-care (01) | DRG 53 ==
LOC: ER 23:55 → EDUNIT# 23:55 → EDBD 23:55 → OVERFLOW 08-10 03:52 → TELE-EAST 08-10 16:08
PROVIDERS: ATTEND Emergency Medicine
DX: G40.409 Other generalized epilepsy and epileptic syndromes, not intractable, without status epilepticus (principal); E87.20 Acidosis, unspecified; N17.9 Acute kidney failure, unspecified; R65.10 Systemic inflammatory response syndrome (SIRS) of non-infectious origin without acute organ dysfunction; E87.5 Hyperkalemia; F10.20 Alcohol dependence, uncomplicated; F41.9 Anxiety disorder, unspecified; Z80.1 Family history of malignant neoplasm of trachea, bronchus and lung; Z82.49 Family history of ischemic heart disease and other diseases of the circulatory system; Z79.899 Other long term (current) drug therapy; Y90.9 Presence of alcohol in blood, level not specified
CPT/HCPCS: 36415; 70551; 80048; 80053; 80320; 82550; 83036; 83605; 83735; 85025; 87426; 87804; 96361; 96374; 99291; G0378; J2470

== ENCOUNTER 2024-09-05 19:11 | Inpatient (IN) | payer MEDICAID ==
[~2024-09-05] VITALS: Ht 177.8 cm; Wt 85.7 kg
[~2024-09-05 19:11] MED LIST changes: +LACO50TA5 PO
--- NOTE | 2024-09-05 19:33 | ED.PDOC ---
HPI (NEURO) HPI Comments This is a 33 year old male presenting to the ED with chief complaint of seizure. EMS reports that the patient was witnessed by mother to have three episodes of seizures, one at 1015, 1218, and 182 respectively. EMS relays that the patient is normally on Oxcarbazepine and Lacosamide for seizure control, but is currently out of medication at this time. EMS states that the patient's last seizure was a month ago. Patient notes that his last neurologist appointment was a week ago and no further studies are planned. Patient denies any N/V, dizziness, headache, chest pain, or SOB. Chief Complaint: Seizure Time Seen by MD: 19:30 Primary Care Provider: UNKNOWN Reviewed Notes: Nurses Notes, Delivery Specialist Notes, Medications, Allergies Information Source: Patient, Emergency Med Personnel Mode of Arrival: EMS Severity: Moderate Timing: Hours Duration: Since onset Prehospital treatment: None Seizure Quality: Grand mal, Focal, Mulitple Episodes Seizure Location: Generalized Onset: At rest Circumstances: Spontaneous History of: Seizure Disorder Past Medical History PAST MEDICAL HISTORY: Anxiety, Seizures Surgical History: Denies all surgeries Family History Family History: Family hx of heart lorenzo, Family hx of HTN, Family hx of lung lorenzo Social History Smoker: Non-Smoker Alcohol: Denies ETOH Use Drugs: Marijuana Lives In: Home Constitutional: denies: chills, diaphoresis, fatigue, fever, malaise, sweats, weakness, others EENTM: denies: blurred vision, double vision, ear bleeding, ear discharge, ear drainage, ear pain, ear ringing, eye pain, eye redness, hearing loss, mouth pain, mouth swelling, nasal discharge, nose bleeding, nose congestion, nose pain, photophobia, tearing, throat pain, throat swelling, voice changes, others Respiratory: denies: cough, hemoptysis, orthopnea, SOB at rest, shortness of breath, SOB with excertion, stridor, wheezing, others Cardiovascular: denies: chest pain, dizzy spells, diaphoresis, Dyspnea on exertion, edema, irregular heart beat, left arm pain, lightheadedness, palpitations, PND, syncope, others Gastrointestinal: denies: abdomen distended, abdominal pain, blood streaked bowels, constipated, diarrhea, dysphagia, difficulty swallowing, hematemesis, melena, nausea, poor appetite, poor fluid intake, rectal bleeding, rectal pain, vomiting, others Genitourinary: denies: burning, dysuria, flank pain, frequency, hematuria, incontinence, penile discharge, penile sore, pain, testicle pain, testicle swelling, urgency, others Neurological: reports: seizure; denies: dizziness, fainting, headache, left sided numbness, left sided weakness, numbness, paresthesia, pre-existing deficit, right sided numbness, right sided weakness, speech problems, tingling, tremors, weakness, others Musculoskeletal: denies: back pain, gout, joint pain, joint swelling, muscle pain, muscle stiffness, neck pain, others Integumetry: denies: bruises, change in color, change in hair/nails, dryness, laceration, lesions, lumps, rash, wounds, others Allergic/Immunocompromised: denies: Difficulty Healing, Frequent Infections, Hives, Itching, others Hematologic/Lymphatic: denies: anemia, blood clots, easy bleeding, easy bruising, swollen glands, others Endocrine: denies: excessive hunger, excessive sweating, excessive thirst, excessive urination, flushing, intolerance to cold, intolerance to heat, unexplained weight gain, unexplained weight loss, others Psychiatric: denies: anxiety, bipolar disorder, depression, hopeless, panic disorder, schizophrenia, sleepless, suicidal, others All Other Systems: Reviewed and Negative Physical Exam General Appearance: No Apparent Distress, Normal HEENT: Normal ENT Inspection, Pharynx Normal, TMs Normal Neck: Full Range of Motion, Non-Tender, Normal, Normal Inspection Respiratory: Chest Non-Tender, Lungs Clear, No Accessory Muscle Use, No Respiratory Distress, Normal Breath Sounds Cardiovascular: No Edema, No JVD, No Murmur, No Gallop, Normal Peripheral Pulses, Regular Rate/Rhythm Breast Exam: Deferred Gastrointestinal: No Organomegaly, Non Tender, No Pulsatile Mass, Normal Bowel Sounds, Soft Genitalia: Deferred Pelvic: Deferred Rectal: Deferred Extremities: No calf tenderness, Normal capillary refill, Normal inspection, Normal range of motion, Non-tender, No pedal edema Musculoskeletal : Apperance: Normal Neurologic: Alert, clinching machine operator II-XII nml as Tested, No Motor Deficits, Normal Affect, Normal Mood, No Sensory Deficits Cerebellar Function: Normal Reflexes: Normal Skin: Dry, Normal Color, Warm Lymphatic: No Adenopathy Was a procedure done? Was a procedure done?: No Differential Diagnosis (SZ) Seizure: Psychogenic Seizure, Encephalopathy, Epilepsy-Break Through X-Ray, Labs, Meds, VS Vital Signs Date Time Temp Pulse Resp B/P (MAP) Pulse Ox O2 Delivery O2 Flow Rate FiO2 09/05/24 23:00 90 20 119/85 (96) 98 09/05/24 21:00 91 16 120/77 (91) 98 09/05/24 19:49 85 95 95 Room Air* 0 21 09/05/24 19:44 98.3 89 16 136/82 (100) 99 98.3 09/05/24 19:11 98.0 112 14 118/79 (92) 96 98.0 Lab Test 09/05/24 21:25 Range/Units White Blood Count 12.8 H 4.4-10.8 10^3/uL Red Blood Count 4.61 4.5-5.90 10^6/uL Hemoglobin 13.4 L 13.5-17.5 g/dL Hematocrit 39.8 L 41.0-53.0 % Mean Corpuscular Volume 86.5 80.0-100.0 fL Mean Corpuscular Hemoglobin 29.0 28.0-32.0 pg Mean Corpuscular Hemoglobin Concent 33.5 32.0-36.0 g/dL Red Cell Distribution Width 14.1 11.8-14.3 % Platelet Count 189 140-450 10^3/uL Mean Platelet Volume 10.1 6.9-10.8 fL Neutrophils (%) (Auto) 89.1 H 37.0-80.0 % Lymphocytes (%) (Auto) 5.5 L 10.0-50.0 % Monocytes (%) (Auto) 5.1 0.0-12.0 % Eosinophils (%) (Auto) 0.0 0.0-7.0 % Basophils (%) (Auto) 0.3 0.0-2.0 % Neutrophils # (Auto) 11.4 H 1.6-8.6 10 ^3/uL Lymphocytes # (Auto) 0.7 0.4-5.4 10 ^3/uL Monocytes # (Auto) 0.6 0-1.3 10 ^3/uL Eosinophils # (Auto) 0 0-0.8 10 ^3/uL Basophils # (Auto) 0 0-0.2 10 ^3/uL Nucleated Red Blood Cells 0.0 % Sodium Level 140 136-145 mmol/L Potassium Level 3.8 3.5-5.1 mmol/L Chloride Level 109 H 98-107 mmol/L Carbon Dioxide Level 20 20-31 mmol/L Anion Gap 11 5-15 Blood Urea Nitrogen 20 9-23 mg/dL Creatinine 1.72 H 0.700-1.30 mg/dL Glomerular Filtration Rate Calc 54 >90 mL/min BUN/Creatinine Ratio 11.6 10.0-20.0 Serum Glucose 113 H 74-106 mg/dL Calcium Level 8.9 8.7-10.4 mg/dL Total Bilirubin 0.4 0.2-1.0 mg/dL Aspartate Amino Transferase (AST) 21 13-40 U/L Alanine Aminotransferase (ALT) 14 7-40 U/L Alkaline Phosphatase 71 46-116 U/L Total Protein 6.4 5.7-8.2 g/dL Albumin 4.3 3.2-4.8 g/dL Current Medications Medications (Trade) Dose Ordered Sig/Kinjal Route Start Time Stop Time Status Last Admin Oxcarbazepine (Trileptal Tablet) 1,200 mg ONCE ONCE PO 09/05/24 19:45 09/05/24 19:48 DC 09/05/24 20:10 Lorazepam (Ativan Inj) 1 mg ONCE ONCE IV 09/05/24 21:00 09/05/24 21:01 DC 09/05/24 20:58 Sodium Chloride 1,000 ml @ 1,000 mls/hr Q1H ONCE IV 09/05/24 21:00 09/05/24 21:59 DC 09/05/24 20:59 X-Ray, Labs, Meds, VS Comment Spoke with Dr. Monsivais, he recommends Plan/Recommendation Monitoring Support treatment Trileptal 1200mg Bid Vimpat 100 mg b.i.d. (sent to his pharmacy on 09/05/2024) Ativan for seizure breakthrough He does not drive Okay to discharge home after seizure-free for 23 hours More recommendation per clinical course Time of 1ST Reevaluation: 20:30 Reevaluation 1ST: Unchanged Patient Education/Counseling: Diagnosis, Treatment Family Education/Counseling: No Family Present Assigned to DrLulu report given to dr Mayelin Sprague Departure 1 Departure Time of Disposition: 01:02 Impression: Primary Impression: Intractable seizures Additional Impression: Generalized weakness Disposition: 30 STILL A PATIENT Condition: Stable Critical Care Note Critical Care Time?: No Stability Stability form required: No Heart Score Heart Score: Heart Score Response (Comments) Value History N/A 0 EKG N/A 0 Age N/A 0 Risk Factors N/A 0 Troponin N/A 0 Total 0 I personally scribed for JEANE HEBERT ([email or web address]) on 09/05/24 at 19:33. Electronically submitted by Demetrius Turk ([email or web address]). JEANE HEBERT Sep 05, 2024 19:33
[2024-09-05 19:49] VITALS: PULSE 85; RESP 95; O2SAT 95
[2024-09-05] MEDS: LORazepam 2MG/ML-1ML VIAL IV ONE (20:58)
[2024-09-05] MEDS: LORazepam 2MG/ML-1ML VIAL ONE (20:59)
[2024-09-05] MEDS: SODIUM CHLORIDE 0.9% 1,000 ML IV ONE (20:59)
[2024-09-05 21:48] LABS: Hematocrit 39.8 % (41.0-53.0); Hemoglobin 13.4 g/dL (13.5-17.5); Mean Corpuscular Hemoglobin 29.0 pg (28.0-32.0); Mean Corpuscular Volume 86.5 fL (80.0-100.0); Nucleated Red Blood Cells % 0.0 %
[2024-09-05 22:11] LABS: Alanine Aminotransferase 14 U/L (7-40); Albumin 4.3 g/dL (3.2-4.8); Alkaline Phosphatase 71 U/L (46-116); Anion Gap 11 (5-15); BUN/Creatinine Ratio 11.6 (10.0-20.0); Blood Urea Nitrogen 20 mg/dL (9-23); Calcium 8.9 mg/dL (8.7-10.4); Potassium 3.8 mmol/L (3.5-5.1); Sodium 140 mmol/L (136-145); Total Protein 6.4 g/dL (5.7-8.2)
[2024-09-05 22:12] LABS: Bilirubin, Total 0.4 mg/dL (0.2-1.0)
--- NOTE | 2024-09-05 22:12 | DVHINCON2 ---
Date of service: Sep 05, [address] Topete Reason for Consultation Recurrent seizure History of Present Illness Mr. Breaux is a 33 years old right-handed gentleman with no major medical history, the patient was brought to the [facility] 09/05/24 with a chief complaint of seizure activity. At this time, he is awake, but tired, with eyes closed, he is oriented to person, place, he knows year, month and date , history is provided by his mother I saw him on 12/29/2018, 10/28/22, 08/11/2023, 10/10/2023, 11/17/23, 11/19/2023, 12/10/2023, 02/07/2024, 08/10/2024 for seizure On 09/05/2024, the patient had one event where he had shaking all over body, complete nonresponsiveness and amnesia, he also had three event where he was spacing out, nonresponsive with tongue moving and movement in the arms Since 2014, he has seizure disorder in that he has periodic event with shaking all over body, with complete nonresponsive/amnesia, sometimes the patient has kidney failure after seizure activity. He reports a good compliance to his medication He is currently on Trileptal 1200mg Bid, Vimpat 50 mg (should be 100mg) b.i.d. VitD with calcium daily, Nayzilam 5mg Nasal spray Q 10 Minutes RPN seizure Max: 2 sprays Keppra caused mood swing WBC/HB/PLT/MCV, 08/10/2024: 12.4/15/328/86.4 Na 08/10/24: 132 BUN/CR, 12/10/23: 23/2.38, Liver function tests, 08/10/2024: Unremarkable TG/CHOL/LDL/HDL, 08/12/2023: 267/29/56/22 CT head, 10/27/22: No evidence of acute intracranial hemorrhage, mass effect or hydrocephalus CT head, 08/10/23: Limited evaluation due to motion artifact. Otherwise, no e vidence of acute intracranial abnormality CT head, 10/10/2023: Motion degraded study which limits the evaluation. Within this limitation, no acute intracranial abnormality CT head, 12/04/2023: 1. No CT evidence of acute intracranial abnormality. 2. Nonacute findings as described above CT head, 02/06/2024: 1. No evidence of acute intracranial abnormality. 2. Right parietal scalp laceration and soft tissue swelling MRI head, 08/10/2024: 1. No evidence of acute intracranial abnormality. 2. No findings are seen to suggest the etiology of the patient's seizures Past Medical History Kidney disease, anxiety Past Surgical History Femur fracture repair Family History: Cardiovascular disease G8 MOTHER Hypertension G8 FATHER Family History Hypertension, heart disease, lung cancer, no seizure disorder Social History He uses marijuana occasionally, he was a heavy alcohol drinker, but no history of drug abuse Allergies: Coded Allergies: NO KNOWN ALLERGIES (Unverified , 08/10/24) Home Meds Active Scripts Oxcarbazepine (Trileptal) 600 Mg Tab, 1200 MG PO BID for 30 Days, #120 TAB Prov:ONUR COLON RESIDENT 02/08/24 Acetaminophen (Acetaminophen) 325 Mg Tab, 650 MG PO Q6HP PRN for 10 Days, #80 TAB Prov:ONUR COLON RESIDENT 02/08/24 Reported Medications Lacosamide (Lacosamide) 50 Mg Tab, 50 MG PO BID for 30 Days, #60 TAB 08/11/24 Magnesium Oxide (MAGNESIUM OXIDE) 400 Mg Tab, 400 MG OR DAILY, TAB 12/10/23 Thiamine Hcl (VITAMIN B-1) 100 Mg Tb, 1 TAB PO DAILY 10/10/23 Cyanocobalamin (Vitamin B-12) 1,000 Mcg Tab, 1 TAB PO DAILY 10/10/23 Folic Acid (Folic Acid) 1 Mg Tab, 1 TAB PO DAILY 10/10/23 Review of Systems As above, the other systems are negative Vital Signs Vital Signs Date Time Temp Pulse Resp B/P (MAP) Pulse Ox O2 Delivery O2 Flow Rate FiO2 09/05/24 21:00 91 16 120/77 (91) 98 09/05/24 19:49 Room Air* 0 21 09/05/24 19:44 98.3 98.3 Physical Exam General: the patient is well developed and nourished. No acute distress. HEENT: Normocephalic, neck is supple, no carotid bruits. No mass. RESPIRATORY: Normal respiratory effort with symmetrical lung expansion. Lungs clear to auscultation. CARDIOVASCULAR: Regular rate and rhythm with no murmurs. S1, S2. ABDOMEN: Soft, nontender, normal bowel sound NEUROLOGICAL: MENTAL STATUS: Awake and alert. Oriented to person, place, time and general circumstances. Able to give personal history. SPEECH, LANGUAGE, HIGHER CORTICAL FUNCTION: no aphasia or dysathria. CRANIAL NERVES: #2: Intact visual cook to confrontation. The optic discs were sharp. #3,4,6: Pupils are equal, round and reactive. EOMs full and conjugate. No nystagmus. #5: Facial sensation intact in all three divisions bilaterally. Mandibular strength intact. #7: Facial muscles symmetrical and strength intact. #8: Hearing grossly normal to voice. #9,10: Uvula and soft palate rise in the midline. Swallow and voice are normal. #11: Trapezius and sternomastoid strength intact bilaterally. #12: Tongue midline. No fasciculations or atrophy. SENSATION: Sensation to touch and pinprick is normal. MOTOR: Normal tone in the upper and lower extremity. Normal muscle bulk. No fasciculations. No abnormal movements or posturing. Muscle strength of the major groups in the upper extremities is 5/5. Muscle strength of the major groups in the lower extremities is 5/5. REFLEXES: Deep tendon reflexes normal and symmetrical. No pathological reflexes. CEREBELLAR/COORDINATION: Finger to nose is normal bilaterally. GAIT/STATION: deferred Labs/Diagnostic Data Labs Test 09/05/24 21:25 Range/Units Assessment Status epilepticus Recurrent seizure activity Grand mal seizure Partial complex seizure Plan/Recommendation Monitoring Support treatment Trileptal 1200mg Bid Vimpat 100 mg b.i.d. (sent to his pharmacy on 09/05/2024) Ativan for seizure breakthrough He does not drive Okay to discharge home after seizure-free for 23 hours More recommendation per clinical course Prognosis: Poor This medical document was created using an electronic medical record system with [employer] dictation system. Although this document has been carefully reviewed, there may still be some phonetic and typographical errors. These areas are purely typographical due to imperfections of the software programs, and do not reflect any compromise in the patient's medical care Plan discussed with: Other MARIMAR CLEMONS MD Sep 05, 2024 22:12
[2024-09-05 22:17] LABS: Carbon Dioxide 20 mmol/L (20-31); Chloride 109 mmol/L (98-107); Glucose 113 mg/dL (74-106)
[2024-09-05] MEDS ORDERED: LORazepam 2MG/ML-1ML VIAL IV PRN (22:45)
[2024-09-06] VITALS (8 sets, daily range): BP systolic 115–127; BP diastolic 79–89; PULSE 78–99; RESP 18–20; TEMP 97.7–100; O2SAT 97–99
--- NOTE | 2024-09-06 04:03 | DVHHP2 ---
History of Present Illness History of Present Illness Patient is 33 years old male with past medical history of seizure, anxiety was brought in by EMS due to seizure. Patient had witnessed seizure at home. As per mother patient had 3 times seizure yesterday at home 1st around 10:00 a.m., 2nd around 12:00 p.m. and 3rd one around 6:00 p.m yesterday. Patient also had a seizure at the ER. As per patient he recently ran out of medication. Patient denied any diarrhea or vomiting, fever, dysuria, dysarthria or change in vision. Initial lab workup revealed leukocytosis with WBC 12.8, neutrophil 89. 1%, serum creatinine 1.72, GFR 54. Patient was seen by Dr. Shah, neurologist and changes Vimpat from 50 mg b.i.d. to 100 mg b.i.d.. Past Medical History seizure, anxiety Past Surgical History Right hip surgery Family History Dad has hypertension Past Social History Denies smoking, smokes marijuana, last use 2-3 days before. Denies alcoholism, lives with mother Medication Trileptal 1200 mg b.i.d. Vimpat 50 mg p.o. b.i.d., vitamin-D with calcium daily, nasally on 5 mg spring Q 10 minutes p.r.n. seizure max 2 sprays Off note-Keshera causes mood swing of the patient Review of Systems Review of Systems Allergy- NKDA Patient was seen today at the bedside. Cardiovascular- deny acute chest pain or shortness of breath or cough or palpitation Respiratory denies cough or short of breath or wheezing Gastrointestinal- denies any rectal bleeding, nausea or vomiting Musculoskeletal-denies acute joint swelling or tenderness or redness Neurological- denies acute dysarthria, dysphagia, change in vision Psychiatry- denies depression or SI or HI Skin- denies acute rash or purpura Allergies: Coded Allergies: NO KNOWN ALLERGIES (Unverified , 08/10/24) Medications Current Medications Medications Dose Ordered Sig/Kinjal Route Start Time Stop Time Status Last Admin Dose Admin Oxcarbazepine 1,200 mg Q12H PO 09/06/24 06:00 Patient Own Medication 100 mg BID PO 09/06/24 10:00 UNV Lorazepam 1 mg Q15MP PRN IV 09/05/24 22:45 Sodium Chloride 10 ml Q8HR IV 09/06/24 06:00 Exam Vital Signs Vital Signs Date Time Temp Pulse Resp B/P (MAP) Pulse Ox O2 Delivery O2 Flow Rate FiO2 09/06/24 02:00 85 16 118/70 (86) 98 09/05/24 19:49 Room Air* 0 21 09/05/24 19:44 98.3 98.3 Exam General examination- awake, alert oriented, controlled HEENT- PEERLA, no acute nasal discharge Cardiovascular- S1-S2 audible, rate and rhythm regular, no murmur Respiratory- CTAB, no wheeze or rhonchi Gastrointestinal-nontender, bowel sound+. Nondistended Musculoskeletal-no acute joint swelling or tenderness or redness Lower extremity-no leg edema Neurological- cranial nerves intact, no acute dysarthria or dysphagia Psychiatry- denies depression or SI or HI Skin- no acute rash or purpura Labs/Xrays Labs Test 09/05/24 21:25 Range/Units White Blood Count 12.8 H 4.4-10.8 10^3/uL Red Blood Count 4.61 4.5-5.90 10^6/uL Hemoglobin 13.4 L 13.5-17.5 g/dL Hematocrit 39.8 L 41.0-53.0 % Mean Corpuscular Volume 86.5 80.0-100.0 fL Mean Corpuscular Hemoglobin 29.0 28.0-32.0 pg Mean Corpuscular Hemoglobin Concent 33.5 32.0-36.0 g/dL Red Cell Distribution Width 14.1 11.8-14.3 % Platelet Count 189 140-450 10^3/uL Mean Platelet Volume 10.1 6.9-10.8 fL Neutrophils (%) (Auto) 89.1 H 37.0-80.0 % Lymphocytes (%) (Auto) 5.5 L 10.0-50.0 % Monocytes (%) (Auto) 5.1 0.0-12.0 % Eosinophils (%) (Auto) 0.0 0.0-7.0 % Basophils (%) (Auto) 0.3 0.0-2.0 % Neutrophils # (Auto) 11.4 H 1.6-8.6 10 ^3/uL Lymphocytes # (Auto) 0.7 0.4-5.4 10 ^3/uL Monocytes # (Auto) 0.6 0-1.3 10 ^3/uL Eosinophils # (Auto) 0 0-0.8 10 ^3/uL Basophils # (Auto) 0 0-0.2 10 ^3/uL Nucleated Red Blood Cells 0.0 % Sodium Level 140 136-145 mmol/L Potassium Level 3.8 3.5-5.1 mmol/L Chloride Level 109 H 98-107 mmol/L Carbon Dioxide Level 20 20-31 mmol/L Anion Gap 11 5-15 Blood Urea Nitrogen 20 9-23 mg/dL Creatinine 1.72 H 0.700-1.30 mg/dL Glomerular Filtration Rate Calc 54 >90 mL/min BUN/Creatinine Ratio 11.6 10.0-20.0 Serum Glucose 113 H 74-106 mg/dL Calcium Level 8.9 8.7-10.4 mg/dL Total Bilirubin 0.4 0.2-1.0 mg/dL Aspartate Amino Transferase (AST) 21 13-40 U/L Alanine Aminotransferase (ALT) 14 7-40 U/L Alkaline Phosphatase 71 46-116 U/L Total Protein 6.4 5.7-8.2 g/dL Albumin 4.3 3.2-4.8 g/dL Assessment/Plan Assessment/Plan Assessment and plan #Breakthrough seizure -Trileptal dual 100 mg p.o. b.i.d. -continue Vimpat 100 mg p.o. b.i.d. -Ativan PRN -seizure precaution #ALF likely due to VMN -continue IV normal saline@ 100 mL/hour -pending urine sodium, uterine creatinine, urine protein creatinine ratio # acute rhabdomyolysis -CPK 255 -continue IV normal saline@ 100 mL/hour -avoid dehydration # Substance abuse -marijuana -UDS positive for marijuana -patient is counseled about the effect of substance abuse on health # anxiety -Ativan PRN Goals of care, Code status- Full Code ; discussed with >15 minutes PUD prophylaxis: Pantoprazole DVT prophylaxis: Patient ambulating Plan discussed with Dr. Samano , nursing staff, Total time spent on patient evaluation, chart review, assessment and plan, discussion discussion >35 minutes Plan discussed with: Patient, Other (MOTHER, RN) My Orders Orders - NILA BRANDT RESIDENT Procedure Category Date Status Time Admit ADMIT 09/06/24 Transmitted 03:41 Code Status CODE 09/06/24 Transmitted 03:41 Sodium Chloride Lock PHA 09/06/24 Logged (Saline Lock Ns) 06:00 Complete Blood Count LAB 09/07/24 Verified 04:00 Comprehensive LAB 09/07/24 Verified Metabolic Panel 04:00 Clear Liq Diet DIET 09/06/24 Transmitted Breakfast Notify Of Changes RIRI 09/06/24 In Process From Base 03:41 Creatine Kinase LAB 09/06/24 Logged 03:41 Thyroid Stimulating LAB 09/06/24 Logged Hormone 03:41 Urine Sodium LAB 09/06/24 Logged 03:41 Urine Creatinine LAB 09/06/24 Logged 03:41 Urine LAB 09/06/24 Logged Protein/Creatinine 03:41 Urinalysis LAB 09/06/24 Logged 03:41 Drug Screen LAB 09/06/24 Logged 03:41 Blood Alcohol LAB 09/06/24 Logged 03:41 Date of Service: Sep 06, 2024 Billing Provider: JENNIFER SAMANO MD Common Visit Codes: 26548-PQGHTMC INP/OBS CARE (HIGH) Secondary Visit Codes: 40032-[id number] CARE PLAN 30 MINUTES NILA BRANDT RESIDENT Sep 06, 2024 04:03
[2024-09-06] MEDS: SODIUM CHLORIDE 0.9% 1,000 ML IV SCH (04:15)
[2024-09-06] MEDS: PANTOPRAZOLE 40 MG TAB PO ONE (04:58)
[2024-09-06 05:00] LABS: Creatine Kinase IFCC 255 U/L (46-171)
[2024-09-06] MEDS: SODIUM CHLOR 0.9% PF (SALINE LOCK) 10ML VIAL/SYR IV SCH (05:44)
[2024-09-06] MEDS ORDERED: LACO100T3 PO ×2 (06:10)
[2024-09-06 09:30] LABS: Hematocrit 42.3 % (41.0-53.0); Hemoglobin 13.9 g/dL (13.5-17.5); Mean Corpuscular Hemoglobin 28.6 pg (28.0-32.0); Mean Corpuscular Volume 86.8 fL (80.0-100.0); Nucleated Red Blood Cells % 0.1 %
[2024-09-06 09:45] LABS: Alanine Aminotransferase 12 U/L (7-40); Alkaline Phosphatase 73 U/L (46-116); Anion Gap 13 (5-15); BUN/Creatinine Ratio 9.7 (10.0-20.0); Calcium 9.5 mg/dL (8.7-10.4); Glucose 100 mg/dL (74-106); Potassium 3.7 mmol/L (3.5-5.1); Sodium 140 mmol/L (136-145); Total Protein 6.7 g/dL (5.7-8.2)
[2024-09-06 09:46] LABS: Albumin 4.5 g/dL (3.2-4.8); Bilirubin, Total 0.5 mg/dL (0.2-1.0)
[2024-09-06 10:07] LABS: Blood Urea Nitrogen 24 mg/dL (9-23); Carbon Dioxide 19 mmol/L (20-31); Chloride 108 mmol/L (98-107)
[2024-09-06] MEDS: LACOSAMIDE 50 MG TAB PO SCH (10:20)
[2024-09-06 11:39] LABS: Protein, Urine < 6.0 mg/dL (1-14)
[2024-09-06 11:44] LABS: Amphetamine Screen, Urine Neg (NEGATIVE); Barbiturate Scree,Urine Neg (NEGATIVE); Benzodiazephine Screen, Urine Pos (NEGATIVE); Cannabinoid Screen, Urine Pos (NEGATIVE); Cocaine Screen, Urine Neg (NEGATIVE); Opiate Scree,Urine Neg (NEGATIVE); Phencyclidine Screen, Urine Neg (NEGATIVE)
[2024-09-06 11:52] LABS: Urine Protein, UAD Negative (Negative)
[2024-09-06 16:38] LABS: Hematocrit 42.5 % (41.0-53.0); Hemoglobin 14.3 g/dL (13.5-17.5); Mean Corpuscular Hemoglobin 29.1 pg (28.0-32.0); Mean Corpuscular Volume 86.8 fL (80.0-100.0); Nucleated Red Blood Cells % 0.0 %
[2024-09-06 16:52] LABS: Alanine Aminotransferase 18 U/L (7-40); Albumin 4.6 g/dL (3.2-4.8); Alkaline Phosphatase 74 U/L (46-116); Anion Gap 11 (5-15); BUN/Creatinine Ratio 9.7 (10.0-20.0); Blood Urea Nitrogen 23 mg/dL (9-23); Calcium 9.7 mg/dL (8.7-10.4); Carbon Dioxide 22 mmol/L (20-31); Potassium 3.7 mmol/L (3.5-5.1); Sodium 141 mmol/L (136-145); Total Protein 6.9 g/dL (5.7-8.2)
[2024-09-06 16:53] LABS: Bilirubin, Total 0.6 mg/dL (0.2-1.0); Chloride 108 mmol/L (98-107); Glucose 98 mg/dL (74-106)
--- NOTE | 2024-09-06 16:54 | DVHPNRES ---
Progress Note Date Seen: Sep 06, 2024 Resident Creating Document: ALEJANDRINA RAMIREZ RESIDENT Has the PT tested + for MRSA If YES, has PT been informed?: No Medical Necessity Reason Pt with a Central, PICC or Fol: No Subjective Review of Systems The patient is a 33-year-old male with a known history of seizure disorder and anxiety who presented to the emergency department via EMS after experiencing three witnessed generalized tonic-clonic seizures at home earlier today, reportedly at 10:00 AM, 12:00 PM, and 6:00PM. He had one episode of seizure in the ED. Per the patient and his mother, he recently ran out of his prescribed antiseizure medicationsOxcarbazepine and Lacosamide. He is normally compliant with medications but has had lapses related to refill access. Initial labs today show leukocytosis (WBC 12.8 10/L) with neutrophilic predominance (89.1%), elevated creatinine (1.72 mg/dL), and elevated CPK (255 U/L), consistent with his known post-ictal lab pattern. Urine toxicology is positive for cannabinoids and negative for alcohol and other substances. His neurological imaging history includes a brain MRI from August [address] from Februaryoth negative for acute intracranial pathology. He lives with his mother and is functionally independent. He follows with neurology and was last seen one week ago, with no new studies pending. 09/06/24 Patient was examined at bedside and discussed the case with RN. He reports that following seizures, his kidney function and muscle enzymes typically worsen transiently. Today, the patient is postictal, somnolent but arousable, oriented to self. He denies fever, headache, visual changes, chest pain, dyspnea, dysuria, or abdominal pain. No seizures noted after arrival in ED. Continue monitoring in inpatient setting .Discharge after 23 hours seizure-free if clinically stable. Reinforced med compliance Review of Systems (ROS): * General: Drowsy but denies fever or weight loss * Neuro: Denies headache, visual changes, weakness, numbness. Somnolent postictal state. * CV: Denies chest pain, palpitations * Resp: Denies SOB, cough, wheeze * GI: Denies abdominal pain, nausea, vomiting, diarrhea * : Denies dysuria or hematuria * MSK: Denies joint pain, but CPK elevated post-seizure * Psych: Denies SI/HI, no hallucinations * Skin: No rashes or wounds reported Objective vital signs Vital Sign Date Time Temp Pulse Resp B/P (MAP) Pulse Ox O2 Delivery O2 Flow Rate FiO2 09/06/24 13:00 99.5 86 20 127/83 (98) 99 99.5 09/06/24 05:27 Room Air* 0 21 Total Intake and Output 09/05/24 09/05/24 09/06/24 15:00 23:00 07:00 Intake Total 1000 ml Balance 1000 ml medications Current Medications Medications Dose Ordered Sig/Kinjal Route Start Time Stop Time Status Last Admin Dose Admin Oxcarbazepine 1,200 mg Q12H PO 09/06/24 06:00 09/06/24 05:43 1,200 MG Lacosamide 100 mg BID PO 09/06/24 10:00 09/06/24 10:20 100 MG Lorazepam 1 mg Q15MP PRN IV 09/05/24 22:45 Sodium Chloride 10 ml Q8HR IV 09/06/24 06:00 09/06/24 05:44 10 ML Sodium Chloride 1,000 ml @ 100 mls/hr Q10H IV 09/06/24 04:15 09/06/24 04:15 100 MLS/HR Pantoprazole Sodium 40 mg DAILY@0600 PO 09/07/24 04:00 Examination Physical Examination (O): * General: Awake, somnolent but arousable, in no acute distress * HEENT: PEERLA, no nystagmus, no discharge * CV: Regular rate and rhythm, no murmur, no gallop * Resp: CTAB, no wheeze or rales * GI: Soft, NT, ND, BS + * MSK: No focal tenderness, no edema * Neuro: No focal deficits, CN II-XII intact, alert but drowsy * Skin: No rash, no signs of trauma * Psych: Appropriate mood and affect postictally, denies suicidal/homicidal ideation laboratory and microbiology Labs & Imaging: * WBC: 12.8 * Hgb: 13.4 (low-normal), Hct 39.8 (low) * Neutrophils: 89.1% * Creatinine: 1.72 (increased from baseline) * GFR: 54 * CPK: 255 * TSH: 0.66 (WNL) * UDS: Positive for cannabinoids, benzodiazepines (likely Ativan), negative for alcohol, cocaine, opiates * UA: Trace blood, few uric acid crystals * MRI Brain (August 2024): No acute intracranial pathology * CT Head (Feb 2024): No acute pathology Test 09/06/24 16:03 Range/Units Serum Glucose Pending Labs and/or images reviewed: Labs reviewed by me Problem List/Assessment/Plan Problem List/Assessment/Plan Assessment (A): 1. Breakthrough generalized tonic-clonic seizures due to non-adherence / medication lapse * History of epilepsy on Oxcarbazepine and Lacosamide * Currently postictal and somnolent, no seizures observed in ED * Elevated neutrophils possibly reactive post-ictal 2. Acute Kidney Injury (ALF) likely secondary to volume depletion and rhabdomyolysis (VMN) * Elevated Cr 1.72, baseline unknown, resolves post-seizure historically * CPK 255 suggestive of mild rhabdo 3. Acute Rhabdomyolysis * CPK 255, post-seizure muscle injury * No overt myoglobinuria or electrolyte derangements 4. Substance Use Disorder Cannabis * UDS positive for THC, known marijuana use 23 days ago * Counseling provided 5. Anxiety Disorder * Stable on Ativan PRN * Currently no acute psychiatric distress 6. History of Seizure Disorder * MRI and CT ruled out structural lesions * Neurology recently adjusted Vimpat dosage Plan (P): Neurology: * Restart Oxcarbazepine (Trileptal) 1200 mg BID * Continue Vimpat (Lacosamide) 100 mg BID * Ativan PRN for seizure breakthrough * Seizure precautions: padded rails, 1:1 observation if needed Renal: * Monitor creatinine daily, trend GFR * IV NS 100 mL/hr for renal perfusion and rhabdomyolysis * Monitor urine output, electrolytes, CPK * Daily BMP Rhabdomyolysis: * Aggressive IV hydration, monitor for electrolyte shifts * Hold nephrotoxic agents * Monitor CPK daily Psychiatry: * Continue Ativan PRN * Reassess for any underlying depression or mood instability Substance Use: * Counseling on marijuana and seizure threshold lowering * Consider addiction medicine referral if pattern recurs GI: * Pantoprazole for stress ulcer prophylaxis DVT Prophylaxis: * Early ambulation preferred * Consider heparin SQ 5000 units Q8H if patient remains non-ambulatory Disposition: * Continue monitoring in inpatient setting * Discharge after 23 hours seizure-free if clinically stable * Reinforce med compliance; send Rx to pharmacy * No driving per seizure guidelines Plan discussed with Attending Physicians , nursing staff, Total time spent on patient evaluation, chart review, assessment and plan, discussion discussion >35 minutes Plan discussed with: Patient My Orders My Orders Orders - ALEJANDRINA RAMIREZ Procedure Category Date Status Time Complete Blood Count LAB 09/06/24 In Process 14:55 Comprehensive LAB 09/06/24 In Process Metabolic Panel 14:55 Date of Service: Sep 06, 2024 Billing Provider: RAYSHAWN CORRALES MD Common Visit Codes: [id number] INP/OBS CARE(HIGH) ALEJANDRINA RAMIREZ RESIDENT Sep 06, 2024 16:54 RAYSHAWN CORRALES MD Sep 16, 2024 02:44
[2024-09-07] VITALS (7 sets, daily range): BP systolic 118–142; BP diastolic 55–97; PULSE 76–85; RESP 16–20; TEMP 97.1–99.9; O2SAT 96–99
[2024-09-07] MEDS: PANTOPRAZOLE 40 MG TAB PO SCH (05:46)
[2024-09-07 06:30] LABS: Hematocrit 40.8 % (41.0-53.0); Hemoglobin 13.5 g/dL (13.5-17.5); Mean Corpuscular Hemoglobin 28.8 pg (28.0-32.0); Mean Corpuscular Volume 87.2 fL (80.0-100.0); Nucleated Red Blood Cells % 0.1 %
[2024-09-07 06:49] LABS: Alanine Aminotransferase 17 U/L (7-40); Albumin 4.4 g/dL (3.2-4.8); Alkaline Phosphatase 68 U/L (46-116); Anion Gap 10 (5-15); BUN/Creatinine Ratio 10.3 (10.0-20.0); Blood Urea Nitrogen 19 mg/dL (9-23); Calcium 9.7 mg/dL (8.7-10.4); Carbon Dioxide 23 mmol/L (20-31); Glucose 93 mg/dL (74-106); Potassium 4.0 mmol/L (3.5-5.1); Sodium 144 mmol/L (136-145); Total Protein 6.6 g/dL (5.7-8.2)
[2024-09-07 06:50] LABS: Bilirubin, Total 0.5 mg/dL (0.2-1.0)
[2024-09-07 06:58] LABS: Chloride 111 mmol/L (98-107)
[2024-09-07] MEDS ORDERED: LACO100T3 PO ×2 (15:02→16:45)
[2024-09-07] MEDS ORDERED: LACO100T PO ×2 (15:03→17:23)
--- NOTE | 2024-09-07 15:48 | DVHDSRES ---
Discharge Summary Date of Admission Resident Creating Document: YFN PARK RESIDENT Sep 06, 2024 at 03:41 Date of Discharge: Sep 07, 2024 Labs/Diagnostic Data: Laboratory Results Test 09/07/24 05:34 09/06/24 11:20 09/06/24 04:17 White Blood Count 6.2 10^3/uL (4.4-10.8) Red Blood Count 4.67 10^6/uL (4.5-5.90) Hemoglobin 13.5 g/dL (13.5-17.5) Hematocrit 40.8 % (41.0-53.0) Mean Corpuscular Volume 87.2 fL (80.0-100.0) Mean Corpuscular Hemoglobin 28.8 pg (28.0-32.0) Mean Corpuscular Hemoglobin Concent 33.0 g/dL (32.0-36.0) Red Cell Distribution Width 14.3 % (11.8-14.3) Platelet Count 164 10^3/uL (140-450) Mean Platelet Volume 10.4 fL (6.9-10.8) Neutrophils (%) (Auto) 72.0 % (37.0-80.0) Lymphocytes (%) (Auto) 20.9 % (10.0-50.0) Monocytes (%) (Auto) 6.4 % (0.0-12.0) Eosinophils (%) (Auto) 0.4 % (0.0-7.0) Basophils (%) (Auto) 0.3 % (0.0-2.0) Neutrophils # (Auto) 4.5 10 ^3/uL (1.6-8.6) Lymphocytes # (Auto) 1.3 10 ^3/uL (0.4-5.4) Monocytes # (Auto) 0.4 10 ^3/uL (0-1.3) Eosinophils # (Auto) 0 10 ^3/uL (0-0.8) Basophils # (Auto) 0 10 ^3/uL (0-0.2) Nucleated Red Blood Cells 0.1 % Sodium Level 144 mmol/L (136-145) Potassium Level 4.0 mmol/L (3.5-5.1) Chloride Level 111 mmol/L (98-107) Carbon Dioxide Level 23 mmol/L (20-31) Anion Gap 10 (5-15) Blood Urea Nitrogen 19 mg/dL (9-23) Creatinine 1.84 mg/dL (0.700-1.30) Glomerular Filtration Rate Calc 50 mL/min (>90) BUN/Creatinine Ratio 10.3 (10.0-20.0) Serum Glucose 93 mg/dL (74-106) Calcium Level 9.7 mg/dL (8.7-10.4) Total Bilirubin 0.5 mg/dL (0.2-1.0) Aspartate Amino Transferase (AST) 25 U/L (13-40) Alanine Aminotransferase (ALT) 17 U/L (7-40) Alkaline Phosphatase 68 U/L (46-116) Creatine Kinase 161 U/L (46-171) Total Protein 6.6 g/dL (5.7-8.2) Albumin 4.4 g/dL (3.2-4.8) Urine Color Colorless (Yellow) Urine Clarity Clear (Clear) Urine pH 5.5 (5.0-9.0) Urine Specific [place] 1.005 (1.001-1.035) Urine Protein Negative (Negative) Urine Ketones Negative (Negative) Urine Blood Trace /uL (Negative) Urine Nitrite Negative (Negative) Urine Bilirubin Negative (Negative) Urine Urobilinogen Normal mg/dL (Negative) Urine Leukocyte Esterase Negative /uL (Negative) Urine RBC 1 /hpf (0 - 3) Urine Microscopic WBC 2 /HPF (0-3) Urine Squamous Epithelial Cells None seen /hpf (<5) Urine Uric Acid Crystals Few /hpf (None Seen) Urine Bacteria None seen /hpf (None Seen) Urine Creatinine 66.65 mg/dL (30.0-125.0) Urine Protein/Creatinine Ratio 0.09 Urine Sodium 34 mmol/L (40-220) Urine Glucose Normal mg/dL (Normal) Urine Total Protein < 6.0 mg/dL (1-14) Urine Opiates Screen Neg (NEGATIVE) Urine Fentanyl Screen Neg (NEGATIVE) Urine Barbiturates Screen Neg (NEGATIVE) Urine Phencyclidine Screen Neg (NEGATIVE) Urine Amphetamines Screen Neg (NEGATIVE) Urine Benzodiazepines Screen Pos (NEGATIVE) Urine Cocaine Screen Neg (NEGATIVE) Urine Cannabinoids Screen Pos (NEGATIVE) Thyroid Stimulating Hormone (TSH) 0.66 uIU/mL (0.55-4.78) Plasma/Serum Blood Alcohol < 3.0 mg/dL (<10) Other Laboratory Tests 7/5/25 05:34 Brief Hx & Hospital Course: The patient is a 33-year-old male with a known history of seizure disorder and anxiety who presented to the emergency department via EMS after experiencing three witnessed generalized tonic-clonic seizures at home earlier today, reportedly at 10:00 AM, 12:00 PM, and 6:00PM. He had one episode of seizure in the ED. Per the patient and his mother, he recently ran out of his prescribed antiseizure medicationsOxcarbazepine and Lacosamide. He is normally compliant with medications but has had lapses related to refill access. Initial labs tin the ED showed leukocytosis (WBC 12.8 10/L) with neutrophilic predominance (89.1%), elevated creatinine (1.72 mg/dL), and elevated CPK (255 U/L), consistent with his known post-ictal lab pattern. Urine toxicology is positive for cannabinoids and negative for alcohol and other substances. His neurological imaging history includes a brain MRI from August [address] from Februaryoth negative for acute intracranial pathology. He lives with his mother and is functionally independent. He follows with neurology out patient (Dr. Patel) Patient was examined at bedside and discussed the case with family member (Mother). He reports that following seizures, his kidney function and muscle enzymes typically worsen transiently. Today, the patient is alert, oriented x3. He denies fever, headache, visual changes, chest pain, dyspnea, dysuria, or abdominal pain. No seizures noted within 24hrs post admission, patient reports feeling well . The patient will discharged today. Review of Systems (ROS): * General: Alert, oriented x3 * Neuro: Denies headache, visual changes, weakness, numbness. Somnolent postictal state. * CV: Denies chest pain, palpitations * Resp: Denies SOB, cough, wheeze * GI: Denies abdominal pain, nausea, vomiting, diarrhea * : Denies dysuria or hematuria * MSK: Denies joint pain. * Psych: Denies SI/HI, no hallucination, Examination Physical Examination (O): * General: Awake, alert, oriented x3, follow up commands. * HEENT: PEERLA, no nystagmus, no discharge * CV: Regular rate and rhythm, no murmur, no gallop * Resp: Clean lung cook * GI: Soft, NT, ND, BS + * MSK: No focal tenderness, no edema * Neuro: No focal deficits, CN II-XII intact. * Skin: No rash, no signs of trauma * Psych: Appropriate mood and affect postictally, denies suicidal/homicidal ideation' Laboratory and microbiology Labs & Imaging: * WBC: 6.2 * Hgb: 13.5 (low-normal), Hct 39.8 (low) * Creatinine: 1.80 (increased from baseline) * MRI Brain (August 2024): No acute intracranial pathology * CT Head (Feb 2024): No acute pathology Problem List/Assessment/Plan Assessment (A): # Breakthrough generalized tonic-clonic seizures due to non-adherence / medication lapse Status epilepticus * History of epilepsy on Oxcarbazepine and Lacosamide, non-adherence to medication. # Acute Kidney Injury (ALF) likely secondary to volume depletion and rhabdomyolysis (VMN) * Elevated Cr 1.72, baseline unknown, resolves post-seizure historically * CPK 255 suggestive of mild rhabdo # Acute Rhabdomyolysis * CPK 255, post-seizure muscle injury * No overt myoglobinuria or electrolyte derangements #Substance Use Disorder Cannabis * UDS positive for THC, known marijuana use 23 days ago * Counseling provided # Anxiety Disorder * Stable on Ativan PRN * Currently no acute psychiatric distress #History of Seizure Disorder * MRI and CT ruled out structural lesions * Neurology recently adjusted Vimpat dosage Plan (P): * Continue Oxcarbazepine (Trileptal) 1200 mg BID * Continue Vimpat (Lacosamide) 100 mg BID * Seizure precautions * Counseling on marijuana and seizure threshold lowering * Consider addiction medicine referral if pattern recurs * Pantoprazole for stress ulcer prophylaxis * Reinforce med compliance; send Rx to pharmacy * No driving per seizure guidelines Plan discussed with patient, patient agreed with the plan. Plan discussed with Attending Physicians Dr. Jones, nursing staff. Total time spent on patient evaluation, chart review, assessment and plan, discussion >35 minutes Plan discussed with: Patient Condition at Discharge: Stable Final Diagnosis/Problems List 1. Breakthrough generalized tonic-clonic seizures due to non-adherence / medication lapse 2. Acute Kidney Injury (ALF) likely secondary to volume depletion and rhabdomyolysis (VMN) 3. Acute Rhabdomyolysis 4. Substance Use Disorder Cannabis 5. Anxiety Disorder 6. History of Seizure Disorder Discharge Disposition: Home SNF Discharge Will this Physician continue t: No Discharge Instruct/Medications Diet: Regular Activity: No Restrictions, As Tolerated Scheduled Folic Acid (Folic Acid), 1 MG PO DAILY Lacosamide (Lacosamide), 100 MG PO BID, (Reported) Lacosamide (Lacosamide), 100 MG PO BID, (Reported) Magnesium Oxide (Magnesium Oxide), 1 TAB PO DAILY Oxcarbazepine (Trileptal), 1 TAB PO BID Discharge Statement: "Patient was advised to return to the ER or call 911 if any headaches, dizziness, shortness of breath, chest pain, abdominal pain, bleeding, fevers, or worsening of medical condition. Patient was counseled about treatment plan, medications, possible side effects, patientverbalized understanding. All questions were answered to the best of my ability. This discharge took greater then 30 minutes in planning, reviewing documentation, counseling the patient, and discussing with other team members." ASSESSMENT ASSESSMENT Assessment Date of Service: Sep 07, 2024 Billing Provider: RAYSHAWN CORRALES MD Common Visit Codes: 74947-ZLA/OBS DISCH DAY >30min YFN PARK RESIDENT Sep 07, 2024 15:48 RAYSHAWN CORRALES MD Sep 16, 2024 21:00
[2024-09-07] MEDS ORDERED: FOLI-119 PO (16:48)
[2024-09-07] MEDS ORDERED: OXCA600T3 PO (16:48)
[2024-09-07] MEDS ORDERED: MAGN400T40 PO (16:48)
== END 2024-09-07 17:27 | disposition home or self-care (01) | DRG 53 ==
LOC: ER 19:11 → EDBD 19:11 → OVERFLOW 09-06 03:41 → TELE-CENTR 09-06 05:19
PROVIDERS: ADMIT Internal Medicine; ATTEND Nurse Practitioner Family
DX: G40.401 Other generalized epilepsy and epileptic syndromes, not intractable, with status epilepticus (principal); N17.0 Acute kidney failure with tubular necrosis; M62.82 Rhabdomyolysis; F12.10 Cannabis abuse, uncomplicated; E86.9 Volume depletion, unspecified; D72.829 Elevated white blood cell count, unspecified; F41.9 Anxiety disorder, unspecified; Z79.899 Other long term (current) drug therapy; Z82.49 Family history of ischemic heart disease and other diseases of the circulatory system; Z80.1 Family history of malignant neoplasm of trachea, bronchus and lung; Z91.148 Patient's other noncompliance with medication regimen for other reason
CPT/HCPCS: 36415; 80053; 80307; 80320; 81001; 82550; 82570; 84156; 84300; 84443; 85025; 96361; 96374; G0378

== ENCOUNTER → 2024-09-10 | Outpatient (CLI) | payer MEDICAID ==
[~2024-09-10] MED LIST changes: -ACET-1882 PO; -CYAN100042 PO; +LACO100T3 PO; -LACO50TA5 PO; -MAGN400T40 OR; +MAGN400T40 PO; -THIA100T10 PO
== END | disposition home or self-care (01) ==
LOC: LAB 15:40
PROVIDERS: ATTEND Internal Medicine
DX: I10 Essential (primary) hypertension (principal); G40.89 Other seizures; F12.10 Cannabis abuse, uncomplicated
CPT/HCPCS: 83497

== ENCOUNTER 2025-01-10 21:22 | Emergency (ER) | payer MEDICAID ==
[~2025-01-10] VITALS: Ht 175.3 cm; Wt 80.0 kg
--- NOTE | 2025-01-10 21:41 | ECG ---
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
--- NOTE | 2025-01-10 22:05 | ED.PDOC ---
History of Present Illness HPI Comments 34-year-old male BIBA with prior medical history of seizure (last seizure being two months ago and seen by Dr. Shah), anxiety and a chief complaint of a seizure. Patient reports on driving to work when he felt off, which worsened and worsened. When patient was at work he had a sudden onset of a seizure and fell onto a shelf, hitting the right side of his face. Patient woke up, he stated on waking up to his coworkers calling . Patient is taking Lacosamide two times a day and Trileptal. Denies any other symptoms at this time. Denies chills, fever, N/V/D, SOB, CP. No other associated symptoms, modifiers, recent injuries or sick contacts present at this time. Time Seen by MD: 22:00 Primary Care Provider: UNKNOWN Reviewed Notes: Nurses Notes, Medications, Allergies Allergies: Coded Allergies: NO KNOWN ALLERGIES (Unverified , 08/10/24) Home Meds Active Scripts Magnesium Oxide (MAGNESIUM OXIDE) 400 Mg Tab, 1 TAB PO DAILY for 30 Days, #30 TAB 5 Refills Prov:GAGE SMITH RESIDENT 09/07/24 Folic Acid (Folic Acid) 1 Mg Tab, 1 MG PO DAILY for 30 Days, #30 TAB Prov:GAGE SMITH RESIDENT 09/07/24 Oxcarbazepine (Trileptal) 600 Mg Tab, 1 TAB PO BID for 60 Days, #120 TAB 1 Refill Prov:GAGE SMITH RESIDENT 09/07/24 Reported Medications Lacosamide (Lacosamide) 100 Mg Tab, 100 MG PO BID for 30 Days, #60 TAB 09/07/24 Lacosamide (Lacosamide) 100 Mg Tab, 100 MG PO BID for 30 Days, #60 TAB 09/07/24 Information Source: Patient, Emergency Med Personnel Mode of Arrival: EMS Severity: Moderate Timing: Minutes Duration: Since onset, Minutes Prehospital treatment: None Past Medical History PAST MEDICAL HISTORY: Anxiety, Seizures Surgical History: Denies all surgeries Family History Family History: Reviewed,noncontributory to illness, Unknown Social History Smoker: Non-Smoker Alcohol: Denies ETOH Use Drugs: Denies Drug Use Lives In: Home Constitutional: denies: chills, diaphoresis, fatigue, fever, malaise, sweats, weakness, others EENTM: denies: blurred vision, double vision, ear bleeding, ear discharge, ear drainage, ear pain, ear ringing, eye pain, eye redness, hearing loss, mouth pain, mouth swelling, nasal discharge, nose bleeding, nose congestion, nose pain, photophobia, tearing, throat pain, throat swelling, voice changes, others Respiratory: denies: cough, hemoptysis, orthopnea, SOB at rest, shortness of breath, SOB with excertion, stridor, wheezing, others Cardiovascular: denies: chest pain, dizzy spells, diaphoresis, Dyspnea on exertion, edema, irregular heart beat, left arm pain, lightheadedness, palpitations, PND, syncope, others Gastrointestinal: denies: abdomen distended, abdominal pain, blood streaked bowels, constipated, diarrhea, dysphagia, difficulty swallowing, hematemesis, m aaliyah, nausea, poor appetite, poor fluid intake, rectal bleeding, rectal pain, vomiting, others Genitourinary: denies: burning, dysuria, flank pain, frequency, hematuria, incontinence, penile discharge, penile sore, pain, testicle pain, testicle swelling, urgency, others Neurological: reports: seizure; denies: dizziness, fainting, headache, left sided numbness, left sided weakness, numbness, paresthesia, pre-existing deficit, right sided numbness, right sided weakness, speech problems, tingling, tremors, weakness, others Musculoskeletal: denies: back pain, gout, joint pain, joint swelling, muscle pain, muscle stiffness, neck pain, others Integumetry: denies: bruises, change in color, change in hair/nails, dryness, laceration, lesions, lumps, rash, wounds, others Allergic/Immunocompromised: denies: Difficulty Healing, Frequent Infections, Hives, Itching, others Hematologic/Lymphatic: denies: anemia, blood clots, easy bleeding, easy bruising, swollen glands, others Endocrine: denies: excessive hunger, excessive sweating, excessive thirst, excessive urination, flushing, intolerance to cold, intolerance to heat, unexplained weight gain, unexplained weight loss, others Psychiatric: denies: anxiety, bipolar disorder, depression, hopeless, panic disorder, schizophrenia, sleepless, suicidal, others All Other Systems: Reviewed and Negative Physical Exam Exam Comments 5 cm abrasion to the right eyebrow and cheek. General Appearance: No Apparent Distress, Normal HEENT: Normal ENT Inspection, Pharynx Normal, TMs Normal Neck: Full Range of Motion, Non-Tender, Normal, Normal Inspection Respiratory: Chest Non-Tender, Lungs Clear, No Accessory Muscle Use, No Respiratory Distress, Normal Breath Sounds Cardiovascular: No Edema, No JVD, No Murmur, No Gallop, Normal Peripheral Pulses, Regular Rate/Rhythm Breast Exam: Deferred Gastrointestinal: No Organomegaly, Non Tender, No Pulsatile Mass, Normal Bowel Sounds, Soft Genitalia: Deferred Pelvic: Deferred Rectal: Deferred Extremities: No calf tenderness, Normal capillary refill, Normal inspection, Normal range of motion, Non-tender, No pedal edema Musculoskeletal : Apperance: Normal Neurologic: Alert, director organizational II-XII nml as Tested, No Motor Deficits, Normal Affect, Normal Mood, No Sensory Deficits Cerebellar Function: Normal Reflexes: Normal Skin: Dry, Normal Color, Warm Lymphatic: No Adenopathy Was a procedure done? Was a procedure done?: No EKG EKG : Pulse Rate (adult): 90 [place]: Normal Cardiac Rhythm: NSR Block: None Hypertrophy: None ST: Normal Differential Dx Considerations may include: Breakthrough seizure X-Ray, Labs, Meds, VS Vital Signs Date Time Temp Pulse Resp B/P (MAP) Pulse Ox O2 Delivery O2 Flow Rate FiO2 01/10/25 22:05 90 01/10/25 21:33 90 01/10/25 21:22 98.0 105 24 148/89 100 98.0 X-Ray, Labs, Meds, VS Comment Imaging was reviewed by this provider, there is no obvious pathological or acute disease process. Pending radiology review Labs were reviewed by this provider, no abnormalities Vital signs reviewed by this provider, clinically stable Time of 1ST Reevaluation: 22:30 Reevaluation 1ST: Unchanged Patient Education/Counseling: Diagnosis, Treatment, Prognosis, Need For Follow Up (Follow up in Neurology next available appointment.) Family Education/Counseling: No Family Present SEPSIS Sepsis Screen Physician Orders Head Without Contrast (01/10/25 21:44) Vital Signs Date Time Temp Pulse Resp B/P (MAP) Pulse Ox O2 Delivery O2 Flow Rate FiO2 01/10/25 22:05 90 01/10/25 21:33 90 01/10/25 21:22 98.0 105 24 148/89 100 98.0 Departure 1 Departure Time of Disposition: 23:15 Impression: Primary Impression: Forehead contusion Qualified Codes: S00.83XA - Contusion of other part of head, initial encounter Additional Impression: Recurrent seizures Disposition: HOME / SELF CARE / HOMELESS Condition: Stable Discharged With: Self Critical Care Note Critical Care Time?: No Stability Stability form required: No Heart Score Heart Score: Heart Score Response (Comments) Value History N/A 0 EKG N/A 0 Age N/A 0 Risk Factors N/A 0 Troponin N/A 0 Total 0 I personally scribed for JEANE HEBERT ([email or web address]) on 01/10/25 at 22:05. Electronically submitted by Eddy Lopez ([email or web address]). JEANE HEBERT Jan 10, 2025 22:05
--- NOTE | 2025-01-10 22:53 | DVH ---
CLINICAL HISTORY: sz TECHNIQUE: Helical imaging carried out from skull base to vertex without intravenous contrast. This exam was performed according to our departmental dose optimization program. Up-to-date CT equipment and radiation dose reduction techniques are utilized as appropriate. CTDIVol: 52.91 mGy DLP: 163 mGy-cm WID: COMPARISON: CT HEAD WITHOUT CONTRAST on DOS: 02/06/24 FINDINGS: The ventricles and subarachnoid spaces are normal in size and configuration. There is no midline shift or mass effect. The garrido white matter interfaces are maintained. The basal cisterns are patent. There is no evidence of acute intracranial hemorrhage or extra-axial fluid collection. The mastoid air cells and visualized paranasal sinuses are well-aerated. IMPRESSION: 1. No acute intracranial abnormality.
[2025-01-10 23:44] VITALS: BP 115/75; PULSE 72; RESP 16; TEMP 98.1; O2SAT 96
== END 2025-01-10 23:44 | disposition home or self-care (01) ==
LOC: ER 21:22 → EDUNIT# 21:22 → EDBD 21:22 → ER 23:44
DX: G40.909 Epilepsy, unspecified, not intractable, without status epilepticus (principal); S00.83XA Contusion of other part of head, initial encounter; Z79.899 Other long term (current) drug therapy; W18.39XA Other fall on same level, initial encounter; Y93.89 Activity, other specified; Y92.89 Other specified places as the place of occurrence of the external cause; Y99.8 Other external cause status
CPT/HCPCS: 70450; 93005

== ENCOUNTER 2025-01-13 19:57 | Inpatient (IN) | payer MEDICAID ==
[~2025-01-13] VITALS: Ht 177.8 cm; Wt 84.0 kg
--- NOTE | 2025-01-13 20:27 | ED.PDOC ---
HPI (NEURO) HPI Comments This is a 34 year old male MIRIAMA presenting to the ED with chief complaint of seizure. EMS reports patient had a breakthrough seizure today witnessed by mother at home at around 1950. EMS relays patient has had multiple breakthrough seizures for the past week. EMS states patient was given IN Valium prior to arrival, relieving his seizure and now patient is alert and oriented. Patient denies any N/V, headache, head injury, or dizziness. Chief Complaint: Seizure Time Seen by MD: 20:26 Primary Care Provider: UNKNOWN Reviewed Notes: Nurses Notes, Medications, Allergies Information Source: Patient Mode of Arrival: EMS Dizziness/Weakness Severity: Bedridden Timing: Hours Duration: Minutes Prehospital treatment: None Seizure Quality: Tonic-clonic Seizure Location: Generalized Onset: At rest Circumstances: Spontaneous History of: Seizure Disorder Past Medical History PAST MEDICAL HISTORY: Anxiety, Seizures Surgical History: Denies all surgeries Family History Family History: Reviewed,noncontributory to illness, Unknown Social History Smoker: Non-Smoker Alcohol: Denies ETOH Use Drugs: Denies Drug Use Lives In: Home Constitutional: denies: chills, diaphoresis, fatigue, fever, malaise, sweats, weakness, others EENTM: denies: blurred vision, double vision, ear bleeding, ear discharge, ear drainage, ear pain, ear ringing, eye pain, eye redness, hearing loss, mouth pain, mouth swelling, nasal discharge, nose bleeding, nose congestion, nose pain, photophobia, tearing, throat pain, throat swelling, voice changes, others Respiratory: denies: cough, hemoptysis, orthopnea, SOB at rest, shortness of breath, SOB with excertion, stridor, wheezing, others Cardiovascular: denies: chest pain, dizzy spells, diaphoresis, Dyspnea on exertion, edema, irregular heart beat, left arm pain, lightheadedness, palpitations, PND, syncope, others Gastrointestinal: denies: abdomen distended, abdominal pain, blood streaked bowels, constipated, diarrhea, dysphagia, difficulty swallowing, hematemesis, melena, nausea, poor appetite, poor fluid intake, rectal bleeding, rectal pain, vomiting, others Genitourinary: denies: burning, dysuria, flank pain, frequency, hematuria, incontinence, penile discharge, penile sore, pain, testicle pain, testicle swelling, urgency, others Neurological: reports: seizure; denies: dizziness, fainting, headache, left sided numbness, left sided weakness, numbness, paresthesia, pre-existing deficit, right sided numbness, right sided weakness, speech problems, tingling, tremors, weakness, others Musculoskeletal: denies: back pain, gout, joint pain, joint swelling, muscle pain, muscle stiffness, neck pain, others Integumetry: denies: bruises, change in color, change in hair/nails, dryness, laceration, lesions, lumps, rash, wounds, others Allergic/Immunocompromised: denies: Difficulty Healing, Frequent Infections, Hives, Itching, others Hematologic/Lymphatic: denies: anemia, blood clots, easy bleeding, easy bruising, swollen glands, others Endocrine: denies: excessive hunger, excessive sweating, excessive thirst, excessive urination, flushing, intolerance to cold, intolerance to heat, unexplained weight gain, unexplained weight loss, others Psychiatric: denies: anxiety, bipolar disorder, depression, hopeless, panic disorder, schizophrenia, sleepless, suicidal, others All Other Systems: Reviewed and Negative Physical Exam General Appearance: No Apparent Distress, Normal HEENT: Normal ENT Inspection, Pharynx Normal, TMs Normal Neck: Full Range of Motion, Non-Tender, Normal, Normal Inspection Respiratory: Chest Non-Tender, Lungs Clear, No Accessory Muscle Use, No Respiratory Distress, Normal Breath Sounds Cardiovascular: No Edema, No JVD, No Murmur, No Gallop, Normal Peripheral Pulses, Regular Rate/Rhythm Breast Exam: Deferred Gastrointestinal: No Organomegaly, Non Tender, No Pulsatile Mass, Normal Bowel Sounds, Soft Genitalia: Deferred Pelvic: Deferred Rectal: Deferred Extremities: No calf tenderness, Normal capillary refill, Normal inspection, Normal range of motion, Non-tender, No pedal edema Musculoskeletal : Apperance: Normal Neurologic: Alert, recreational therapy technician II-XII nml as Tested, No Motor Deficits, Normal Affect, Normal Mood, No Sensory Deficits, Other (Post-ictal) Cerebellar Function: Normal Reflexes: Normal Skin: Dry, Normal Color, Warm Lymphatic: No Adenopathy Was a procedure done? Was a procedure done?: No Differential Diagnosis (SZ) Seizure: Alcohol Withdrawl, Anticonvulsant Withdrawl, Mass Lesion CVA: Encephalopathy X-Ray, Labs, Meds, VS Vital Signs Date Time Temp Pulse Resp B/P (MAP) Pulse Ox O2 Delivery O2 Flow Rate FiO2 01/13/25 21:00 81 15 98 Room Air* 0 21 01/13/25 20:59 97.9 80 15 113/70 (84) 99 97.9 01/13/25 20:15 122 01/13/25 19:57 97.9 128 16 146/90 98 97.9 Lab Test 01/13/25 21:12 Range/Units White Blood Count Pending Red Blood Count Pending Hemoglobin Pending Hematocrit Pending Mean Corpuscular Volume Pending Mean Corpuscular Hemoglobin Pending Mean Corpuscular Hemoglobin Concent Pending Red Cell Distribution Width Pending Platelet Count Pending Mean Platelet Volume Pending Neutrophils (%) (Auto) Pending Lymphocytes (%) (Auto) Pending Monocytes (%) (Auto) Pending Basophils (%) (Auto) Pending Neutrophils # (Auto) Pending Lymphocytes # (Auto) Pending Monocytes # (Auto) Pending Sodium Level Pending Potassium Level Pending Chloride Level Pending Carbon Dioxide Level Pending Anion Gap Pending Blood Urea Nitrogen Pending Creatinine Pending Glomerular Filtration Rate Calc Pending BUN/Creatinine Ratio Pending Serum Glucose Pending Calcium Level Pending Total Bilirubin Pending Aspartate Amino Transferase (AST) Pending Alanine Aminotransferase (ALT) Pending Alkaline Phosphatase Pending Total Protein Pending Albumin Pending Current Medications Medications (Trade) Dose Ordered Sig/Kinjal Route Start Time Stop Time Status Last Admin Sodium Chloride 1,000 ml @ 1,000 mls/hr Q1H ONCE IV 01/13/25 20:45 01/13/25 21:44 01/13/25 20:55 X-Ray, Labs, Meds, VS Comment Spoke with Dr. Shah, he will consult on patient as patient is under his care Patient A&O x4, hemodynamically stable Vital signs reviewed by this provider Prior history reviewed by this provider Time of 1ST Reevaluation: 21:22 Reevaluation 1ST: Unchanged Patient Education/Counseling: Diagnosis, Treatment, Need For Follow Up Family Education/Counseling: No Family Present Departure 1 Departure Time of Disposition: 21:42 Impression: Primary Impression: Recurrent seizures Additional Impression: Dehydration Disposition: ADMITTED INPATIENT Condition: Stable Discharged With: Self Critical Care Note Critical Care Time?: No Stability Stability form required: No Heart Score Heart Score: Heart Score Response (Comments) Value History N/A 0 EKG N/A 0 Age N/A 0 Risk Factors N/A 0 Troponin N/A 0 Total 0 I personally scribed for JEANE HEBERT ([email or web address]) on 01/13/25 at 20:27. Electronically submitted by Demetrius Turk ([email or web address]). JEANE HEBERT Jan 13, 2025 20:27
[2025-01-13] MEDS: SODIUM CHLORIDE 0.9% 1,000 ML IV ONE (20:55)
[2025-01-13 21:00] VITALS: PULSE 81; RESP 15; O2SAT 98
[2025-01-13 21:43] LABS: Hematocrit 42.4 % (41.0-53.0); Hemoglobin 14.2 g/dL (13.5-17.5); Mean Corpuscular Hemoglobin 29.5 pg (28.0-32.0); Mean Corpuscular Volume 88.4 fL (80.0-100.0); Nucleated Red Blood Cells % 0.1 %
[2025-01-13 21:47] LABS: Alanine Aminotransferase 26 U/L (7-40); Albumin 4.7 g/dL (3.2-4.8); Alkaline Phosphatase 98 U/L (46-116); Anion Gap 16 (5-15); BUN/Creatinine Ratio 12.9 (10.0-20.0); Bilirubin, Total 0.4 mg/dL (0.2-1.0); Blood Urea Nitrogen 16 mg/dL (9-23); Calcium 8.9 mg/dL (8.7-10.4); Chloride 104 mmol/L (98-107); Potassium 4.5 mmol/L (3.5-5.1); Sodium 139 mmol/L (136-145); Total Protein 7.5 g/dL (5.7-8.2)
[2025-01-13 21:48] LABS: Carbon Dioxide 19 mmol/L (20-31); Glucose 147 mg/dL (74-106)
[2025-01-13] MEDS ORDERED: ACETAMINOPHEN 325 MG TAB PO PRN (23:00)
[2025-01-13] MEDS ORDERED: LORazepam 2MG/ML-1ML VIAL IV PRN (23:00)
[2025-01-13] MEDS ORDERED: ONDANSETRON HCL 4 MG/2 ML VIAL IV PRN (23:00)
[2025-01-14 03:14] LABS: Urine Protein, UAD TRACE (Negative)
--- NOTE | 2025-01-14 04:26 | DVHHP2 ---
History of Present Illness Reason for Visit: Seizure History of Present Illness 34-year-old male presents for evaluation of seizure activity. Patient reports over the past three days having multiple seizures. Today he returns after having a grand mal seizure lasting approximately 3 minutes as reported by the patient's mother. Patient is alert oriented. No head trauma. No oral trauma. Past Medical History Seizures Past Surgical History None Family History Noncontributory Smoke: No ALCOHOL: none Drugs: None Lives: with Family Review of Systems Review of Systems Review of systems are currently negative otherwise addressed in HPI. Allergies: Coded Allergies: NO KNOWN ALLERGIES (Unverified , 08/10/24) Medications Current Medications Medications Dose Ordered Sig/Kinjal Route Start Time Stop Time Status Last Admin Dose Admin Oxcarbazepine 600 mg Q12HR PO 01/14/25 10:00 Lacosamide 150 mg BID PO 01/14/25 10:00 Lorazepam 1 mg Q5MINP PRN IV 01/13/25 23:00 Ondansetron HCl 4 mg Q4HP PRN IV 01/13/25 23:00 Acetaminophen 650 mg Q6HP PRN PO 01/13/25 23:00 Exam Vital Signs Vital Signs Date Time Temp Pulse Resp B/P (MAP) Pulse Ox O2 Delivery O2 Flow Rate FiO2 01/14/25 03:00 82 19 117/81 (93) 97 01/13/25 21:00 Room Air* 0 21 01/13/25 20:59 97.9 97.9 Exam Gen: 34-year-old male in mild distress. Skin: Warm, dry, normal color and texture, no rash. HEENT: Normocephalic atraumatic, mucous membranes moist and pink. Neck: Cervical and supraclavicular nodes normal without enlargement, trachea is midline, thyroid gland is normal without masses. Pulmonary: Clear to auscultation and percussion bilaterally. Cardiac: Regular rate and rhythm. No murmur Abdomen: Soft, nontender, nondistended, bowel sounds present all 4 quadrants, no guarding, no rigidity, no organomegaly. Extremities: No cyanosis, clubbing, no edema Neuro: Cranial nerves II through XII grossly intact, normal affect and speech, no focal motor deficits. Labs/Xrays ORDERING PHYSICIAN: JEANE HEBERT PROCEDURE(s): HWOCT - HEAD WITHOUT CONTRAST REASON: sz ORDER NUMBER(s): [id number], ACCESSION NUMBER(s): [id number] CLINICAL HISTORY: sz TECHNIQUE: Helical imaging carried out from skull base to vertex without intravenous contrast. This exam was performed according to our departmental dose optimization program. Up-to-date CT equipment and radiation dose reduction techniques are utilized as appropriate. CTDIVol: 52.91 mGy DLP: 163 mGy-cm WID: COMPARISON: CT HEAD WITHOUT CONTRAST on DOS: 02/06/24 FINDINGS: The ventricles and subarachnoid spaces are normal in size and configuration. There is no midline shift or mass effect. The garrido white matter interfaces are maintained. The basal cisterns are patent. There is no evidence of acute intracranial hemorrhage or extra-axial fluid collection. The mastoid air cells and visualized paranasal sinuses are well-aerated. IMPRESSION: 1. No acute intracranial abnormality. ATED BY: IVONE MORRIS MD Labs Test 01/14/25 00:46 01/13/25 21:12 Range/Units Urine Color Colorless Yellow Urine Clarity Clear Clear Urine pH 5.5 5.0-9.0 Urine Specific [place] 1.013 1.001-1.035 Urine Protein Trace H Negative Urine Ketones 2+ H Negative Urine Blood Negative Negative /uL Urine Nitrite Negative Negative Urine Bilirubin Negative Negative Urine Urobilinogen Normal Negative mg/dL Urine Leukocyte Esterase Negative Negative /uL Urine RBC None seen 0 - 3 /hpf Urine Microscopic WBC < 1 0-3 /HPF Urine Squamous Epithelial Cells None seen <5 /hpf Urine Uric Acid Crystals Few None Seen /hpf Urine Bacteria None seen None Seen /hpf Urine Sperm Present None Seen /hpf Urine Glucose Normal Normal mg/dL White Blood Count 14.0 H 4.4-10.8 10^3/uL Red Blood Count 4.80 4.5-5.90 10^6/uL Hemoglobin 14.2 13.5-17.5 g/dL Hematocrit 42.4 41.0-53.0 % Mean Corpuscular Volume 88.4 80.0-100.0 fL Mean Corpuscular Hemoglobin 29.5 28.0-32.0 pg Mean Corpuscular Hemoglobin Concent 33.4 32.0-36.0 g/dL Red Cell Distribution Width 14.3 11.8-14.3 % Platelet Count 253 140-450 10^3/uL Mean Platelet Volume 9.8 6.9-10.8 fL Neutrophils (%) (Auto) 89.5 H 37.0-80.0 % Lymphocytes (%) (Auto) 7.7 L 10.0-50.0 % Monocytes (%) (Auto) 2.7 0.0-12.0 % Eosinophils (%) (Auto) 0.0 0.0-7.0 % Basophils (%) (Auto) 0.1 0.0-2.0 % Neutrophils # (Auto) 12.5 H 1.6-8.6 10 ^3/uL Lymphocytes # (Auto) 1.1 0.4-5.4 10 ^3/uL Monocytes # (Auto) 0.4 0-1.3 10 ^3/uL Eosinophils # (Auto) 0 0-0.8 10 ^3/uL Basophils # (Auto) 0 0-0.2 10 ^3/uL Nucleated Red Blood Cells 0.1 % Sodium Level 139 136-145 mmol/L Potassium Level 4.5 3.5-5.1 mmol/L Chloride Level 104 98-107 mmol/L Carbon Dioxide Level 19 L 20-31 mmol/L Anion Gap 16 H 5-15 Blood Urea Nitrogen 16 9-23 mg/dL Creatinine 1.24 0.700-1.30 mg/dL Glomerular Filtration Rate Calc 79 >90 mL/min BUN/Creatinine Ratio 12.9 10.0-20.0 Serum Glucose 147 H 74-106 mg/dL Calcium Level 8.9 8.7-10.4 mg/dL Total Bilirubin 0.4 0.2-1.0 mg/dL Aspartate Amino Transferase (AST) 36 13-40 U/L Alanine Aminotransferase (ALT) 26 7-40 U/L Alkaline Phosphatase 98 46-116 U/L Total Protein 7.5 5.7-8.2 g/dL Albumin 4.7 3.2-4.8 g/dL SEPSIS Sepsis Screen Date sepsis recognized/suspect: Jan 13, 2025 Time Sepsis recognized/suspect: 2099 Recent Procedure: No On Antibiotic Therapy: No Respiratory Rate >20: No Heart Rate >90: No Temp<36 C (96.8 F) or >38.3 C: No SBP <90 or MAP <65 mmHG: No New Acute Mental Status Change: No Is the patient on CPAP, BIPAP,: No Physician Orders Electrocardigram (01/13/25 21:09) Oxcarbazepine Tablet (Trileptal Tablet) (01/14/25 10:00) Lacosamide (Vimpat) (01/14/25 10:00) * Neurology Consult (01/13/25 22:47) Lorazepam 2mg/Ml Inj (Ativan Inj) (01/13/25 23:00) Seizure Precautions In Place (01/13/25 22:47) Regular Diet (01/14/25 Breakfast) Admit (01/13/25 22:51) Ondansetron Hcl (Zofran) (01/13/25 23:00) Complete Blood Count (01/14/25 04:00) Condition: Stable (01/13/25 22:51) Acetaminophen Tablet (Tylenol Tablet) (01/13/25 23:00) Bedrest With Bathroom Privileg (01/13/25 22:51) Vital Signs Date Time Temp Pulse Resp B/P (MAP) Pulse Ox O2 Delivery O2 Flow Rate FiO2 01/14/25 03:00 82 19 117/81 (93) 97 01/14/25 02:00 74 19 112/61 (78) 96 01/14/25 01:00 81 21 112/76 (88) 97 01/14/25 00:31 87 12 111/78 (89) 97 01/13/25 23:00 83 21 121/86 (98) 96 01/13/25 21:00 81 15 98 Room Air* 0 21 01/13/25 20:59 97.9 80 15 113/70 (84) 99 97.9 Laboratory Tests Test 01/13/25 21:12 White Blood Count 14.0 10^3/uL (4.4-10.8) H Medications Medications Dose Ordered Sig/Kinjal Route Start Time Stop Time Status Last Admin Dose Admin Oxcarbazepine 1,200 mg ONCE ONCE PO 01/13/25 21:45 01/13/25 21:58 DC 01/13/25 22:22 1,200 MG Sodium Chloride 1,000 ml @ 1,000 mls/hr Q1H ONCE IV 01/13/25 20:45 01/13/25 21:44 DC 01/13/25 20:55 1,000 MLS/HR Assessment/Plan Assessment/Plan Assessment Breakthrough seizure Leukocytosis Plan Admit the patient to Med surge to the hospitalist Nephrology consultation Seizure precautions in place Resume home medications Continue treatment per orders. Plan discussed with: Patient My Orders Orders - EDGARDO PALMER Procedure Category Date Status Time Oxcarbazepine Tablet PHA 01/14/25 In Process (Trileptal Tablet) 10:00 Lacosamide (Vimpat) PHA 01/14/25 In Process 10:00 * Neurology Consult CONS 01/13/25 Transmitted 22:47 Lorazepam 2mg/Ml Inj PHA 01/13/25 In Process (Ativan Inj) 23:00 Seizure Precautions RIRI 01/13/[address] 22:47 Regular Diet DIET 01/14/25 Transmitted Breakfast Admit ADMIT 01/13/25 Transmitted 22:51 Ondansetron Hcl PHA 01/13/25 In Process (Zofran) 23:00 Complete Blood Count LAB 01/14/25 Logged 04:00 Condition: Stable RIRI 01/13/25 In Process 22:51 Acetaminophen Tablet PHA 01/13/25 In Process (Tylenol Tablet) 23:00 Bedrest With Bathroom RIRI 01/13/25 In Process Privileg 22:51 Date of Service: Jan 13, 2025 Billing Provider: EDGARDO PALMER Common Visit Codes: [id number] INP/OBS CARE (MOD) EDGARDO PALMER Jan 14, 2025 04:26
--- NOTE | 2025-01-14 06:28 | ECG ---
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
[2025-01-14 06:52] LABS: Hematocrit 38.6 % (41.0-53.0); Hemoglobin 13.2 g/dL (13.5-17.5); Mean Corpuscular Hemoglobin 29.6 pg (28.0-32.0); Mean Corpuscular Volume 86.8 fL (80.0-100.0); Nucleated Red Blood Cells % 0.0 %
--- NOTE | 2025-01-14 09:14 | DVHINCON2 ---
Date of service: Jan 14, 2025 Referring Physician José Miguel Reason for Consultation Breakthrough seizure History of Present Illness Mr. Breaux is a 34 years old right-handed gentleman with no major medical history, the patient was brought to the [facility] 01/13/25 with a chief complaint of seizure activity. At this time, he is awake, fully oriented, mother in the room, they provided the following history I saw him on 12/29/2018, 10/28/22, 08/11/2023, 10/10/2023, 11/17/23, 11/19/2023, 12/10/2023, 02/07/2024, 08/10/2024, 09/05/2024 for seizure He has long history of seizure disorder, he has both generalized tonic-clonic seizure in the partial complex seizure. Currently he is on Trileptal 1500 mg b.i.d., Vimpat 150 mg b.i.d. with good compliance, after more than two months seizure-free, on 12/10/2024 and 01/17/25, he had partial complex seizure in that he become less responsive, spacing out briefly. On 01/13/25, he had a generalized tonic-clonic seizure at home, before mother called 911. He and his mother related dehydration could be a trigger fracture of the seizure He and his mother does not think we need modifying his seizure medication at this time Keppra caused mood swing WBC/HB/PLT/MCV, 01/14/2025: 13.2/13.2/227/86.8 BMP 01/13/2025: HCO3: 19 LFT 01/13/2025: Okay Liver function tests, 08/10/2024: Unremarkable TG/CHOL/LDL/HDL, 08/12/2023: 267/29/56/22 CT head, 10/27/22: No evidence of acute intracranial hemorrhage, mass effect or hydrocephalus CT head, 08/10/23: Limited evaluation due to motion artifact. Otherwise, no evidence of acute intracranial abnormality CT head, 10/10/2023: Motion degraded study which limits the evaluation. Within this limitation, no acute intracranial abnormality CT head, 12/04/2023: 1. No CT evidence of acute intracranial abnormality. 2. Nonacute findings as described above CT head, 02/06/2024: 1. No evidence of acute intracranial abnormality. 2. Right parietal scalp laceration and soft tissue swelling CT head, 01/10/2025: No acute intracranial abnormality MRI head, 08/10/2024: 1. No evidence of acute intracranial abnormality. 2. No findings are seen to suggest the etiology of the patient's seizures Past Medical History Kidney disease, anxiety Past Surgical History Femur fracture repair Family History: Cardiovascular disease G8 MOTHER Hypertension G8 FATHER Family History Hypertension, heart disease, lung cancer, no seizure disorder Social History He uses marijuana occasionally, he was a heavy alcohol drinker, but no history of drug abuse Allergies: Coded Allergies: NO KNOWN ALLERGIES (Unverified , 08/10/24) Home Meds Active Scripts Magnesium Oxide (MAGNESIUM OXIDE) 400 Mg Tab, 1 TAB PO DAILY for 30 Days, #30 TAB 5 Refills Prov:[facility] 09/07/24 Folic Acid (Folic Acid) 1 Mg Tab, 1 MG PO DAILY for 30 Days, #30 TAB Prov:[facility] 09/07/24 Oxcarbazepine (Trileptal) 600 Mg Tab, 1 TAB PO BID for 60 Days, #120 TAB 1 Refill Prov:[facility] 09/07/24 Reported Medications Lacosamide (Lacosamide) 100 Mg Tab, 100 MG PO BID for 30 Days, #60 TAB 09/07/24 Lacosamide (Lacosamide) 100 Mg Tab, 100 MG PO BID for 30 Days, #60 TAB 09/07/24 Current Medications Current Medications Medications (Trade) Dose Ordered Sig/Kinjal Route PRN Reason Start Time Stop Time Status Last Admin Oxcarbazepine (Trileptal Tablet) 600 mg Q12HR PO 01/14/25 10:00 Lacosamide (Vimpat) 150 mg BID PO 01/14/25 10:00 Lorazepam (Ativan Inj) 1 mg Q5MINP PRN IV SEIZURES 01/13/25 23:00 Ondansetron HCl (Zofran) 4 mg Q4HP PRN IV NAUSEA / VOMITING 01/13/25 23:00 Acetaminophen (Tylenol Tablet) 650 mg Q6HP PRN PO PAIN SCALE 1-3 OR TEMP>100.4 01/13/25 23:00 Review of Systems As above, the other systems are negative Vital Signs Vital Signs Date Time Temp Pulse Resp B/P (MAP) Pulse Ox O2 Delivery O2 Flow Rate FiO2 01/14/25 06:00 86 11 121/53 (75) 95 01/13/25 21:00 Room Air* 0 21 01/13/25 20:59 97.9 97.9 Physical Exam General: the patient is well developed and nourished. No acute distress. HEENT: Normocephalic, neck is supple, no carotid bruits. No mass. RESPIRATORY: Normal respiratory effort with symmetrical lung expansion. Lungs clear to auscultation. CARDIOVASCULAR: Regular rate and rhythm with no murmurs. S1, S2. ABDOMEN: Soft, nontender, normal bowel sound NEUROLOGICAL: MENTAL STATUS: Awake and alert. Oriented to person, place, time and general circumstances. Able to give personal history. SPEECH, LANGUAGE, HIGHER CORTICAL FUNCTION: no aphasia or dysathria. CRANIAL NERVES: #2: Intact visual cook to confrontation. The optic discs were sharp. #3,4,6: Pupils are equal, round and reactive. EOMs full and conjugate. No nys tagmus. #5: Facial sensation intact in all three divisions bilaterally. Mandibular strength intact. #7: Facial muscles symmetrical and strength intact. #8: Hearing grossly normal to voice. #9,10: Uvula and soft palate rise in the midline. Swallow and voice are normal. #11: Trapezius and sternomastoid strength intact bilaterally. #12: Tongue midline. No fasciculations or atrophy. SENSATION: Sensation to touch and pinprick is normal. MOTOR: Normal tone in the upper and lower extremity. Normal muscle bulk. No fasciculations. No abnormal movements or posturing. Muscle strength of the major groups in the upper extremities is 5/5. Muscle strength of the major groups in the lower extremities is 5/5. REFLEXES: Deep tendon reflexes normal and symmetrical. No pathological reflexes. CEREBELLAR/COORDINATION: Finger to nose is normal bilaterally. GAIT/STATION: deferred Labs/Diagnostic Data Labs Test 01/14/25 05:51 01/14/25 00:46 01/13/25 21:12 Range/Units White Blood Count 13.2 H 4.4-10.8 10^3/uL Red Blood Count 4.45 L 4.5-5.90 10^6/uL Hemoglobin 13.2 L 13.5-17.5 g/dL Hematocrit 38.6 L 41.0-53.0 % Mean Corpuscular Volume 86.8 80.0-100.0 fL Mean Corpuscular Hemoglobin 29.6 28.0-32.0 pg Mean Corpuscular Hemoglobin Concent 34.1 32.0-36.0 g/dL Red Cell Distribution Width 13.8 11.8-14.3 % Platelet Count 226 140-450 10^3/uL Mean Platelet Volume 9.7 6.9-10.8 fL Neutrophils (%) (Auto) 80.8 H 37.0-80.0 % Lymphocytes (%) (Auto) 13.3 10.0-50.0 % Monocytes (%) (Auto) 5.6 0.0-12.0 % Eosinophils (%) (Auto) 0.1 0.0-7.0 % Basophils (%) (Auto) 0.2 0.0-2.0 % Neutrophils # (Auto) 10.7 H 1.6-8.6 10 ^3/uL Lymphocytes # (Auto) 1.8 0.4-5.4 10 ^3/uL Monocytes # (Auto) 0.7 0-1.3 10 ^3/uL Eosinophils # (Auto) 0 0-0.8 10 ^3/uL Basophils # (Auto) 0 0-0.2 10 ^3/uL Nucleated Red Blood Cells 0.0 % Urine Color Colorless Yellow Urine Clarity Clear Clear Urine pH 5.5 5.0-9.0 Urine Specific [place] 1.013 1.001-1.035 Urine Protein Trace H Negative Urine Ketones 2+ H Negative Urine Blood Negative Negative /uL Urine Nitrite Negative Negative Urine Bilirubin Negative Negative Urine Urobilinogen Normal Negative mg/dL Urine Leukocyte Esterase Negative Negative /uL Urine RBC None seen 0 - 3 /hpf Urine Microscopic WBC < 1 0-3 /HPF Urine Squamous Epithelial Cells None seen <5 /hpf Urine Uric Acid Crystals Few None Seen /hpf Urine Bacteria None seen None Seen /hpf Urine Sperm Present None Seen /hpf Urine Glucose Normal Normal mg/dL Sodium Level 139 136-145 mmol/L Potassium Level 4.5 3.5-5.1 mmol/L Chloride Level 104 98-107 mmol/L Carbon Dioxide Level 19 L 20-31 mmol/L Anion Gap 16 H 5-15 Blood Urea Nitrogen 16 9-23 mg/dL Creatinine 1.24 0.700-1.30 mg/dL Glomerular Filtration Rate Calc 79 >90 mL/min BUN/Creatinine Ratio 12.9 10.0-20.0 Serum Glucose 147 H 74-106 mg/dL Calcium Level 8.9 8.7-10.4 mg/dL Total Bilirubin 0.4 0.2-1.0 mg/dL Aspartate Amino Transferase (AST) 36 13-40 U/L Alanine Aminotransferase (ALT) 26 7-40 U/L Alkaline Phosphatase 98 46-116 U/L Total Protein 7.5 5.7-8.2 g/dL Albumin 4.7 3.2-4.8 g/dL Assessment Status epilepticus Recurrent seizure activity Grand mal seizure Partial complex seizure Plan/Recommendation Monitoring Support treatment Trileptal 1200mg Bid Vimpat 150 mg b.i.d. Ativan for seizure breakthrough He does not drive Okay to discharge home after seizure-free for 23 hours More recommendation per clinical course This medical document was created using an electronic medical record system with [employer] dictation system. Although this document has been carefully reviewed, there may still be some phonetic and typographical errors. These areas are purely typographical due to imperfections of the software programs, and do not reflect any compromise in the patient's medical care Plan discussed with: Patient, Other MARIMAR CLEMONS MD Jan 14, 2025 09:14
[2025-01-14] MEDS: LACOSAMIDE 50 MG TAB PO SCH (10:35)
[2025-01-14] MEDS ORDERED: LACOSAMIDE 50 MG TAB PO SCH ×2 (10:44→22:00)
[2025-01-14] MEDS ORDERED: LORazepam 2MG/ML-1ML VIAL IV PRN (10:45)
[2025-01-14 11:50] VITALS: PULSE 73; RESP 12; TEMP 98; O2SAT 97
--- NOTE | 2025-01-14 12:44 | DVHPN2 ---
Reviewed: Care Plan, H&P, Labs, Medications, Previous Orders, Radiology Changes from previous H/P or p: No Changes Objective Vitals Vital Signs Date Time Temp Pulse Resp B/P (MAP) Pulse Ox O2 Delivery O2 Flow Rate FiO2 01/14/25 10:00 88 18 133/92 (106) 95 01/14/25 08:00 98.5 98.5 01/14/25 07:30 Room Air* 0 21 Intake/Output Intake and Output 01/14/25 07:00 Intake Total 1000 ml Balance 1000 ml Intake IV Total 1000 ml Medications Current Medications Medications Dose Ordered Sig/Kinjal Route Start Time Stop Time Status Last Admin Dose Admin Lorazepam 1 mg Q5MINP PRN IV 01/13/25 23:00 Ondansetron HCl 4 mg Q4HP PRN IV 01/13/25 23:00 Acetaminophen 650 mg Q6HP PRN PO 01/13/25 23:00 Oxcarbazepine 1,200 mg Q12HR PO 01/14/25 10:45 01/14/25 11:58 1,200 MG Lorazepam 1 mg Q5MINP PRN IV 01/14/25 10:45 Lacosamide 150 mg Q12HR PO 01/14/25 22:00 Laboratory Results Laboratory Tests 01/13/25 21:12 01/14/25 05:51 Chemistry Test 01/13/25 21:12 Albumin 4.7 g/dL (3.2-4.8) Calcium Level 8.9 mg/dL (8.7-10.4) Total Protein 7.5 g/dL (5.7-8.2) LFT Test 01/13/25 21:12 Alanine Aminotransferase (ALT) 26 U/L (7-40) Alkaline Phosphatase 98 U/L (46-116) Aspartate Amino Transferase (AST) 36 U/L (13-40) Total Bilirubin 0.4 mg/dL (0.2-1.0) Urinalysis Test 01/14/25 00:46 Urine Color Colorless (Yellow) Urine Clarity Clear (Clear) Urine pH 5.5 (5.0-9.0) Urine Specific [place] 1.013 (1.001-1.035) Urine Protein Trace (Negative) H Urine Ketones 2+ (Negative) H Urine Blood Negative /uL (Negative) Urine Nitrite Negative (Negative) Urine Bilirubin Negative (Negative) Urine Urobilinogen Normal mg/dL (Negative) Urine Leukocyte Esterase Negative /uL (Negative) Urine RBC None seen /hpf (0 - 3) Urine Microscopic WBC < 1 /HPF (0-3) Urine Squamous Epithelial Cells None seen /hpf (<5) Urine Uric Acid Crystals Few /hpf (None Seen) Urine Bacteria None seen /hpf (None Seen) Urine Sperm Present /hpf (None Seen) Urine Glucose Normal mg/dL (Normal) Labs and/or images reviewed: Labs reviewed by me, Image(s) reviewed by me Assessment/Plan Assessment/Plan Status epilepticus: Neurology consult by Dr. Shah appreciated, Trileptal 1200 mg p.o. b.i.d. Vimpat 150 mg p.o. b.i.d. Recurrent seizure activity Grand mal seizure Partial complex seizure Time spent 45 minutes Advanced care time 20 minutes Patient is full code Plan discussed with: Patient Date of Service: Jan 14, 2025 Billing Provider: ANIYAH SOTO MD Common Visit Codes: [id number] INP/OBS CARE(HIGH) Secondary Visit Codes: 33146-[id number] CARE PLAN 30 MINUTES ANIYAH SOTO MD Jan 14, 2025 12:44
[2025-01-14 20:51] VITALS: BP 121/80; PULSE 73; RESP 13; O2SAT 96
--- NOTE | 2025-01-15 08:45 | DVHDS2 ---
Discharge Summary Date of Admission Jan 13, 2025 at 22:51 Date of Discharge: Jan 14, 2025 Admitting Diagnosis Breakthrough seizures Wounds: None Labs/Diagnostic Data: Laboratory Results Test 01/14/25 05:51 01/14/25 00:46 01/13/25 21:12 White Blood Count 13.2 10^3/uL (4.4-10.8) Red Blood Count 4.45 10^6/uL (4.5-5.90) Hemoglobin 13.2 g/dL (13.5-17.5) Hematocrit 38.6 % (41.0-53.0) Mean Corpuscular Volume 86.8 fL (80.0-100.0) Mean Corpuscular Hemoglobin 29.6 pg (28.0-32.0) Mean Corpuscular Hemoglobin Concent 34.1 g/dL (32.0-36.0) Red Cell Distribution Width 13.8 % (11.8-14.3) Platelet Count 226 10^3/uL (140-450) Mean Platelet Volume 9.7 fL (6.9-10.8) Neutrophils (%) (Auto) 80.8 % (37.0-80.0) Lymphocytes (%) (Auto) 13.3 % (10.0-50.0) Monocytes (%) (Auto) 5.6 % (0.0-12.0) Eosinophils (%) (Auto) 0.1 % (0.0-7.0) Basophils (%) (Auto) 0.2 % (0.0-2.0) Neutrophils # (Auto) 10.7 10 ^3/uL (1.6-8.6) Lymphocytes # (Auto) 1.8 10 ^3/uL (0.4-5.4) Monocytes # (Auto) 0.7 10 ^3/uL (0-1.3) Eosinophils # (Auto) 0 10 ^3/uL (0-0.8) Basophils # (Auto) 0 10 ^3/uL (0-0.2) Nucleated Red Blood Cells 0.0 % Urine Color Colorless (Yellow) Urine Clarity Clear (Clear) Urine pH 5.5 (5.0-9.0) Urine Specific [place] 1.013 (1.001-1.035) Urine Protein Trace (Negative) Urine Ketones 2+ (Negative) Urine Blood Negative /uL (Negative) Urine Nitrite Negative (Negative) Urine Bilirubin Negative (Negative) Urine Urobilinogen Normal mg/dL (Negative) Urine Leukocyte Esterase Negative /uL (Negative) Urine RBC None seen /hpf (0 - 3) Urine Microscopic WBC < 1 /HPF (0-3) Urine Squamous Epithelial Cells None seen /hpf (<5) Urine Uric Acid Crystals Few /hpf (None Seen) Urine Bacteria None seen /hpf (None Seen) Urine Sperm Present /hpf (None Seen) Urine Glucose Normal mg/dL (Normal) Sodium Level 139 mmol/L (136-145) Potassium Level 4.5 mmol/L (3.5-5.1) Chloride Level 104 mmol/L (98-107) Carbon Dioxide Level 19 mmol/L (20-31) Anion Gap 16 (5-15) Blood Urea Nitrogen 16 mg/dL (9-23) Creatinine 1.24 mg/dL (0.700-1.30) Glomerular Filtration Rate Calc 79 mL/min (>90) BUN/Creatinine Ratio 12.9 (10.0-20.0) Serum Glucose 147 mg/dL (74-106) Calcium Level 8.9 mg/dL (8.7-10.4) Total Bilirubin 0.4 mg/dL (0.2-1.0) Aspartate Amino Transferase (AST) 36 U/L (13-40) Alanine Aminotransferase (ALT) 26 U/L (7-40) Alkaline Phosphatase 98 U/L (46-116) Total Protein 7.5 g/dL (5.7-8.2) Albumin 4.7 g/dL (3.2-4.8) Other Laboratory Tests 01/14/25 05:51 01/13/25 21:12 Brief Hx & Hospital Course: 34-year-old male came in for seizures diagnosed with a grand mal seizures. partial complex seizures by neurology Dr. Shah. CT head is negative treated with the Trileptal and Vimpat which are his usual home medications. While awaiting further stabilization the patient left AMA from the ER. Consequences and complications explained he verbalized understanding General condition satisfactory at the time of leaving AMA per nurse's notes. Consults/Reason for consult Neurology Dr. Shah Operations or Procedures CT head Condition at Discharge: Fair Final Diagnosis/Problems List Status epilepticus: Neurology consult by Dr. Shah appreciated, Trileptal 1200 mg p.o. b.i.d. Vimpat 150 mg p.o. b.i.d. Recurrent seizure activity Grand mal seizure Partial complex seizur Discharge Disposition: AMA Discharge Instruct/Medications Diet comment: Not applicable Patient left AMA Activity comment: Not applicable Patient left AMA Follow Up/Referral: Not applicable Patient left AMA Medications: Not applicable Patient left AMA Scheduled Folic Acid (Folic Acid), 1 MG PO DAILY Lacosamide (Lacosamide), 100 MG PO BID, (Reported) Lacosamide (Lacosamide), 100 MG PO BID, (Reported) Magnesium Oxide (Magnesium Oxide), 1 TAB PO DAILY Oxcarbazepine (Trileptal), 1 TAB PO BID 39 (Time taken for discharge summary 39 minutes) Discharge Statement: "Patient was advised to return to the ER or call 911 if any headaches, dizziness, shortness of breath, chest pain, abdominal pain, bleeding, fevers, or worsening of medical condition. Patient was counseled about treatment plan, medications, possible side effects, patientverbalized understanding. All questions were answered to the best of my ability. This discharge took greater then 30 minutes in planning, reviewing documentation, counseling the patient, and discussing with other team members." ASSESSMENT ASSESSMENT Hospital Course Left AMA Assessment Date of Service: Jan 15, 2025 Billing Provider: ANIYAH SOTO MD Common Visit Codes: [id number]/OBS DISCH DAY >30min ANIYAH SOTO MD Jan 15, 2025 08:45
== END 2025-01-14 22:05 | disposition left against medical advice (07) | DRG 53 ==
LOC: EDBD 19:57 → ER 19:57 → OVERFLOW 22:51
PROVIDERS: ADMIT Family Medicine; ATTEND Family Medicine
DX: G40.201 Localization-related (focal) (partial) symptomatic epilepsy and epileptic syndromes with complex partial seizures, not intractable, with status epilepticus (principal); G40.401 Other generalized epilepsy and epileptic syndromes, not intractable, with status epilepticus; F41.9 Anxiety disorder, unspecified; D72.829 Elevated white blood cell count, unspecified; E86.0 Dehydration; Z53.29 Procedure and treatment not carried out because of patient's decision for other reasons; Z82.49 Family history of ischemic heart disease and other diseases of the circulatory system; Z80.1 Family history of malignant neoplasm of trachea, bronchus and lung
CPT/HCPCS: 36415; 80053; 81001; 85025; 93005; 96360; G0378

== ENCOUNTER 2025-01-31 10:28 | Inpatient (IN) | payer MEDICAID ==
[~2025-01-31] VITALS: Ht 175.3 cm; Wt 91.1 kg
--- NOTE | 2025-01-31 10:48 | ED.PDOC ---
HPI (NEURO) HPI Comments This is a 34 year old male with past medical history of seizure disorder KAT presenting to the ED with chief complaint of seizures. EMS reports patient had a witnessed seizure in the bathroom, sliding against the door before being found on the ground actively seizing for about 2-3 minutes. EMS relays patient was given IN Versed by family at home prior to EMS arrival. EMS states patient has been stable en route to the ED and has no signs of trauma or injury. Patient notes that he normally has seizures every month, but is compliant with his Keppra. Patient notes that today feels just like his other seizures in the past. Patient denies any incontinence, dizziness, headache, numbness, or weakness. Chief Complaint: Seizure Time Seen by MD: 10:44 Primary Care Provider: UNKNOWN Reviewed Notes: Nurses Notes, Rebar Worker Notes, Medications, Allergies Information Source: Patient, Emergency Med Personnel Mode of Arrival: EMS Severity: Moderate Headache Severity: None Timing: Hours Duration: Minutes Prehospital treatment: Other (Versed IN) Seizure Quality: Tonic-clonic, Single Episodes Seizure Location: Generalized Onset: At rest Circumstances: Spontaneous Symptoms: None Before: Normal During: LOC After: Normal Mentation History of: Seizure Disorder Past Medical History PAST MEDICAL HISTORY: Anxiety, Seizures Surgical History: Denies all surgeries Family History Family History: Reviewed,noncontributory to illness, Unknown Social History Smoker: Non-Smoker Alcohol: Denies ETOH Use Drugs: Denies Drug Use Lives In: Home Constitutional: denies: chills, diaphoresis, fatigue, fever, malaise, sweats, weakness, others EENTM: denies: blurred vision, double vision, ear bleeding, ear discharge, ear drainage, ear pain, ear ringing, eye pain, eye redness, hearing loss, mouth pain, mouth swelling, nasal discharge, nose bleeding, nose congestion, nose pain, photophobia, tearing, throat pain, throat swelling, voice changes, others Respiratory: denies: cough, hemoptysis, orthopnea, SOB at rest, shortness of breath, SOB with excertion, stridor, wheezing, others Cardiovascular: denies: chest pain, dizzy spells, diaphoresis, Dyspnea on exertion, edema, irregular heart beat, left arm pain, lightheadedness, palpitations, PND, syncope, others Gastrointestinal: denies: abdomen distended, abdominal pain, blood streaked bowels, constipated, diarrhea, dysphagia, difficulty swallowing, hematemesis, melena, nausea, poor appetite, poor fluid intake, rectal bleeding, rectal pain, vomiting, others Genitourinary: denies: burning, dysuria, flank pain, frequency, hematuria, incontinence, penile discharge, penile sore, pain, testicle pain, testicle swelling, urgency, others Neurological: reports: seizure; denies: dizziness, fainting, headache, left sided numbness, left sided weakness, numbness, paresthesia, pre-existing deficit, right sided numbness, right sided weakness, speech problems, tingling, tremors, weakness, others Musculoskeletal: denies: back pain, gout, joint pain, joint swelling, muscle pain, muscle stiffness, neck pain, others Integumetry: denies: bruises, change in color, change in hair/nails, dryness, laceration, lesions, lumps, rash, wounds, others Allergic/Immunocompromised: denies: Difficulty Healing, Frequent Infections, Hives, Itching, others Hematologic/Lymphatic: denies: anemia, blood clots, easy bleeding, easy bruising, swollen glands, others Endocrine: denies: excessive hunger, excessive sweating, excessive thirst, excessive urination, flushing, intolerance to cold, intolerance to heat, unexplained weight gain, unexplained weight loss, others Psychiatric: denies: anxiety, bipolar disorder, depression, hopeless, panic disorder, schizophrenia, sleepless, suicidal, others All Other Systems: Reviewed and Negative Physical Exam General Appearance: No Apparent Distress, Normal HEENT: Normal ENT Inspection, Pharynx Normal, TMs Normal Neck: Full Range of Motion, Non-Tender, Normal, Normal Inspection Respiratory: Chest Non-Tender, Lungs Clear, No Accessory Muscle Use, No Respiratory Distress, Normal Breath Sounds Cardiovascular: No Edema, No JVD, No Murmur, No Gallop, Normal Peripheral Pulses, Regular Rate/Rhythm Breast Exam: Deferred Gastrointestinal: No Organomegaly, Non Tender, No Pulsatile Mass, Normal Bowel Sounds, Soft Genitalia: Deferred Pelvic: Deferred Rectal: Deferred Extremities: No calf tenderness, Normal capillary refill, Normal inspection, Normal range of motion, Non-tender, No pedal edema Musculoskeletal : Apperance: Normal Neurologic: Alert, 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 Was a procedure done?: No Differential Diagnosis (SZ) Seizure: Psychogenic Seizure, Alcohol Withdrawl, Anticonvulsant Withdrawl, Hypoglycemia, Hyponatremia, Syncope, Encephalopathy, Epilepsy-Break Through CVA: Electrolyte Imbalance General Weakness: Anemia, Dehydration X-Ray, Labs, Meds, VS Vital Signs Date Time Temp Pulse Resp B/P (MAP) Pulse Ox O2 Delivery O2 Flow Rate FiO2 01/31/25 20:00 67 01/31/25 19:39 98.1 88 18 109/65 (80) 95 98.1 01/31/25 19:39 88 18 95 Room Air* 0 21 01/31/25 18:50 98.5 71 17 109/65 (80) 96 98.5 01/31/25 17:06 67 18 104/59 (74) 96 01/31/25 16:00 72 16 97/58 (71) 98 01/31/25 13:47 98.3 75 16 109/69 (82) 95 98.3 01/31/25 11:17 76 18 97 Room Air* 0 21 01/31/25 11:17 97.7 77 18 121/75 (90) 97 97.7 01/31/25 10:40 98.3 90 15 138/90 100 98.3 Lab Test 01/31/25 14:06 01/31/25 12:02 01/31/25 10:55 Range/Units Troponin I High Sensitivity 7 4 3 L </=54 ng/L White Blood Count 10.5 4.4-10.8 10^3/uL Red Blood Count 4.87 4.5-5.90 10^6/uL Hemoglobin 15.0 13.5-17.5 g/dL Hematocrit 43.4 41.0-53.0 % Mean Corpuscular Volume 89.1 80.0-100.0 fL Mean Corpuscular Hemoglobin 30.7 28.0-32.0 pg Mean Corpuscular Hemoglobin Concent 34.5 32.0-36.0 g/dL Red Cell Distribution Width 14.3 11.8-14.3 % Platelet Count 201 140-450 10^3/uL Mean Platelet Volume 10.3 6.9-10.8 fL Neutrophils (%) (Auto) 85.9 H 37.0-80.0 % Lymphocytes (%) (Auto) 11.2 10.0-50.0 % Monocytes (%) (Auto) 2.1 0.0-12.0 % Eosinophils (%) (Auto) 0.4 0.0-7.0 % Basophils (%) (Auto) 0.4 0.0-2.0 % Neutrophils # (Auto) 9.0 H 1.6-8.6 10 ^3/uL Lymphocytes # (Auto) 1.2 0.4-5.4 10 ^3/uL Monocytes # (Auto) 0.2 0-1.3 10 ^3/uL Eosinophils # (Auto) 0 0-0.8 10 ^3/uL Basophils # (Auto) 0 0-0.2 10 ^3/uL Nucleated Red Blood Cells 0.1 % Sodium Level 140 136-145 mmol/L Potassium Level 4.6 3.5-5.1 mmol/L Chloride Level 107 98-107 mmol/L Carbon Dioxide Level 26 20-31 mmol/L Anion Gap 7 5-15 Blood Urea Nitrogen 15 9-23 mg/dL Creatinine 1.27 0.700-1.30 mg/dL Glomerular Filtration Rate Calc 77 >90 mL/min BUN/Creatinine Ratio 11.8 10.0-20.0 Serum Glucose 141 H 74-106 mg/dL Hemoglobin A1c Pending Calcium Level 10.1 8.7-10.4 mg/dL Current Medications Medications (Trade) Dose Ordered Sig/Kinjal Route Start Time Stop Time Status Last Admin Sodium Chloride 1,000 ml @ 1,000 mls/hr Q1H ONCE IV 01/31/25 15:45 01/31/25 16:44 DC 01/31/25 15:56 Oxcarbazepine (Trileptal Tablet) 120 mg ONCE ONCE PO 01/31/25 15:45 01/31/25 15:46 DC 01/31/25 15:56 Sodium Chloride 1,000 ml @ 1,000 mls/hr Q1H ONCE IV 01/31/25 18:30 01/31/25 19:29 DC 01/31/25 18:37 X-Ray, Labs, Meds, VS Comment Patient presenting with seizures, with known history of seizures. Patient over postictal, just complaining of being tired. Lab work (CBC, BMP) to evaluate for evidence of severe anemia, electrolyte abnormality including hypokalemia, hyperkalemia, hypernatremia, hyponatremia, hyperglycemia, hypoglycemia, etc. EKG and troponin to evaluate for evidence of arrhythmia, ACS, AMI Urinalysis to evaluate for hematuria or infection IV fluids IV Keppra Re-evaluate Social determinant surveillance affecting care: Social determinants of health that will affect the patient's care: Poor health literacy (additional time provided an explanation) Poor access to outpatient care/followup (provided outpatient resources) Time of 1ST Reevaluation: 11:44 Reevaluation 1ST: Unchanged Patient Education/Counseling: Diagnosis, Treatment Family Education/Counseling: No Family Present Departure 1 Departure Time of Disposition: 20:49 (Reassessment, patient is still unable to tolerate p.o. and unable to urinate. Mother is concerned that he is dehydrated and has not been taking his medications due to difficulty tolerating p.o.. This patient has had multiple breakthrough seizures, and is unable to tolerate p.o., we will admit.) Impression: Primary Impression: Seizure Additional Impressions: Altered mental status Dehydration Disposition: ADMITTED INPATIENT Admit to: Tele Condition: Guarded Critical Care Note Critical Care Time?: No Stability Stability form required: No Heart Score Heart Score: Heart Score Response (Comments) Value History N/A 0 EKG N/A 0 Age N/A 0 Risk Factors N/A 0 Troponin N/A 0 Total 0 I personally scribed for PATRICK GRAY MD ([email or web address]) on 01/31/25 at 10:48. El ectronically submitted by Demetrius Turk ([email or web address]). PATRICK GRAY MD Jan 31, 2025 10:48
[2025-01-31 11:17] VITALS: PULSE 76; RESP 18; O2SAT 97
[2025-01-31 11:32] LABS: Hematocrit 43.4 % (41.0-53.0); Hemoglobin 15.0 g/dL (13.5-17.5); Mean Corpuscular Hemoglobin 30.7 pg (28.0-32.0); Mean Corpuscular Volume 89.1 fL (80.0-100.0); Nucleated Red Blood Cells % 0.1 %
[2025-01-31 11:45] LABS: Chloride 107 mmol/L (98-107); Potassium 4.6 mmol/L (3.5-5.1); Sodium 140 mmol/L (136-145)
[2025-01-31] MEDS: levETIRAcetam 1000 mg/100ml 100 ML IV ONE (11:45)
[2025-01-31 11:46] LABS: Anion Gap 7 (5-15); Calcium 10.1 mg/dL (8.7-10.4); Carbon Dioxide 26 mmol/L (20-31)
[2025-01-31 11:51] LABS: BUN/Creatinine Ratio 11.8 (10.0-20.0); Blood Urea Nitrogen 15 mg/dL (9-23)
[2025-01-31 12:00] LABS: Glucose 141 mg/dL (74-106)
[2025-01-31] MEDS: SODIUM CHLORIDE 0.9% 1,000 ML IV ONE ×3 (15:56→18:37)
[2025-01-31 19:39] VITALS: PULSE 88; RESP 18; O2SAT 95
[2025-01-31] MEDS ORDERED: HYDROcodone-ACET 5/325MG TAB PO PRN (20:15)
[2025-01-31] MEDS ORDERED: ACETAMINOPHEN 325 MG TAB PO PRN (20:15)
[2025-01-31] MEDS ORDERED: DOCUSATE SOD 100 MG CAP PO PRN (20:15)
--- NOTE | 2025-01-31 20:27 | DVHHP2 ---
History of Present Illness Reason for Visit: Seizure History of Present Illness The patient is a 34-year-old male with past medical history of anxiety and seizure who presented to [facility] ED with complaint of seizures activity. As reported by mother, patient witnessed seizure in the bathroom, sliding against the door before being found on the ground actively seizing for about 2-3 minutes, so EMS were called. Patient was given IV Versed by family at home prior to EMS arrival. Patient has been stable en route to the ED and has no signs of trauma or injury. Patient was seen and evaluated in the ED, laboratory data shows WBC 10.5, platelets 201, sodium 140, potassium 4.6, BUN 15, creatinine 1.27, GFR 77, glucose 141, calcium 10.1, troponin 7, blood pressure 109/65, heart rate 88, temperature 98.1 F, O2 saturation 95% on room air. Please see medication orders section in the computer. On my assessment, mother at bedside, patient denies chest pain, no headache, dizziness, diaphoresis, loss of consciousness, shortness of breaths, no diarrhea, nausea, vomiting, fever, no chills. Patient was admitted for further evaluation and medical management. Past Medical History Anxiety, Seizures Past Surgical History Denies all surgeries Family History Reviewed, noncontributory to the management of this case. Past Social History The patient lives at home, denies smoking, alcohol or illicit drugs abuse. Review of Systems Constitutional: Yes: Weakness; No: Fever, Chills, Sweats, Malaise, Other Eyes: No: Pain, Vision change, Conjunctivae inflammation, Eyelid inflammation, Other, Redness ENT: No: Ear pain, Ear discharge, Nose pain, Nose discharge, Nose congestion, Mouth pain, Mouth swelling, Throat pain, Throat swelling, Other Respiratory: No: Cough, Dry, Shortness of breath, SOB with excertion, Wheezing, Hemoptysis, Pleuritic Pain, Sputum, Wheezing, Other Cardiovascular: No: Chest Pain, Palpitations, Orthopnea, Paroxysmal Noc. Dyspnea, Edema, Lt Headedness, Other Gastrointestinal: No: Nausea, Vomiting, Abdominal Pain, Diarrhea, Constipation, Melena, Hematochezia, Other Genitourinary: No Dysuria, No Frequency, No Incontinence, No Hematuria, No Retention, No Other Musculoskeletal: No: other, neck pain, shoulder pain, arm pain, back pain, hand pain, leg pain, foot pain Skin: No: Rash, Lesions, Jaundice, Bruising, Other Neurological: Seizures; No: Weakness, Numbness, Incoordination, Change in speech, Confusion, Other Allergies: Coded Allergies: NO KNOWN ALLERGIES (Unverified , 08/10/24) Medications Current Medications Medications Dose Ordered Sig/Kinjal Route Start Time Stop Time Status Last Admin Dose Admin Patient Own Medication 100 mg BID PO 01/31/25 22:00 UNV Sodium Chloride 10 ml Q8HR IV 01/31/25 22:00 Acetaminophen/ Hydrocodone Bitart 1 tab Q4HP PRN PO 01/31/25 20:15 Ondansetron HCl 4 mg Q4HP PRN IV 01/31/25 20:15 Docusate Sodium 100 mg BIDPRN PRN PO 01/31/25 20:15 Acetaminophen 650 mg Q6HP PRN PO 01/31/25 20:15 Exam Vital Signs Vital Signs Date Time Temp Pulse Resp B/P (MAP) Pulse Ox O2 Delivery O2 Flow Rate FiO2 01/31/25 19:39 98.1 88 18 109/65 (80) 95 98.1 01/31/25 19:39 Room Air* 0 21 General Appearance: Alert, Oriented X3, Cooperative, No acute distress HEENT: Atraumatic, PERRLA, EOMI, Mucous membr. moist/pink Respiratory: Normal air movement Cardiovascular: Regular rate, Normal S1, Normal S2, No murmurs Abdominal: Normal bowel sounds, Soft, No tenderness, No hepatospenomegaly, No masses Extremities: No clubbing, No cyanosis, No edema, Normal pulses, No tenderness/swelling Skin: No rashes, No breakdown, No significant lesion Neuro: Normal speech, Normal tone, Sensation intact, Cranial nerves 3-12 NL, Reflexes 2+ Psych/Mental Status: Mood NL, Other (Altered mental status) Labs/Xrays Labs Test 01/31/25 14:06 01/31/25 10:55 Range/Units Troponin I High Sensitivity 7 </=54 ng/L White Blood Count 10.5 4.4-10.8 10^3/uL Red Blood Count 4.87 4.5-5.90 10^6/uL Hemoglobin 15.0 13.5-17.5 g/dL Hematocrit 43.4 41.0-53.0 % Mean Corpuscular Volume 89.1 80.0-100.0 fL Mean Corpuscular Hemoglobin 30.7 28.0-32.0 pg Mean Corpuscular Hemoglobin Concent 34.5 32.0-36.0 g/dL Red Cell Distribution Width 14.3 11.8-14.3 % Platelet Count 201 140-450 10^3/uL Mean Platelet Volume 10.3 6.9-10.8 fL Neutrophils (%) (Auto) 85.9 H 37.0-80.0 % Lymphocytes (%) (Auto) 11.2 10.0-50.0 % Monocytes (%) (Auto) 2.1 0.0-12.0 % Eosinophils (%) (Auto) 0.4 0.0-7.0 % Basophils (%) (Auto) 0.4 0.0-2.0 % Neutrophils # (Auto) 9.0 H 1.6-8.6 10 ^3/uL Lymphocytes # (Auto) 1.2 0.4-5.4 10 ^3/uL Monocytes # (Auto) 0.2 0-1.3 10 ^3/uL Eosinophils # (Auto) 0 0-0.8 10 ^3/uL Basophils # (Auto) 0 0-0.2 10 ^3/uL Nucleated Red Blood Cells 0.1 % Sodium Level 140 136-145 mmol/L Potassium Level 4.6 3.5-5.1 mmol/L Chloride Level 107 98-107 mmol/L Carbon Dioxide Level 26 20-31 mmol/L Anion Gap 7 5-15 Blood Urea Nitrogen 15 9-23 mg/dL Creatinine 1.27 0.700-1.30 mg/dL Glomerular Filtration Rate Calc 77 >90 mL/min BUN/Creatinine Ratio 11.8 10.0-20.0 Serum Glucose 141 H 74-106 mg/dL Calcium Level 10.1 8.7-10.4 mg/dL SEPSIS Sepsis Screen Date sepsis recognized/suspect: Jan 31, 2025 Time Sepsis recognized/suspect: 1940 Recent Procedure: No On Antibiotic Therapy: No Respiratory Rate >20: No Heart Rate >90: No Temp<36 C (96.8 F) or >38.3 C: No SBP <90 or MAP <65 mmHG: No New Acute Mental Status Change: No Is the patient on CPAP, BIPAP,: No Physician Orders (Nf) Lacosamide (01/31/25 22:00) * Neurology Consult (01/31/25 20:06) Hemoglobin A1c (01/31/25 20:06) Allergies (01/31/25 20:06) Code Status (01/31/25 20:06) Sodium Chloride Lock (Saline Lock Ns) (01/31/25 22:00) Oxygen Per Hour (01/31/25 20:06) Hydrocodone-Acet 5/325mg Tab ([place] 32 (01/31/25 20:15) Ondansetron Hcl (Zofran) (01/31/25 20:15) Docusate Sodium Capsule (Colace Capsule) (01/31/25 20:15) Fall Risk Precautions In Place QSHIFT (01/31/25 20:06) Complete Blood Count (02/01/25 04:00) Comprehensive Metabolic Panel (02/01/25 04:00) Cardiac Diet-2gna,Lofat,Lochol (02/01/25 Breakfast) Condition: Serious (01/31/25 20:06) Acetaminophen Tablet (Tylenol Tablet) (01/31/25 20:15) Maintain Bed Rest (01/31/25 20:06) Sequential Compression Device (01/31/25 ) Seizure Precautions In Place (01/31/25 20:26) Vital Signs Date Time Temp Pulse Resp B/P (MAP) Pulse Ox O2 Delivery O2 Flow Rate FiO2 01/31/25 19:39 98.1 88 18 109/65 (80) 95 98.1 01/31/25 19:39 88 18 95 Room Air* 0 21 01/31/25 18:50 98.5 71 17 109/65 (80) 96 98.5 01/31/25 17:06 67 18 104/59 (74) 96 01/31/25 16:00 72 16 97/58 (71) 98 01/31/25 13:47 98.3 75 16 109/69 (82) 95 98.3 Laboratory Tests Test 01/31/25 10:55 White Blood Count 10.5 10^3/uL (4.4-10.8) Medications Medications Dose Ordered Sig/Kinjal Route Start Time Stop Time Status Last Admin Dose Admin Oxcarbazepine 120 mg ONCE ONCE PO 01/31/25 15:45 01/31/25 15:46 DC 01/31/25 15:56 120 MG Sodium Chloride 1,000 ml @ 1,000 mls/hr Q1H ONCE IV 01/31/25 15:45 01/31/25 16:44 DC 01/31/25 15:56 1,000 MLS/HR Sodium Chloride 1,000 ml @ 1,000 mls/hr Q1H ONCE IV 01/31/25 18:30 01/31/25 19:29 DC 01/31/25 18:37 1,000 MLS/HR Assessment/Plan Assessment/Plan Seizure Hyperglycemia Dehydration Altered mental status Generalized weakness Plan 1. Admit to telemetry unit 2. Breathing treatment 3. Pain control management 4. Management of fluids and electrolytes 5. Consultation for Neurology 6. Diagnostic tests head CT 7. DVT prophylaxis on SCDs 8. Repeat labs CBC, CMP in a.m. 9. Continue with current medical management 10. Treatment plan discussed with patient and RN. Patient verbalized understanding. Plan discussed with: Patient, Other (RN) My Orders Orders - LEONARDO BALES DNP Procedure Category Date Status Time (Nf) Lacosamide PHA 01/31/25 Logged 22:00 * Neurology Consult CONS 01/31/25 Transmitted 20:06 Hemoglobin A1c LAB 01/31/25 In Process 20:06 Allergies RIRI 01/31/25 In Process 20:06 Code Status CODE 01/31/25 Transmitted 20:06 Sodium Chloride Lock PHA 01/31/25 In Process (Saline Lock Ns) 22:00 Oxygen Per Hour RT 01/31/25 Transmitted 20:06 Hydrocodone-Acet PHA 01/31/25 In Process 5/325mg Tab ([place] 20:15 Ondansetron Hcl PHA 01/31/25 In Process (Zofran) 20:15 Docusate Sodium PHA 01/31/25 In Process Capsule (Colace 20:15 Fall Risk Precautions RIRI 01/31/[address] 20:06 Complete Blood Count LAB 02/01/25 Verified 04:00 Comprehensive LAB 02/01/25 Verified Metabolic Panel 04:00 Cardiac DIET 02/01/25 Transmitted Diet-2gna,Lofat,Lochol Breakfast Condition: Serious RIRI 01/31/25 In Process 20:06 Acetaminophen Tablet PHA 01/31/25 Logged (Tylenol Tablet) 20:15 Maintain Bed Rest RIRI 01/31/25 In Process 20:06 Sequential RIRI 01/31/25 In Process Compression Device Seizure Precautions [facility] 01/31/[address] 20:26 Problem List: (1) Seizure (2) Hyperglycemia (3) Dehydration (4) Altered mental status (5) Generalized weakness Date of Service: Jan 31, 2025 Billing Provider: LEONARDO BALES DNP Common Visit Codes: [id number] INP/OBS CARE (HIGH) LEONARDO BALES DNP Jan 31, 2025 20:27
[2025-01-31] MEDS ORDERED: NITROGLYCERIN 0.4 MG SL TAB SL PRN (20:30)
[2025-01-31] MEDS ORDERED: MORPHINE SULFATE INJ 2 MG/ml SYRG IV PRN (20:30)
[2025-01-31] MEDS: SODIUM CHLOR 0.9% PF (SALINE LOCK) 10ML VIAL/SYR IV SCH (21:13)
[2025-01-31 21:50] LABS: Urine Protein, UAD TRACE (Negative)
[2025-01-31 22:31] VITALS: BP 130/82; PULSE 77; RESP 15; TEMP 98.5; O2SAT 98
[2025-01-31 22:34] VITALS: PULSE 77; RESP 15; O2SAT 98
[2025-01-31] MEDS ORDERED: OXCA600T40 PO (22:53)
[2025-01-31] MEDS: ONDANSETRON HCL 4 MG/2 ML VIAL IV PRN (22:57)
[2025-02-01 01:00] VITALS: BP 136/80; PULSE 93; RESP 17; TEMP 98.1; O2SAT 96
[2025-02-01 05:00] VITALS: BP 127/85; PULSE 81; RESP 19; TEMP 98.9; O2SAT 93
[2025-02-01 05:43] LABS: Hematocrit 39.0 % (41.0-53.0); Hemoglobin 13.2 g/dL (13.5-17.5); Mean Corpuscular Hemoglobin 30.0 pg (28.0-32.0); Mean Corpuscular Volume 88.8 fL (80.0-100.0); Nucleated Red Blood Cells % 0.0 %
[2025-02-01 06:10] LABS: Alanine Aminotransferase 14 U/L (7-40); Alkaline Phosphatase 80 U/L (46-116); Anion Gap 8 (5-15); BUN/Creatinine Ratio 10.0 (10.0-20.0); Blood Urea Nitrogen 20 mg/dL (9-23); Carbon Dioxide 23 mmol/L (20-31); Glucose 96 mg/dL (74-106); Potassium 4.4 mmol/L (3.5-5.1); Sodium 144 mmol/L (136-145); Total Protein 6.3 g/dL (5.7-8.2)
[2025-02-01 06:11] LABS: Albumin 4.0 g/dL (3.2-4.8); Bilirubin, Total 0.4 mg/dL (0.2-1.0)
[2025-02-01 06:14] LABS: Calcium 8.6 mg/dL (8.7-10.4); Chloride 113 mmol/L (98-107)
[2025-02-01 08:00] VITALS: PULSE 71; RESP 16; O2SAT 98
[2025-02-01 09:00] VITALS: BP 127/85; PULSE 73; RESP 17; TEMP 98.1; O2SAT 98
[2025-02-01] MEDS: LACOSAMIDE 50 MG TAB PO SCH (09:42)
[2025-02-01] MEDS ORDERED: LACOSAMIDE 50 MG TAB PO SCH (10:00)
--- NOTE | 2025-02-01 12:03 | DVHPN2 ---
Reviewed: Care Plan, H&P, Labs, Medications, Previous Orders, Radiology Changes from previous H/P or p: No Changes Eyes: No Pain, No Vision change, No Conjunctivae inflammation, No Eyelid inflammation, No Other, No Redness ENT: No Ear pain, No Ear discharge, No Nose pain, No Nose discharge, No Nose congestion, No Mouth pain, No Mouth swelling, No Throat pain, No Throat swelling, No Other Cardiovascular: No Chest Pain, No Palpitations, No Orthopnea, No Paroxysmal Noc. Dyspnea, No Edema, No Lt Headedness, No Other Respiratory: No Cough, No Dry, No Shortness of breath, No SOB with excertion, No Wheezing, No Hemoptysis, No Pleuritic Pain, No Sputum, No Other Gastrointestinal: No Nausea, No Vomiting, No Abdominal Pain, No Diarrhea, No Constipation, No Melena, No Hematochezia, No Other Genitourinary: No Dysuria, No Frequency, No Incontinence, No Hematuria, No Retention, No Other Musculoskeletal: No other, No neck pain, No shoulder pain, No arm pain, No back pain, No hand pain, No leg pain, No foot pain Skin: No Rash, No Lesions, No Jaundice, No Bruising, No Other Objective Vitals Vital Signs Date Time Temp Pulse Resp B/P (MAP) Pulse Ox O2 Delivery O2 Flow Rate FiO2 02/01/25 09:00 98.1 73 17 127/85 (99) 98 98.1 01/31/25 22:34 Room Air* 0 21 Intake/Output Intake and Output 02/01/25 07:00 Intake Total 2040 ml Balance 2040 ml Intake Oral 1040 ml IV Total 1000 ml Medications Current Medications Medications Dose Ordered Sig/Kinjal Route Start Time Stop Time Status Last Admin Dose Admin Sodium Chloride 10 ml Q8HR IV 01/31/25 22:00 02/01/25 05:10 10 ML Acetaminophen/ Hydrocodone Bitart 1 tab Q4HP PRN PO 01/31/25 20:15 Ondansetron HCl 4 mg Q4HP PRN IV 01/31/25 20:15 01/31/25 22:57 4 MG Docusate Sodium 100 mg BIDPRN PRN PO 01/31/25 20:15 Acetaminophen 650 mg Q6HP PRN PO 01/31/25 20:15 Nitroglycerin 0.4 mg Q5MINP PRN SL 01/31/25 20:30 Morphine Sulfate 2 mg Q30M PRN IV 01/31/25 20:30 Oxcarbazepine 1,200 mg Q12HR PO 02/01/25 22:00 UNV Laboratory Results Laboratory Tests 02/01/25 05:01 Chemistry Test 02/01/25 05:01 Albumin 4.0 g/dL (3.2-4.8) Calcium Level 8.6 mg/dL (8.7-10.4) L Total Protein 6.3 g/dL (5.7-8.2) LFT Test 02/01/25 05:01 Alanine Aminotransferase (ALT) 14 U/L (7-40) Alkaline Phosphatase 80 U/L (46-116) Aspartate Amino Transferase (AST) 20 U/L (13-40) Total Bilirubin 0.4 mg/dL (0.2-1.0) Urinalysis Test 01/31/25 00:00 Urine Color Light-yellow (Yellow) Urine Clarity Turbid (Clear) H Urine pH 5.5 (5.0-9.0) Urine Specific [place] 1.008 (1.001-1.035) Urine Protein Trace (Negative) H Urine Ketones Negative (Negative) Urine Blood 2+ /uL (Negative) H Urine Nitrite Negative (Negative) Urine Bilirubin Negative (Negative) Urine Urobilinogen Normal mg/dL (Negative) Urine Leukocyte Esterase Negative /uL (Negative) Urine RBC 22 /hpf (0 - 3) Urine Microscopic WBC 4 /HPF (0-3) H Urine Squamous Epithelial Cells Few /hpf (<5) Urine Uric Acid Crystals Few /hpf (None Seen) Urine Bacteria Few /hpf (None Seen) H Urine Hyaline Casts Few /lpf (0 - 2) Urine Glucose Normal mg/dL (Normal) Labs and/or images reviewed: Labs reviewed by me, Image(s) reviewed by me Assessment/Plan Assessment/Plan Breakthrough seizures: Continue home medication oxcarbazepine 1200 mg p.o. b.i.d. neurology consult for Dr. Shah History of seizures Time spent 35 minutes Plan discussed with: Patient My Orders Orders - ANIYAH SOTO MD Procedure Category Date Status Time Oxcarbazepine Tablet PHA 02/01/25 Transmitted (Trileptal Tablet) 22:00 Date of Service: Feb 01, 2025 Billing Provider: ANIYAH SOTO MD Common Visit Codes: [id number] INP/OBS CARE(LOW) ANIYAH SOTO MD Feb 01, 2025 12:03
[2025-02-01 12:51] VITALS: BP 115/69; PULSE 65; RESP 17; TEMP 98; O2SAT 97
[2025-02-01 16:49] VITALS: BP 117/83; PULSE 69; RESP 16; TEMP 98.2; O2SAT 98
--- NOTE | 2025-02-02 08:24 | DVHDS2 ---
Discharge Summary Date of Admission Jan 31, 2025 at 20:26 Date of Discharge: Feb 01, 2025 Admitting Diagnosis Breakthrough seizures Wounds: None Labs/Diagnostic Data: Laboratory Results Test 02/01/25 05:01 01/31/25 14:06 01/31/25 10:55 01/31/25 00:00 White Blood Count 10.3 10^3/uL (4.4-10.8) Red Blood Count 4.40 10^6/uL (4.5-5.90) Hemoglobin 13.2 g/dL (13.5-17.5) Hematocrit 39.0 % (41.0-53.0) Mean Corpuscular Volume 88.8 fL (80.0-100.0) Mean Corpuscular Hemoglobin 30.0 pg (28.0-32.0) Mean Corpuscular Hemoglobin Concent 33.7 g/dL (32.0-36.0) Red Cell Distribution Width 14.3 % (11.8-14.3) Platelet Count 176 10^3/uL (140-450) Mean Platelet Volume 10.2 fL (6.9-10.8) Neutrophils (%) (Auto) 80.3 % (37.0-80.0) Lymphocytes (%) (Auto) 13.4 % (10.0-50.0) Monocytes (%) (Auto) 6.1 % (0.0-12.0) Eosinophils (%) (Auto) 0.0 % (0.0-7.0) Basophils (%) (Auto) 0.2 % (0.0-2.0) Neutrophils # (Auto) 8.3 10 ^3/uL (1.6-8.6) Lymphocytes # (Auto) 1.4 10 ^3/uL (0.4-5.4) Monocytes # (Auto) 0.6 10 ^3/uL (0-1.3) Eosinophils # (Auto) 0 10 ^3/uL (0-0.8) Basophils # (Auto) 0 10 ^3/uL (0-0.2) Nucleated Red Blood Cells 0.0 % Sodium Level 144 mmol/L (136-145) Potassium Level 4.4 mmol/L (3.5-5.1) Chloride Level 113 mmol/L (98-107) Carbon Dioxide Level 23 mmol/L (20-31) Anion Gap 8 (5-15) Blood Urea Nitrogen 20 mg/dL (9-23) Creatinine 2.01 mg/dL (0.700-1.30) Glomerular Filtration Rate Calc 44 mL/min (>90) BUN/Creatinine Ratio 10.0 (10.0-20.0) Serum Glucose 96 mg/dL (74-106) Calcium Level 8.6 mg/dL (8.7-10.4) Total Bilirubin 0.4 mg/dL (0.2-1.0) Aspartate Amino Transferase (AST) 20 U/L (13-40) Alanine Aminotransferase (ALT) 14 U/L (7-40) Alkaline Phosphatase 80 U/L (46-116) Total Protein 6.3 g/dL (5.7-8.2) Albumin 4.0 g/dL (3.2-4.8) Troponin I High Sensitivity 7 ng/L (</=54) Hemoglobin A1c 4.9 % A1C (<5.7) Urine Color Light-yellow (Yellow) Urine Clarity Turbid (Clear) Urine pH 5.5 (5.0-9.0) Urine Specific [place] 1.008 (1.001-1.035) Urine Protein Trace (Negative) Urine Ketones Negative (Negative) Urine Blood 2+ /uL (Negative) Urine Nitrite Negative (Negative) Urine Bilirubin Negative (Negative) Urine Urobilinogen Normal mg/dL (Negative) Urine Leukocyte Esterase Negative /uL (Negative) Urine RBC 22 /hpf (0 - 3) Urine Microscopic WBC 4 /HPF (0-3) Urine Squamous Epithelial Cells Few /hpf (<5) Urine Uric Acid Crystals Few /hpf (None Seen) Urine Bacteria Few /hpf (None Seen) Urine Hyaline Casts Few /lpf (0 - 2) Urine Glucose Normal mg/dL (Normal) Other Laboratory Tests 02/01/25 05:01 Brief Hx & Hospital Course: 34-year-old male with a history of seizures admitted for breakthrough seizures CT head was negative continued on home medications oxcarbazepine 1200 mg p.o. b.i.d.. Neurology consult for Dr. Shah pending patient left AMA. Consequences and complications of leaving AMA explained to the patient and he verbalized understanding. General condition satisfactory at the time of leaving AMA per nurse's notes. Consults/Reason for consult Neurology consult pending patient left AMA Operations or Procedures CT head Condition at Discharge: Fair Final Diagnosis/Problems List Breakthrough seizures: Continue home medication oxcarbazepine 1200 mg p.o. b.i.d. neurology consult for Dr. Shah History of seizures Discharge Disposition: AMA Discharge Instruct/Medications Diet comment: Not applicable Patient left AMA Activity comment: Not applicable Patient left AMA Follow Up/Referral: Not applicable Patient left AMA Medications: Not applicable Patient left AMA Scheduled Folic Acid (Folic Acid), 1 MG PO DAILY Lacosamide (Lacosamide), 150 MG PO BID, (Reported) Oxcarbazepine (Oxtellar Xr), 2 TAB PO BID, (Reported) 35 (Time taken for discharge summary 35 minutes) Discharge Statement: "Patient was advised to return to the ER or call 911 if any headaches, dizziness, shortness of breath, chest pain, abdominal pain, bleeding, fevers, or worsening of medical condition. Patient was counseled about treatment plan, medications, possible side effects, patientverbalized understanding. All questions were answered to the best of my ability. This discharge took greater then 30 minutes in planning, reviewing documentation, counseling the patient, and discussing with other team members." ASSESSMENT ASSESSMENT Hospital Course Left AMA Assessment Date of Service: Feb 02, 2025 Billing Provider: ANIYAH SOTO MD Common Visit Codes: 66501-NBQ/OBS DISCH DAY >30min ANIYAH SOTO MD Feb 02, 2025 08:24
== END 2025-02-01 16:45 | disposition left against medical advice (07) | DRG 53 ==
LOC: ER 10:28 → EDBD 10:28 → OVERFLOW 20:26 → TELE-CENTR 22:29
PROVIDERS: ADMIT Nurse Practitioner Family; ATTEND Nurse Practitioner Family
DX: G40.409 Other generalized epilepsy and epileptic syndromes, not intractable, without status epilepticus (principal); N17.0 Acute kidney failure with tubular necrosis; E86.0 Dehydration; F41.9 Anxiety disorder, unspecified; R73.9 Hyperglycemia, unspecified; Z53.29 Procedure and treatment not carried out because of patient's decision for other reasons; Z79.899 Other long term (current) drug therapy
CPT/HCPCS: 36415; 80048; 80053; 81001; 83036; 84484; 85025; G0378; J2405